=== PATIENT | female | born 1950 | race Caucasian/White ===

== ENCOUNTER → 2016-10-28 | Outpatient (CLI) | payer MEDICARE, BC ==
[2016-07-15 10:22] VITALS: BP 125/67
[~2016-10-28] MED LIST: ALBU18HF IH; ATOR20TA58 PO; CARV12.5 PO; CEFP200T PO; CITA10TA8 PO; CYCL5TAB PO; EMPA1TAB3 PO; ERGO500027 PO; FENO145T2 PO; GABA300T2 PO; GLIM4TAB2 PO; GUAI600T47 PO; IBUP800T19 PO; INSU100I17 SQ; INSU100I27 SQ; IPRA3AMP NEB; LISI-334 PO; LOSA1TAB17 PO; METF100P4 PO; METO50TA4 PO; MOME13HF IH; OXYC-328 PO; POTA10CA PO; POTA10TA10 PO; PRED-220 PO; PRED5TAB PO; SITA1TAB11 PO; VALA500T PO
--- NOTE | 2016-10-28 16:10 | RAD ---
Indication: Low back pain and recent falls. Time of exam 1605 hours. Comparison is made with prior radiograph from 07/10/2005. Curvature and alignment is normal. There are postop changes of posterior instrumented fusion with vertical stabilization rods and pedicle screws transfixing the L5-S1 level. The hardware appears intact. No fracture or loosening is identified. The vertebral body heights are well-maintained. No acute compression fracture is seen. Generalized degenerative disc disease with very mild disc space narrowing and marginal spurring is noted. There are atherosclerotic calcifications within the abdominal aorta. Impression: Postop changes of posterior instrumented fusion L4-5. There is lumbar spondylosis. No acute feature is detected.
== END | disposition home or self-care (01) ==
LOC: DXRADRC 15:58
PROVIDERS: ATTEND Physician Assistant
DX: M47.896 Other spondylosis, lumbar region (principal); M51.36 Other intervertebral disc degeneration, lumbar region; I70.0 Atherosclerosis of aorta
CPT/HCPCS: 72100

== ENCOUNTER 2017-02-09 15:05 | Observation (INO) | payer MEDICARE, BC ==
[~2017-02-09] VITALS: Ht 152.4 cm; Wt 64.4 kg
[2017-02-09] MEDS ORDERED: IV NORMAL SALINE 1,000ML 1,000 ML IV ONE (15:30)
--- NOTE | 2017-02-09 15:32 | RAD ---
Exam performed: One view chest. Indication: Chest pain today Date of Service: 02/09/2017 5:15 PM Comparison: 07/14/16. Single AP upright portable view chest findings: Cardiomediastinal silhouette is within limits of normal. No acute infiltrates, effusion or pneumothorax is detected. The bony structures are normal. Impression: No acute cardiopulmonary process is detected.
[2017-02-09 15:36] LABS: BASO % 0 % (0-3); EOS # 0.1 x10^3/uL (0.0-0.7); EOS % 2 % (0-3); HEMATOCRIT 33.4 % (36.0-47.0); HEMOGLOBIN 11.2 g/dL (12.0-15.5); LYMPH # 2.3 x10^3/uL (1.0-4.8); LYMPH % 35 % (24-48); MEAN CORPUSCULAR HEMOGLOBIN 31 pg (25-35); MEAN CORPUSCULAR HGB CONC 34 g/dL (31-37); MEAN CORPUSCULAR VOLUME 92 fL (79-100); MONO # 0.5 x10^3/uL (0.0-1.1); MONO % 8 % (0-9); NEUT # 3.6 x10^3uL (1.8-7.7); NEUT % 55 % (31-73); PLATELET COUNT 299 x10^3/uL (140-400); RED BLOOD COUNT 3.65 x10^6/uL (3.50-5.40); RED CELL DISTRIBUTION WIDTH 14.7 % (11.5-14.5); WHITE BLOOD COUNT 6.6 x10^3/uL (4.0-11.0)
[2017-02-09] MEDS ORDERED: fentaNYL PF 100 MCG/2 ML VIAL IV ONE ×2 (15:45→17:00)
[2017-02-09 15:58] LABS: ALBUMIN 3.4 g/dL (3.4-5.0); CALCIUM 9.4 mg/dL (8.5-10.1); CREATININE 1.2 mg/dL (0.6-1.0); GFR 45.1; MAGNESIUM 2.3 mg/dL (1.8-2.4); POTASSIUM 3.4 mmol/L (3.5-5.1); TOTAL BILIRUBIN 0.2 mg/dL (0.2-1.0); TOTAL PROTEIN 6.8 g/dL (6.4-8.2)
--- NOTE | 2017-02-09 16:03 | PHYS DOC ---
Past History Past Medical History: CAD, Cancer, Diabetes, Hypertension Past Surgical History: Cholecystectomy, , Hysterectomy Smoking: Non-smoker Alcohol Use: None Drug Use: None Adult General Chief Complaint Chief Complaint: CHEST PAIN HPI HPI Patient is a 66-year-old male presenting to the emergency department for evaluation of chest squeezing that started approximately 1.5 hours prior to arrival while at rest. She says it feels very similar to when she had her heart episodes in June and October. She says that she became short of breath and diaphoretic with the pain but no nausea and vomiting. Areas no radiation and she denied any recent exertional activity that set the pain off. Looking through the records it appears that she had a heart catheterization in June with 4 stents placed and then she had a stent thrombosis and had another heart catheter in October. Her counter hop is Dr. martin. She is in no obvious distress with normal vital signs. Review of Systems Review of Systems Constitutional: Denies fever or chills [] Eyes: Denies change in visual acuity, redness, or eye pain [] HENT: Denies nasal congestion or sore throat [] Respiratory: Denies cough or shortness of breath [] Cardiovascular: No additional information not addressed in HPI [] GI: Denies abdominal pain, nausea, vomiting, bloody stools or diarrhea [] : Denies dysuria or hematuria [] Musculoskeletal: Denies back pain or joint pain [] Integument: Denies rash or skin lesions [] Neurologic: Denies headache, focal weakness or sensory changes [] Endocrine: Denies polyuria or polydipsia [] Current Medications Current Medications Current Medications Medications (Trade) Dose Ordered Sig/Juan Start Time Stop Time Status Last Admin Dose Admin Fentanyl Citrate (Fentanyl 2ml Vial) 75 mcg 1X ONCE 02/09/17 15:45 02/09/17 15:46 DC 02/09/17 15:41 75 MCG Sodium Chloride 1,000 ml @ 1,000 mls/hr 1X ONCE 02/09/17 15:30 02/09/17 16:29 02/09/17 15:30 1,000 MLS/HR Allergies Allergies Allergies Coded Allergies Type Severity Reaction Last Updated Verified Penicillins Allergy Intermediate 06/01/16 Yes Soap Allergy Intermediate 06/01/16 Yes aspirin Allergy Intermediate 06/01/16 Yes hydrocodone bitartrate Allergy Intermediate Itching 10/25/15 Yes mushroom Allergy Intermediate 06/01/16 Yes povidone-iodine Allergy Intermediate 06/01/16 Yes Physical Exam Physical Exam Constitutional: Well developed, well nourished, no acute distress, non-toxic appearance. [] HENT: Normocephalic, atraumatic, bilateral external ears normal, oropharynx moist, no oral exudates, nose normal. [] Eyes: PERRLA, EOMI, conjunctiva normal, no discharge. [] Neck: Normal range of motion, no tenderness, supple, no stridor. [] Cardiovascular:Heart rate regular rhythm, no murmur [] Lungs & Thorax: Bilateral breath sounds clear to auscultation [] Abdomen: Bowel sounds normal, soft, no tenderness, no masses, no pulsatile masses. [] Skin: Warm, dry, no erythema, no rash. [] Back: No tenderness, no CVA tenderness. [] Extremities: No tenderness, no cyanosis, no clubbing, ROM intact, no edema. [] Neurologic: Alert and oriented X 3, normal motor function, normal sensory function, no focal deficits noted. [] Psychologic: Affect normal, judgement normal, mood normal. [] Current Patient Data Vital Signs Vital Signs Date Time Temp Pulse Resp B/P (MAP) Pulse Ox O2 Delivery O2 Flow Rate FiO2 02/09/17 15:41 20 97 Room Air 02/09/17 15:22 98.2 82 Lab Results Laboratory Tests Test 02/09/17 15:20 White Blood Count 6.6 x10^3/uL (4.0-11.0) Red Blood Count 3.65 x10^6/uL (3.50-5.40) Hemoglobin 11.2 g/dL (12.0-15.5) L Hematocrit 33.4 % (36.0-47.0) L Mean Corpuscular Volume 92 fL (79-100) Mean Corpuscular Hemoglobin 31 pg (25-35) Mean Corpuscular Hemoglobin Concent 34 g/dL (31-37) Red Cell Distribution Width 14.7 % (11.5-14.5) H Platelet Count 299 x10^3/uL (140-400) Neutrophils (%) (Auto) 55 % (31-73) Lymphocytes (%) (Auto) 35 % (24-48) Monocytes (%) (Auto) 8 % (0-9) Eosinophils (%) (Auto) 2 % (0-3) Basophils (%) (Auto) 0 % (0-3) Neutrophils # (Auto) 3.6 x10^3uL (1.8-7.7) Lymphocytes # (Auto) 2.3 x10^3/uL (1.0-4.8) Monocytes # (Auto) 0.5 x10^3/uL (0.0-1.1) Eosinophils # (Auto) 0.1 x10^3/uL (0.0-0.7) Basophils # (Auto) 0.0 x10^3/uL (0.0-0.2) Troponin I Quantitative < 0.017 ng/mL (0-0.055) EKG EKG Normal sinus rhythm with normal axis no obvious ST elevation or depression and normal T waves. Radiology/Procedures Radiology/Procedures [] Course & Med Decision Making Course & Med Decision Making Patient with concerning chest pain symptoms she will be admitted for further observation and treatment. Patient admitted in stable condition. Dragon Disclaimer Dragon Disclaimer This chart was dictated in whole or in part using Voice Recognition software in a busy, high-work load, and often noisy Emergency Department environment. It may contain unintended and wholly unrecognized errors or omissions. Departure Departure: Impression: Primary Impression: Chest pain Disposition: ADMITTED INPATIENT Admitting Physician: Alexandra Phan Condition: STABLE Referrals: PRESLEY PAVON (PCP) LOAN MAR DO Feb 09, 2017 16:03
[2017-02-09] MEDS ORDERED: ONDANSETRON PF 4 MG/2 ML VIAL. IV PRN (16:30)
--- NOTE | 2017-02-09 17:01 | EKG ---
[address] [address] Test Date: 2017-02-09 Test Time: 15:11:26 Pat Name: FAMILIA MAR Department: Room: Gender: F Track Rider: : [id number] Requested By: LOAN MAR Order Number: [id number] Reading MD: Chris Sears Measurements Intervals [place] Rate: 79 P: 36 MO: 116 QRS: 1 QRSD: 80 T: 30 QT: 390 QTc: 448 Interpretive Statements SINUS RHYTHM Electronically Signed On 02-15-2017 14:19:29 CDT by Chris Sears
[2017-02-09] MEDS ORDERED: ALBUTEROL SULFATE 8GM INHALER. IH PRN (17:30)
[2017-02-09] MEDS ORDERED: NON FORMULARY ITEM (Mometasone/Formoterol (Dulera 200 Mcg/5 Mcg Inhaler) 2 PUFF) IH PRN (17:30)
[2017-02-09] MEDS ORDERED: IPRATRPIUM/ALBUTEROL 0.5/2.5MG 3 ML NEBU. NEB PRN (17:30)
[2017-02-09] MEDS ORDERED: ALBUTEROL SULFATE 2.5 MG/3 ML NEBU. NEB PRN (17:45)
[2017-02-09 19:26] VITALS: BP 123/68
[2017-02-09] MEDS ORDERED: POTASSIUM CHLORIDE 20 MEQ TABLET.ER. PO ONE (19:30)
[2017-02-09] MEDS ORDERED: ASPI81TA50 PO (20:05)
[2017-02-09] MEDS ORDERED: CLOP75TA57 PO (20:05)
[2017-02-09] MEDS ORDERED: PIOG30TA41 PO (20:05)
[2017-02-09] MEDS ORDERED: SITA100T PO (20:05)
[2017-02-09] MEDS: fentaNYL PF 100 MCG/2 ML VIAL IV PRN (20:21)
[2017-02-09] MEDS ORDERED: ATORVASTATIN CALCIUM 20 MG TABLET PO SCH (21:00)
[2017-02-09] MEDS ORDERED: DOCUSATE SODIUM 100 MG CAPSULE PO PRN (21:15)
[2017-02-09] MEDS ORDERED: MAG HYDROX/AL HYDROX/SIMETH 30 ML ORAL.SUSP PO PRN (21:15)
[2017-02-09] MEDS ORDERED: ACETAMINOPHEN 325 MG TABLET PO PRN (21:15)
[2017-02-09] MEDS ORDERED: ESCITALOPRAM OX10 MG PO (21:15)
[2017-02-09] MEDS ORDERED: NITROGLYCERIN SUBLINGUAL 0.4 MG BOTTLE OF 25. SL PRN (21:15)
[2017-02-09] MEDS ORDERED: NITR0.4T22 SL (21:15)
[2017-02-09] MEDS: BUDESONIDE 0.5 MG/2 ML NEBU NEB SCH (21:28)
[2017-02-09] MEDS: ALBUTEROL SULFATE 2.5 MG/3 ML NEBU. NEB SCH (21:28)
[2017-02-09 21:57] VITALS: BP 111/74
[2017-02-09] MEDS ORDERED: CLOPIDOGREL BISULFATE 75 MG TABLET PO SCH (22:00)
[2017-02-09] MEDS ORDERED: POTASSIUM CHLORIDE 20 MEQ TABLET.ER. PO SCH (22:00)
[2017-02-09] MEDS ORDERED: LOSARTAN PO SCH (22:00)
[2017-02-09] MEDS ORDERED: HYDROCHLOROTHIAZIDE PO SCH (22:00)
[2017-02-09] MEDS ORDERED: ASPIRIN ENTERIC COATED 81 MG TABLET.DR. PO SCH (22:00)
[2017-02-09] MEDS ORDERED: CARVEDILOL 12.5 MG TABLET PO SCH (22:00)
[2017-02-09 23:17] VITALS: BP 113/75
[2017-02-10] MEDS: fentaNYL PF 100 MCG/2 ML VIAL IV PRN (00:15)
[2017-02-10 04:10] LABS: CALCIUM 8.8 mg/dL (8.5-10.1); GFR 55.6
[2017-02-10 05:00] VITALS: BP 112/72
--- NOTE | 2017-02-10 06:10 | ACF ---
Admission Criteria Forms CARDIOLOGY [facility] Clinical Indications for Admission to Inpatient Care ( Jamul/check or initial the applicable condition/criteria) Hospital admission is needed for appropriate care of the patient because of ANY ONE of the following: [ ] I. Hemodynamic instability as indicated by ALL of the following (1)(2)(3) (4)(5)(6)(7)(8)(9)(10) [ ]a) Vital sign abnormality not readily corrected by appropriate treatment with 12-24 hours for ANY ONE: [ ]i) Hypotension that persists despite appropriate treatment (eg, volume repletion) [ ]ii) Tachycardiathat persists despite appropriate tx ( e.g., analgesia, fluids, sedation as indicated [ ]iii) Orthostatic vital sign changes that persists despite appropriate treatment (eg, volume repletion) [ ]b) Vital sign abnormailty that is severe indicated by ANY ONE of the following: [ ]i) Inadequate perfusion indicated by ANY ONE of the following: [ ] 1) Lactic acidosis (> 2 mmol/L) [ ] 2) New abnormal capillary refill (> 3 seconds) [ ] 3) Reduced urine output [ ] 4) New altered mental status [ ] 5) Myocardial Ischemia [ ] 6) Other metabolic acidosis (arterial pH <7.35 ) not otherwise explained. [ ]ii) Mean arterial pressure[A] less than 60 mm Hg [ ]iii) Mean arterial pressure[A] less than 70 mm Hg after 30 minutes of appropriate treatment (eg, fluid resuscitation) [ ]iv) Sustained heart rate greater than 120 beats per minute in adult or child 6 years or older[B] [ ]v) IV inotropic or vasopressor medication required to maintain adequate blood pressure or perfusion [ ] II. Severe heart failure as indicated by ANY ONE of the following(17)(18) [ ]a) Respiratory distress [ ]b) Hypotension [ ]c) Debilitating anasarca refractory to therapy (eg, tissue breakdown with infection)[C](19) [ ]d) Cardiac arrhythmias of immediate concern [ ]e) Myocardial ischemia [ ] III. Cardiac arrhythmias or findings of immediate concern indicated by ANY ONE of the following (21)(22): [ ] a) Heart rhythms that are inherently dangerous or unstable indicated by ANY ONE of the following (23)(24)(25): [ ] i) Resuscitated ventricular fibrillation or cardiac arrest [ ] ii) Ventricular escape rhythm [ ] iii) Sustained ventricular tachycardia (30 seconds or more of ventricular rhythm at greater than 100 beats per minute) [ ] iv) Nonsustained ventricular tachycardia and ANY ONE of the following: [ ] 1) Suspected cardiac ischemia as cause or consequence of ventricular tachycardia [ ] 2) Acute myocarditis [ ] b) Unstable cardiac conduction defects indicated by ANY ONE of the following(25)(26)(27) [ ] i) Type II second-degree atrioventricular block [ ]ii) Third-degree atrioventricular block [ ]iii) New-onset left bundle branch block with suspected myocardial ischemia [ ]c) Any heart rhythm and ANY ONE of the following (23)(24)(28)(29) (30) [ ] i) Continuous long-term ECG monitoring needed (e.g., initiation of drug requiring monitoring for more than 24 hours) [ ] ii) Patient has automatic implanted cardioverter defibrillator that is repeatedly firing, malfunctioning, or in need of immediate adjustment of settings beyond the scope of ambulatory or observation care [ ]d) Heart rhythms of concern due to ANY ONE of the following: [ ] i) Hypotension [ ] ii) Respiratory distress [ ] iii) Association with other significant symptoms (e.g., bradycardia with syncope or ongoing dizziness, supraventricular tachycardia with chest pain (28)(29)(31) [ ] IV. Monitoring for cardiac contusion beyond the scope of observation care needed [A](32)(33)(34) [ ] V. Surgical or device complication (e.g., valve replacement complication , ICD disfunction or pacemaker dysfunction) (49)(50)(51)(52)(53)(54) [ ] . Inpatient palliative care needed. [F](51)(52) Also use Inpatient Palliative Care Criteria [ ] VII. Nonbacterial thrombotic (marantic) endocarditis(43)(44)(55)(56)(57) [X] VIII. Cardiology condition, symptom, or finding for which emergency and observation care has failed or are not considered appropriate. [ ] IX. Acute valvular disease requiring inpatient as indicated by ANY ONE of the following (40)(41) [ ]a) Acute valvular regurgitation (42) [ ]b) Noninfectious valvulitis (43)(44) [ ]c) Obstructive valve thrombosis (45)(46) [ ]d) Paravalvular leak(47)(48) [ ]e) Other significant valvular disorder remaining after emergency or observation level of care (as appropriate) [ ]X. Pericardial disease requiring inpatient treatment as indicated by ANY ONE of the following (35)(36)(37)(38) [ ]a) Suspected tamponade [ ]b) Hemopericardium [ ]c) Other significant pericardial disorder remaining after emergency or observation level of care (as appropriate)(39) [ ] XI. Cardiac ischemia beyond scope of emergency and observation care. [ ] XII. Cyanotic heart disease requiring inpatient care as indicated by 1 or more of the following(58)(59)(60): [ ]a) Acute onset of hypoxemia [ ]b) Exacerbation [ ] XIII. Hypertension requiring inpatient treatment as indicated by ANYONE of the following(11)(12)(13)(14): [ ]a) Severe hypertension (SBP greater than 180 mm Hg or DBP greater than 110 mm Hg, or greater than the 95th percentile for age, gender, and height in pediatric patients) that cannot be controlled (eg, to SBP less than 160 mm Hg and DBP less than 100 mm Hg) by emergency department or observation care treatment(15) [ ]b) Acute end organ damage secondary to hypertension (SBP greater than 140 mm Hg or DBP greater than 90 mm Hg) as indicated by ANYONE of the following: [ ] i) Hypertensive encephalopathy (eg, Altered mental status)(16) [ ] ii) Cerebral infarction [ ] iii) Intracranial hemorrhage [ ] iv) Myocardial ischemia or infarction [ ] v) Heart failure (eg, pulmonary edema) [ ] vi) Aortic dissection [ ] vii) Increased creatinine (new) with reduction of more than 50% in estimated glomerular filtration rate from baseline [ ] viii) Papilledema [ ] ix) Retinal hemorrhage [ ] x) Microangiopathic hemolytic anemia [ ] xi) Seizure [ ] xii) Other significant finding secondary to hypertension [ ] XIV. Complications of transplanted heart indicated by ANY ONE of the following(61): [ ]a) Acute graft rejection requiring inpatient management (eg, intravenous imunosuppression)(62)(63) [ ]b) Acute graft heart failure indicated by ANY ONE of the following(64): [ ] i) Hemodynamic instability [ ] ii) Cardiac arrhythmias of immediate concern [ ] iii) Pulmonary edema that is very severe (eg, mechanical ventilation needed, imminent or likely, need for 100% oxygen to keep oxygen saturation above 90%) [ ] iv) Pulmonary edema that is persistent as indicated by ALL of the following: [ ] 1) New need for oxygen therapy to keep oxygen saturation above 90 % (or increased FiO2 need from baseline) [ ] 2) Has not improved sufficiently with emergency department or observation care IV diuretics or other heart failure treatments[E]. [ ] iv) Altered mental status that is severe or persistent [ ] iv) Increased creatinine (new on laboratory test) with reduction of more than 50% in estimated glomerular filtration rate from baseline [ ] iv) Progressively (ongoing) rising creatinine (known from past laboratory test) with reduction of more than 25% in estimated glomerular filtration rate from baseline [ ] iv) Acute renal failure [ ] iv) Acute peripheral ischemia (eg, examination shows pulseless, cool, mottled, or cyanotic extremity) [ ] iv) Pulmonary artery catheter monitoring needed [ ] iv) Other sign or symptom of heart failure requiring inpatient treatment (ie, too severe or not responsive to outpatient and observation care treatment) [ ]c) Infection requiring inpatient management (eg, Hemodynamic instability, need for intravenous antimicrobial treatment)(66)(67)(68)(69)(70) [ ]d) Cardiac allograft vasculopathy requiring inpatient management (eg evidence of cardiacischemia)(71) [ ]e) Other complication of transplanted heart (eg, stroke, severe pulmonary hypertension, severe valvular dysfunction) requiring inpatient management(72) The original [facility] content created by [employer] has been revised. The portions of the content which have been revised are identified through the use of italic text, and [facility] has neither reviewed nor approved the modified material. All other unmodified content is copyright [facility]. Please see references footnoted in the original [facility] edition 2014 Admission Criteria Met?: Yes EDUARDO TELLES Feb 10, 2017 06:10
[2017-02-10 06:11] LABS: BASO % 0 % (0-3); EOS # 0.1 x10^3/uL (0.0-0.7); EOS % 2 % (0-3); HEMATOCRIT 29.6 % (36.0-47.0); HEMOGLOBIN 9.9 g/dL (12.0-15.5); LYMPH # 1.8 x10^3/uL (1.0-4.8); LYMPH % 30 % (24-48); MEAN CORPUSCULAR HEMOGLOBIN 31 pg (25-35); MEAN CORPUSCULAR HGB CONC 33 g/dL (31-37); MEAN CORPUSCULAR VOLUME 93 fL (79-100); MONO # 0.4 x10^3/uL (0.0-1.1); MONO % 8 % (0-9); NEUT # 3.5 x10^3uL (1.8-7.7); NEUT % 60 % (31-73); PLATELET COUNT 254 x10^3/uL (140-400); WHITE BLOOD COUNT 5.8 x10^3/uL (4.0-11.0)
[2017-02-10] MEDS: ALBUTEROL SULFATE 2.5 MG/3 ML NEBU. NEB SCH ×2 (08:00→09:43)
--- NOTE | 2017-02-10 09:02 | PDOC2 ---
CONSULT Date of Admission DATE: 02/10/17 TIME: 08:53 Reason for Consult: chest pain Problem List Problems Medical Problems: (1) Chest pain Status: Acute History of Present Illness History of Present Illness Ms Prakash is a 65 year old female with a history of hypertension, coronary artery disease with PCI and stents in June, diabetes mellitus and dyslipidemia. She presents with complaints of chest discomfort. Discomfort is described as pressure, mid sternal to epigastric area with radiation to her left throat and arm. She reports onset at rest, (just woke from nap) and got progressively worse so she presented to the ED. She reports that pain seemed to get worse with walking but no better with rest. She also reports lightheadedness and feeling she might pass out. She denies palpitations. She denies congestive symptoms. She does report some ankle/foot edema, worse in evenings and better in the am. Past Medical History Past Medical History Cardiac cath 07/31/16 FINDINGS 1. Hemodynamics: Left ventricular end-diastolic pressure 7 mm Hg. No pullback gradient across the aortic valve. 2. Left ventriculography: Normal left ventricular systolic function with ejection fraction estimated at 65%. No significant mitral regurgitation seen. 3. Coronary angiography: a. The left main coronary artery arose from the left sinus of Valsalva, gave rise to the left anterior descending and left circumflex arteries I do not show any significant stenosis. b. The left anterior descending artery showed 70% stenosis in the proximal segment and 90% stenosis in the midsegment. c. The left circumflex artery showed 40% stenosis in the proximal segment of large obtuse marginal branch. d. The right coronary artery was a large and dominant vessel arising from the right tonsil loss over that showed 80% stenosis in the proximal segment of the posterior descending branch. Conclusion 1. Severe two-vessel coronary artery disease 2. Successful PCI/drug eluting stents placement to the left anterior descending artery and the posterior descending branch of right coronary artery 3. Normal left ventricular systolic function with ejection fraction estimated at 65% Cardiac cath 11/06/16 Conclusion 1. Patent stents in the left anterior descending artery and the posterior descending branch of right coronary artery, 50% stenosis involving the obtuse marginal branch of left circumflex artery. 2. Normal left ventricle systolic function with ejection fraction estimated at 60-65%. Meniere disease, bronchial asthma, chronic bronchitis, diabetes mellitus, hypertension, coronary artery disease, hepatitis B, and fatty liver. Past Surgical History Past Surgical History tonsillectomy, five ear surgeries, cholecystectomy, two C-sections, hernia repair x 2, total abdominal hysterectomy, and bilateral salpingo-oophorectomy, left knee arthroscopic surgery, back surgeries, esophagogastroduodenoscopy and colonoscopy. Family History Family History She has one brother who is older and has CVA and myocardial infarction, 3 sisters, younger, but does not keep in touch with them. Her father at the age of 53 because of severe emphysema. Mother of meningitis. Her son at 39 of an NH with history of cardiomyopathy and heart failure. Social History Social History She is , had 3 sons. She never smoked, does not drink alcohol or use any recreational drugs. 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 Current Medications Current Medications Fentanyl Citrate (Fentanyl 2ml Vial) 75 mcg 1X ONCE IV Last administered on 15:41; Start 02/09/17 at 15:45; Stop 02/09/17 at 15:46; Status DC Sodium Chloride 1,000 ml @ 1,000 mls/hr 1X ONCE IV Last administered on 15:30; Start 02/09/17 at 15:30; Stop 02/09/17 at 16:29; Status DC Fentanyl Citrate (Fentanyl 2ml Vial) 75 mcg 1X ONCE IV Last administered on 16:37; Start 02/09/17 at 17:00; Stop 02/09/17 at 17:01; Status DC Ondansetron HCl (Zofran) 4 mg PRN Q4HRS PRN IV NAUSEA/VOMITING; Start 02/09/17 at 16:30; Stop 02/10/17 at 16:29 Fentanyl Citrate (Fentanyl 2ml Vial) 50 mcg PRN Q2HR PRN IV PAIN Last administered on 02/10/17 00:15; Start 02/09/17 at 16:30; Stop 02/10/17 at 16:29 Albuterol Sulfate (Ventolin Hfa) 1 puff PRN Q4HRS PRN IH SHORTNESS OF BREATH; Start 02/09/17 at 17:30; Status UNV Atorvastatin Calcium (Lipitor) 40 mg QHS PO Last administered on 02/09/17 21: 52; Start 02/09/17 at 21:00 Albuterol/ Ipratropium (Duoneb) 3 ml PRN QID PRN NEB SHORTNESS OF BREATH; Start 02/09/17 at 17:30 Non-Formulary Medication 2 puff QID PRN IH SHORTNESS OF BREATH; Start 02/09/17 at 17:30; Status UNV Albuterol Sulfate (Ventolin) 2.5 mg RTQID NEB Last administered on 02/09/17 21 :28; Start 02/09/17 at 20:00 Albuterol Sulfate (Ventolin) 2.5 mg PRN Q4HRS PRN NEB SHORTNESS OF BREATH; Start 02/09/17 at 17:45 Budesonide (Pulmicort) 0.5 mg RTBID NEB Last administered on 02/09/17 21:28; Start 02/09/17 at 20:00 Potassium Chloride (Klor-Con) 40 meq 1X ONCE PO Last administered on 20:11; Start 02/09/17 at 19:30; Stop 02/09/17 at 19:31; Status DC Aspirin (Aspirin Enteric Coated) 81 mg HS PO Last administered on 02/09/17 21: 52; Start 02/09/17 at 22:00 Carvedilol (Coreg) 12.5 mg HS PO Last administered on 02/09/17 21:52; Start at 22:00 Clopidogrel Bisulfate (Plavix) 75 mg HS PO Last administered on 02/09/17 21:52 ; Start 02/09/17 at 22:00 Non-Formulary Medication 1 tab HS PO Last administered on 02/09/17 21:53; Start 02/09/17 at 22:00 Potassium Chloride (Klor-Con) 20 meq HS PO ; Start 02/09/17 at 22:00 Non-Formulary Medication 100 mg HS PO Last administered on 02/09/17 21:52; Start 02/09/17 at 22:00 Nitroglycerin (Nitrostat) 0.4 mg PRN Q5MIN PRN SL CHEST PAIN; Start 02/09/17 at 21:15 Acetaminophen (Tylenol) 650 mg PRN Q6HRS PRN PO PAIN / TEMP; Start 02/09/17 at 21:15 Docusate Sodium (Colace) 100 mg PRN DAILY PRN PO CONSTIPATION; Start 02/09/17 at 21:15 Al Hydroxide/Mg Hydroxide (Mylanta Plus Xs) 30 ml PRN Q2HR PRN PO DYSPEPSIA; Start 02/09/17 at 21:15 Active Scripts Active Atorvastatin Calcium 20 Mg Tablet 40 Mg PO QHS Reported Escitalopram Oxalate 10 Mg Tablet 10 Mg PO DAILY NITROGLYCERIN SubLingual (Nitroglycerin) 0.4 Mg Tab.subl 0.4 Mg SL PRN Q5MIN PRN Actos (Pioglitazone Hcl) 30 Mg Tablet 30 Mg PO DAILY Plavix (Clopidogrel Bisulfate) 75 Mg Tablet 75 Mg PO DAILY Januvia (Sitagliptin Phosphate) 100 Mg Tablet 100 Mg PO DAILY Aspir-Low (Aspirin) 81 Mg Tablet.dr 81 Mg PO DAILY Ventolin Hfa Inhaler (Albuterol Sulfate) 18 Gm Hfa.aer.ad 1 Puff IH PRN Q4HRS PRN Coreg (Carvedilol) 12.5 Mg Tablet 12.5 Mg PO DAILY last dose this morning next dose tonight Duoneb 0.5-3(2.5) Mg/3 Ml (Albuterol/Ipratropium) 3 Ml Ampul.neb 3 Ml NEB QID PRN resume as needed Potassium Chloride 10 Meq Tablet.er 20 Meq PO DAILY last dose this morning next dose tomorrow Dulera 200 Mcg/5 Mcg Inhaler (Mometasone/Formoterol) 13 Gm Hfa.aer.ad 2 Puff IH QID PRN may resume Losartan-Hctz 100-25 Mg Tab (Losartan/Hydrochlorothiazide) 1 Each Tablet 1 Tab PO DAILY last dose this morning next dose tomorrow Ibuprofen 800 Mg Tablet 800 Mg PO BID PRN may resume Allergies: Coded Allergies: Penicillins (Verified Allergy, Intermediate, 06/01/16) Soap (Verified Allergy, Intermediate, 06/01/16) hydrocodone bitartrate (Verified Allergy, Intermediate, Itching, 10/25/15) mushroom (Verified Allergy, Intermediate, 06/01/16) povidone-iodine (Verified Allergy, Intermediate, 06/01/16) aspirin (Verified Allergy, Mild, 02/09/17) upset stomach when taken without food Review of System as per HPI or negative General: Alert, Oriented X3, Cooperative, No acute distress HEENT: Atraumatic, EOMI, Mucous membr. moist/pink Heart: Regular rate, Normal S1, Normal S2, Other (no gallops, clicks or rubs) Abdomen: Normal bowel sounds, Soft, No tenderness Extremities: No cyanosis, No edema, Normal pulses Neuro: Normal speech, Strength at 5/5 X4 ext Psych/Mental Status: Mental status NL, Mood NL VITALS Vital Signs Date Time Temp Pulse Resp B/P (MAP) Pulse Ox O2 Delivery O2 Flow Rate FiO2 02/10/17 08:23 Room Air 02/10/17 05:00 98.1 78 18 112/72 (85) 95 Labs Laboratory Tests Test 02/09/17 15:20 02/09/17 21:24 02/09/17 21:46 02/10/17 03:35 White Blood Count 6.6 x10^3/uL (4.0-11.0) 5.8 x10^3/uL (4.0-11.0) Red Blood Count 3.65 x10^6/uL (3.50-5.40) 3.20 x10^6/uL (3.50-5.40) Hemoglobin 11.2 g/dL (12.0-15.5) 9.9 g/dL (12.0-15.5) Hematocrit 33.4 % (36.0-47.0) 29.6 % (36.0-47.0) Mean Corpuscular Volume 92 fL (79-100) 93 fL (79-100) Mean Corpuscular Hemoglobin 31 pg (25-35) 31 pg (25-35) Mean Corpuscular Hemoglobin Concent 34 g/dL (31-37) 33 g/dL (31-37) Red Cell Distribution Width 14.7 % (11.5-14.5) 14.0 % (11.5-14.5) Platelet Count 299 x10^3/uL (140-400) 254 x10^3/uL (140-400) Neutrophils (%) (Auto) 55 % (31-73) 60 % (31-73) Lymphocytes (%) (Auto) 35 % (24-48) 30 % (24-48) Monocytes (%) (Auto) 8 % (0-9) 8 % (0-9) Eosinophils (%) (Auto) 2 % (0-3) 2 % (0-3) Basophils (%) (Auto) 0 % (0-3) 0 % (0-3) Neutrophils # (Auto) 3.6 x10^3uL (1.8-7.7) 3.5 x10^3uL (1.8-7.7) Lymphocytes # (Auto) 2.3 x10^3/uL (1.0-4.8) 1.8 x10^3/uL (1.0-4.8) Monocytes # (Auto) 0.5 x10^3/uL (0.0-1.1) 0.4 x10^3/uL (0.0-1.1) Eosinophils # (Auto) 0.1 x10^3/uL (0.0-0.7) 0.1 x10^3/uL (0.0-0.7) Basophils # (Auto) 0.0 x10^3/uL (0.0-0.2) 0.0 x10^3/uL (0.0-0.2) Prothrombin Time < 9.3 SEC (9.4-11.4) Prothromb Time International Ratio 0.9 (0.9-1.1) Activated Partial Thromboplast Time 22 SEC (23-33) Sodium Level 142 mmol/L (136-145) 142 mmol/L (136-145) Potassium Level 3.4 mmol/L (3.5-5.1) 4.0 mmol/L (3.5-5.1) Chloride Level 103 mmol/L (98-107) 107 mmol/L (98-107) Carbon Dioxide Level 31 mmol/L (21-32) 28 mmol/L (21-32) Anion Gap 8 (6-14) 7 (6-14) Blood Urea Nitrogen 36 mg/dL (7-20) 31 mg/dL (7-20) Creatinine 1.2 mg/dL (0.6-1.0) 1.0 mg/dL (0.6-1.0) Estimated GFR (Cockcroft-Gault) 45.1 55.6 BUN/Creatinine Ratio 30 (6-20) Glucose Level 120 mg/dL (70-99) 128 mg/dL (70-99) Calcium Level 9.4 mg/dL (8.5-10.1) 8.8 mg/dL (8.5-10.1) Magnesium Level 2.3 mg/dL (1.8-2.4) Total Bilirubin 0.2 mg/dL (0.2-1.0) Aspartate Amino Transf (AST/SGOT) 12 U/L (15-37) Alanine Aminotransferase (ALT/SGPT) 25 U/L (14-59) Alkaline Phosphatase 96 U/L (46-116) Troponin I Quantitative < 0.017 ng/mL (0-0.055) < 0.017 ng/mL (0-0.055) < 0.017 ng/mL (0-0.055) IT-Wrq-C-Type Natriuretic Peptide 69 pg/mL (0-124) Total Protein 6.8 g/dL (6.4-8.2) Albumin 3.4 g/dL (3.4-5.0) Albumin/Globulin Ratio 1.0 (1.0-1.7) Glucose (Fingerstick) 122 mg/dL (70-99) Test 02/10/17 07:21 Glucose (Fingerstick) 113 mg/dL (70-99) Images EKG - sinus rhythm, early transition, non specific abnormalities. CXR - no acute disease Assessment/Plan 1. Chest pain, NH ruled out. 2. CAD s/p PCI stenting as above. Repeat cath in October with patent stents and 50 % OM lesion. 3. hypertension - well controlled 4. hyperlipidemia - check lipids 5. anemia - per PCP 6. diabetes mellitus - per PCP Problems: CONSUELO DE OLIVEIRA APRN Feb 10, 2017 09:02
[2017-02-10] MEDS ORDERED: RANOLAZINE 500 MG TAB.ER.12H PO SCH (09:30)
[2017-02-10] MEDS: BUDESONIDE 0.5 MG/2 ML NEBU NEB SCH (09:43)
[2017-02-10 10:24] VITALS: BP 97/61
[2017-02-10] MEDS ORDERED: RANO500T2 PO (13:39)
--- NOTE | 2017-02-10 13:52 | PDOC3 ---
Discharge Summary Visit Information Date of Admission: Feb 09, 2017 Date of Discharge: Feb 10, 2017 Final Diagnosis Problems Medical Problems: (1) Chest pain Status: Acute 1. Chest pain, NE ruled out. 2. CAD s/p PCI stenting as above. Repeat cath in October with patent stents and 50 % OM lesion. 3. hypertension - well controlled 4. hyperlipidemia - check lipids 5. anemia - per PCP 6. diabetes mellitus - per PCP Problems: Brief Hospital Course Allergies Allergies Coded Allergies Type Severity Reaction Last Updated Verified Penicillins Allergy Intermediate 06/01/16 Yes Soap Allergy Intermediate 06/01/16 Yes hydrocodone bitartrate Allergy Intermediate Itching 10/25/15 Yes mushroom Allergy Intermediate 06/01/16 Yes povidone-iodine Allergy Intermediate 06/01/16 Yes aspirin Allergy Mild 02/09/17 Yes Vital Signs Vital Signs Date Time Temp Pulse Resp B/P (MAP) Pulse Ox O2 Delivery O2 Flow Rate FiO2 02/10/17 10:24 97.7 81 20 97/61 (73) 98 Room Air Lab Results Laboratory Tests Test 02/09/17 15:20 02/09/17 21:24 02/09/17 21:46 02/10/17 03:35 White Blood Count 6.6 x10^3/uL (4.0-11.0) 5.8 x10^3/uL (4.0-11.0) Red Blood Count 3.65 x10^6/uL (3.50-5.40) 3.20 x10^6/uL (3.50-5.40) Hemoglobin 11.2 g/dL (12.0-15.5) 9.9 g/dL (12.0-15.5) Hematocrit 33.4 % (36.0-47.0) 29.6 % (36.0-47.0) Mean Corpuscular Volume 92 fL (79-100) 93 fL (79-100) Mean Corpuscular Hemoglobin 31 pg (25-35) 31 pg (25-35) Mean Corpuscular Hemoglobin Concent 34 g/dL (31-37) 33 g/dL (31-37) Red Cell Distribution Width 14.7 % (11.5-14.5) 14.0 % (11.5-14.5) Platelet Count 299 x10^3/uL (140-400) 254 x10^3/uL (140-400) Neutrophils (%) (Auto) 55 % (31-73) 60 % (31-73) Lymphocytes (%) (Auto) 35 % (24-48) 30 % (24-48) Monocytes (%) (Auto) 8 % (0-9) 8 % (0-9) Eosinophils (%) (Auto) 2 % (0-3) 2 % (0-3) Basophils (%) (Auto) 0 % (0-3) 0 % (0-3) Neutrophils # (Auto) 3.6 x10^3uL (1.8-7.7) 3.5 x10^3uL (1.8-7.7) Lymphocytes # (Auto) 2.3 x10^3/uL (1.0-4.8) 1.8 x10^3/uL (1.0-4.8) Monocytes # (Auto) 0.5 x10^3/uL (0.0-1.1) 0.4 x10^3/uL (0.0-1.1) Eosinophils # (Auto) 0.1 x10^3/uL (0.0-0.7) 0.1 x10^3/uL (0.0-0.7) Basophils # (Auto) 0.0 x10^3/uL (0.0-0.2) 0.0 x10^3/uL (0.0-0.2) Prothrombin Time < 9.3 SEC (9.4-11.4) Prothromb Time International Ratio 0.9 (0.9-1.1) Activated Partial Thromboplast Time 22 SEC (23-33) Sodium Level 142 mmol/L (136-145) 142 mmol/L (136-145) Potassium Level 3.4 mmol/L (3.5-5.1) 4.0 mmol/L (3.5-5.1) Chloride Level 103 mmol/L (98-107) 107 mmol/L (98-107) Carbon Dioxide Level 31 mmol/L (21-32) 28 mmol/L (21-32) Anion Gap 8 (6-14) 7 (6-14) Blood Urea Nitrogen 36 mg/dL (7-20) 31 mg/dL (7-20) Creatinine 1.2 mg/dL (0.6-1.0) 1.0 mg/dL (0.6-1.0) Estimated GFR (Cockcroft-Gault) 45.1 55.6 BUN/Creatinine Ratio 30 (6-20) Glucose Level 120 mg/dL (70-99) 128 mg/dL (70-99) Calcium Level 9.4 mg/dL (8.5-10.1) 8.8 mg/dL (8.5-10.1) Magnesium Level 2.3 mg/dL (1.8-2.4) Total Bilirubin 0.2 mg/dL (0.2-1.0) Aspartate Amino Transf (AST/SGOT) 12 U/L (15-37) Alanine Aminotransferase (ALT/SGPT) 25 U/L (14-59) Alkaline Phosphatase 96 U/L (46-116) Troponin I Quantitative < 0.017 ng/mL (0-0.055) < 0.017 ng/mL (0-0.055) < 0.017 ng/mL (0-0.055) SG-Ssj-L-Type Natriuretic Peptide 69 pg/mL (0-124) Total Protein 6.8 g/dL (6.4-8.2) Albumin 3.4 g/dL (3.4-5.0) Albumin/Globulin Ratio 1.0 (1.0-1.7) Glucose (Fingerstick) 122 mg/dL (70-99) Test 02/10/17 07:21 02/10/17 11:16 Glucose (Fingerstick) 113 mg/dL (70-99) 171 mg/dL (70-99) Brief Hospital Course Ms. Prakash is a 66 old female who presented to the ER complaining of chest pain, mid sternal, severe at times. She has known cad with stents. She did not try a ntg. HER TROPONIS WERE NEGATIVE AND NE HAS BEEN RULED. SHE WAS SEEN BY CARDIOLOGY AND WAS REASSURED THAT SHE HAD A RECENT CATH IN OCTOBER AND STENTS WERE PATENT. HER BLOOD COUNT DROPPED WITH IV FLUIDS BUT IT DID THE SAME THING LAST JUNE AND SHE HAS KNOWN NORMOCROMIC, NORMOCYTIC ANEMIA. PE: ALERT AND ORIENTED, EYES CLEAR, TONGUE MOIST, NOSE PATENT. LUNGS CTA, CVRRR. ABDOMEN SOFT, NON TENDER, NO MASSES PA;PATED. EXTREMITIES WITHOUT EDEMA. Discharge Information Condition at Discharge: Improved Disposition/Orders: D/C to Home Dischare Medications Current Medications Fentanyl Citrate (Fentanyl 2ml Vial) 75 mcg 1X ONCE IV Last administered on 15:41; Start 02/09/17 at 15:45; Stop 02/09/17 at 15:46; Status DC Sodium Chloride 1,000 ml @ 1,000 mls/hr 1X ONCE IV Last administered on 15:30; Start 02/09/17 at 15:30; Stop 02/09/17 at 16:29; Status DC Fentanyl Citrate (Fentanyl 2ml Vial) 75 mcg 1X ONCE IV Last administered on 16:37; Start 02/09/17 at 17:00; Stop 02/09/17 at 17:01; Status DC Ondansetron HCl (Zofran) 4 mg PRN Q4HRS PRN IV NAUSEA/VOMITING; Start 02/09/17 at 16:30; Stop 02/10/17 at 16:29 Fentanyl Citrate (Fentanyl 2ml Vial) 50 mcg PRN Q2HR PRN IV PAIN Last administered on 02/10/17 00:15; Start 02/09/17 at 16:30; Stop 02/10/17 at 16:29 Albuterol Sulfate (Ventolin Hfa) 1 puff PRN Q4HRS PRN IH SHORTNESS OF BREATH; Start 02/09/17 at 17:30; Status UNV Atorvastatin Calcium (Lipitor) 40 mg QHS PO Last administered on 02/09/17 21: 52; Start 02/09/17 at 21:00 Albuterol/ Ipratropium (Duoneb) 3 ml PRN QID PRN NEB SHORTNESS OF BREATH; Start 02/09/17 at 17:30 Non-Formulary Medication 2 puff QID PRN IH SHORTNESS OF BREATH; Start 02/09/17 at 17:30; Status UNV Albuterol Sulfate (Ventolin) 2.5 mg RTQID NEB Last administered on 02/10/17 09 :43; Start 02/09/17 at 20:00 Albuterol Sulfate (Ventolin) 2.5 mg PRN Q4HRS PRN NEB SHORTNESS OF BREATH; Start 02/09/17 at 17:45 Budesonide (Pulmicort) 0.5 mg RTBID NEB Last administered on 02/10/17 09:43; Start 02/09/17 at 20:00 Potassium Chloride (Klor-Con) 40 meq 1X ONCE PO Last administered on 20:11; Start 02/09/17 at 19:30; Stop 02/09/17 at 19:31; Status DC Aspirin (Aspirin Enteric Coated) 81 mg HS PO Last administered on 02/09/17 21: 52; Start 02/09/17 at 22:00 Carvedilol (Coreg) 12.5 mg HS PO Last administered on 02/09/17 21:52; Start at 22:00 Clopidogrel Bisulfate (Plavix) 75 mg HS PO Last administered on 02/09/17 21:52 ; Start 02/09/17 at 22:00 Non-Formulary Medication 1 tab HS PO Last administered on 02/09/17 21:53; Start 02/09/17 at 22:00 Potassium Chloride (Klor-Con) 20 meq HS PO ; Start 02/09/17 at 22:00 Non-Formulary Medication 100 mg HS PO Last administered on 02/09/17 21:52; Start 02/09/17 at 22:00 Nitroglycerin (Nitrostat) 0.4 mg PRN Q5MIN PRN SL CHEST PAIN; Start 02/09/17 at 21:15 Acetaminophen (Tylenol) 650 mg PRN Q6HRS PRN PO PAIN / TEMP; Start 02/09/17 at 21:15 Docusate Sodium (Colace) 100 mg PRN DAILY PRN PO CONSTIPATION; Start 02/09/17 at 21:15 Al Hydroxide/Mg Hydroxide (Mylanta Plus Xs) 30 ml PRN Q2HR PRN PO DYSPEPSIA; Start 02/09/17 at 21:15 Ranolazine (Ranexa) 500 mg BID PO Last administered on 02/10/17 09:50; Start 02/10/17 at 09:30 Active Scripts Active Atorvastatin Calcium 20 Mg Tablet 40 Mg PO QHS Reported Escitalopram Oxalate 10 Mg Tablet 10 Mg PO DAILY NITROGLYCERIN SubLingual (Nitroglycerin) 0.4 Mg Tab.subl 0.4 Mg SL PRN Q5MIN PRN Actos (Pioglitazone Hcl) 30 Mg Tablet 30 Mg PO DAILY Plavix (Clopidogrel Bisulfate) 75 Mg Tablet 75 Mg PO DAILY Januvia (Sitagliptin Phosphate) 100 Mg Tablet 100 Mg PO DAILY Aspir-Low (Aspirin) 81 Mg Tablet.dr 81 Mg PO DAILY Ventolin Hfa Inhaler (Albuterol Sulfate) 18 Gm Hfa.aer.ad 1 Puff IH PRN Q4HRS PRN Coreg (Carvedilol) 12.5 Mg Tablet 12.5 Mg PO DAILY last dose this morning next dose tonight Duoneb 0.5-3(2.5) Mg/3 Ml (Albuterol/Ipratropium) 3 Ml Ampul.neb 3 Ml NEB QID PRN resume as needed Potassium Chloride 10 Meq Tablet.er 20 Meq PO DAILY last dose this morning next dose tomorrow Dulera 200 Mcg/5 Mcg Inhaler (Mometasone/Formoterol) 13 Gm Hfa.aer.ad 2 Puff IH QID PRN may resume Losartan-Hctz 100-25 Mg Tab (Losartan/Hydrochlorothiazide) 1 Each Tablet 1 Tab PO DAILY last dose this morning next dose tomorrow Ibuprofen 800 Mg Tablet 800 Mg PO BID PRN may resume Patient Instructions Patient Instuctions DC TO HOME. MEDICATIONS RECONCILED. SEE FOOD PRESERVATION SCIENTIST IF PAIN STARTS TO BECOME A RECURRING FACTOR. EJ AVELAR DO Feb 10, 2017 13:52
== END 2017-02-10 14:20 | disposition home or self-care (01) ==
LOC: ER 15:05 → 1 SOUTH 17:03
PROVIDERS: ADMIT Family Medicine; ATTEND Family Medicine
DX: R07.2 Precordial pain (principal); I25.10 Atherosclerotic heart disease of native coronary artery without angina pectoris; I10 Essential (primary) hypertension; E78.5 Hyperlipidemia, unspecified; D64.9 Anemia, unspecified; E11.9 Type 2 diabetes mellitus without complications; Z90.710 Acquired absence of both cervix and uterus; Z95.5 Presence of coronary angioplasty implant and graft; Z85.9 Personal history of malignant neoplasm, unspecified; Z79.899 Other long term (current) drug therapy; Z82.3 Family history of stroke; Z82.5 Family history of asthma and other chronic lower respiratory diseases; Z82.49 Family history of ischemic heart disease and other diseases of the circulatory system
CPT/HCPCS: 36415; 71010; 80048; 80053; 80061; 82947; 83735; 83880; 84484; 85025; 85610; 85730; 93005; 94640; 96361; 96374; 96376; 99285; G0378; J3010; J7613; J7626; G0379; J7030

== ENCOUNTER → 2017-05-05 | Outpatient (CLI) | payer MEDICARE, BC ==
[~2017-05-05] MED LIST changes: +ASPI81TA50 PO; +CLOP75TA57 PO; +ESCITALOPRAM OX10 MG PO; -LOSA1TAB17 PO; +LOSA1TAB22 PO; +NITR0.4T22 SL; +PIOG30TA41 PO; +RANO500T2 PO; +SITA100T PO
--- NOTE | 2017-05-05 17:10 | RAD ---
Lumbar spine 5 views 05/05/2017 Clinical indication: Back pain and radiculopathy. Comparison: Lumbar spine 10/28/2016 Fines: 5 lumbar type vertebral bodies. Postsurgical changes of L5-S1 posterior spinal fixation. No evidence of acute lumbar spine fracture or traumatic malalignment. There is multilevel lumbar disc degeneration with disc space narrowing, endplate sclerosis and anterior marginal osteophyte formation greatest in marked degree at L2-L3. There is calcified atheromatous disease of the abdominal aorta. There are multiple scattered pelvic surgical clips. Impression: 1. Prior L5-S1 posterior spinal fixation. 2. Lumbar spondylosis greatest to a moderate degree at L2-L3.
== END | disposition home or self-care (01) ==
LOC: DXRAD 15:19
PROVIDERS: ATTEND Physician Assistant
DX: M54.17 Radiculopathy, lumbosacral region (principal); M47.896 Other spondylosis, lumbar region; M25.78 Osteophyte, vertebrae; Z98.890 Other specified postprocedural states
CPT/HCPCS: 72110

== ENCOUNTER → 2017-06-09 | Outpatient (CLI) | payer MEDICARE, BC ==
--- NOTE | 2017-06-09 16:10 | RAD ---
2 views of the Chest 06/09/2017 2:00 AM Indication: COUGH, WRIST PAIN Comparison: None Findings: There is no focal consolidation or infiltrate identified. There is no effusion or pneumothorax. Size is within normal limits. Cardiac monitoring devices noted projecting over the anterior chest. Coronary stent noted. No osseous abnormality is identified. Impression: No evidence of acute cardiopulmonary process.
--- NOTE | 2017-06-09 17:02 | RAD ---
Three-view right wrist radiographs 06/09/2017 Clinical history: Fall with right wrist pain. PA and lateral digital radiographs of the right wrist were obtained. No fracture or dislocation right wrist is seen. Mild degenerative changes are seen involving the radiocarpal joint, the mid carpal joint and first carpal metacarpal joint. Slight widening of the space between the scaphoid and lunate is seen which could reflect a scapholunate ligament tear. Clinical correlation is recommended. Impression: No fracture or dislocation of the right wrist is seen.
== END | disposition home or self-care (01) ==
LOC: PMG 10:17
PROVIDERS: ATTEND Physician Assistant
DX: M19.031 Primary osteoarthritis, right wrist (principal); R05 Cough
CPT/HCPCS: 71020; 73100

== ENCOUNTER 2017-07-12 02:10 | Inpatient (IN) | payer MEDICARE, BC ==
[~2017-07-12] VITALS: Ht 152.4 cm; Wt 62.6 kg
[2017-07-12] MEDS ORDERED: ASPIRIN 81 MG TAB.CHEW ONE (02:20)
[2017-07-12] MEDS ORDERED: ASPIRIN 81 MG TAB.CHEW PO ONE ×2 (02:30)
[2017-07-12 02:37] LABS: BASO % 0 % (0-3); EOS # 0.1 x10^3/uL (0.0-0.7); EOS % 2 % (0-3); HEMATOCRIT 34.4 % (36.0-47.0); HEMOGLOBIN 12.6 g/dL (12.0-15.5); LYMPH # 2.9 x10^3/uL (1.0-4.8); LYMPH % 43 % (24-48); MEAN CORPUSCULAR HEMOGLOBIN 33 pg (25-35); MEAN CORPUSCULAR HGB CONC 37 g/dL (31-37); MEAN CORPUSCULAR VOLUME 89 fL (79-100); MONO # 0.6 x10^3/uL (0.0-1.1); MONO % 9 % (0-9); NEUT % 46 % (31-73); PLATELET COUNT 308 x10^3/uL (140-400); RED BLOOD COUNT 3.88 x10^6/uL (3.50-5.40); RED CELL DISTRIBUTION WIDTH 13.8 % (11.5-14.5); WHITE BLOOD COUNT 6.7 x10^3/uL (4.0-11.0)
[2017-07-12] MEDS: 0.9 % SODIUM CHLORIDE 10 ML DISP.SYRIN. IV PRN (02:39)
--- NOTE | 2017-07-12 02:40 | PHYS DOC ---
Past History Past Medical History: CAD, Cancer, Diabetes, Hypertension Past Surgical History: Angioplasty, Cholecystectomy, , Hysterectomy Smoking: Non-smoker Alcohol Use: None Drug Use: None Adult General Chief Complaint Chief Complaint: CHEST PAIN HPI HPI Patient is a pleasant 66-year-old female with a known history of heart disease, chronic back pain, prior history of uterine cervical cancer requiring surgery, hyperlipidemia, hypertension, prior history of diabetes who presents with chest pain that began intermittently on . Patient's chest pain is gotten more frequent and she comes in tonight because there is of chest pain that began about 10:30 tonight and is been unrelenting. The pain radiates from her left chest to left shoulder and left arm. She's been dizzy with it and she's been mildly nauseous. She said the chest pain is not worse with certain ranges of motion or chest wall movement it is better with rest. The pain is 10 of 10 at this time. She denies any cough, runny nose, congestion although she has had recent URI symptoms within the last 3 weeks. Patient had stenting done 4 back in July 2016 with restenosis of the vessel back in October 2016 is under the care of Dr. radha delgado interline clerk. Patient denies any chest wall trauma, denies any new symptoms like abdominal pain, diarrhea or vomiting. She has noted intermittent swelling of her lower legs. She denies any fevers, chills , headache or focal neurologic deficit. Differential diagnosis for chest pain: Pericarditis, myocarditis, endocarditis, pneumothorax, pneumonia, aortic dissection, esophageal spasm, esophagitis, peptic ulcer disease, acute coronary syndrome, mediastinitis, Boerhaave syndrome , musculoskeletal chest wall pain, costochondritis, intercostal strain, rib fracture, pulmonary contusion, pneumonitis, pleural effusion, pericardial effusion, pericardial tamponode, and pleurisy. Patient's EKG done at 2:24 AM 07/12/2017 demonstrates sinus rhythm with a heart rate of 78 there is a P wave there were QRS, ND interval is 132 which is normal , QRS width is 80 which is normal, QTC is 480 which is mildly prolonged. Patient has no ST segment T-wave changes consistent with acute cord ischemia or STEMI at this time Review of Systems Review of Systems Constitutional: Denies fever or chills [] Eyes: Denies change in visual acuity, redness, or eye pain [] HENT: Denies nasal congestion or sore throat [] Respiratory: Denies cough patient has had some shortness of breath with this chest pain Cardiovascular: No additional information not addressed in HPI [] GI: Denies abdominal pain, vomiting, bloody stools or diarrhea she has had some nausea with this chest pain [] : Denies dysuria or hematuria [] Musculoskeletal: Denies back pain or joint pain patient has noted some edema of her lower legs bilaterally that is episodic[] Integument: Denies rash or skin lesions [] Neurologic: Denies headache, focal weakness or sensory changes [] Endocrine: Denies polyuria or polydipsia [] All other systems were reviewed and found to be within normal limits, except as documented in this note. Current Medications Current Medications Current Medications Medications (Trade) Dose Ordered Sig/Juan Start Time Stop Time Status Last Admin Dose Admin Aspirin (Children'S Aspirin) 162 mg 1X ONCE 07/12/17 02:30 07/12/17 02:31 UNV Fentanyl Citrate (Fentanyl 2ml Vial) 50 mcg 1X ONCE 07/12/17 02:30 07/12/17 02:31 UNV Lorazepam (Ativan) 1 mg 1X ONCE 07/12/17 02:30 07/12/17 02:31 UNV Sodium Chloride (Normal Saline Flush) 10 ml QSHIFT PRN 07/12/17 02:30 UNV Allergies Allergies Allergies Coded Allergies Type Severity Reaction Last Updated Verified Penicillins Allergy Intermediate 06/01/16 Yes Soap Allergy Intermediate 06/01/16 Yes hydrocodone bitartrate Allergy Intermediate Itching 10/25/15 Yes mushroom Allergy Intermediate 06/01/16 Yes povidone-iodine Allergy Intermediate 06/01/16 Yes aspirin Allergy Mild 02/09/17 Yes Physical Exam Physical Exam Constitutional: Well developed, well nourished, patient is obese looks older than stated age. She is nondiaphoretic nontoxic in appearance but obviously uncomfortable. HENT: Normocephalic, atraumatic, bilateral external ears normal, oropharynx moist, no oral exudates, nose normal. [] Eyes: PERRLA, EOMI, conjunctiva normal, no discharge. [] Neck: Normal range of motion, no tenderness, supple, no stridor. [] Cardiovascular:Heart rate regular rhythm, no murmur recent does have chest wall tenderness to palpation is reproducible although not exactly the same. [] Lungs & Thorax: Bilateral breath sounds clear to auscultation [] Abdomen: Bowel sounds normal, soft, no tenderness, no masses, no pulsatile masses. [] Skin: Warm, dry, no erythema, no rash. [] Back: She with chronic lumbar spine pain reproducible on exam nothing midline Extremities: No tenderness, no cyanosis, no clubbing, ROM intact, no edema. Noted on her lower extremity's bilaterally [] Neurologic: Alert and oriented X 3, normal motor function, normal sensory function, no focal deficits noted. [] Psychologic: Affect normal, judgement normal, mood normal. [] EKG EKG [] Radiology/Procedures Radiology/Procedures []AP single chest x-ray read by me as a portal upright demonstrates a normal cardiac shadow with no specific pulmonary infiltrates, pleural effusion or signs of cardiomegaly. Patient has no pneumothorax or pneumomediastinum on my examination of the chest x-ray Course & Med Decision Making Course & Med Decision Making Pertinent Labs and Imaging studies reviewed. (See chart for details) []Patient presents with chest pain of unclear etiology because of her cardiac history is normal troponin, CMP, proBNP, chest x-ray EKG and appropriate supportive workup completed. EKG is not remarkable for signs of acute coronary event. Differential diagnosis for chest pain: Pericarditis, myocarditis, endocarditis, pneumothorax, pneumonia, aortic dissection, esophageal spasm, esophagitis, peptic ulcer disease, acute coronary syndrome, mediastinitis, Boerhaave syndrome , musculoskeletal chest wall pain, costochondritis, intercostal strain, rib fracture, pulmonary contusion, pneumonitis, pleural effusion, pericardial effusion, pericardial tamponode, and pleurisy. Was considered upon arrival Time is now 3:30 AM patient is pain-free she is comfortable her initial troponin is negative, her pro BNP is unremarkable she does have an elevation in her BUN/creatinine. She is new to renal insufficiency. Patient is also noted to be hyperglycemic Because of her heart disease and her history History: She has intermediate risk with a score 4 based on age her story EKG changes and troponin. I will admit her to the hospital for it. A period of Evaluation and intervention by her interline clerk. Highly suspicious 2 points moderately suspicious 1. slightly suspicious 0 point EKG: ST segment depression 2. nonspecific repolarization disturbance 1. normal 0 point Age: Greater than 65 2 points, 65-45 1., less than 45 years old 0 points Risk factors:> 3 risk factors 2 points, 1-2 risk factors one point, no risk factors 0 point Troponin: > 2 times normal 2 points, 1-2 times normal 1., normal limits 0 point Total score: Score % pts MACE/n MACE Policy 0-3 32% 1.9% 0.05% Discharge 4-6 51% [id number] 13% 1.3% Observation Risk management 7-10 17% [id number] 50% 2.8% Observation Treatment, [facility] [employer] note: Dr. Tiff G[employer] [employer] called at of the service service called at 3:30 am Consult called back at 3:30 AM Discussed the case I presented and they agreed with admission. Time of acceptance 3:30 a.m. "I have assessed this patient clinically and believe that their condition requires an admission to the hospital. After consulting the admitting physician about this case, they have asked that I admit this patient to their service as an inpatient based on the clinical presentation and my impression." Nursery Laboratory Tests 07/12/17 02:21: White Blood Count 6.7, Red Blood Count 3.88, Hemoglobin 12.6, Hematocrit 34.4, Mean Corpuscular Volume 89, Mean Corpuscular Hemoglobin 33, Mean Corpuscular Hemoglobin Concent 37, Red Cell Distribution Width 13.8, Platelet Count 308, Neutrophils (%) (Auto) 46, Lymphocytes (%) (Auto) 43, Monocytes (%) (Auto) 9, Eosinophils (%) (Auto) 2, Basophils (%) (Auto) 0, Neutrophils # (Auto) 3.0, Lymphocytes # (Auto) 2.9, Monocytes # (Auto) 0.6, Eosinophils # (Auto) 0.1, Basophils # (Auto) 0.0, Sodium Level 138, Potassium Level 3.5, Chloride Level 102, Carbon Dioxide Level 27, Anion Gap 9, Blood Urea Nitrogen 22, Creatinine 1.4, Estimated GFR (Cockcroft-Gault) 37.7, Glucose Level 324, Calcium Level 9.0 , Magnesium Level 2.0, Total Bilirubin 0.3, Direct Bilirubin 0.1, Aspartate Amino Transf (AST/SGOT) [Pending], Alanine Aminotransferase (ALT/SGPT) 27, Alkaline Phosphatase 137, Creatine Kinase 92, Creatine Kinase MB (Mass) 2.1, Creatine Kinase MB Relative Index 2.3, Troponin I Quantitative < 0.017, NT-Pro-B -Type Natriuretic Peptide 64, Total Protein 6.7, Albumin 3.3, Lipase 153 Dragon Disclaimer Dragon Disclaimer This electronic medical record was generated, in whole or in part, using a voice recognition dictation system. Departure Departure: Impression: Primary Impression: Chest pain Additional Impressions: Renal insufficiency Hyperglycemia Disposition: ADMITTED INPATIENT Admitting Physician: Sivakumar Dangelo Condition: GUARDED Referrals: PRESLEY PAVON (PCP) Problem Qualifiers DACIA VALDEZ MD Jul 12, 2017 02:39
[2017-07-12] MEDS ORDERED: IV NORMAL SALINE 1,000ML 1,000 ML IV SCH (03:00)
[2017-07-12] MEDS ORDERED: LORazepam 2 MG/ML VIAL IV ONE (03:00)
[2017-07-12 03:13] LABS: ALBUMIN 3.3 g/dL (3.4-5.0); CREATININE 1.4 mg/dL (0.6-1.0); DIRECT BILIRUBIN 0.1 mg/dL (0.0-0.2); GFR 37.7; POTASSIUM 3.5 mmol/L (3.5-5.1); TOTAL BILIRUBIN 0.3 mg/dL (0.2-1.0); TOTAL PROTEIN 6.7 g/dL (6.4-8.2)
[2017-07-12] MEDS ORDERED: ONDANSETRON PF 4 MG/2 ML VIAL. IV PRN (03:45)
[2017-07-12] MEDS ORDERED: NITROGLYCERIN SUBLINGUAL 0.4 MG BOTTLE OF 25. SL PRN ×2 (03:45→08:45)
--- NOTE | 2017-07-12 04:50 | NUR ---
The patient, FAMILIA MAR, 66 y/o, F admitted by JOSE ELIAS RUBIO MD, was given written information regarding hospital policies, unit procedures and contact persons. Valuables were checked and logged. Will continue to monitor.
[2017-07-12] MEDS ORDERED: TRAM50TA PO (06:14)
[2017-07-12] MEDS ORDERED: METH750T2 PO (06:14)
[2017-07-12] MEDS ORDERED: GABA300C8 PO (06:14)
[2017-07-12 07:00] VITALS: BP 105/66
--- NOTE | 2017-07-12 07:16 | RAD ---
Portable chest, 07/12/2017: History: Chest pain Comparison is made to a study from 06/09/2017. The heart size and pulmonary vascularity are normal. No pulmonary infiltrates are seen. There is no evidence of pleural fluid. An electronic device is again noted projected over the left lower chest. IMPRESSION: No acute cardiopulmonary abnormality is detected.
[2017-07-12] MEDS ORDERED: DEXTROSE 50% 25 GM / 50ML DISP.SYRIN. IV PRN (07:30)
[2017-07-12] MEDS: INSULIN ASPART 300 UNITS/3 ML INSULN.PEN SQ SCH ×4 (08:09→20:22)
[2017-07-12] MEDS ORDERED: traMADol 50 MG TABLET PO PRN (08:45)
[2017-07-12] MEDS ORDERED: ALBUTEROL SULFATE 8GM INHALER. IH PRN (08:45)
[2017-07-12] MEDS ORDERED: METHOCARBAMOL 750 MG TABLET PO PRN (08:45)
[2017-07-12] MEDS ORDERED: IPRATRPIUM/ALBUTEROL 0.5/2.5MG 3 ML NEBU. NEB PRN (08:45)
[2017-07-12] MEDS ORDERED: NON FORMULARY ITEM (Mometasone/Formoterol (Dulera 200 Mcg/5 Mcg Inhaler) 2 PUFF) IH PRN (08:45)
[2017-07-12] MEDS: ASPIRIN ENTERIC COATED 81 MG TABLET.DR. PO SCH (09:00)
[2017-07-12] MEDS ORDERED: ALBUTEROL SULFATE 2.5 MG/3 ML NEBU. NEB PRN (09:15)
--- NOTE | 2017-07-12 09:16 | PDOC2 ---
CONSULT Date of Admission DATE: 07/12/17 TIME: 09:07 Reason for Consult: chest pain Problem List Problems Medical Problems: (1) Chest pain Status: Acute (2) Hyperglycemia Status: Acute (3) Renal insufficiency Status: Acute History of Present Illness Ms Prakash is a 65 year old female with a history of hypertension, coronary artery disease with PCI and stents in Jul 2016, diabetes mellitus and dyslipidemia. She presents with complaints of chest discomfort. She reports several days of palpitations and feeling like her heart is pounding. She does have a biomonitor and has triggered it several times in the last 4 days with rhythm strips consistent with sinus rhythm. She reports chest pain in her left chest, left sternal border that is non radiating and a squeezing sensation. She denies any change with exertion, deep inspiration or position change. She does report having pneumonia or the flu at the beginning of the year and does continue to have a cough, productive with white sputum. She denies congestive symptoms, lightheadedness or syncope. She has had 3 mechanical falls recently. Past Medical History Cardiac cath 07/31/16 FINDINGS 1. Hemodynamics: Left ventricular end-diastolic pressure 7 mm Hg. No pullback gradient across the aortic valve. 2. Left ventriculography: Normal left ventricular systolic function with ejection fraction estimated at 65%. No significant mitral regurgitation seen. 3. Coronary angiography: a. The left main coronary artery arose from the left sinus of Valsalva, gave rise to the left anterior descending and left circumflex arteries I do not show any significant stenosis. b. The left anterior descending artery showed 70% stenosis in the proximal segment and 90% stenosis in the midsegment. c. The left circumflex artery showed 40% stenosis in the proximal segment of large obtuse marginal branch. d. The right coronary artery was a large and dominant vessel arising from the right tonsil loss over that showed 80% stenosis in the proximal segment of the posterior descending branch. Conclusion 1. Severe two-vessel coronary artery disease 2. Successful PCI/drug eluting stents placement to the left anterior descending artery and the posterior descending branch of right coronary artery 3. Normal left ventricular systolic function with ejection fraction estimated at 65% Recommendations 1. Aspirin 325 mg daily 2. Plavix 75 mg daily for preferably one year 3. Cardiovascular risk factor modification Cardiac cath 10/2016 FINDINGS 1. Hemodynamics: Left ventricular end-diastolic pressure of 8 mmHg. No pullback gradient across the aortic valve. 2. Left ventriculography: Normal left ventricle systolic function with ejection fraction estimated at 60-65%. No significant mitral regurgitation seen. 3. Coronary angiography: a. The left main coronary artery arose from the left sinus of Valsalva, gave rise to the left anterior descending and left circumflex arteries and did not show any significant stenosis. b. The left anterior descending artery showed widely patent stent in the proximal to midsegment. There is moderate diffuse disease in the distal segment. c. The left circumflex artery showed 50% stenosis involving the proximal segment of obtuse marginal branch. d. The right coronary artery was a large and dominant vessel arising from the right sinus of Valsalva that showed patent stent in the proximal segment of posterior descending branch. Conclusion 1. Patent stents in the left anterior descending artery and the posterior descending branch of right coronary artery, 50% stenosis involving the obtuse marginal branch of left circumflex artery. 2. Normal left ventricle systolic function with ejection fraction estimated at 60-65%. Meniere disease, bronchial asthma, chronic bronchitis, diabetes mellitus, hypertension, coronary artery disease, hepatitis B, and fatty liver. Past Surgical History tonsillectomy, five ear surgeries, cholecystectomy, two C-sections, hernia repair x 2, total abdominal hysterectomy, and bilateral salpingo-oophorectomy, left knee arthroscopic surgery, back surgeries, esophagogastroduodenoscopy and colonoscopy. Family History She has one brother who is older and has CVA and myocardial infarction, 3 sisters, younger, but does not keep in touch with them. Her father at the age of 53 because of severe emphysema. Mother of meningitis. Her son at 39 of an AK with history of cardiomyopathy and heart failure. Social History She is , had 3 sons. She never smoked, does not drink alcohol or use any recreational drugs. 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 Current Medications Current Medications Aspirin (Children'S Aspirin) 81 mg STK-MED ONCE .ROUTE ; Start 07/12/17 at 02:20 ; Stop 07/12/17 at 02:21; Status DC Aspirin (Children'S Aspirin) 162 mg 1X ONCE PO Last administered on 07/12/17at 02:21; Start 07/12/17 at 02:30; Stop 07/12/17 at 02:31; Status DC Aspirin (Children'S Aspirin) 162 mg 1X ONCE PO ; Start 07/12/17 at 02:30; Stop 07/12/17 at 02:39; Status DC Lorazepam (Ativan) 1 mg 1X ONCE IV Last administered on 07/12/17at 02:39; Start 07/12/17 at 03:00; Stop 07/12/17 at 03:01; Status DC Sodium Chloride 1,000 ml @ 1,000 mls/hr Q1H IV Last administered on 07/12/17at 03:52; Start 07/12/17 at 03:00; Stop 07/12/17 at 03:59; Status DC Sodium Chloride (Normal Saline Flush) 10 ml QSHIFT PRN IV AFTER MEDS AND BLOOD DRAWS Last administered on 07/12/17at 02:39; Start 07/12/17 at 02:30 Fentanyl Citrate (Fentanyl 2ml Vial) 50 mcg 1X ONCE IV Last administered on at 02:39; Start 07/12/17 at 03:00; Stop 07/12/17 at 03:01; Status DC Ondansetron HCl (Zofran) 4 mg PRN Q4HRS PRN IV NAUSEA/VOMITING; Start 07/12/17 at 03:45; Stop 07/13/17 at 03:44 Fentanyl Citrate (Fentanyl 2ml Vial) 50 mcg PRN Q1HR PRN IV SEVERE PAIN; Start 07/12/17 at 03:45; Stop 07/13/17 at 03:44 Nitroglycerin (Nitrostat) 0.4 mg PRN Q5MIN PRN SL CHEST PAIN; Start 07/12/17 at 03:45; Stop 07/13/17 at 03:44 Insulin Aspart (NovoLOG) 0-7 UNITS QIDACHS SQ Last administered on 07/12/17at 08 :09; Start 07/12/17 at 07:30 Dextrose 12.5 gm PRN Q15MIN PRN IV SEE COMMENTS; Start 07/12/17 at 07:30 Albuterol Sulfate (Ventolin Hfa) 1 puff PRN Q4HRS PRN IH SHORTNESS OF BREATH; Start 07/12/17 at 08:45; Stop 07/12/17 at 09:06; Status DC Aspirin (Aspirin Enteric Coated) 81 mg DAILY PO ; Start 07/12/17 at 09:00 Atorvastatin Calcium (Lipitor) 40 mg QHS PO ; Start 07/12/17 at 21:00 Carvedilol (Coreg) 12.5 mg DAILY PO ; Start 07/12/17 at 09:00 Clopidogrel Bisulfate (Plavix) 75 mg DAILY PO ; Start 07/12/17 at 09:00 Gabapentin (Neurontin) 300 mg HS PO ; Start 07/12/17 at 21:00 Albuterol/ Ipratropium (Duoneb) 3 ml QID PRN NEB SHORTNESS OF BREATH; Start at 08:45; Status UNV Methocarbamol (Robaxin) 750 mg PRN TID PRN PO MUSCLE PAIN; Start 07/12/17 at 08 :45 Nitroglycerin (Nitrostat) 0.4 mg PRN Q5MIN PRN SL CHEST PAIN; Start 07/12/17 at 08:45 Ranolazine (Ranexa) 500 mg BID PO ; Start 07/12/17 at 09:00 Tramadol HCl (Ultram) 50 mg PRN Q8HRS PRN PO PAIN; Start 07/12/17 at 08:45 Citalopram Hydrobromide (CeleXA) 20 mg DAILY PO ; Start 07/13/17 at 09:00 Losartan Potassium (Cozaar) 100 mg DAILY PO ; Start 07/13/17 at 09:00 Non-Formulary Medication 2 puff QID PRN IH SHORTNESS OF BREATH; Start 07/12/17 at 08:45; Status UNV Potassium Chloride (Klor-Con) 20 meq DAILYWBKFT PO ; Start 07/13/17 at 08:00 Linagliptin (Tradjenta) 5 mg DAILY PO ; Start 07/13/17 at 09:00 Hydrochlorothiazide (Hydrodiuril) 25 mg DAILY PO ; Start 07/13/17 at 09:00 Active Scripts Active Ranexa (Ranolazine) 500 Mg Tab.er.12h 500 Mg PO BID 60 Days Atorvastatin Calcium 20 Mg Tablet 40 Mg PO QHS Reported Methocarbamol 750 Mg Tablet 750 Mg PO TID PRN Gabapentin 300 Mg Capsule 300 Mg PO HS Tramadol Hcl (Tramadol HCl) 50 Mg Tablet 50 Mg PO Q8HRS PRN Escitalopram Oxalate 10 Mg Tablet 10 Mg PO DAILY LAST DOSE GIVEN: DATE: YESTERDAY TIME: PM NEXT DOSE DUE: DATE: TODAY TIME: PM NITROGLYCERIN SubLingual (Nitroglycerin) 0.4 Mg Tab.subl 0.4 Mg SL PRN Q5MIN PRN LAST DOSE GIVEN: NOT GIVEN THIS ADMISSION NEXT DOSE DUE: DATE: TODAY TIME: IF NEEDED Plavix (Clopidogrel Bisulfate) 75 Mg Tablet 75 Mg PO DAILY LAST DOSE GIVEN: DATE: YESTER TIME: PM NEXT DOSE DUE: DATE: TODAY TIME: PM Januvia (Sitagliptin Phosphate) 100 Mg Tablet 100 Mg PO DAILY LAST DOSE GIVEN: DATE: YESTER TIME: PM NEXT DOSE DUE: DATE: TODAY TIME: PM Aspir-Low (Aspirin) 81 Mg Tablet.dr 81 Mg PO DAILY LAST DOSE GIVEN: DATE: YESTER TIME: PM NEXT DOSE DUE: DATE: TODAY TIME: PM Ventolin Hfa Inhaler (Albuterol Sulfate) 18 Gm Hfa.aer.ad 1 Puff IH PRN Q4HRS PRN LAST DOSE GIVEN: DATE: TIME: AM NEXT DOSE DUE: DATE: TIME: IF NEEDED Coreg (Carvedilol) 12.5 Mg Tablet 12.5 Mg PO DAILY LAST DOSE GIVEN: DATE: YESTERDAY TIME: PM NEXT DOSE DUE: DATE: TODAY TIME: PM Duoneb 0.5-3(2.5) Mg/3 Ml (Albuterol/Ipratropium) 3 Ml Ampul.neb 3 Ml NEB QID PRN LAST DOSE GIVEN: NOT GIVEN THIS ADMISSION NEXT DOSE DUE: DATE: TODAY TIME: IF NEEDED Potassium Chloride 10 Meq Tablet.er 20 Meq PO DAILY LAST DOSE GIVEN: DATE: YESTER TIME: PM NEXT DOSE DUE: DATE: TODAY TIME: PM Dulera 200 Mcg/5 Mcg Inhaler (Mometasone/Formoterol) 13 Gm Hfa.aer.ad 2 Puff IH QID PRN LAST DOSE GIVEN: NOT GIVEN THIS ADMISSION NEXT DOSE DUE: DATE: TODAY TIME: IF NEEDED Losartan-Hctz 100-25 Mg Tab (Losartan/Hydrochlorothiazide) 1 Each Tablet 1 Tab PO DAILY LAST DOSE GIVEN: DATE: YESTER TIME: PM NEXT DOSE DUE: DATE: TODAY TIME: PM Allergies: Coded Allergies: Penicillins (Verified Allergy, Intermediate, 06/01/16) Soap (Verified Allergy, Intermediate, 06/01/16) hydrocodone bitartrate (Verified Allergy, Intermediate, Itching, 10/25/15) mushroom (Verified Allergy, Intermediate, 06/01/16) povidone-iodine (Verified Allergy, Intermediate, 06/01/16) aspirin (Verified Allergy, Mild, 02/09/17) upset stomach when taken without food Review of System as per HPI General: Alert, Oriented X3, Cooperative, No acute distress HEENT: Atraumatic, EOMI Lungs: Clear to auscultation, Normal air movement Heart: Regular rate, Normal S1, Normal S2, Other (no gallops, clicks or rubs) Abdomen: Normal bowel sounds, Soft, No tenderness Extremities: No cyanosis, No edema, Normal pulses Neuro: Normal speech, Strength at 5/5 X4 ext Psych/Mental Status: Mental status NL, Mood NL VITALS Vital Signs Date Time Temp Pulse Resp B/P (MAP) Pulse Ox O2 Delivery O2 Flow Rate FiO2 07/12/17 08:37 Nasal Cannula 2.0 07/12/17 07:00 97.8 84 20 105/66 (79) 94 Labs Laboratory Tests Test 07/12/17 02:21 07/12/17 07:25 White Blood Count 6.7 x10^3/uL (4.0-11.0) Red Blood Count 3.88 x10^6/uL (3.50-5.40) Hemoglobin 12.6 g/dL (12.0-15.5) Hematocrit 34.4 % (36.0-47.0) Mean Corpuscular Volume 89 fL (79-100) Mean Corpuscular Hemoglobin 33 pg (25-35) Mean Corpuscular Hemoglobin Concent 37 g/dL (31-37) Red Cell Distribution Width 13.8 % (11.5-14.5) Platelet Count 308 x10^3/uL (140-400) Neutrophils (%) (Auto) 46 % (31-73) Lymphocytes (%) (Auto) 43 % (24-48) Monocytes (%) (Auto) 9 % (0-9) Eosinophils (%) (Auto) 2 % (0-3) Basophils (%) (Auto) 0 % (0-3) Neutrophils # (Auto) 3.0 x10^3uL (1.8-7.7) Lymphocytes # (Auto) 2.9 x10^3/uL (1.0-4.8) Monocytes # (Auto) 0.6 x10^3/uL (0.0-1.1) Eosinophils # (Auto) 0.1 x10^3/uL (0.0-0.7) Basophils # (Auto) 0.0 x10^3/uL (0.0-0.2) Sodium Level 138 mmol/L (136-145) Potassium Level 3.5 mmol/L (3.5-5.1) Chloride Level 102 mmol/L (98-107) Carbon Dioxide Level 27 mmol/L (21-32) Anion Gap 9 (6-14) Blood Urea Nitrogen 22 mg/dL (7-20) Creatinine 1.4 mg/dL (0.6-1.0) Estimated GFR (Cockcroft-Gault) 37.7 Glucose Level 324 mg/dL (70-99) Calcium Level 9.0 mg/dL (8.5-10.1) Magnesium Level 2.0 mg/dL (1.8-2.4) Total Bilirubin 0.3 mg/dL (0.2-1.0) Direct Bilirubin 0.1 mg/dL (0.0-0.2) Aspartate Amino Transf (AST/SGOT) 22 U/L (15-37) Alanine Aminotransferase (ALT/SGPT) 27 U/L (14-59) Alkaline Phosphatase 137 U/L (46-116) Creatine Kinase 92 U/L (26-192) Creatine Kinase MB (Mass) 2.1 ng/mL (0.0-3.6) Creatine Kinase MB Relative Index 2.3 % (0-4) Troponin I Quantitative < 0.017 ng/mL (0-0.055) MV-Ezc-X-Type Natriuretic Peptide 64 pg/mL (0-124) Total Protein 6.7 g/dL (6.4-8.2) Albumin 3.3 g/dL (3.4-5.0) Lipase 153 U/L (73-393) Glucose (Fingerstick) 312 mg/dL (70-99) Images CXR - IMPRESSION: No acute cardiopulmonary abnormality is detected. EKG - sinus rhythm, early transition, IWMI age undetermined, no acute ischemic changes Assessment/Plan 1. chest pain - initial CE negative 2. CAD s/p PCI stenting with moderate residual disease 3. hypertension - mild hypotension now. Hold antihypertensives for now. 4. hyperlipidemia - continue statin 5. diabetes mellitus - per PCP 6. mild renal insufficiency - IVF per PCP Monitor serial enzymes, if remain negative, plan for MPI in am. Problems: CONSUELO DE OL[facility]IR[facility] Jul 12, 2017 09:16
[2017-07-12 09:50] VITALS: BP 108/70
[2017-07-12] MEDS: CARVEDILOL 12.5 MG TABLET PO SCH (09:51)
[2017-07-12 10:11] LABS: BILIRUBIN,URINE NEG (NEG); CLARITY,URINE CLEAR; COLOR,URINE STRAW; GLUCOSE,URINE 250 mg/dL (NEG); NITRITE,URINE NEG (NEG); RBC,URINE 0 /HPF (0-2); UROBILINOGEN,URINE 0.2 mg/dL (0.2 mg/dL)
[2017-07-12 10:12] LABS: BACTERIA,URINE 0 /HPF (0-FEW); SQUAMOUS EPITHELIAL CELL,UR OCC /LPF
[2017-07-12] MEDS: RANOLAZINE 500 MG TAB.ER.12H PO SCH ×2 (10:12→20:15)
[2017-07-12] MEDS: CLOPIDOGREL BISULFATE 75 MG TABLET PO SCH (10:13)
[2017-07-12] MEDS ORDERED: ALBUTEROL SULFATE 2.5 MG/3 ML NEBU. NEB SCH (12:00)
[2017-07-12] MEDS: ALBUTEROL SULFATE 2.5 MG/3 ML NEBU. NEB SCH ×3 (12:12→22:18)
[2017-07-12] MEDS: BUDESONIDE 0.5 MG/2 ML NEBU NEB SCH ×2 (12:12→22:18)
[2017-07-12 14:51] VITALS: BP 145/83
--- NOTE | 2017-07-12 16:22 | CARD ---
MR#: [id number] Date of Study: 07/12/2017 Ordering Physician: CONSUELO DE OLIVEIRA, Referring Physician: JOSE ELIAS RUBIO Tech: Caitlin Retana RDCS APPROVED REPORT EXAM: Two-dimensional and M-mode echocardiogram with Doppler and color Doppler. Other Information Quality : Good INDICATION Cardiac Disease: CAD Chest Pain 2D DIMENSIONS RVDd1.8 (2.9-3.5cm)Left Atrium(2D)3.6 (1.6-4.0cm) IVSd1.1 (0.7-1.1cm)Aortic Root(2D)2.8 (2.0-3.7cm) LVDd4.2 (3.9-5.9cm)LVOT Diameter1.9 (1.8-2.4cm) PWd1.0 (0.7-1.1cm)LVDs2.4 (2.5-4.0cm) FS (%) 30.0 %SV56.2 ml LVEF(%)60.0 (>50%) Aortic Valve AoV Peak Benjamin.129.4cm/sAoV VTI25.7cm AO Peak GR.6.7mmHgLVOT Peak Benjamin.126.8cm/s LVOT VTI 24.75cmAO Mean GR.4mmHg UZIEL (VMAX)2.89qu2DUC (VTI)2.66cm2 Mitral Valve MV E Oejiqvul55.5cm/sMV DECEL ZIXD860bw MV A Uwfafbao425.2cm/sE/A Ratio0.8 Tricuspid Valve TR P. Xyxivgsh500hs/sRAP SPMCRKLB3cdZc TR Peak Gr.46tjSrZCPK94brFy Pulmonary Vein S1 Rfjlpoyt13.9cm/sD2 Wydyxnxq81.1cm/s LEFT VENTRICLE The left ventricle is normal size. There is normal left ventricular wall thickness. The left ventricu lar systolic function is normal and the ejection fraction is within normal range. The Ejection Fracti on is 55-60%. There is normal LV segmental wall motion. Transmitral Doppler flow pattern is Grade I-a bnormal relaxation pattern. RIGHT VENTRICLE The right ventricle is normal size. The right ventricular systolic function is normal. ATRIA The left atrium size is normal. The right atrium size is normal. The interatrial septum is intact wit h no evidence for an atrial septal defect or patent foramen ovale as noted on 2-D or Doppler imaging. AORTIC VALVE The aortic valve is sclerotic but opens well. Doppler and Color Flow revealed no significant aortic r egurgitation. There is no significant aortic valvular stenosis. MITRAL VALVE Mild mitral valve sclerosis. There is no evidence of mitral valve prolapse. There is no mitral valve stenosis. Doppler and Color-flow revealed trace mitral regurgitation. TRICUSPID VALVE The tricuspid valve is normal in structure and function. Doppler and Color Flow revealed trace tricus pid regurgitation. The PA pressure was estimated at 23 mmHg. There is no tricuspid valve stenosis. PULMONIC VALVE Doppler and Color Flow revealed mild pulmonic valvular regurgitation. There is no pulmonic valvular s tenosis. GREAT VESSELS The aortic root is normal in size. The ascending aorta is normal in size. The IVC is normal in size a nd collapses >50% with inspiration. PERICARDIAL EFFUSION There is no evidence of significant pericardial effusion. Critical Notification Critical Value: No <Conclusion> The left ventricular systolic function is normal and the ejection fraction is within normal range. Th e Ejection Fraction is 55-60%. There is normal LV segmental wall motion. Doppler and Color Flow revealed trace tricuspid regurgitation. The PA pressure was estimated at 23 mm Hg. Signed by : Chris Sears, Electronically Approved : 07/12/2017 16:21:18
--- NOTE | 2017-07-12 18:08 | HP ---
ADMIT DATE: 07/12/2017 REASON FOR ADMISSION: Chest pain. HISTORY OF PRESENT ILLNESS: This is a 66-year-old female with known coronary artery disease having had stents placed in July 2016 with also diabetes, dyslipidemia and hypertension. The patient complaining of a several day history of chest pain. She states her BioMonitor has been triggered several times, but the rhythms are sinus rhythm according to Cardiology. Reports left-sided chest pain and just generally not feeling well. PAST MEDICAL HISTORY: Type 2 diabetes, hyperlipidemia, hypertension, coronary artery disease. She states she has had a history of influenza this year. PAST SURGICAL HISTORY: Angioplasty, cholecystectomy, , hysterectomy, 5 ear surgeries, left knee arthroscopic surgery, back surgeries. MEDICATIONS: Reviewed and are available on the MAR. ALLERGIES: PENICILLIN, SOAP, ASPIRIN, HYDROCODONE, MUSHROOM AND POVIDONE-IODINE. HABITS: Does not smoke, does not drink. I do not believe she works any longer. REVIEW OF SYSTEMS: As per HPI, has just lost a little weight, has not had much of an appetite noted with the chest pain, otherwise everything else is negative. No chills. No fever, no sore throat. OBJECTIVE: VITAL SIGNS: Blood pressure is 108/70, temperature 97.6, pulse 75, respirations 20, pulse ox 97% on room air. Height 60 inches, weight 138 pounds. GENERAL: A 66-year-old in no acute distress. HEENT: Hearing is normal. Eyes were clear. Nose patent. Throat clear. NECK: Supple, without adenopathy. LUNGS: Clear to auscultation. CARDIOVASCULAR: Regular rhythm and rate without murmur. ABDOMEN: Soft, nontender. EXTREMITIES: Without edema. LABORATORY DATA: Troponins x 3 is negative. Initial glucose was 312. Urine is negative. ASSESSMENT: 1. Chest pain with history of coronary artery disease. 2. History of coronary artery disease with stent placement. 3. Type 2 diabetes with hyperglycemia. 4. Hyperlipidemia. 5. History of weight loss, reviewed weight , the patient's weight 01/19/2017 was 142, so she has lost 4 pounds since then. PLAN: Lexiscan test tomorrow and treat her glucoses. EJ AVELAR DO DR: SHANTEL/nitesh JOB#: [id number] / [id number]
[2017-07-12 20:16] VITALS: BP 136/80
[2017-07-12] MEDS ORDERED: ATORVASTATIN CALCIUM 20 MG TABLET PO SCH (21:00)
[2017-07-12] MEDS ORDERED: GABAPENTIN 300 MG CAPSULE. PO SCH (21:00)
[2017-07-12 22:32] VITALS: BP 132/79
[2017-07-13] MEDS: ALBUTEROL SULFATE 2.5 MG/3 ML NEBU. NEB SCH ×2 (05:32→09:36)
[2017-07-13 05:34] VITALS: BP 138/90
[2017-07-13 06:18] LABS: BASO % 0 % (0-3); EOS # 0.1 x10^3/uL (0.0-0.7); EOS % 2 % (0-3); HEMATOCRIT 31.4 % (36.0-47.0); HEMOGLOBIN 10.9 g/dL (12.0-15.5); LYMPH # 2.1 x10^3/uL (1.0-4.8); LYMPH % 36 % (24-48); MEAN CORPUSCULAR HEMOGLOBIN 31 pg (25-35); MEAN CORPUSCULAR HGB CONC 35 g/dL (31-37); MEAN CORPUSCULAR VOLUME 89 fL (79-100); MONO # 0.6 x10^3/uL (0.0-1.1); MONO % 9 % (0-9); NEUT # 3.2 x10^3uL (1.8-7.7); NEUT % 53 % (31-73); PLATELET COUNT 214 x10^3/uL (140-400); RED BLOOD COUNT 3.54 x10^6/uL (3.50-5.40); RED CELL DISTRIBUTION WIDTH 13.6 % (11.5-14.5)
[2017-07-13 06:29] LABS: CALCIUM 8.7 mg/dL (8.5-10.1); GFR 55.6; MAGNESIUM 1.8 mg/dL (1.8-2.4); POTASSIUM 3.4 mmol/L (3.5-5.1); TOTAL BILIRUBIN 0.3 mg/dL (0.2-1.0); TOTAL PROTEIN 6.1 g/dL (6.4-8.2)
[2017-07-13] MEDS ORDERED: POTASSIUM CHLORIDE 20 MEQ TABLET.ER. PO ONE (07:15)
[2017-07-13] MEDS: INSULIN ASPART 300 UNITS/3 ML INSULN.PEN SQ SCH ×3 (07:30→16:30)
[2017-07-13] MEDS ORDERED: POTASSIUM CHLORIDE 20 MEQ TABLET.ER. PO SCH (08:00)
[2017-07-13] MEDS: CLOPIDOGREL BISULFATE 75 MG TABLET PO SCH (08:20)
[2017-07-13] MEDS: CARVEDILOL 12.5 MG TABLET PO SCH (08:21)
[2017-07-13] MEDS: ASPIRIN ENTERIC COATED 81 MG TABLET.DR. PO SCH (08:21)
[2017-07-13] MEDS: RANOLAZINE 500 MG TAB.ER.12H PO SCH (08:22)
[2017-07-13] MEDS ORDERED: CITALOPRAM 20 MG TABLET. PO SCH (09:00)
[2017-07-13] MEDS ORDERED: LOSARTAN 50 MG TABLET. PO SCH (09:00)
[2017-07-13] MEDS ORDERED: hydroCHLOROthiazide 25 MG TABLET PO SCH (09:00)
[2017-07-13] MEDS ORDERED: LINAGLIPTIN 5 MG TABLET PO SCH (09:00)
[2017-07-13] MEDS ORDERED: REGADENOSON 0.4 MG/5 ML DISP.SYRIN. IV ONE (09:00)
--- NOTE | 2017-07-13 09:01 | PDOC ---
PROGRESS NOTES Diagnosis Problem Problems Medical Problems: (1) Chest pain Status: Acute (2) Hyperglycemia Status: Acute (3) Renal insufficiency Status: Acute Assessment Problems Medical Problems: (1) Chest pain Status: Acute (2) Hyperglycemia Status: Acute (3) Renal insufficiency Status: Acute 1. chest pain - ID ruled out. MPI this am. 2. CAD s/p PCI stenting with moderate residual disease. Continue medical therapy. 3. Hypotension resolved - resume home meds. 4. hyperlipidemia - continue statin 5. diabetes mellitus - per PCP 6. mild renal insufficiency - resolved with IVF. Problems: Subjective chest pain off and on. none this am. breathing easy, no palpitations, lightheadedness or syncope. Objective Vital Signs Date Time Temp Pulse Resp B/P (MAP) Pulse Ox O2 Delivery O2 Flow Rate FiO2 07/13/17 08:22 76 138/90 07/13/17 05:34 98.6 18 96 Room Air 07/12/17 22:11 2.0 Intake and Output 07/13/17 07:00 Intake Total 2457 ml Output Total 920 ml Balance 1537 ml Intake Oral 920 ml IV Total 1537 ml Output Urine Total 860 ml Oral Regurgitation 60 ml # Voids 3 # Bowel Movements 3 Abdomen: Normal bowel sounds, Soft, No tenderness Heart: Regular rate, Normal S1, Normal S2 Extremities: No cyanosis, Normal pulses General: Alert, Oriented X3, Cooperative, No acute distress Lungs: Clear to auscultation, Normal air movement Neuro: Normal speech Psych/Mental Status: Mental status NL, Mood NL Review of Relevant I have reviewed the following items yoly (where applicable) has been applied. Labs Laboratory Tests Test 07/12/17 02:21 07/12/17 07:25 07/12/17 08:37 07/12/17 09:45 White Blood Count 6.7 x10^3/uL (4.0-11.0) Red Blood Count 3.88 x10^6/uL (3.50-5.40) Hemoglobin 12.6 g/dL (12.0-15.5) Hematocrit 34.4 % (36.0-47.0) Mean Corpuscular Volume 89 fL (79-100) Mean Corpuscular Hemoglobin 33 pg (25-35) Mean Corpuscular Hemoglobin Concent 37 g/dL (31-37) Red Cell Distribution Width 13.8 % (11.5-14.5) Platelet Count 308 x10^3/uL (140-400) Neutrophils (%) (Auto) 46 % (31-73) Lymphocytes (%) (Auto) 43 % (24-48) Monocytes (%) (Auto) 9 % (0-9) Eosinophils (%) (Auto) 2 % (0-3) Basophils (%) (Auto) 0 % (0-3) Neutrophils # (Auto) 3.0 x10^3uL (1.8-7.7) Lymphocytes # (Auto) 2.9 x10^3/uL (1.0-4.8) Monocytes # (Auto) 0.6 x10^3/uL (0.0-1.1) Eosinophils # (Auto) 0.1 x10^3/uL (0.0-0.7) Basophils # (Auto) 0.0 x10^3/uL (0.0-0.2) Sodium Level 138 mmol/L (136-145) Potassium Level 3.5 mmol/L (3.5-5.1) Chloride Level 102 mmol/L (98-107) Carbon Dioxide Level 27 mmol/L (21-32) Anion Gap 9 (6-14) Blood Urea Nitrogen 22 mg/dL (7-20) Creatinine 1.4 mg/dL (0.6-1.0) Estimated GFR (Cockcroft-Gault) 37.7 Glucose Level 324 mg/dL (70-99) Calcium Level 9.0 mg/dL (8.5-10.1) Magnesium Level 2.0 mg/dL (1.8-2.4) Total Bilirubin 0.3 mg/dL (0.2-1.0) Direct Bilirubin 0.1 mg/dL (0.0-0.2) Aspartate Amino Transf (AST/SGOT) 22 U/L (15-37) Alanine Aminotransferase (ALT/SGPT) 27 U/L (14-59) Alkaline Phosphatase 137 U/L (46-116) Creatine Kinase 92 U/L (26-192) Creatine Kinase MB (Mass) 2.1 ng/mL (0.0-3.6) Creatine Kinase MB Relative Index 2.3 % (0-4) Troponin I Quantitative < 0.017 ng/mL (0-0.055) < 0.017 ng/mL (0-0.055) NX-Gft-K-Type Natriuretic Peptide 64 pg/mL (0-124) Total Protein 6.7 g/dL (6.4-8.2) Albumin 3.3 g/dL (3.4-5.0) Lipase 153 U/L (73-393) Thyroid Stimulating Hormone (TSH) 2.652 uIU/mL (0.358-3.740) Glucose (Fingerstick) 312 mg/dL (70-99) Urine Collection Type Unknown Urine Color Straw Urine Clarity Clear Urine pH 6.0 Urine Specific [place] 1.010 Urine Protein Neg (NEG-TRACE) Urine Glucose (UA) 250 mg/dL (NEG) Urine Ketones (Stick) Neg mg/dL (NEG) Urine Blood Neg (NEG) Urine Nitrite Neg (NEG) Urine Bilirubin Neg (NEG) Urine Urobilinogen Dipstick 0.2 mg/dL (0.2 mg/dL) Urine Leukocyte Esterase Small (NEG) Urine RBC 0 /HPF (0-2) Urine WBC 1-4 /HPF (0-4) Urine Squamous Epithelial Cells Occ /LPF Urine Bacteria 0 /HPF (0-FEW) Test 07/12/17 11:16 07/12/17 14:15 07/12/17 17:17 07/12/17 19:50 Glucose (Fingerstick) 241 mg/dL (70-99) 176 mg/dL (70-99) 200 mg/dL (70-99) Troponin I Quantitative < 0.017 ng/mL (0-0.055) Test 07/13/17 05:54 07/13/17 07:28 White Blood Count 6.0 x10^3/uL (4.0-11.0) Red Blood Count 3.54 x10^6/uL (3.50-5.40) Hemoglobin 10.9 g/dL (12.0-15.5) Hematocrit 31.4 % (36.0-47.0) Mean Corpuscular Volume 89 fL (79-100) Mean Corpuscular Hemoglobin 31 pg (25-35) Mean Corpuscular Hemoglobin Concent 35 g/dL (31-37) Red Cell Distribution Width 13.6 % (11.5-14.5) Platelet Count 214 x10^3/uL (140-400) Neutrophils (%) (Auto) 53 % (31-73) Lymphocytes (%) (Auto) 36 % (24-48) Monocytes (%) (Auto) 9 % (0-9) Eosinophils (%) (Auto) 2 % (0-3) Basophils (%) (Auto) 0 % (0-3) Neutrophils # (Auto) 3.2 x10^3uL (1.8-7.7) Lymphocytes # (Auto) 2.1 x10^3/uL (1.0-4.8) Monocytes # (Auto) 0.6 x10^3/uL (0.0-1.1) Eosinophils # (Auto) 0.1 x10^3/uL (0.0-0.7) Basophils # (Auto) 0.0 x10^3/uL (0.0-0.2) Sodium Level 143 mmol/L (136-145) Potassium Level 3.4 mmol/L (3.5-5.1) Chloride Level 107 mmol/L (98-107) Carbon Dioxide Level 27 mmol/L (21-32) Anion Gap 9 (6-14) Blood Urea Nitrogen 14 mg/dL (7-20) Creatinine 1.0 mg/dL (0.6-1.0) Estimated GFR (Cockcroft-Gault) 55.6 BUN/Creatinine Ratio 14 (6-20) Glucose Level 163 mg/dL (70-99) Calcium Level 8.7 mg/dL (8.5-10.1) Magnesium Level 1.8 mg/dL (1.8-2.4) Total Bilirubin 0.3 mg/dL (0.2-1.0) Aspartate Amino Transf (AST/SGOT) 12 U/L (15-37) Alanine Aminotransferase (ALT/SGPT) 23 U/L (14-59) Alkaline Phosphatase 95 U/L (46-116) Total Protein 6.1 g/dL (6.4-8.2) Albumin 3.0 g/dL (3.4-5.0) Albumin/Globulin Ratio 1.0 (1.0-1.7) Glucose (Fingerstick) 178 mg/dL (70-99) Medications Current Medications Aspirin (Children'S Aspirin) 81 mg STK-MED ONCE .ROUTE ; Start 07/12/17 at 02:20 ; Stop 07/12/17 at 02:21; Status DC Aspirin (Children'S Aspirin) 162 mg 1X ONCE PO Last administered on 07/12/17at 02:21; Start 07/12/17 at 02:30; Stop 07/12/17 at 02:31; Status DC Aspirin (Children'S Aspirin) 162 mg 1X ONCE PO ; Start 07/12/17 at 02:30; Stop 07/12/17 at 02:39; Status DC Lorazepam (Ativan) 1 mg 1X ONCE IV Last administered on 07/12/17at 02:39; Start 07/12/17 at 03:00; Stop 07/12/17 at 03:01; Status DC Sodium Chloride 1,000 ml @ 1,000 mls/hr Q1H IV Last administered on 07/12/17at 03:52; Start 07/12/17 at 03:00; Stop 07/12/17 at 03:59; Status DC Sodium Chloride (Normal Saline Flush) 10 ml QSHIFT PRN IV AFTER MEDS AND BLOOD DRAWS Last administered on 07/12/17at 02:39; Start 07/12/17 at 02:30 Fentanyl Citrate (Fentanyl 2ml Vial) 50 mcg 1X ONCE IV Last administered on at 02:39; Start 07/12/17 at 03:00; Stop 07/12/17 at 03:01; Status DC Ondansetron HCl (Zofran) 4 mg PRN Q4HRS PRN IV NAUSEA/VOMITING Last administered on 07/12/17at 17:23; Start 07/12/17 at 03:45; Stop 07/13/17 at 03:44 ; Status DC Fentanyl Citrate (Fentanyl 2ml Vial) 50 mcg PRN Q1HR PRN IV SEVERE PAIN Last administered on 07/12/17at 17:09; Start 07/12/17 at 03:45; Stop 07/13/17 at 03:44 ; Status DC Nitroglycerin (Nitrostat) 0.4 mg PRN Q5MIN PRN SL CHEST PAIN; Start 07/12/17 at 03:45; Stop 07/12/17 at 10:32; Status DC Insulin Aspart (NovoLOG) 0-7 UNITS QIDACHS SQ Last administered on 07/12/17at 20 :22; Start 07/12/17 at 07:30 Dextrose 12.5 gm PRN Q15MIN PRN IV SEE COMMENTS; Start 07/12/17 at 07:30 Albuterol Sulfate (Ventolin Hfa) 1 puff PRN Q4HRS PRN IH SHORTNESS OF BREATH; Start 07/12/17 at 08:45; Stop 07/12/17 at 09:06; Status DC Aspirin (Aspirin Enteric Coated) 81 mg DAILY PO Last administered on 07/13/17 08:21; Start 07/12/17 at 09:00 Atorvastatin Calcium (Lipitor) 40 mg QHS PO Last administered on 07/12/17at 20: 15; Start 07/12/17 at 21:00 Carvedilol (Coreg) 12.5 mg DAILY PO Last administered on 07/13/17at 08:21; Start 07/12/17 at 09:00 Clopidogrel Bisulfate (Plavix) 75 mg DAILY PO Last administered on 07/13/17at 08 :20; Start 07/12/17 at 09:00 Gabapentin (Neurontin) 300 mg HS PO Last administered on 07/12/17at 20:15; Start 07/12/17 at 21:00 Albuterol/ Ipratropium (Duoneb) 3 ml PRN QID PRN NEB SHORTNESS OF BREATH; Start 07/12/17 at 08:45 Methocarbamol (Robaxin) 750 mg PRN TID PRN PO MUSCLE PAIN; Start 07/12/17 at 08 :45 Nitroglycerin (Nitrostat) 0.4 mg PRN Q5MIN PRN SL CHEST PAIN; Start 07/12/17 at 08:45 Ranolazine (Ranexa) 500 mg BID PO Last administered on 07/13/17at 08:22; Start 07/12/17 at 09:00 Tramadol HCl (Ultram) 50 mg PRN Q8HRS PRN PO PAIN; Start 07/12/17 at 08:45 Citalopram Hydrobromide (CeleXA) 20 mg DAILY PO Last administered on 07/13/17at 08:22; Start 07/13/17 at 09:00 Losartan Potassium (Cozaar) 100 mg DAILY PO Last administered on 07/13/17at 08: 22; Start 07/13/17 at 09:00 Non-Formulary Medication 2 puff QID PRN IH SHORTNESS OF BREATH; Start 07/12/17 at 08:45; Stop 07/12/17 at 09:24; Status DC Potassium Chloride (Klor-Con) 20 meq DAILYWBKFT PO Last administered on at 08:20; Start 07/13/17 at 08:00 Linagliptin (Tradjenta) 5 mg DAILY PO Last administered on 07/13/17at 08:21; Start 07/13/17 at 09:00 Hydrochlorothiazide (Hydrodiuril) 25 mg DAILY PO Last administered on at 08:21; Start 07/13/17 at 09:00 Budesonide (Pulmicort) 0.5 mg RTBID NEB Last administered on 07/12/17at 22:18; Start 07/12/17 at 09:15 Albuterol Sulfate (Ventolin) 2.5 mg PRN Q4HRS PRN NEB SHORTNESS OF BREATH; Start 07/12/17 at 09:15; Stop 07/12/17 at 09:15; Status DC Albuterol Sulfate (Ventolin) 2.5 mg RTQID NEB ; Start 07/12/17 at 12:00; Stop at 12:00; Status DC Albuterol Sulfate (Ventolin) 2.5 mg Q6HRS NEB Last administered on 07/13/17at 05 :32; Start 07/12/17 at 12:00 Potassium Chloride (Klor-Con) 20 meq 1X ONCE PO Last administered on at 08:20; Start 07/13/17 at 07:15; Stop 07/13/17 at 07:16; Status DC Regadenoson (Lexiscan) 0.4 mg 1X ONCE IV ; Start 07/13/17 at 09:00; Stop at 09:01 Active Scripts Active Ranexa (Ranolazine) 500 Mg Tab.er.12h 500 Mg PO BID 60 Days Atorvastatin Calcium 20 Mg Tablet 40 Mg PO QHS Reported Methocarbamol 750 Mg Tablet 750 Mg PO TID PRN Gabapentin 300 Mg Capsule 300 Mg PO HS Tramadol Hcl (Tramadol HCl) 50 Mg Tablet 50 Mg PO Q8HRS PRN Escitalopram Oxalate 10 Mg Tablet 10 Mg PO DAILY LAST DOSE GIVEN: DATE: YESTERDAY TIME: PM NEXT DOSE DUE: DATE: TODAY TIME: PM NITROGLYCERIN SubLingual (Nitroglycerin) 0.4 Mg Tab.subl 0.4 Mg SL PRN Q5MIN PRN LAST DOSE GIVEN: NOT GIVEN THIS ADMISSION NEXT DOSE DUE: DATE: TODAY TIME: IF NEEDED Plavix (Clopidogrel Bisulfate) 75 Mg Tablet 75 Mg PO DAILY LAST DOSE GIVEN: DATE: YESTER TIME: PM NEXT DOSE DUE: DATE: TODAY TIME: PM Januvia (Sitagliptin Phosphate) 100 Mg Tablet 100 Mg PO DAILY LAST DOSE GIVEN: DATE: YESTER TIME: PM NEXT DOSE DUE: DATE: TODAY TIME: PM Aspir-Low (Aspirin) 81 Mg Tablet.dr 81 Mg PO DAILY LAST DOSE GIVEN: DATE: YESTER TIME: PM NEXT DOSE DUE: DATE: TODAY TIME: PM Ventolin Hfa Inhaler (Albuterol Sulfate) 18 Gm Hfa.aer.ad 1 Puff IH PRN Q4HRS PRN LAST DOSE GIVEN: DATE: TIME: AM NEXT DOSE DUE: DATE: TODAY TIME: IF NEEDED Coreg (Carvedilol) 12.5 Mg Tablet 12.5 Mg PO DAILY LAST DOSE GIVEN: DATE: YESTERDAY TIME: PM NEXT DOSE DUE: DATE: TODAY TIME: PM Duoneb 0.5-3(2.5) Mg/3 Ml (Albuterol/Ipratropium) 3 Ml Ampul.neb 3 Ml NEB QID PRN LAST DOSE GIVEN: NOT GIVEN THIS ADMISSION NEXT DOSE DUE: DATE: TODAY TIME: IF NEEDED Potassium Chloride 10 Meq Tablet.er 20 Meq PO DAILY LAST DOSE GIVEN: DATE: YESTER TIME: PM NEXT DOSE DUE: DATE: TODAY TIME: PM Dulera 200 Mcg/5 Mcg Inhaler (Mometasone/Formoterol) 13 Gm Hfa.aer.ad 2 Puff IH QID PRN LAST DOSE GIVEN: NOT GIVEN THIS ADMISSION NEXT DOSE DUE: DATE: TODAY TIME: IF NEEDED Losartan-Hctz 100-25 Mg Tab (Losartan/Hydrochlorothiazide) 1 Each Tablet 1 Tab PO DAILY LAST DOSE GIVEN: DATE: YESTERDAY TIME: PM NEXT DOSE DUE: DATE: TODAY TIME: PM Vitals/I & O Vital Sign - Last 24 Hours 07/12/17 07/12/17 07/12/17 07/12/17 09:50 10:12 10:14 12:12 Temp 97.6 Pulse 75 75 Resp 20 18 B/P (MAP) 108/70 (83) 108/70 Pulse Ox 97 97 O2 Delivery Room Air Room Air Room Air 07/12/17 07/12/17 07/12/17 07/12/17 14:51 17:09 18:05 19:30 Temp 97.5 Pulse 80 Resp 20 20 B/P (MAP) 145/83 (103) Pulse Ox 98 O2 Delivery Room Air Room Air Room Air Room Air 07/12/17 07/12/17 07/12/17 07/12/17 20:15 20:16 22:06 22:11 Temp 98.1 Pulse 80 81 Resp 22 B/P (MAP) 145/83 136/80 (98) Pulse Ox 96 99 99 O2 Delivery Nasal Cannula Nasal Cannula Nasal Cannula O2 Flow Rate 2.0 2.0 2.0 07/12/17 07/13/17 07/13/17 07/13/17 22:32 05:23 05:34 08:21 Temp 97.7 98.6 Pulse 78 76 76 Resp 20 18 B/P (MAP) 132/79 (96) 138/90 (106) 138/90 Pulse Ox 100 97 96 O2 Delivery Room Air Room Air Room Air 07/13/17 07/13/17 08:22 08:22 Pulse 76 76 B/P (MAP) 138/90 138/90 Intake and Output 07/12/17 07/12/17 07/13/17 15:00 23:00 07:00 Intake Total 240 ml 1537 ml 680 ml Output Total 200 ml 720 ml Balance 40 ml 817 ml 680 ml CONSUELO DE OLIVEIRA APRN Jul 13, 2017 09:01
[2017-07-13] MEDS: BUDESONIDE 0.5 MG/2 ML NEBU NEB SCH (09:36)
[2017-07-13 11:21] VITALS: BP 118/78
--- NOTE | 2017-07-13 14:36 | RAD ---
MR#: [id number] Date of Study: 07/13/2017 Ordering Physician: CONSUELO XIAO, Referring Physician: FLOYD ANSARI Tech: RT Eduardo (R) (N) APPROVED REPORT Test Type: Pharmacological Stress Nurse/Tech: Regan Xiao Test Indications: CP Cardiac History: See Electronic Medical Record Medications: See EHR Medical History: See EHR Resting Heart Rate: 74 bpm Resting Blood Pressure: 134/77mmHg Pretest Chest Pain: None Pharm. Details Pharmacologic stress testing was performed using 0.4mg per 5ml of regadenoson given intravenously ove r 7-10 seconds. Stress Symptoms Mild CP POST EXERCISE Reason for Termination: Infusion complete Max HR: 196 bpm Blood Pressure response to exercise: Normal blood pressure response during stress. Heart Rate response to exercise: Normal Chest Pain: Yes. Mild Arrhythmia: No. ST Change: No. INTERPRETATION Stress EKG Conclusion: No evidence of stress induced EKG changes. Imaging Protocol IMAGE PROTOCOL: Rest Tc-99m/stress Tc-99m 1 day Rest: Stress: Viability: Radiopharm.Tc99m OodyjsteuIb68v Sestamibi Dyaq68zMz 33mCi Duration 20min. 15min. Img Date 07/13/2017 07/13/2017 Inj-Img Bubj02hgj. 45min. Rest Admin Site:IV - Right ForearmAdministrator: RT Eduardo (R)(N) Stress Admin Site: IV - Right ForearmAdministrator: RT Eduardo (R)(N) STRESS DATA End Diast. Vol.56.0mlAv. Heart Rate84.0bpm LVEDV index BSA1.0mlCardiac Output0.1L/min End Syst. Vol.7.0mlCO Index BSA4.1L/min LVESV index BSA0.0mlMyocardial Mass97.0g Eject. Rwcifhmj34.0% Stress Rates Pk. Fill Rate5.66EDV/secLVtime Pk. Fill 183.15msec Pk. Empty Rate5.61ESV/secLVtime Pk. Cpyli198.58msec 1/3 Pk. Fill1.64EDV/sec Stress Scores Regional WT1.00Summed WT1.00 Regional WM0.00Summed WM0.00 The rest and stress images show normal perfusion, normal contraction and thickening. LV Perf. Quant 17 Seg. SSS0.00 17 Seg. SRS0.00 17 Seg. SDS0.00 Stress Defect Extent (% LAD)0.00Rest Defect Extent (% LAD)0.00Rev. Defect Extent (% LAD)0.00 Stress Defect Extent (% LCX) 0.00Rest Defect Extent (% LCX)0.00Rev. Defect Extent (% LCX)0.00 Stress Defect Extent (% RCA)0.00Rest Defect Extent (% RCA)0.00Rev. Defect Extent (% RCA)0.00 Stress Defect Extent (% STEVEN)0.00Rest Defect Extent (% STEVEN)0.00Rev. Defect Extent (% STEVEN)0.00 Other Information Quality:Good Risk Assessment: Low Risk Conclusion 1. No evidence of EKG changes with stress testing. 2. Normal perfusion at stress/rest. 3. Low risk study. 4. EF > 60%. Signed by : Chris Sears, Electronically Approved : 07/13/2017 14:36:27
[2017-07-13 15:14] VITALS: BP 110/54
--- NOTE | 2017-07-13 16:26 | EKG ---
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
--- NOTE | 2017-07-14 00:48 | PN ---
DATE: 07/13/2017 CURRENT PROBLEMS: 1. Chest pain, myocardial infarction ruled out, having a Lexiscan today 2. History of coronary artery disease with stent placement. 3. Type 2 diabetes. 4. Hyperglycemia, improving. 5. Hyperlipidemia. 6. Mild diarrhea today with no history of antibiotic. 7. Awaiting Lexiscan. No further Lexiscan pending. 8. Hypokalemia. OBJECTIVE: VITAL SIGNS: Blood pressure 118/78, pulse 69, respirations 20, temperature 97.7, pulse ox 97% on room air. GENERAL: Her color is pale. She is resting comfortably. HEENT: Throat is clear. LUNGS: Clear. CARDIOVASCULAR: Regular rhythm and rate. ABDOMEN: Soft. Bowel sounds are positive. Mild diffuse tenderness, nothing major. EXTREMITIES: Without edema. LABORATORY DATA: Potassium is 3.4, glucose is now below 200. So another problem. PLAN: Lexiscan scan today. Replace potassium. Monitor diarrhea. We will check a C. diff. EJ AVELAR DO DR: SHANTEL/nitesh JOB#: [id number] / [id number]
== END 2017-07-13 18:25 | disposition home or self-care (01) | DRG 303 ==
LOC: ER 02:10 → 1 SOUTH 03:25 → ER 03:47
PROVIDERS: ADMIT Internal Medicine; ATTEND Internal Medicine
DX: I25.10 Atherosclerotic heart disease of native coronary artery without angina pectoris (principal); I95.9 Hypotension, unspecified; E11.65 Type 2 diabetes mellitus with hyperglycemia; E78.5 Hyperlipidemia, unspecified; R19.7 Diarrhea, unspecified; E87.6 Hypokalemia; N28.9 Disorder of kidney and ureter, unspecified; I10 Essential (primary) hypertension; G89.29 Other chronic pain; Z91.018 Allergy to other foods; Z95.5 Presence of coronary angioplasty implant and graft; Z90.710 Acquired absence of both cervix and uterus; Z85.41 Personal history of malignant neoplasm of cervix uteri; Z88.0 Allergy status to penicillin; Z88.6 Allergy status to analgesic agent; Z91.041 Radiographic dye allergy status; Z88.5 Allergy status to narcotic agent; Z87.01 Personal history of pneumonia (recurrent); Z82.49 Family history of ischemic heart disease and other diseases of the circulatory system; Z82.5 Family history of asthma and other chronic lower respiratory diseases; Z82.3 Family history of stroke; N18.3 Chronic kidney disease, stage 3 (moderate)
CPT/HCPCS: 36415; 71045; 78452; 80048; 80053; 80076; 81001; 82553; 82947; 83690; 83735; 83880; 84443; 84484; 85025; 87086; 87324; 93005; 93017; 93306; 94640; 94760; 96374; 96375; 96376; A9500; J1815; J2060; J2405; J2785; J3010; J7613; J7626; J7030

== ENCOUNTER → 2017-07-22 | Outpatient (CLI) | payer MEDICARE, BC ==
[2017-07-13 15:14] VITALS: BP 110/54
[~2017-07-22] MED LIST changes: +GABA300C8 PO; +IOHEXOL 300 MG/ML 75 ML VIAL. IV ONE; +METH750T2 PO; +TRAM50TA PO
--- NOTE | 2017-07-22 12:45 | RAD ---
CTA of the chest with contrast, 07/22/2017: History: Shortness of breath, cough, elevated d-dimer Multidetector CT imaging was performed following an IV bolus injection of iodinated contrast material. Multiplanar reconstructions were produced including coronal and sagittal MIP images. The central pulmonary arteries are well opacified and no filling defects are seen to suggest pulmonary emboli. There is calcific plaquing of the thoracic aorta without evidence of aneurysm. There are extensive radiopacities involving the left anterior descending coronary artery compatible with calcifications and/or stents. Multiple small mediastinal lymph nodes are seen without evidence of pathologic enlargement. There is minimal dependent atelectasis or scarring posteriorly in both lungs. A small subpleural bleb is seen medially in the left upper lobe. No pulmonary mass or consolidation is seen. There is no evidence of pleural fluid. An electronic device implant is noted in the anterior chest wall on the left. IMPRESSION: 1. No CT evidence of central pulmonary emboli. 2. Moderate coronary artery disease PQRS Compliance Statement: One or more of the following individualized dose reduction techniques were utilized for this examination: 1. Automated exposure control 2. Adjustment of the mA and/or kV according to patient size 3. Use of iterative reconstruction technique
== END | disposition home or self-care (01) ==
LOC: CT 10:14
PROVIDERS: ATTEND Physician Assistant
DX: R79.89 Other specified abnormal findings of blood chemistry (principal); I25.10 Atherosclerotic heart disease of native coronary artery without angina pectoris; J45.909 Unspecified asthma, uncomplicated
CPT/HCPCS: 71275; Q9967

== ENCOUNTER 2018-03-22 21:02 | Inpatient (IN) | payer MEDICARE, BC ==
[~2018-03-22] VITALS: Ht 152.4 cm; Wt 66.8 kg
[~2018-03-22 21:02] MED LIST changes: +ALPR0.25 PO; +BUDE10.2 IH; +CYCL-331 PO; -FENO145T2 PO; +FENO145T30 PO; -IOHEXOL 300 MG/ML 75 ML VIAL. IV ONE; -IPRA3AMP NEB; +IPRA3AMP29 NEB; +LEVE500T56 PO; +OLME1TAB25 PO; +PRIM50TA PO; +TIOT18CA IH; +VALA10005 PO
--- NOTE | 2018-03-22 21:10 | ED.ADGEN ---
Past History Past Medical History: Anxiety, Arthritis, CAD, Cancer, Diabetes, Hypertension Additional Past Medical Histor: Parkinson dz Past Surgical History: Angioplasty, Cholecystectomy, , Hysterectomy Smoking: Non-smoker Alcohol Use: None Drug Use: None Adult General Chief Complaint Chief Complaint ".. I ve been coughing so much... some little chunks of hsu......".."Chills.. fever.. more short of breath..." HPI HPI Patient is a 67 year old female who presents with above hx and complaints increased coughing,fever, chills. dyspnea and cyanosis hands and feet. Pt. cough has been productive. Complaints of generalized weakness. Pt. denies any travel or specific ill contacts. Has been compliant with meds.. Patient has past medical history of coronary artery disease, diabetes, hypertension, bronchiectasis, Parkinson's disease,. Patient normally follows with Dr. Fregoso Review of Systems Review of Systems Constitutional: History of fever or chills [] Eyes: Denies change in visual acuity, redness, or eye pain [] HENT: Denies nasal congestion or sore throat [] Respiratory: History of cough and shortness of breath [] Cardiovascular: No additional information not addressed in HPI [] GI: Denies abdominal pain, nausea, vomiting, bloody stools or diarrhea [] : Denies dysuria or hematuria [] Musculoskeletal: Denies back pain or joint pain []Complaints of generalized weakness Integument: Denies rash or skin lesions [] Neurologic: Denies headache, focal weakness or sensory changes. Complaints of [] increasing tremor Endocrine: Denies polyuria or polydipsia [] All other systems were reviewed and found to be within normal limits, except as documented in this note. Family History Family History Son of a massive CA Current Medications Current Medications Current Medications Medications (Trade) Dose Ordered Sig/Juan Start Time Stop Time Status Last Admin Dose Admin Albuterol/ Ipratropium (Duoneb) 3 ml 1X ONCE 03/22/18 21:30 03/22/18 21:31 DC 03/22/18 22:33 3 ML Azithromycin (Zithromax) 500 mg 1X ONCE 03/22/18 21:30 03/22/18 21:31 DC 03/22/18 21:53 500 MG Lactated Ringer's 1,000 ml @ 100 mls/hr Q10H 03/22/18 21:13 03/23/18 07:12 03/22/18 21:52 100 MLS/HR Methylprednisolone Sodium Succinate (SOLU-Medrol 125MG VIAL) 125 mg 1X ONCE 03/22/18 21:30 03/22/18 21:31 DC 03/22/18 21:53 125 MG See nursing for home meds Allergies Allergies Allergies Coded Allergies Type Severity Reaction Last Updated Verified Penicillins Allergy Intermediate 06/01/16 Yes Soap Allergy Intermediate 06/01/16 Yes hydrocodone bitartrate Allergy Intermediate Itching 10/25/15 Yes mushroom Allergy Intermediate 06/01/16 Yes povidone-iodine Allergy Intermediate 06/01/16 Yes aspirin Allergy Mild 02/09/17 Yes metformin Allergy Unknown 03/18/18 Yes Physical Exam Physical Exam Constitutional: Moderately acute distress, non-toxic appearance. [] HENT: Normocephalic, atraumatic, bilateral external ears normal, oropharynx moist, no oral exudates, nose swollen turbinates and rhinorrhea Eyes: PERRLA, EOMI, conjunctiva normal, no discharge. [] Glasses Neck: Normal range of motion, no tenderness, supple, no stridor. [] Cardiovascular: Tachycardia Heart rate regular rhythm, no murmur [PMI to the left] Lungs & Thorax: Bilateral breath sounds equal at apex with scattered wheezes some basilar rhonchi on auscultation [] Abdomen: Bowel sounds normal, soft, no tenderness, no masses, no pulsatile masses. [Old surgical scars. Obese Skin: Warm, dry, no erythema, no rash. Poor turgor Back: No tenderness, no CVA tenderness. [] Extremities: No tenderness, no cyanosis, no clubbing, ROM intact, ankle edema. [ ] Arthritic changes Neurologic: Alert and oriented X 3, normal motor function, normal sensory function, no focal deficits noted. []Prominent fine right hand intentional tremor. Shuffling gait. Psychologic: Affect anxious, judgement normal, mood normal. [] Current Patient Data Vital Signs Vital Signs Date Time Temp Pulse Resp B/P (MAP) Pulse Ox O2 Delivery O2 Flow Rate FiO2 03/22/18 21:48 86 18 135/87 (103) 94 Room Air 03/22/18 21:10 98.6 Lab Results Laboratory Tests Test 03/22/18 21:40 White Blood Count 5.1 x10^3/uL (4.0-11.0) Red Blood Count 3.88 x10^6/uL (3.50-5.40) Hemoglobin 12.1 g/dL (12.0-15.5) Hematocrit 34.5 % (36.0-47.0) L Mean Corpuscular Volume 89 fL (79-100) Mean Corpuscular Hemoglobin 31 pg (25-35) Mean Corpuscular Hemoglobin Concent 35 g/dL (31-37) Red Cell Distribution Width 13.8 % (11.5-14.5) Platelet Count 254 x10^3/uL (140-400) Neutrophils (%) (Auto) 57 % (31-73) Lymphocytes (%) (Auto) 31 % (24-48) Monocytes (%) (Auto) 7 % (0-9) Eosinophils (%) (Auto) 4 % (0-3) H Basophils (%) (Auto) 0 % (0-3) Neutrophils # (Auto) 2.9 x10^3uL (1.8-7.7) Lymphocytes # (Auto) 1.6 x10^3/uL (1.0-4.8) Monocytes # (Auto) 0.4 x10^3/uL (0.0-1.1) Eosinophils # (Auto) 0.2 x10^3/uL (0.0-0.7) Basophils # (Auto) 0.0 x10^3/uL (0.0-0.2) Prothrombin Time < 9.3 SEC (9.4-11.4) L Prothrombin Time INR 0.9 (0.9-1.1) PTT 22 SEC (23-33) L D-Dimer (Louann) 0.45 mg/L (0.00-0.50) Sodium Level 135 mmol/L (136-145) L Potassium Level 3.3 mmol/L (3.5-5.1) L Chloride Level 98 mmol/L (98-107) Carbon Dioxide Level 30 mmol/L (21-32) Anion Gap 7 (6-14) Blood Urea Nitrogen 14 mg/dL (7-20) Creatinine 1.0 mg/dL (0.6-1.0) Estimated GFR (Cockcroft-Gault) 55.5 Glucose Level 236 mg/dL (70-99) H Lactic Acid Level < 0.3 mmol/L (0.4-2.0) L Calcium Level 9.0 mg/dL (8.5-10.1) Magnesium Level 1.9 mg/dL (1.8-2.4) Total Bilirubin 0.3 mg/dL (0.2-1.0) Direct Bilirubin 0.1 mg/dL (0.0-0.2) Aspartate Amino Transferase (AST) 51 U/L (15-37) H Alanine Aminotransferase (ALT) 69 U/L (14-59) H Alkaline Phosphatase 129 U/L (46-116) H Creatine Kinase 242 U/L (26-192) H Troponin I Quantitative < 0.017 ng/mL (0-0.055) ZM-Wwu-V-Type Natriuretic Peptide 91 pg/mL (0-124) Total Protein 6.7 g/dL (6.4-8.2) Albumin 3.3 g/dL (3.4-5.0) L Lipase 165 U/L (73-393) EKG EKG I interpretation of EKG shows a sinus rate at 76 bpm. There is some nonspecific contour abnormalities anterior septal region. But no findings acute STEMI of contralateral changes. There is some baseline artifact felt to be secondary to her Parkinson's tremor[] Radiology/Procedures Radiology/Procedures I interpretation of chest x-ray shows borderline cardiomegaly. Some cephalization. Has a loop monitor. No free air diaphragm. Tinea joint changes. Some clips in the right upper abdomen Course & Med Decision Making Course & Med Decision Making Pertinent Labs and Imaging studies reviewed. (See chart for details) Patient admitted to Dr. Cooley. [] Final Impression Final Impression 1. Dyspnea[] 2. Bronchiectasis 3. History coronary artery disease 4. Diabetes 5. Hypertension 6. Parkinson disease 7. Hx. CADz 8. Elevated CK 242 9. Hypokalemia 3.3 10. Hyponatremia 135 11. UTI Dragon Disclaimer Dragon Disclaimer This electronic medical record was generated, in whole or in part, using a voice recognition dictation system. DANNY DANIELLE MD Mar 22, 2018 21:10
[2018-03-22] MEDS ORDERED: IV RINGERS SOLUTION,LACTATED 1,000 ML IV SCH (21:13)
[2018-03-22] MEDS ORDERED: methylPREDNISolone SOD SUCC PF 125 MG/2 ML VIAL. IV ONE (21:30)
[2018-03-22] MEDS ORDERED: AZITHROMYCIN 250 MG TABLET. PO ONE (21:30)
[2018-03-22] MEDS ORDERED: IPRATRPIUM/ALBUTEROL 0.5/2.5MG 3 ML NEBU. NEB ONE (21:30)
[2018-03-22 22:00] LABS: BASO % 0 % (0-3); EOS # 0.2 x10^3/uL (0.0-0.7); EOS % 4 % (0-3); HEMATOCRIT 34.5 % (36.0-47.0); HEMOGLOBIN 12.1 g/dL (12.0-15.5); LYMPH # 1.6 x10^3/uL (1.0-4.8); LYMPH % 31 % (24-48); MEAN CORPUSCULAR HEMOGLOBIN 31 pg (25-35); MEAN CORPUSCULAR HGB CONC 35 g/dL (31-37); MEAN CORPUSCULAR VOLUME 89 fL (79-100); MONO # 0.4 x10^3/uL (0.0-1.1); MONO % 7 % (0-9); NEUT # 2.9 x10^3uL (1.8-7.7); NEUT % 57 % (31-73); PLATELET COUNT 254 x10^3/uL (140-400); RED BLOOD COUNT 3.88 x10^6/uL (3.50-5.40); RED CELL DISTRIBUTION WIDTH 13.8 % (11.5-14.5); WHITE BLOOD COUNT 5.1 x10^3/uL (4.0-11.0)
[2018-03-22 22:17] LABS: BGAS PH 7.44 (7.35-7.45)
[2018-03-22 22:19] LABS: ALBUMIN 3.3 g/dL (3.4-5.0); DIRECT BILIRUBIN 0.1 mg/dL (0.0-0.2); GFR 55.5; MAGNESIUM 1.9 mg/dL (1.8-2.4); POTASSIUM 3.3 mmol/L (3.5-5.1); TOTAL BILIRUBIN 0.3 mg/dL (0.2-1.0); TOTAL PROTEIN 6.7 g/dL (6.4-8.2)
[2018-03-22] MEDS ORDERED: ONDANSETRON PF 4 MG/2 ML VIAL. IV PRN (22:30)
--- NOTE | 2018-03-22 22:31 | EKG ---
[address] [address] Test Date: 2018-03-22 Test Time: 22:26:53 Pat Name: FAMILIA MAR Department: Room: Gender: F Manager Inside: : 1950 Requested By: DANNY DANIELLE Order Number: [id number] Reading MD: Chris Sears MD Measurements Intervals [place] Rate: 76 P: 38 LA: 130 QRS: 10 QRSD: 84 T: 26 QT: 412 QTc: 463 Interpretive Statements SINUS RHYTHM PROBABLE PRIOR INFERIOR INFARCT CANNOT BE RULED OUT Electronically Signed On 03-28-2018 10:37:06 CDT by Chris Sears MD
[2018-03-22 22:45] LABS: BARBITURATES POS (NEG); BENZODIAZEPINES POS (NEG); BILIRUBIN,URINE NEG (NEG); CANNABINOIDS NEG (NEG); CLARITY,URINE CLEAR; COCAINE NEG (NEG); COLOR,URINE YELLOW; GLUCOSE,URINE 250 mg/dL (NEG); METHADONE NEG (NEG); NITRITE,URINE NEG (NEG); OPIATES NEG (NEG); PHENCYCLIDINE NEG (NEG); UROBILINOGEN,URINE 0.2 mg/dL (0.2 mg/dL)
[2018-03-22 22:46] LABS: AMPHETAMINE/METHAMPHETAMINE NEG (NEG); BACTERIA,URINE 0 /HPF (0-FEW); RBC,URINE 0 /HPF (0-2); SQUAMOUS EPITHELIAL CELL,UR FEW /LPF
[2018-03-22] MEDS ORDERED: POTASSIUM CHLORIDE 20 MEQ/15 ML ORAL LIQUID. PO ONE (23:00)
[2018-03-22] MEDS ORDERED: IV NORMAL SALINE 50ML 50 ML ONE (23:01)
[2018-03-22] MEDS ORDERED: cefTRIAXone SODIUM 1 GM VIAL IV ONE (23:02)
[2018-03-23] VITALS (7 sets, daily range): BP systolic 106–153; BP diastolic 64–91
--- NOTE | 2018-03-23 00:19 | RAD ---
PA and lateral chest radiographs 03/22/2018 CLINICAL HISTORY: Cough, congestion and shakiness. PA and lateral digital radiographs of the chest were obtained. Comparison study is dated 07/12/2017. The cardiac silhouette is mildly enlarged. The thoracic aorta is mildly tortuous. No acute pulmonary infiltrate is seen. A monitoring device is seen within the left anterior chest, unchanged. No acute pulmonary infiltrate is seen. No pleural effusion or pneumothorax is noted. The osseous structures are unchanged. IMPRESSION: No acute abnormality is seen. Electronically signed by: Ryne Mackenzie MD (03/23/2018 12:16 AM) [facility]
[2018-03-23] MEDS ORDERED: IPRATRPIUM/ALBUTEROL 0.5/2.5MG 3 ML NEBU. ONE (04:55)
[2018-03-23] MEDS: IPRATRPIUM/ALBUTEROL 0.5/2.5MG 3 ML NEBU. NEB SCH ×4 (05:12→20:31)
[2018-03-23 06:19] LABS: BASO % 0 % (0-3); EOS % 0 % (0-3); HEMOGLOBIN 11.7 g/dL (12.0-15.5); LYMPH # 0.7 x10^3/uL (1.0-4.8); LYMPH % 15 % (24-48); MEAN CORPUSCULAR HEMOGLOBIN 31 pg (25-35); MEAN CORPUSCULAR HGB CONC 34 g/dL (31-37); MEAN CORPUSCULAR VOLUME 90 fL (79-100); MONO # 0.1 x10^3/uL (0.0-1.1); MONO % 1 % (0-9); NEUT % 84 % (31-73); PLATELET COUNT 224 x10^3/uL (140-400); RED BLOOD COUNT 3.78 x10^6/uL (3.50-5.40); RED CELL DISTRIBUTION WIDTH 13.1 % (11.5-14.5); WHITE BLOOD COUNT 4.8 x10^3/uL (4.0-11.0)
[2018-03-23 06:27] LABS: CALCIUM 9.1 mg/dL (8.5-10.1); CREATININE 1.2 mg/dL (0.6-1.0); GFR 44.9; POTASSIUM 3.7 mmol/L (3.5-5.1)
[2018-03-23] MEDS ORDERED: INSULIN LISPRO 300 UNITS/3 ML INSULN.PEN. SQ ONE ×2 (07:00→11:45)
[2018-03-23] MEDS ORDERED: methylPREDNISolone SOD SUCC PF 125 MG/2 ML VIAL. IV SCH (09:00)
[2018-03-23] MEDS: IV RINGERS SOLUTION,LACTATED 1,000 ML IV SCH (09:02)
[2018-03-23] MEDS: AZITHROMYCIN 250 MG TABLET. PO SCH (09:04)
[2018-03-23] MEDS ORDERED: traMADol 50 MG TABLET PO PRN (10:00)
[2018-03-23] MEDS ORDERED: NITROGLYCERIN SUBLINGUAL 0.4 MG BOTTLE OF 25. SL PRN (10:00)
[2018-03-23] MEDS ORDERED: DEXTROSE 50% 25 GM / 50ML DISP.SYRIN. IV PRN (10:15)
[2018-03-23] MEDS: CLOPIDOGREL BISULFATE 75 MG TABLET PO SCH (11:04)
[2018-03-23] MEDS: ALPRAZolam 0.25 MG TABLET PO SCH (11:04)
[2018-03-23] MEDS: CITALOPRAM 20 MG TABLET. PO SCH (11:05)
[2018-03-23] MEDS: CARVEDILOL 12.5 MG TABLET PO SCH ×2 (11:05→17:12)
[2018-03-23] MEDS: levETIRAcetam 500 MG TABLET PO SCH ×2 (11:06→20:54)
[2018-03-23] MEDS: LOSARTAN 50 MG TABLET. PO SCH (11:07)
[2018-03-23] MEDS: PRIMIDONE 50 MG TABLET PO SCH (11:08)
[2018-03-23] MEDS: hydroCHLOROthiazide 25 MG TABLET PO SCH (11:08)
[2018-03-23] MEDS: valACYclovir 500 MG TABLET. PO SCH (11:09)
[2018-03-23] MEDS: INSULIN LISPRO 300 UNITS/3 ML INSULN.PEN. SQ SCH ×4 (11:44→20:30)
--- NOTE | 2018-03-23 12:39 | HP ---
ADMIT DATE: 03/23/2018 HISTORY OF PRESENT ILLNESS: A 67-year-old female for the past month been having coughing and congestion, try to treat as an outpatient, got progressively worse, developed acute fever and chills and became somewhat cyanotic in her extremities. She did have marked dyspnea. She came in through the Emergency Room, noted aggressive pulmonary coughing with green yellow phlegm coming profusely from her mouth. As a result of this, the patient was admitted to the hospital for bronchiectasis, acute respiratory failure and failure of outpatient therapy. PAST MEDICAL HISTORY: Extensive in that she has had problems with 5-year surgeries, 80% hearing loss, tonsillectomy, adenoidectomy, cardiac symptoms, angina. She has had cardiac catheterization, hypercholesterolemia, pneumonia, sleep apnea, hiatal hernia, cervical and uterine cancer, hysterectomy, arthritis, rheumatoid arthritis, osteoarthritis, orthopedic back surgeries, left knee surgery, herniated disk surgery. She has rods in her back. The patient apparently has endocrine disorders, psychiatric problems with depression, history of cancer, influenza. Pneumococcal vaccinations are up-to-date. PAST SURGICAL HISTORY: Two tonsillectomy surgeries, gallbladder surgery, three left knee surgeries. FAMILY HISTORY: Mother with history of sepsis. One brother with stroke, myocardial infarction. Emphysema in the father. Sister with family drug history of drug dependence. ALLERGIES: PENICILLIN, SOAP, ASPIRIN, HYDROCODONE, BITARTRATE, METFORMIN, MUSHROOMS, POVIDINE, IODINE. HOME MEDICATIONS: Valtrex 1000 mg daily, Spiriva 1 puff daily, cyclobenzaprine, Plavix 75 daily, nitroglycerin, carvedilol, Benicar HCTZ, tramadol, primidone, gabapentin 300 t.i.d., Keppra 1 b.i.d., Lexapro 10 mg a day, Xanax 0.25 daily, budesonide fumarate, Symbicort daily, and Januvia 100 mg at bedtime. SOCIAL HISTORY: No smoking, alcohol or drug use. Lives at home. The patient apparently is a full code. REVIEW OF SYSTEMS: As stated in the HPI. Denies chest pain, but does have severe coughing, shortness of breath, diaphoresis, dyspnea, cyanosis. Denies abdominal pain, mild nausea, but no rebounding, no problem with her bowels or bladder. Neurologically baseline for her. PHYSICAL EXAMINATION: GENERAL: This is a pleasant white female looking somewhat pale. VITAL SIGNS: Blood pressure 135/80, respiratory rate 18, pulse 86, temperature 98.6, pulse has gone as high as 109. The patient's oxygen saturation has gone down as low as 90% vacillating. HEENT: The patient's head was atraumatic, normocephalic. Eyes: PERRLA without jaundice. The mouth and throat were normal. NECK: Supple, without JVD or thyromegaly. LUNGS: Show expiratory wheezes. CARDIOVASCULAR: Regular sinus rhythm, S1, S2, without murmur, rub, thrill, or extra heart sounds. ABDOMEN: The patient's abdomen is soft, nontender, no rebound or guarding. Positive bowel sounds, no hepatosplenomegaly was noted. EXTREMITIES: No clubbing, cyanosis or edema. NEUROLOGIC: The patient was alert and oriented. Speech fluent and spontaneous, appropriate. Cranial nerves 2-12 are grossly intact. LABORATORY DATA: Show decrease in her hemoglobin 11.7 and 34, white count 5. Chemistry: Blood sugar up to 572. Lactic negative, but she does have elevated liver enzymes of AST, ALT 51, 69 respectively, alkaline phosphatase 130. Creatinine kinase 242. Troponin negative. Albumin low at 3.3. Coagulation 0.61 on the D-dimer. UA was basically unremarkable. Tox screen shows positive for barbiturates and benzos. The patient otherwise will be admitted for further evaluation and possible sepsis, bronchiectasis, acute respiratory failure, anemia of chronic disease, history of rheumatoid arthritis, hearing loss, coronary artery disease, history of uterine cancer. The patient will be monitored carefully, continue on IV antibiotic therapy of breathing treatments. CT of the chest, VQ of the chest, chronic renal failure, GFR only approximately 20. The patient continued to be monitored carefully, make further evaluation on her as indicated. She has chronic renal failure stage 3 with GFR of 44, also get an abdominal ultrasound for elevated liver enzymes and make further evaluation on her as indicated. PUJA WOLFF MD DR: DAISY/nitesh JOB#: [id number] / [id number]
--- NOTE | 2018-03-23 14:32 | RAD ---
Ventilation perfusion exam History: Cyanosis, cough for a month Comparison: Chest radiograph March 22, 2018, no previous similar exam Findings: Ventilation perfusion examination was performed. Ventilation images were acquired after the patient inhaled 20 mCi of xenon-133 gas. Perfusion images were acquired after the patient was injected with 5.5 mCi of technetium 99m MAA. No mismatched perfusion defect is identified. Impression: 1. There is low probability for pulmonary embolic disease. Electronically signed by: Tyler Chilel MD (03/23/2018 2:29 PM) [id number]
--- NOTE | 2018-03-23 14:40 | RAD ---
CT CHEST WO CONTRAST Indication: BRONCHITIS Exposure: One or more of the following individualized dose reduction techniques were utilized for this examination: 1. Automated exposure control 2. Adjustment of the mA and/or kV according to patient size 3. Use of iterative reconstruction technique. Comparison: July 22, 2017 Contrast: None FINDINGS: Vascular structures: Limited exam without contrast. Mild calcified but no evidence of aneurysm. Lymph nodes:No significant enlargement Thyroid gland:Visualized aspect is unremarkable. Heart: Coronary artery calcification. Esophagus: Unremarkable Pleural spaces: No significant effusion Lungs: Very mild linear markings in the posterior lungs. No dense consolidation. Small bullae in the left upper lobe. Trachea and central airways: Patent. Spine: Mild degenerative spurring. Bones: No destructive process Upper abdomen: Slices obtained through the upper most abdomen are limited by the noncontrast technique. Mild pneumobilia. This could be related to prior sphincterotomy. Impression: 1. No acute findings in the chest. 2. Incidentally noted mild pneumobilia, could be due to prior sphincterotomy. Electronically signed by: Demario Ortega MD (03/23/2018 2:36 PM) [facility]
[2018-03-23] MEDS: BUDESONIDE 0.5 MG/2 ML NEBU NEB SCH ×2 (15:34→20:31)
[2018-03-23 17:21] LABS: THYROID STIM HORMONE (TSH) 1.304 uIU/mL (0.358-3.740); TRIGLYCERIDES 1735 mg/dL (0-150); VLDLC 347 mg/dL (0-40)
[2018-03-23] MEDS: INSULIN GLARGINE 300 UNITS/3 ML INSULN.PEN. SQ SCH (20:30)
[2018-03-23] MEDS: methylPREDNISolone SOD SUCC PF 40 MG/ML VIAL. IV SCH (20:52)
[2018-03-23] MEDS: CYCLOBENZAPRINE 10 MG TABLET. PO SCH (20:54)
[2018-03-23] MEDS: GABAPENTIN 300 MG CAPSULE. PO SCH (20:54)
[2018-03-23] MEDS: LACTOBACILLUS RHAMNOSUS GG 1 CAPSULE. PO SCH (20:54)
[2018-03-23] MEDS: LINAGLIPTIN 5 MG TABLET PO SCH (20:55)
[2018-03-24 05:02] VITALS: BP 154/79
[2018-03-24] MEDS: IPRATRPIUM/ALBUTEROL 0.5/2.5MG 3 ML NEBU. NEB SCH ×3 (05:19→21:37)
[2018-03-24 05:57] LABS: BASO % 0 % (0-3); EOS % 0 % (0-3); HEMOGLOBIN 10.6 g/dL (12.0-15.5); LYMPH % 8 % (24-48); MEAN CORPUSCULAR HEMOGLOBIN 31 pg (25-35); MEAN CORPUSCULAR HGB CONC 34 g/dL (31-37); MEAN CORPUSCULAR VOLUME 89 fL (79-100); MONO # 0.4 x10^3/uL (0.0-1.1); MONO % 3 % (0-9); NEUT # 11.8 x10^3uL (1.8-7.7); NEUT % 89 % (31-73); PLATELET COUNT 234 x10^3/uL (140-400); RED BLOOD COUNT 3.48 x10^6/uL (3.50-5.40); RED CELL DISTRIBUTION WIDTH 13.9 % (11.5-14.5); WHITE BLOOD COUNT 13.3 x10^3/uL (4.0-11.0)
[2018-03-24 06:03] LABS: CALCIUM 9.2 mg/dL (8.5-10.1); CREATININE 1.1 mg/dL (0.6-1.0); GFR 49.7; POTASSIUM 3.4 mmol/L (3.5-5.1)
[2018-03-24 06:10] LABS: ALK PHOS 127 U/L (46-116); ALT (SGPT) 49 U/L (14-59); AST (SGOT) 8 U/L (15-37); DIRECT BILIRUBIN < 0.1 mg/dL (0.0-0.2); TOTAL BILIRUBIN 0.2 mg/dL (0.2-1.0); TOTAL PROTEIN 6.1 g/dL (6.4-8.2)
[2018-03-24] MEDS: CARVEDILOL 12.5 MG TABLET PO SCH ×2 (08:10→17:13)
[2018-03-24] MEDS: CITALOPRAM 20 MG TABLET. PO SCH (08:11)
[2018-03-24] MEDS: hydroCHLOROthiazide 25 MG TABLET PO SCH (08:11)
[2018-03-24] MEDS: CLOPIDOGREL BISULFATE 75 MG TABLET PO SCH (08:11)
[2018-03-24] MEDS: levETIRAcetam 500 MG TABLET PO SCH ×2 (08:11→21:06)
[2018-03-24] MEDS: ALPRAZolam 0.25 MG TABLET PO SCH (08:11)
[2018-03-24] MEDS: LACTOBACILLUS RHAMNOSUS GG 1 CAPSULE. PO SCH ×2 (08:11→21:05)
[2018-03-24] MEDS: AZITHROMYCIN 250 MG TABLET. PO SCH (08:12)
[2018-03-24] MEDS: valACYclovir 500 MG TABLET. PO SCH (08:12)
[2018-03-24] MEDS: LOSARTAN 50 MG TABLET. PO SCH (08:12)
[2018-03-24] MEDS: PRIMIDONE 50 MG TABLET PO SCH (08:12)
[2018-03-24] MEDS: methylPREDNISolone SOD SUCC PF 40 MG/ML VIAL. IV SCH (08:13)
[2018-03-24] MEDS: IV RINGERS SOLUTION,LACTATED 1,000 ML IV SCH (08:17)
[2018-03-24] MEDS: INSULIN LISPRO 300 UNITS/3 ML INSULN.PEN. SQ SCH ×7 (08:42→21:21)
[2018-03-24] MEDS: INSULIN GLARGINE 300 UNITS/3 ML INSULN.PEN. SQ SCH ×2 (08:43→21:23)
[2018-03-24] MEDS ORDERED: TIOTROPIUM BROMIDE 1.25 MCG IH SCH (09:00)
--- NOTE | 2018-03-24 09:54 | RAD ---
Examination: ABDOMEN COMPLETE History: Elevated liver function enzymes. Comparison/Correlation: 10/25/2015 CT abdomen with contrast Findings: Abdominal ultrasound exam was performed. Exam is technically limited according to the technologist in the common bile duct could not be imaged. Fatty infiltration of the liver is present. Liver length is 17.6 cm. Cholecystectomy noted. Common bile duct is not delineated . No biliary dilatation. Portal venous spectral waveform and color Doppler flow are normal. Abdominal aorta and inferior vena cava are not well visualized. Proximal pancreas is diffusely echogenic presumably representing fatty infiltration. Distal pancreas is obscured by bowel gas. Right kidney measures 10.1 cm x 5.6 cm x 4.9 cm. Left kidney measures 9.8 cm x 5.1 cm x 5 cm. No hydronephrosis. Impression: Fatty infiltration of the liver. No biliary dilatation. Electronically signed by: Seymour Eagle MD (03/24/2018 9:50 AM) [id number]
[2018-03-24 10:45] VITALS: BP 131/82
[2018-03-24] MEDS: BUDESONIDE 0.5 MG/2 ML NEBU NEB SCH ×2 (11:58→21:37)
[2018-03-24 14:22] VITALS: BP 126/72
[2018-03-24 18:32] VITALS: BP 161/91
[2018-03-24] MEDS: GABAPENTIN 300 MG CAPSULE. PO SCH (21:05)
[2018-03-24] MEDS: LINAGLIPTIN 5 MG TABLET PO SCH (21:05)
[2018-03-24] MEDS: CYCLOBENZAPRINE 10 MG TABLET. PO SCH (21:05)
[2018-03-24] MEDS ORDERED: ZOLPIDEM 5 MG TABLET. PO PRN (21:30)
[2018-03-24 23:02] VITALS: BP 144/95
[2018-03-25] MEDS: IPRATRPIUM/ALBUTEROL 0.5/2.5MG 3 ML NEBU. NEB SCH (05:22)
[2018-03-25 05:51] VITALS: BP 128/75
[2018-03-25 06:09] LABS: BASO % 0 % (0-3); EOS % 0 % (0-3); HEMATOCRIT 31.3 % (36.0-47.0); HEMOGLOBIN 10.7 g/dL (12.0-15.5); LYMPH # 2.4 x10^3/uL (1.0-4.8); LYMPH % 19 % (24-48); MEAN CORPUSCULAR HEMOGLOBIN 31 pg (25-35); MEAN CORPUSCULAR HGB CONC 34 g/dL (31-37); MEAN CORPUSCULAR VOLUME 89 fL (79-100); MONO # 0.7 x10^3/uL (0.0-1.1); MONO % 6 % (0-9); NEUT # 9.1 x10^3uL (1.8-7.7); NEUT % 75 % (31-73); PLATELET COUNT 243 x10^3/uL (140-400); RED BLOOD COUNT 3.51 x10^6/uL (3.50-5.40); RED CELL DISTRIBUTION WIDTH 13.9 % (11.5-14.5); WHITE BLOOD COUNT 12.2 x10^3/uL (4.0-11.0)
[2018-03-25 06:19] LABS: CALCIUM 9.1 mg/dL (8.5-10.1); GFR 55.5
[2018-03-25] MEDS: CITALOPRAM 20 MG TABLET. PO SCH (08:34)
[2018-03-25] MEDS: AZITHROMYCIN 250 MG TABLET. PO SCH (08:34)
[2018-03-25] MEDS: LACTOBACILLUS RHAMNOSUS GG 1 CAPSULE. PO SCH (08:34)
[2018-03-25 08:35] VITALS: BP 128/75
[2018-03-25] MEDS: levETIRAcetam 500 MG TABLET PO SCH (08:35)
[2018-03-25] MEDS: CARVEDILOL 12.5 MG TABLET PO SCH (08:35)
[2018-03-25] MEDS: CLOPIDOGREL BISULFATE 75 MG TABLET PO SCH (08:35)
[2018-03-25] MEDS: INSULIN LISPRO 300 UNITS/3 ML INSULN.PEN. SQ SCH ×2 (08:35→08:43)
[2018-03-25] MEDS: hydroCHLOROthiazide 25 MG TABLET PO SCH (08:35)
[2018-03-25] MEDS: LOSARTAN 50 MG TABLET. PO SCH (08:35)
[2018-03-25] MEDS: PRIMIDONE 50 MG TABLET PO SCH (08:36)
[2018-03-25] MEDS: valACYclovir 500 MG TABLET. PO SCH (08:36)
[2018-03-25] MEDS: ALPRAZolam 0.25 MG TABLET PO SCH (08:36)
[2018-03-25] MEDS: INSULIN GLARGINE 300 UNITS/3 ML INSULN.PEN. SQ SCH (08:44)
[2018-03-25] MEDS ORDERED: methylPREDNISolone SOD SUCC PF 40 MG/ML VIAL. IV SCH (09:00)
[2018-03-25] MEDS ORDERED: PRED2.5T PO (10:02)
[2018-03-25] MEDS ORDERED: LEVO500T59 PO (10:06)
--- NOTE | 2018-03-25 15:08 | PN ---
DATE: SUBJECTIVE: The patient is resting fairly comfortably, making fairly good progress overall. The patient was found to have some bronchiectasis, did have difficulty breathing with an elevated white count. White counts are elevated at 13,000. Sed rate of 48. Albumin low. Still trying to get her blood sugars under better control and tapering down on her Solu-Medrol. She is breathing much better overall. OBJECTIVE: GENERAL: The patient is alert and oriented. LUNGS: Diminished, but clear. CARDIOVASCULAR: Regular sinus rhythm, S1, S2. ABDOMEN: Soft, nontender. PLAN: We will go ahead and continue to monitor the patient. IMPRESSION: Acute respiratory failure, anemia of chronic disease, sepsis, bronchiectasis, history of rheumatoid arthritis, hearing loss, coronary artery disease, history of uterine cancer, and chronic kidney disease stage 4. Continue with IV antibiotic therapy and make further evaluation as indicated. PUJA WOLFF MD DR: DAISY/nitesh JOB#: [id number] / [id number]
== END 2018-03-25 11:20 | disposition home or self-care (01) | DRG 871 ==
LOC: ER 21:02 → 1 SOUTH 22:00
PROVIDERS: ADMIT Family Medicine; ATTEND Family Medicine
DX: A41.9 Sepsis, unspecified organism (principal); J96.00 Acute respiratory failure, unspecified whether with hypoxia or hypercapnia; N18.4 Chronic kidney disease, stage 4 (severe); N39.0 Urinary tract infection, site not specified; E87.1 Hypo-osmolality and hyponatremia; J47.9 Bronchiectasis, uncomplicated; F32.9 Major depressive disorder, single episode, unspecified; F41.9 Anxiety disorder, unspecified; D63.8 Anemia in other chronic diseases classified elsewhere; E11.22 Type 2 diabetes mellitus with diabetic chronic kidney disease; E87.6 Hypokalemia; E78.00 Pure hypercholesterolemia, unspecified; G20 Parkinson's disease; G47.30 Sleep apnea, unspecified; H91.90 Unspecified hearing loss, unspecified ear; I12.9 Hypertensive chronic kidney disease with stage 1 through stage 4 chronic kidney disease, or unspecified chronic kidney disease; M06.9 Rheumatoid arthritis, unspecified; I25.10 Atherosclerotic heart disease of native coronary artery without angina pectoris; Z82.3 Family history of stroke; Z81.3 Family history of other psychoactive substance abuse and dependence; Z82.5 Family history of asthma and other chronic lower respiratory diseases; Z87.01 Personal history of pneumonia (recurrent); Z85.42 Personal history of malignant neoplasm of other parts of uterus; Z90.710 Acquired absence of both cervix and uterus; Z79.899 Other long term (current) drug therapy; Z88.6 Allergy status to analgesic agent; Z91.041 Radiographic dye allergy status; Z88.0 Allergy status to penicillin; Z88.8 Allergy status to other drugs, medicaments and biological substances; Z91.018 Allergy to other foods
CPT/HCPCS: 36415; 36600; 71046; 71250; 76700; 78582; 80048; 80061; 80076; 80307; 81001; 82550; 82803; 82947; 83605; 83690; 83735; 83880; 84443; 84484; 85025; 85379; 85610; 85651; 85730; 86705; 86709; 86803; 87040; 87086; 87340; 87449; 93005; 94640; 96361; 96365; 96374; 96375; A9540; A9558; G0238; J0456; J0696; J1815; J2920; J2930; J7120; J7620; J7626; 97110; 97530; 97535; 99285-25; G0479

== ENCOUNTER 2018-03-30 15:10 | Emergency (ER) | payer MEDICARE, BC ==
[~2018-03-30] VITALS: Ht 149.9 cm; Wt 68.0 kg
[~2018-03-30 15:10] MED LIST changes: +LEVO500T59 PO; +PRED2.5T PO
--- NOTE | 2018-03-30 15:23 | PHYS DOC ---
Past History Past Medical History: Anxiety, Arthritis, CAD, Cancer, Diabetes, Hypertension Additional Past Medical Histor: Parkinson dz Past Surgical History: Angioplasty, Cholecystectomy, , Hysterectomy Smoking: Non-smoker Alcohol Use: None Drug Use: None Adult General Chief Complaint Chief Complaint: KNEE INJURY [facility] HPI Patient is a 67 year old female who brought in by EMS because of bilateral knee injury. Patient states she was tripped on her dog leash and fell forward and injured both of her knee and her face. Patient denies loss of consciousness and rated her pain 10 out of 10. Patient had 100 g of fentanyl given by EMS and states the pain improved to 4 out of 10. Patient is up-to-date with tetanus immunization. Review of Systems Review of Systems Constitutional: Denies fever or chills [] Eyes: Denies change in visual acuity, redness, or eye pain [] HENT: Denies nasal congestion or sore throat [] Respiratory: Denies cough or shortness of breath [] Cardiovascular: No additional information not addressed in HPI [] GI: Denies abdominal pain, nausea, vomiting, bloody stools or diarrhea [] : Denies dysuria or hematuria [] Musculoskeletal: Denies back pain, reports joint pain [] Integument: Denies rash or skin lesions [] Neurologic: Denies headache, focal weakness or sensory changes [] Endocrine: Denies polyuria or polydipsia [] All other systems were reviewed and found to be within normal limits, except as documented in this note. Allergies Allergies Allergies Coded Allergies Type Severity Reaction Last Updated Verified Penicillins Allergy Intermediate 06/01/16 Yes Soap Allergy Intermediate 06/01/16 Yes hydrocodone bitartrate Allergy Intermediate Itching 10/25/15 Yes metformin Allergy Intermediate 03/23/18 Yes mushroom Allergy Intermediate 06/01/16 Yes povidone-iodine Allergy Intermediate 06/01/16 Yes aspirin Allergy Mild 02/09/17 Yes Physical Exam Physical Exam Constitutional: Well developed, well nourished, mild distress, non-toxic appearance. [] HENT: Normocephalic, atraumatic, oropharynx moist, no oral exudates, nose normal. [] Eyes: PERRLA, EOMI, conjunctiva normal, no discharge. [] Neck: Immobilized with color immobilization prior to arrival to ER Cardiovascular:Heart rate regular rhythm, no murmur [] Lungs & Thorax: Bilateral breath sounds clear to auscultation [] Abdomen: Bowel sounds normal, soft, no tenderness, no masses, no pulsatile masses. [] Skin: Warm, dry, no erythema, no rash. [] Back: No tenderness, no CVA tenderness. [] Extremities: Bilateral knee abrasion without edema or deformity, painful range of motion, no edema. [] Neurologic: Alert and oriented X 3, normal motor function, normal sensory function, no focal deficits noted. [] Psychologic: Affect normal, judgement normal, mood normal. [] Radiology/Procedures Radiology/Procedures [address] [address] IMAGING REPORT Signed PATIENT: FAMILIA MAR ACCOUNT: [id number] : 1950 LOCATION: ER AGE: 67 SEX: F EXAM STATUS: REG ER ORD. PHYSICIAN: ALISIA STEVENS MD REASON: fall PROCEDURE: KNEE BILAT 4V Bilateral knees, 6 views, 03/30/2018: HISTORY: Fall, pain No fracture or dislocation is identified. There is mild marginal spurring at both knee joints and at the patellofemoral articulations. No large joint effusion is seen. IMPRESSION: 1. Mild bilateral degenerative changes. 2. No acute bony abnormality is detected. Electronically signed by: Nikita Carlson MD (03/30/2018 3:54 PM) [facility] DICTATED AND SIGNED BY: NIKITA CARLSON MD DATE: 03/30/18 2781 CC: PUJA WOLFF MD; ALISIA STEVENS MD ~ [address] [address] IMAGING REPORT Signed PATIENT: FAMILIA MAR ACCOUNT: [id number] : 1950 LOCATION: ER AGE: 67 SEX: F EXAM STATUS: REG ER ORD. PHYSICIAN: ALISIA STEVENS MD REASON: fall PROCEDURE: CT HEAD AND CERVICAL SPINE WO Examination: CT head and cervical spine without contrast Exposure: One or more of the following individualized dose reduction techniques were utilized for this examination: 1. Automated exposure control 2. Adjustment of the mA and/or kV according to patient size 3. Use of iterative reconstruction technique CT HEAD INDICATION: History of fall COMPARISON: None Available. Exposure: One or more of the following individualized dose reduction techniques were utilized for this examination: 1. Automated exposure control 2. Adjustment of the mA and/or kV according to patient size 3. Use of iterative reconstruction technique TECHNIQUE: 5 mm contiguous axial images were obtained from the skull base to the vertex in both bone and soft tissue algorithm. FINDINGS: No abnormal attenuation within the brain parenchyma. No evidence of acute intracranial hemorrhage. No extra-axial fluid collections. No mass effect or midline shift. Ventricular size is appropriate. Basal cisterns are patent. No fractures identified.Tran-white differentiation is preserved.Globes and orbits are within normal limits. Paranasal sinuses and mastoid air cells are clear. IMPRESSION: No acute intracranial findings. CT CERVICAL SPINE INDICATION: History of fall COMPARISON: None Available. Technique: 2.5 mm contiguous axial images were obtained from the skull base through the cervicothoracic junction in both bone and soft tissue algorithm. Additional sagittal and coronal reconstructions were also performed. FINDINGS: Vertebral body height and alignment are maintained. Cervical lordosis is preserved. The lateral masses of C1 are aligned upon C2. No fractures identified. The bony canal is patent throughout. Mild intervertebral disc height loss identified in the cervical spine throughout. The paraspinous soft tissues are unremarkable. Visualized intracranial contents are unremarkable. Lung apices are clear. IMPRESSION: 1. No acute fracture the cervical spine. Correlate clinically. 2. Mild degenerative changes cervical spine. Electronically signed by: Earle Lockhart MD (03/30/2018 4:06 PM) [place] [id number] DICTATED AND SIGNED BY: EARLE LOCKHART MD DATE: 03/30/18 1538 CC: PUJA WOLFF MD; ALISIA STEVENS MD ~ [address] [address] IMAGING REPORT Signed PATIENT: FAMILIA MAR ACCOUNT: [id number] : 1950 LOCATION: ER AGE: 67 SEX: F EXAM STATUS: REG ER ORD. PHYSICIAN: ALISIA STEVENS MD REASON: fall PROCEDURE: PELVIS AP view of the pelvis 03/30/2018 INDICATION: Fall. COMPARISON STUDY: None FINDINGS: No evidence of acute fracture or dislocation is seen. Postoperative change following fusion at the lumbosacral junction is seen. Bone graft material appears to be present. No acute soft tissue changes are identified. IMPRESSION: No radiographic evidence of acute osseous abnormality Electronically signed by: Chavo Burns MD (03/30/2018 3:38 PM) [facility] DICTATED AND SIGNED BY: CHAVO BURNS MD DATE: 03/30/18 1537 CC: PUJA WOLFF MD; ALISIA STEVENS MD ~ Course & Med Decision Making Course & Med Decision Making Pertinent Imaging studies reviewed. (See chart for details) Evaluation of patient in ER showed 67-year-old female patient with injury to bilateral knee after fall at home. Patient had c-collar placement by EMS that removed after negative CT of head and neck. X-ray did not show fracture in knees or pelvis and patient unrelated without problem. Patient already had trouble at home and instructed to continue home pain medication and follow up with her primary care physician. Dragon Disclaimer Dragon Disclaimer This electronic medical record was generated, in whole or in part, using a voice recognition dictation system. Departure Departure: Impression: Primary Impression: Knee injury Additional Impressions: Fall at home Parkinson disease Abrasion Disposition: HOME, SELF-CARE (at 1645) Condition: IMPROVED Referrals: PUJA WOLFF MD (PCP) Patient Instructions: Abrasions, Fall Prevention and Home Safety, Knee Sprain Additional Instructions: Continue home pain medication Follow-up with your primary care physician in 3-5 days Return to ER if not getting better Problem Qualifiers ALISIA STEVENS MD Mar 30, 2018 15:23
--- NOTE | 2018-03-30 15:41 | RAD ---
AP view of the pelvis 03/30/2018 INDICATION: Fall. COMPARISON STUDY: None FINDINGS: No evidence of acute fracture or dislocation is seen. Postoperative change following fusion at the lumbosacral junction is seen. Bone graft material appears to be present. No acute soft tissue changes are identified. IMPRESSION: No radiographic evidence of acute osseous abnormality Electronically signed by: Chavo Pierce MD (03/30/2018 3:38 PM) [id number]
--- NOTE | 2018-03-30 15:57 | RAD ---
Bilateral knees, 6 views, 03/30/2018: HISTORY: Fall, pain No fracture or dislocation is identified. There is mild marginal spurring at both knee joints and at the patellofemoral articulations. No large joint effusion is seen. IMPRESSION: 1. Mild bilateral degenerative changes. 2. No acute bony abnormality is detected. Electronically signed by: Nikita Vital MD (03/30/2018 3:54 PM) [facility]
--- NOTE | 2018-03-30 16:09 | RAD ---
Examination: CT head and cervical spine without contrast Exposure: One or more of the following individualized dose reduction techniques were utilized for this examination: 1. Automated exposure control 2. Adjustment of the mA and/or kV according to patient size 3. Use of iterative reconstruction technique CT HEAD INDICATION: History of fall COMPARISON: None Available. Exposure: One or more of the following individualized dose reduction techniques were utilized for this examination: 1. Automated exposure control 2. Adjustment of the mA and/or kV according to patient size 3. Use of iterative reconstruction technique TECHNIQUE: 5 mm contiguous axial images were obtained from the skull base to the vertex in both bone and soft tissue algorithm. FINDINGS: No abnormal attenuation within the brain parenchyma. No evidence of acute intracranial hemorrhage. No extra-axial fluid collections. No mass effect or midline shift. Ventricular size is appropriate. Basal cisterns are patent. No fractures identified.Tran-white differentiation is preserved.Globes and orbits are within normal limits. Paranasal sinuses and mastoid air cells are clear. IMPRESSION: No acute intracranial findings. CT CERVICAL SPINE INDICATION: History of fall COMPARISON: None Available. Technique: 2.5 mm contiguous axial images were obtained from the skull base through the cervicothoracic junction in both bone and soft tissue algorithm. Additional sagittal and coronal reconstructions were also performed. FINDINGS: Vertebral body height and alignment are maintained. Cervical lordosis is preserved. The lateral masses of C1 are aligned upon C2. No fractures identified. The bony canal is patent throughout. Mild intervertebral disc height loss identified in the cervical spine throughout. The paraspinous soft tissues are unremarkable. Visualized intracranial contents are unremarkable. Lung apices are clear. IMPRESSION: 1. No acute fracture the cervical spine. Correlate clinically. 2. Mild degenerative changes cervical spine. Electronically signed by: Earle Watson MD (03/30/2018 4:06 PM) [place] [id number]
[2018-03-30 16:31] VITALS: BP 121/67
== END 2018-03-30 17:00 | disposition home or self-care (01) ==
LOC: ER 15:10
DX: S80.212A Abrasion, left knee, initial encounter (principal); S80.211A Abrasion, right knee, initial encounter; S09.93XA Unspecified injury of face, initial encounter; M19.90 Unspecified osteoarthritis, unspecified site; E11.9 Type 2 diabetes mellitus without complications; I10 Essential (primary) hypertension; G20 Parkinson's disease; W01.0XXA Fall on same level from slipping, tripping and stumbling without subsequent striking against object, initial encounter; Y93.89 Activity, other specified; Y92.098 Other place in other non-institutional residence as the place of occurrence of the external cause; Y99.8 Other external cause status
CPT/HCPCS: 70450; 72125; 72170; 73564; 99284

== ENCOUNTER 2018-04-22 09:40 | Inpatient (IN) | payer MEDICARE, BC ==
[~2018-04-22] VITALS: Ht 152.4 cm; Wt 66.7 kg
[2018-04-22] MEDS ORDERED: IV NORMAL SALINE 1,000ML 1,000 ML IV ONE (10:15)
[2018-04-22] MEDS ORDERED: INSULIN REGULAR 100 UNIT/ML 3ML VIAL. IV ONE (10:15)
[2018-04-22 10:32] LABS: BASO % 0 % (0-3); EOS % 0 % (0-3); HEMATOCRIT 34.4 % (36.0-47.0); HEMOGLOBIN 11.6 g/dL (12.0-15.5); LYMPH # 0.8 x10^3/uL (1.0-4.8); LYMPH % 16 % (24-48); MEAN CORPUSCULAR HEMOGLOBIN 31 pg (25-35); MEAN CORPUSCULAR HGB CONC 34 g/dL (31-37); MEAN CORPUSCULAR VOLUME 91 fL (79-100); MONO # 0.2 x10^3/uL (0.0-1.1); MONO % 3 % (0-9); NEUT # 4.3 x10^3uL (1.8-7.7); NEUT % 81 % (31-73); PLATELET COUNT 331 x10^3/uL (140-400); RED BLOOD COUNT 3.78 x10^6/uL (3.50-5.40); RED CELL DISTRIBUTION WIDTH 14.1 % (11.5-14.5); WHITE BLOOD COUNT 5.3 x10^3/uL (4.0-11.0)
--- NOTE | 2018-04-22 10:35 | RAD ---
CHEST PA LATERAL History: COUGH, HISTORY OF PNEUMONIA Comparison: March 22, 2018 Findings: 2 views of the chest are submitted. There is no infiltrate, pneumothorax, or effusion. The cardiac silhouette is within normal limits in size. The trachea is in the midline. There is again electronic monitoring device anteriorly on the left. Impression: 1. There is no evidence of acute cardiopulmonary disease. Electronically signed by: Tyler Chilel MD (04/22/2018 10:31 AM) [facility]
[2018-04-22 10:51] LABS: ALBUMIN 3.6 g/dL (3.4-5.0); ALBUMIN/GLOBULIN RATIO 1.1 (1.0-1.7); CALCIUM 8.9 mg/dL (8.5-10.1); CREATININE 1.5 mg/dL (0.6-1.0); GFR 34.7; MAGNESIUM 2.1 mg/dL (1.8-2.4); PHOSPHORUS 4.9 mg/dL (2.6-4.7); POTASSIUM 4.3 mmol/L (3.5-5.1); TOTAL BILIRUBIN 0.2 mg/dL (0.2-1.0); TOTAL PROTEIN 6.9 g/dL (6.4-8.2)
[2018-04-22 11:08] LABS: BACTERIA,URINE FEW /HPF (0-FEW); BILIRUBIN,URINE NEG (NEG); CLARITY,URINE HAZY; COLOR,URINE STRAW; GLUCOSE,URINE 500 mg/dL (NEG); NITRITE,URINE NEG (NEG); RBC,URINE 0 /HPF (0-2); SQUAMOUS EPITHELIAL CELL,UR FEW /LPF; UROBILINOGEN,URINE 0.2 mg/dL (0.2 mg/dL)
--- NOTE | 2018-04-22 11:55 | PHYS DOC ---
Past History Past Medical History: CAD, Cancer, Diabetes, High Cholesterol, Hypertension, ID , Pneumonia, Other Additional Past Medical Histor: Parkinson dz Past Surgical History: Cancer Surgery, Cholecystectomy, , Other Smoking: Non-smoker Alcohol Use: None Drug Use: None Adult General Chief Complaint Chief Complaint: BLOOD SUGAR PROBLEM HPI HPI Patient is a 67 year old female who presents with complaining of high blood sugar. Patient states she was hospitalized recently because of pneumonia with changing her blood sugar medication from Januvia to Nesina because of financial issues patient states since this change her blood sugars running between 400 and 600 and this morning home health nurse checked her blood sugar that was read as high. Patient complaining of generalized weakness without cough and congestion, shortness of breath, chest pain, nausea and vomiting, urinary symptom, focal neuro deficit. Review of Systems Review of Systems Constitutional: Denies fever or chills, reports generalized weakness [] Eyes: Denies change in visual acuity, redness, or eye pain [] HENT: Denies nasal congestion or sore throat [] Respiratory: Denies cough or shortness of breath [] Cardiovascular: No additional information not addressed in HPI [] GI: Denies abdominal pain, nausea, vomiting, bloody stools or diarrhea [] : Denies dysuria or hematuria [] Musculoskeletal: Denies back pain or joint pain [] Integument: Denies rash or skin lesions [] Neurologic: Denies headache, focal weakness or sensory changes [] Endocrine: Denies polyuria or polydipsia [] All other systems were reviewed and found to be within normal limits, except as documented in this note. Current Medications Current Medications Current Medications Medications (Trade) Dose Ordered Sig/Juan Start Time Stop Time Status Last Admin Dose Admin Ciprofloxacin (Cipro) 500 mg 1X ONCE 04/22/18 11:45 04/22/18 11:46 UNV Insulin Human Regular (HumuLIN R VIAL) 10 unit 1X ONCE 04/22/18 10:15 04/22/18 10:16 DC 04/22/18 10:44 10 UNIT Sodium Chloride 1,000 ml @ 1,000 mls/hr 1X ONCE 04/22/18 10:15 04/22/18 11:14 DC 04/22/18 10:40 1,000 MLS/HR Allergies Allergies Allergies Coded Allergies Type Severity Reaction Last Updated Verified Penicillins Allergy Intermediate 12/12/16 Yes Soap Allergy Intermediate 06/01/16 Yes hydrocodone bitartrate Allergy Intermediate Itching 10/25/15 Yes metformin Allergy Intermediate 03/23/18 Yes mushroom Allergy Intermediate 06/01/16 Yes povidone-iodine Allergy Intermediate 06/01/16 Yes aspirin Allergy Mild 02/09/17 Yes Physical Exam Physical Exam Constitutional: Well developed, well nourished, mild distress, non-toxic appearance. [] HENT: Normocephalic, atraumatic, oropharynx moist, no oral exudates, nose normal. [] Eyes: PERRLA, EOMI, conjunctiva normal, no discharge. [] Neck: Normal range of motion, no tenderness, supple, no stridor. [] Cardiovascular:Heart rate regular rhythm, no murmur [] Lungs & Thorax: Bilateral breath sounds clear to auscultation [] Abdomen: Bowel sounds normal, soft, no tenderness, no masses, no pulsatile masses. [] Skin: Warm, dry, no erythema, no rash. [] Back: No tenderness, no CVA tenderness. [] Extremities: No tenderness, no cyanosis, no clubbing, ROM intact, bilateral lower extremity 1+ edema. Neurologic: Alert and oriented X 3, normal motor function, normal sensory function, no focal deficits noted. [] Psychologic: Affect normal, judgement normal, mood normal. [] Current Patient Data Vital Signs Vital Signs Date Time Temp Pulse Resp B/P (MAP) Pulse Ox O2 Delivery O2 Flow Rate FiO2 04/22/18 09:55 98.3 75 20 97 Room Air Lab Results Laboratory Tests Test 04/22/18 10:06 04/22/18 10:15 04/22/18 10:35 04/22/18 11:13 Glucose (Fingerstick) 414 mg/dL (70-99) H 367 mg/dL (70-99) H White Blood Count 5.3 x10^3/uL (4.0-11.0) Red Blood Count 3.78 x10^6/uL (3.50-5.40) Hemoglobin 11.6 g/dL (12.0-15.5) L Hematocrit 34.4 % (36.0-47.0) L Mean Corpuscular Volume 91 fL (79-100) Mean Corpuscular Hemoglobin 31 pg (25-35) Mean Corpuscular Hemoglobin Concent 34 g/dL (31-37) Red Cell Distribution Width 14.1 % (11.5-14.5) Platelet Count 331 x10^3/uL (140-400) Neutrophils (%) (Auto) 81 % (31-73) H Lymphocytes (%) (Auto) 16 % (24-48) L Monocytes (%) (Auto) 3 % (0-9) Eosinophils (%) (Auto) 0 % (0-3) Basophils (%) (Auto) 0 % (0-3) Neutrophils # (Auto) 4.3 x10^3uL (1.8-7.7) Lymphocytes # (Auto) 0.8 x10^3/uL (1.0-4.8) L Monocytes # (Auto) 0.2 x10^3/uL (0.0-1.1) Eosinophils # (Auto) 0.0 x10^3/uL (0.0-0.7) Basophils # (Auto) 0.0 x10^3/uL (0.0-0.2) Sodium Level 134 mmol/L (136-145) L Potassium Level 4.3 mmol/L (3.5-5.1) Chloride Level 98 mmol/L (98-107) Carbon Dioxide Level 26 mmol/L (21-32) Anion Gap 10 (6-14) Blood Urea Nitrogen 25 mg/dL (7-20) H Creatinine 1.5 mg/dL (0.6-1.0) H Estimated GFR (Cockcroft-Gault) 34.7 BUN/Creatinine Ratio 17 (6-20) Glucose Level 447 mg/dL (70-99) H Lactic Acid Level 1.2 mmol/L (0.4-2.0) Calcium Level 8.9 mg/dL (8.5-10.1) Phosphorus Level 4.9 mg/dL (2.6-4.7) H Magnesium Level 2.1 mg/dL (1.8-2.4) Total Bilirubin 0.2 mg/dL (0.2-1.0) Aspartate Amino Transferase (AST) 11 U/L (15-37) L Alanine Aminotransferase (ALT) 32 U/L (14-59) Alkaline Phosphatase 126 U/L (46-116) H Troponin I Quantitative < 0.017 ng/mL (0-0.055) XD-Ydy-L-Type Natriuretic Peptide 227 pg/mL (0-124) H Total Protein 6.9 g/dL (6.4-8.2) Albumin 3.6 g/dL (3.4-5.0) Albumin/Globulin Ratio 1.1 (1.0-1.7) Urine Collection Type Unknown Urine Color Straw Urine Clarity Hazy Urine pH 7.0 Urine Specific [place] 1.015 Urine Protein Neg (NEG-TRACE) Urine Glucose (UA) 500 mg/dL (NEG) Urine Ketones (Stick) Neg mg/dL (NEG) Urine Blood Neg (NEG) Urine Nitrite Neg (NEG) Urine Bilirubin Neg (NEG) Urine Urobilinogen Dipstick 0.2 mg/dL (0.2 mg/dL) Urine Leukocyte Esterase Small (NEG) Urine RBC 0 /HPF (0-2) Urine WBC 5-10 /HPF (0-4) Urine Squamous Epithelial Cells Few /LPF Urine Bacteria Few /HPF (0-FEW) EKG EKG [] Radiology/Procedures Radiology/Procedures [address] [address] IMAGING REPORT Signed PATIENT: FAMILIA MAR ACCOUNT: [id number] : 1950 LOCATION: ER AGE: 67 SEX: F EXAM STATUS: REG ER ORD. PHYSICIAN: ALISIA STEVENS MD REASON: cough and history of pneumonia PROCEDURE: CHEST PA & LATERAL CHEST PA LATERAL History: COUGH, HISTORY OF PNEUMONIA Comparison: March 22, 2018 Findings: 2 views of the chest are submitted. There is no infiltrate, pneumothorax, or effusion. The cardiac silhouette is within normal limits in size. The trachea is in the midline. There is again electronic monitoring device anteriorly on the left. Impression: 1. There is no evidence of acute cardiopulmonary disease. Electronically signed by: Clyde Chilel MD (04/22/2018 10:31 AM) [facility] DICTATED AND SIGNED BY: CLYDE CHILEL MD DATE: 04/22/18 1030 CC: HUBERT WOLFF MD; ALISIA STEVENS MD ~ Course & Med Decision Making Course & Med Decision Making Pertinent Labs and Imaging studies reviewed. (See chart for details) Evaluation of patient in ER showed 67-year-old female patient with complaining of high blood sugar after changing her medication during her recent hospitalization. Patient had blood sugar of more than 400 and treated with IV fluids and insulin with decrease of blood sugar to more than 300. Patient also complaining of generalized weakness without sign of remaining pneumonia and chest x-ray. Plan to admit patient for management of hyperglycemia and finding right medication for diabetes mellitus. Dr. Wolff accepted admission at 1151. Dragon Disclaimer Dragon Disclaimer This electronic medical record was generated, in whole or in part, using a voice recognition dictation system. Departure Departure: Impression: Primary Impression: Hyperglycemia Additional Impressions: Urinary tract infection Generalized weakness Renal insufficiency Uncontrolled diabetes mellitus Anemia Disposition: 09 ADMITTED INPATIENT (at 1152) Admitting Physician: Hubert Wolff (accepted admission at 1151) Condition: IMPROVED Referrals: HUBERT WOLFF MD (PCP) Problem Qualifiers ALISIA STEVENS MD Apr 22, 2018 11:55
[2018-04-22] MEDS ORDERED: CIPROFLOXACIN HCL 500 MG TABLET PO ONE (12:00)
[2018-04-22] MEDS ORDERED: traMADol 50 MG TABLET PO PRN (13:30)
[2018-04-22] MEDS ORDERED: NITROGLYCERIN SUBLINGUAL 0.4 MG BOTTLE OF 25. SL PRN (13:30)
[2018-04-22] MEDS ORDERED: IV 1/2 NORMAL SALINE 1,000 ML IV PRN (13:30)
[2018-04-22 13:53] VITALS: BP 138/84
[2018-04-22] MEDS ORDERED: ALOG25TA PO (15:34)
[2018-04-22] MEDS ORDERED: AZIT250T6 PO (15:37)
[2018-04-22] MEDS ORDERED: PROP20TA PO (15:37)
[2018-04-22 15:42] VITALS: BP 149/81
[2018-04-22] MEDS: HEPARIN PF for SUB-Q USE 5,000 UNIT/0.5 ML VIAL. SQ SCH ×2 (17:29→22:30)
[2018-04-22] MEDS ORDERED: PRIMIDONE 50 MG TABLET PO SCH (18:30)
[2018-04-22] MEDS ORDERED: ALBUTEROL SULFATE 2.5 MG/3 ML NEBU. NEB PRN (18:30)
[2018-04-22 18:53] VITALS: BP 160/82
[2018-04-22 19:00] VITALS: BP 160/80
[2018-04-22] MEDS: BUDESONIDE 0.5 MG/2 ML NEBU NEB SCH (19:36)
[2018-04-22] MEDS: IPRATRPIUM/ALBUTEROL 0.5/2.5MG 3 ML NEBU. NEB SCH (19:36)
[2018-04-22] MEDS ORDERED: NON FORMULARY ITEM (Budesonide/Formoterol Fumarate (Symbicort 160-4.5 Mcg Inhaler) 2 PUFF) IH SCH (21:00)
[2018-04-22] MEDS: LINAGLIPTIN 5 MG TABLET PO SCH (22:01)
[2018-04-22] MEDS: levETIRAcetam 500 MG TABLET PO SCH (22:01)
[2018-04-22] MEDS: LACTOBACILLUS RHAMNOSUS GG 1 CAPSULE. PO SCH (22:01)
[2018-04-22] MEDS: GABAPENTIN 300 MG CAPSULE. PO SCH (22:01)
[2018-04-22] MEDS: CYCLOBENZAPRINE 10 MG TABLET. PO SCH (22:01)
[2018-04-22] MEDS: PROPRANOLOL 20 MG TABLET. PO SCH (22:01)
[2018-04-22] MEDS: INSULIN GLARGINE 300 UNITS/3 ML INSULN.PEN. SQ SCH (22:26)
[2018-04-22 22:57] VITALS: BP 147/81
[2018-04-23 02:11] LABS: HEMOGLOBIN A1C 8.2 % (4.8-5.6)
[2018-04-23] MEDS: IPRATRPIUM/ALBUTEROL 0.5/2.5MG 3 ML NEBU. NEB SCH ×4 (05:21→20:00)
[2018-04-23] MEDS: BUDESONIDE 0.5 MG/2 ML NEBU NEB SCH ×2 (05:21→20:00)
[2018-04-23] MEDS ORDERED: levoFLOXacin 500 MG TABLET PO SCH (06:00)
[2018-04-23 06:03] VITALS: BP 101/64
[2018-04-23] MEDS: HEPARIN PF for SUB-Q USE 5,000 UNIT/0.5 ML VIAL. SQ SCH (06:14)
[2018-04-23] MEDS ORDERED: ALOGLIPTIN BENZOATE 25 MG PO SCH (09:00)
[2018-04-23] MEDS ORDERED: AZITHROMYCIN 250 MG TABLET. PO SCH (09:00)
[2018-04-23] MEDS ORDERED: TIOTROPIUM BROMIDE 1.25 MCG IH SCH (09:00)
[2018-04-23] MEDS: LACTOBACILLUS RHAMNOSUS GG 1 CAPSULE. PO SCH ×2 (09:19→21:47)
[2018-04-23] MEDS: levETIRAcetam 500 MG TABLET PO SCH ×2 (09:19→21:47)
[2018-04-23] MEDS: hydroCHLOROthiazide 25 MG TABLET PO SCH (09:19)
[2018-04-23] MEDS: CITALOPRAM 20 MG TABLET. PO SCH (09:19)
[2018-04-23] MEDS: ALPRAZolam 0.25 MG TABLET PO SCH (09:19)
[2018-04-23] MEDS: CARVEDILOL 12.5 MG TABLET PO SCH ×2 (09:19→17:00)
[2018-04-23] MEDS: predniSONE 5 MG TABLET PO SCH (09:19)
[2018-04-23] MEDS: CLOPIDOGREL BISULFATE 75 MG TABLET PO SCH (09:20)
[2018-04-23] MEDS: valACYclovir 500 MG TABLET. PO SCH (09:20)
[2018-04-23] MEDS: PROPRANOLOL 20 MG TABLET. PO SCH ×2 (09:20→21:48)
[2018-04-23] MEDS: PRIMIDONE 50 MG TABLET PO SCH (09:20)
[2018-04-23] MEDS: LOSARTAN 50 MG TABLET. PO SCH (09:21)
[2018-04-23 10:47] VITALS: BP 119/77
--- NOTE | 2018-04-23 11:12 | HP ---
ADMIT DATE: 04/23/2018 HISTORY OF PRESENT ILLNESS: A 67-year-old female came in through the Emergency Room and not been feeling well for the past week prior to admission noted that her sugars were over 600. The patient had a change in medications because of insurance and cost. In any case, her sugars have been remaining at 600 with generalized weakness, mental confusion and the like. The patient was admitted with a sugar of over 600 for further evaluation and treatment thereof. The patient did have negative ketones. In any case, the patient is resting fairly comfortably, but she will be admitted for IV fluids and bringing her sugar down into a reasonable rate. The patient apparently had a positive blood culture and that is being evaluated as we speak. 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 PAST SURGICAL HISTORY: Tonsillectomy, gallbladder and three leg surgeries. FAMILY HISTORY: Father with emphysema, history of sepsis, stroke, myocardial infarction. FAMILY HISTORY: Drug dependence by the sister. ALLERGIES: PENICILLIN, SOAP, ASPIRIN, HYDROCODONE, METFORMIN, MUSHROOMS, POVIDINE, IODINE. HOME MEDICATIONS: Include Zithromax, levothyroxine, Valtrex 1 tablet daily, Spiriva, cyclobenzaprine, Plavix 75, nitroglycerin, carvedilol, propranolol 20 mg b.i.d., Benicar HCT 40/25, tramadol, primidone 50 mg a day, gabapentin 300, Keppra 500 b.i.d., and Lexapro 1 tablet daily. SOCIAL HISTORY: No smoking, alcohol, or drug use. REVIEW OF SYSTEMS: Denies any recent weight loss, weight gain, change in bowel habits except for mental confusion and disorientation as noted above. She denies any bowel problems, nausea, vomiting, hematochezia, hematemesis and neurologically presently baseline. PHYSICAL EXAMINATION: GENERAL: Pleasant white female. VITAL SIGNS: Blood pressure 147/81, respiratory rate 20, pulse 80, afebrile. HEENT: Head atraumatic, normocephalic. Eyes: PERRLA without jaundice. Mouth and throat were normal. NECK: Supple, thyromegaly. LUNGS: Diminished, but clear. CARDIOVASCULAR: Regular sinus rhythm. ABDOMEN: Soft, nontender, no rebound or guarding. Positive bowel sounds, no hepatosplenomegaly. EXTREMITIES: No clubbing, cyanosis or edema. NEUROLOGIC: The patient was alert and oriented x 3. LABORATORY DATA: The patient's blood sugar as noted in the Emergency Room and in EMS was over 600, in the ER came at about 450. Phosphorus elevated at 4.9. Sodium, potassium, BUN, and creatinine. Creatinine was elevated. We will continue to monitor sugars and make further evaluation on her. PUJA WOLFF MD DR: DAISY/nitesh JOB#: [id number] / [id number]
[2018-04-23] MEDS ORDERED: VANCOMYCIN PER PHARMACY MC PRN (14:15)
[2018-04-23] MEDS ORDERED: VANCOMYCIN 1.75 GM in IV NORMAL SALINE 500ML 500 ML IV ONE (14:30)
[2018-04-23 14:35] VITALS: BP 95/58
[2018-04-23] MEDS ORDERED: DEXTROSE 50% 25 GM / 50ML DISP.SYRIN. IV PRN (17:15)
[2018-04-23] MEDS: INSULIN LISPRO 300 UNITS/3 ML INSULN.PEN. SQ SCH (17:29)
[2018-04-23 19:40] VITALS: BP 158/85
[2018-04-23] MEDS: APIXABAN 2.5 MG TABLET PO SCH (21:47)
[2018-04-23] MEDS: GABAPENTIN 300 MG CAPSULE. PO SCH (21:47)
[2018-04-23] MEDS: LINAGLIPTIN 5 MG TABLET PO SCH (21:48)
[2018-04-23] MEDS: CYCLOBENZAPRINE 10 MG TABLET. PO SCH (21:48)
[2018-04-23] MEDS: INSULIN GLARGINE 300 UNITS/3 ML INSULN.PEN. SQ SCH (21:53)
[2018-04-23 23:00] VITALS: BP 122/68
[2018-04-24] MEDS: BUDESONIDE 0.5 MG/2 ML NEBU NEB SCH ×2 (04:51→20:57)
[2018-04-24] MEDS: IPRATRPIUM/ALBUTEROL 0.5/2.5MG 3 ML NEBU. NEB SCH ×4 (04:51→20:57)
[2018-04-24 06:23] VITALS: BP 135/80
[2018-04-24] MEDS: INSULIN LISPRO 300 UNITS/3 ML INSULN.PEN. SQ SCH ×3 (08:00→17:10)
[2018-04-24] MEDS: hydroCHLOROthiazide 25 MG TABLET PO SCH (08:47)
[2018-04-24] MEDS: predniSONE 5 MG TABLET PO SCH (08:47)
[2018-04-24] MEDS: LACTOBACILLUS RHAMNOSUS GG 1 CAPSULE. PO SCH ×2 (08:47→21:12)
[2018-04-24] MEDS: levETIRAcetam 500 MG TABLET PO SCH ×2 (08:47→21:13)
[2018-04-24] MEDS: APIXABAN 2.5 MG TABLET PO SCH ×2 (08:47→21:12)
[2018-04-24] MEDS: CARVEDILOL 12.5 MG TABLET PO SCH ×2 (08:47→17:00)
[2018-04-24] MEDS: CLOPIDOGREL BISULFATE 75 MG TABLET PO SCH (08:47)
[2018-04-24] MEDS: ALPRAZolam 0.25 MG TABLET PO SCH (08:47)
[2018-04-24] MEDS: CITALOPRAM 20 MG TABLET. PO SCH (08:48)
[2018-04-24] MEDS: LOSARTAN 50 MG TABLET. PO SCH (08:48)
[2018-04-24] MEDS: PROPRANOLOL 20 MG TABLET. PO SCH (08:48)
[2018-04-24] MEDS: PRIMIDONE 50 MG TABLET PO SCH (08:49)
[2018-04-24] MEDS: valACYclovir 500 MG TABLET. PO SCH (08:49)
[2018-04-24 09:30] LABS: BASO % 1 % (0-3); EOS # 0.2 x10^3/uL (0.0-0.7); EOS % 3 % (0-3); HEMATOCRIT 31.6 % (36.0-47.0); HEMOGLOBIN 10.8 g/dL (12.0-15.5); LYMPH # 2.8 x10^3/uL (1.0-4.8); LYMPH % 42 % (24-48); MEAN CORPUSCULAR HEMOGLOBIN 31 pg (25-35); MEAN CORPUSCULAR HGB CONC 34 g/dL (31-37); MEAN CORPUSCULAR VOLUME 90 fL (79-100); MONO # 0.4 x10^3/uL (0.0-1.1); MONO % 6 % (0-9); NEUT # 3.2 x10^3uL (1.8-7.7); NEUT % 49 % (31-73); PLATELET COUNT 262 x10^3/uL (140-400); RED BLOOD COUNT 3.49 x10^6/uL (3.50-5.40); RED CELL DISTRIBUTION WIDTH 14.2 % (11.5-14.5); WHITE BLOOD COUNT 6.6 x10^3/uL (4.0-11.0)
[2018-04-24 09:34] LABS: CALCIUM 8.1 mg/dL (8.5-10.1); CREATININE 1.1 mg/dL (0.6-1.0); POTASSIUM 3.2 mmol/L (3.5-5.1)
[2018-04-24 09:35] LABS: GFR 49.7
[2018-04-24 11:21] VITALS: BP 87/49
[2018-04-24 11:25] VITALS: BP 99/60
[2018-04-24 14:24] VITALS: BP 108/68
[2018-04-24] MEDS ORDERED: VANCOMYCIN 1 GM in IV NORMAL SALINE 250ML 250 ML IV SCH (15:00)
--- NOTE | 2018-04-24 17:53 | PN ---
DATE: SUBJECTIVE: A 67-year-old female in with multiple medical problems, apparently her blood sugars were over 600. She also had some other problems with elevated phosphorus and urinary tract infection. The patient is making good progress overall. Today, the blood sugars are staying down in the 180s to 90s and making good progress overall. The patient's urine did grow out beta hemolytic streptococcus. She is allergic to PENICILLINS. See if she can take some Rocephin and make further advancement on that. The patient apparently did also have some gram-positive organisms in her bloodstream. She had positive blood cultures x 2, so she was placed on vancomycin as well. The patient is doing much better. OBJECTIVE: VITAL SIGNS: Blood pressure approximately 99/60 (NC), respiratory rate 20, pulse 70, afebrile. GENERAL: The patient is alert and oriented. LUNGS: Clear. CARDIOVASCULAR: Regular sinus rhythm. ABDOMEN: Soft, nontender. May have to decrease her propranolol down. IMPRESSION: Bacteremia, sepsis, urinary tract infection. Continue to monitor the patient accordingly. Make further evaluation. See if the vancomycin covers this beta hemolytic strep. Hypertension, type 2 diabetes, and obesity. PLAN: As above. PUJA WOLFF MD DR: DAISY/nitesh JOB#: [id number] / [id number]
[2018-04-24 19:26] VITALS: BP 128/74
[2018-04-24] MEDS ORDERED: POTASSIUM CHLORIDE 20 MEQ TABLET.ER. PO ONE (19:30)
[2018-04-24] MEDS: CYCLOBENZAPRINE 10 MG TABLET. PO SCH (21:12)
[2018-04-24] MEDS: PROPRANOLOL 10 MG TABLET. PO SCH (21:13)
[2018-04-24] MEDS: GABAPENTIN 300 MG CAPSULE. PO SCH (21:13)
[2018-04-24] MEDS: LINAGLIPTIN 5 MG TABLET PO SCH (21:13)
[2018-04-24] MEDS: INSULIN GLARGINE 300 UNITS/3 ML INSULN.PEN. SQ SCH (21:16)
[2018-04-24 22:15] VITALS: BP 147/82
[2018-04-25 05:04] VITALS: BP 105/66
[2018-04-25] MEDS: IPRATRPIUM/ALBUTEROL 0.5/2.5MG 3 ML NEBU. NEB SCH (05:51)
[2018-04-25 06:17] LABS: CALCIUM 8.5 mg/dL (8.5-10.1); GFR 55.5; POTASSIUM 3.9 mmol/L (3.5-5.1)
[2018-04-25] MEDS: BUDESONIDE 0.5 MG/2 ML NEBU NEB SCH (08:00)
[2018-04-25] MEDS: INSULIN LISPRO 300 UNITS/3 ML INSULN.PEN. SQ SCH (08:00)
[2018-04-25] MEDS: CARVEDILOL 12.5 MG TABLET PO SCH (08:25)
[2018-04-25] MEDS: LOSARTAN 50 MG TABLET. PO SCH (08:25)
[2018-04-25] MEDS: CITALOPRAM 20 MG TABLET. PO SCH (08:27)
[2018-04-25] MEDS: LACTOBACILLUS RHAMNOSUS GG 1 CAPSULE. PO SCH (08:27)
[2018-04-25] MEDS: hydroCHLOROthiazide 25 MG TABLET PO SCH (08:28)
[2018-04-25] MEDS: APIXABAN 2.5 MG TABLET PO SCH (08:28)
[2018-04-25] MEDS: PROPRANOLOL 10 MG TABLET. PO SCH (08:29)
[2018-04-25] MEDS: levETIRAcetam 500 MG TABLET PO SCH (08:29)
[2018-04-25] MEDS: PRIMIDONE 50 MG TABLET PO SCH (08:29)
[2018-04-25] MEDS: CLOPIDOGREL BISULFATE 75 MG TABLET PO SCH (08:30)
[2018-04-25] MEDS: predniSONE 5 MG TABLET PO SCH (08:30)
[2018-04-25] MEDS: valACYclovir 500 MG TABLET. PO SCH (08:30)
[2018-04-25] MEDS: ALPRAZolam 0.25 MG TABLET PO SCH (08:31)
[2018-04-25] MEDS ORDERED: PROP10TA PO (09:45)
[2018-04-25] MEDS ORDERED: INSU100I13 SQ (09:45)
[2018-04-25] MEDS ORDERED: HYDR25TA9 PO (09:45)
[2018-04-25] MEDS ORDERED: APIX2.5T PO (09:45)
[2018-04-25 11:00] VITALS: BP 103/54
== END 2018-04-25 11:30 | disposition home or self-care (01) | DRG 871 ==
LOC: ER 09:40 → UNDOADMIN 11:58 → 1 SOUTH 11:58
PROVIDERS: ADMIT Family Medicine; ATTEND Family Medicine
DX: A41.9 Sepsis, unspecified organism (principal); N17.0 Acute kidney failure with tubular necrosis; N39.0 Urinary tract infection, site not specified; D64.9 Anemia, unspecified; E11.65 Type 2 diabetes mellitus with hyperglycemia; E66.9 Obesity, unspecified; E78.00 Pure hypercholesterolemia, unspecified; G20 Parkinson's disease; I25.10 Atherosclerotic heart disease of native coronary artery without angina pectoris; J44.9 Chronic obstructive pulmonary disease, unspecified; K21.9 Gastro-esophageal reflux disease without esophagitis; E11.22 Type 2 diabetes mellitus with diabetic chronic kidney disease; I12.9 Hypertensive chronic kidney disease with stage 1 through stage 4 chronic kidney disease, or unspecified chronic kidney disease; N18.3 Chronic kidney disease, stage 3 (moderate); M06.9 Rheumatoid arthritis, unspecified; N28.9 Disorder of kidney and ureter, unspecified; Z81.3 Family history of other psychoactive substance abuse and dependence; Z82.3 Family history of stroke; Z82.5 Family history of asthma and other chronic lower respiratory diseases; Z87.01 Personal history of pneumonia (recurrent); Z88.0 Allergy status to penicillin; I25.2 Old myocardial infarction; Z90.49 Acquired absence of other specified parts of digestive tract; Z85.9 Personal history of malignant neoplasm, unspecified; Z88.6 Allergy status to analgesic agent; Z88.8 Allergy status to other drugs, medicaments and biological substances; Z91.018 Allergy to other foods; Z91.041 Radiographic dye allergy status; Z86.718 Personal history of other venous thrombosis and embolism; Z85.41 Personal history of malignant neoplasm of cervix uteri; Z85.42 Personal history of malignant neoplasm of other parts of uterus; Z68.28 Body mass index [BMI] 28.0-28.9, adult; Z79.84 Long term (current) use of oral hypoglycemic drugs
CPT/HCPCS: 36415; 71046; 80048; 80053; 81001; 82947; 83036; 83605; 83735; 83880; 83930; 84100; 84484; 85025; 87040; 87086; 87186; 87205; 96361; 96374; J0456; J1815; J3370; J7040; J7050; J7512; J7626; 99285-25; J7030

== ENCOUNTER → 2018-05-17 | Day surgery (SDC) | payer MEDICARE, BC ==
[~2018-05-17] MED LIST changes: +ALBUTEROL SULFATE 2.5 MG/3 ML NEBU. NEB PRN; +ALOG12.52 PO; +ALOG25TA PO; +APIX2.5T PO; +ATROPINE 0.5 MG/5 ML DISP.SYRIN. IV PRN; +AZIT250T6 PO; +HYDR-2145 PO; +INSU100I13 SQ; +IV RINGERS SOLUTION,LACTATED 1,000 ML IV SCH; +LIDOCAINE 2% PF Vial for OR 5 ML VIAL. ONE; +NALOXONE 0.4 MG/ML VIAL. IV PRN; +ONDANSETRON PF 4 MG/2 ML VIAL. IV PRN; -OXYC-328 PO; +OXYC1TAB22 PO; +PROP10TA PO; +PROP20TA PO; +PROPOFOL 20 ML IV ONE; +ROPI0.5T PO
[2018-05-17 09:53] VITALS: BP 123/75
== END | disposition home or self-care (01) ==
LOC: SURG 08:28
PROVIDERS: ATTEND Internal Medicine Gastroenterology
DX: K22.2 Esophageal obstruction (principal); I10 Essential (primary) hypertension; E11.9 Type 2 diabetes mellitus without complications; I25.10 Atherosclerotic heart disease of native coronary artery without angina pectoris; E03.9 Hypothyroidism, unspecified; F41.9 Anxiety disorder, unspecified; E78.5 Hyperlipidemia, unspecified; J44.9 Chronic obstructive pulmonary disease, unspecified; Z86.19 Personal history of other infectious and parasitic diseases; Z88.0 Allergy status to penicillin; Z88.5 Allergy status to narcotic agent; Z88.6 Allergy status to analgesic agent; Z88.1 Allergy status to other antibiotic agents; Z88.8 Allergy status to other drugs, medicaments and biological substances; Z91.018 Allergy to other foods; Z90.710 Acquired absence of both cervix and uterus; Z90.49 Acquired absence of other specified parts of digestive tract; Z98.890 Other specified postprocedural states; Z79.84 Long term (current) use of oral hypoglycemic drugs; Z79.899 Other long term (current) drug therapy
CPT/HCPCS: 43239; 82947; J2704; J7120; J2001

== ENCOUNTER → 2018-07-29 | Outpatient (CLI) | payer MEDICARE, BC ==
[2018-05-17 09:53] VITALS: BP 123/75
[~2018-07-29] MED LIST changes: -ALBU18HF IH; +ALBU2.5V8 IH; -ALBUTEROL SULFATE 2.5 MG/3 ML NEBU. NEB PRN; -ATROPINE 0.5 MG/5 ML DISP.SYRIN. IV PRN; +CIPR250T30 PO; +DIPH25CA58 PO; +GUAI118L20 PO; -IV RINGERS SOLUTION,LACTATED 1,000 ML IV SCH; -LIDOCAINE 2% PF Vial for OR 5 ML VIAL. ONE; +LINA5TAB4 PO; +METO10TA81 PO; -NALOXONE 0.4 MG/ML VIAL. IV PRN; +ONDA4TAB7 PO; -ONDANSETRON PF 4 MG/2 ML VIAL. IV PRN; -PROPOFOL 20 ML IV ONE
--- NOTE | 2018-07-29 09:23 | RAD ---
Examination: CT chest without contrast HISTORY: History of cough, pneumonia COMPARISON: 03/23/2016 TECHNIQUE: Axial CT images of chest were performed without contrast. Coronal and sagittal reformats are performed Exposure: One or more of the following individualized dose reduction techniques were utilized for this examination: 1. Automated exposure control 2. Adjustment of the mA and/or kV according to patient size 3. Use of iterative reconstruction technique FINDINGS: The visualized thyroid gland grossly appears unremarkable. Central airways are patent. The ascending aorta measures 3.5 cm in transverse dimension. Coronary artery calcifications identified. No radiologically significant mediastinal lymphadenopathy is identified. Minimal atelectasis bibasilar lungs. There is a faint groundglass 4 mm nodule identified in the right lower lobe of the lung. Mild decreased attenuation noted in the liver likely hepatic steatosis. Cholecystectomy clips identified. The stomach is mildly distended. The visualized spleen grossly appears unremarkable. Heart monitor projects in the left chest wall. Mild degenerative changes thoracic spine. IMPRESSION: 1. 4 mm groundglass nodule identified in the right lower lobe of the lung. Follow-up per Fleischner Society guidelines with a follow-up CT in 6-12 months. 2. Minimal bibasilar lung atelectasis. 2. Coronary artery calcifications. 4. Mild hepatic steatosis. Electronically signed by: Earle Watson MD (07/29/2018 9:18 AM) [id number]
== END | disposition home or self-care (01) ==
LOC: CT 08:43
PROVIDERS: ATTEND Internal Medicine Critical Care Medicine
DX: J98.11 Atelectasis (principal); I25.10 Atherosclerotic heart disease of native coronary artery without angina pectoris; K76.0 Fatty (change of) liver, not elsewhere classified; K31.89 Other diseases of stomach and duodenum; R91.1 Solitary pulmonary nodule; Z90.49 Acquired absence of other specified parts of digestive tract
CPT/HCPCS: 71250

== ENCOUNTER 2018-08-15 12:47 | Inpatient (IN) | payer MEDICARE, BC ==
[~2018-08-15] VITALS: Ht 152.4 cm; Wt 65.3 kg
[2018-08-15] VITALS (10 sets, daily range): BP systolic 106–172; BP diastolic 50–90
[~2018-08-15 12:47] MED LIST changes: -CIPR250T30 PO; -DIPH25CA58 PO; -GUAI118L20 PO; -LINA5TAB4 PO; -METO10TA81 PO; -ONDA4TAB7 PO
[2018-08-15] MEDS ORDERED: ACETAMINOPHEN 325 MG TABLET PO PRN (13:30)
[2018-08-15 13:37] LABS: BASO % 0 % (0-3); EOS # 0.2 x10^3/uL (0.0-0.7); EOS % 4 % (0-3); HEMATOCRIT 32.4 % (36.0-47.0); HEMOGLOBIN 11.1 g/dL (12.0-15.5); LYMPH # 1.3 x10^3/uL (1.0-4.8); LYMPH % 27 % (24-48); MEAN CORPUSCULAR HEMOGLOBIN 31 pg (25-35); MEAN CORPUSCULAR HGB CONC 34 g/dL (31-37); MEAN CORPUSCULAR VOLUME 90 fL (79-100); MONO # 0.4 x10^3/uL (0.0-1.1); MONO % 8 % (0-9); NEUT # 2.9 x10^3uL (1.8-7.7); NEUT % 61 % (31-73); PLATELET COUNT 235 x10^3/uL (140-400); RED CELL DISTRIBUTION WIDTH 13.2 % (11.5-14.5); WHITE BLOOD COUNT 4.8 x10^3/uL (4.0-11.0)
[2018-08-15] MEDS ORDERED: LEVE500T56 PO (13:45)
[2018-08-15] MEDS ORDERED: IBUP800T19 PO (13:45)
[2018-08-15] MEDS ORDERED: DIPH25CA58 PO (13:45)
[2018-08-15] MEDS ORDERED: PROP20TA PO (13:45)
[2018-08-15] MEDS ORDERED: LINA5TAB4 PO (13:45)
[2018-08-15 14:03] LABS: ALBUMIN 3.2 g/dL (3.4-5.0); ALBUMIN/GLOBULIN RATIO 0.9 (1.0-1.7); CALCIUM 9.1 mg/dL (8.5-10.1); GFR 55.5; MAGNESIUM 1.8 mg/dL (1.8-2.4); POTASSIUM 3.8 mmol/L (3.5-5.1); TOTAL BILIRUBIN 0.3 mg/dL (0.2-1.0); TOTAL PROTEIN 6.6 g/dL (6.4-8.2)
--- NOTE | 2018-08-15 14:29 | RAD ---
EXAM: Chest, single view. HISTORY: Shortness of breath. COMPARISON: 07/29/2018 FINDINGS: A frontal view of the chest is obtained. There is no infiltrate, pleural effusion or pneumothorax. There is a cardiac event monitor overlying the left thorax. The heart is normal in size. IMPRESSION: 1. No acute pulmonary finding. 2. Please refer to the separate report for the recent chest CT dated 07/29/2018 for follow-up recommendations regarding a 4 mm groundglass nodule within the right lower lobe. Electronically signed by: Mayra Dumont MD (08/15/2018 2:26 PM) [place] [id number]
[2018-08-15] MEDS: IV NORMAL SALINE 1,000ML 1,000 ML IV SCH (15:04)
[2018-08-15] MEDS ORDERED: traMADol 50 MG TABLET PO PRN (15:30)
[2018-08-15] MEDS ORDERED: diphenhydrAMINE HCL 25 MG CAPSULE PO PRN (15:30)
[2018-08-15] MEDS ORDERED: NITROGLYCERIN SUBLINGUAL 0.4 MG BOTTLE OF 25. SL PRN (15:30)
[2018-08-15] MEDS ORDERED: ALPRAZolam 0.25 MG TABLET PO PRN (15:45)
[2018-08-15] MEDS ORDERED: ALBUTEROL SULFATE 2.5 MG/3 ML NEBU. NEB PRN (16:15)
[2018-08-15] MEDS: CARVEDILOL 12.5 MG TABLET PO SCH (16:48)
[2018-08-15] MEDS: GABAPENTIN 300 MG CAPSULE. PO SCH ×2 (16:48→21:49)
[2018-08-15] MEDS ORDERED: IBUPROFEN 800 MG TABLET. PO PRN ×2 (18:00)
[2018-08-15 20:05] LABS: BILIRUBIN,URINE NEG (NEG); CLARITY,URINE CLEAR; COLOR,URINE YELLOW; GLUCOSE,URINE NEG (NEG)
[2018-08-15 20:06] LABS: BACTERIA,URINE 0 /HPF (0-FEW); NITRITE,URINE NEG (NEG); RBC,URINE 0 /HPF (0-2); SQUAMOUS EPITHELIAL CELL,UR OCC /LPF; UROBILINOGEN,URINE 0.2 mg/dL (0.2 mg/dL)
[2018-08-15] MEDS: BUDESONIDE 0.5 MG/2 ML NEBU NEB SCH (20:25)
[2018-08-15] MEDS: IPRATRPIUM/ALBUTEROL 0.5/2.5MG 3 ML NEBU. NEB SCH (20:25)
[2018-08-15] MEDS ORDERED: GABAPENTIN 300 MG CAPSULE. PO SCH (21:00)
[2018-08-15] MEDS ORDERED: IBUPROFEN 800 MG TABLET. PO SCH (21:00)
[2018-08-15] MEDS ORDERED: PRIMIDONE 50 MG TABLET PO SCH (21:00)
[2018-08-15] MEDS ORDERED: CYCLOBENZAPRINE 10 MG TABLET. PO SCH (21:00)
[2018-08-15] MEDS ORDERED: INSULIN GLARGINE 300 UNITS/3 ML INSULN.PEN. SQ SCH (21:00)
[2018-08-15] MEDS ORDERED: NON FORMULARY ITEM (Budesonide/Formoterol Fumarate (Symbicort 160-4.5 Mcg Inhaler) 2 PUFF) IH SCH (21:00)
[2018-08-15] MEDS: PROPRANOLOL 20 MG TABLET. PO SCH (21:48)
[2018-08-15] MEDS: levETIRAcetam 500 MG TABLET PO SCH (21:49)
[2018-08-15] MEDS: APIXABAN 2.5 MG TABLET PO SCH (21:49)
[2018-08-16] VITALS (11 sets, daily range): BP systolic 104–156; BP diastolic 60–87
[2018-08-16] MEDS: IV NORMAL SALINE 1,000ML 1,000 ML IV SCH (00:39)
[2018-08-16] MEDS: IPRATRPIUM/ALBUTEROL 0.5/2.5MG 3 ML NEBU. NEB SCH ×2 (05:03→09:12)
[2018-08-16 06:14] LABS: BASO % 0 % (0-3); EOS # 0.2 x10^3/uL (0.0-0.7); EOS % 5 % (0-3); LYMPH # 1.7 x10^3/uL (1.0-4.8); LYMPH % 36 % (24-48); MEAN CORPUSCULAR HEMOGLOBIN 31 pg (25-35); MEAN CORPUSCULAR HGB CONC 34 g/dL (31-37); MEAN CORPUSCULAR VOLUME 91 fL (79-100); MONO # 0.4 x10^3/uL (0.0-1.1); MONO % 9 % (0-9); NEUT # 2.4 x10^3uL (1.8-7.7); NEUT % 51 % (31-73); PLATELET COUNT 205 x10^3/uL (140-400); RED CELL DISTRIBUTION WIDTH 13.3 % (11.5-14.5); WHITE BLOOD COUNT 4.7 x10^3/uL (4.0-11.0)
[2018-08-16 06:27] LABS: ALBUMIN 2.8 g/dL (3.4-5.0); CALCIUM 8.2 mg/dL (8.5-10.1); CREATININE 0.9 mg/dL (0.6-1.0); GFR 62.6; POTASSIUM 3.4 mmol/L (3.5-5.1); TOTAL BILIRUBIN 0.2 mg/dL (0.2-1.0); TOTAL PROTEIN 5.7 g/dL (6.4-8.2)
--- NOTE | 2018-08-16 08:20 | CONS ---
DATE OF CONSULTATION: 08/15/2018 NEUROLOGICAL CONSULTATION' REFERRING PHYSICIAN: Hubert Fregoso MD REASON FOR CONSULTATION: Seizure-like activities. HISTORY OF PRESENT ILLNESS: This is a 67-year-old right-handed female who was admitted to ICU today after she was found to have a one spell described as a sudden onset of stiffness and then jerking movement of the right upper extremity. The patient was seen in her primary care physician's office today when she had the spell. During the spell, which lasted a few minutes, the patient was responding to verbal commands and she had no loss of consciousness or alteration of consciousness as well; however, the patient stated she did not recall being in the ambulance and transferred to [facility] for further evaluation. She denies any history of injuries, bowel or bladder incontinence or tongue biting. The patient is known to me from office visits complaining of excessive tremor of the upper extremities, anxiety and depressions. She has had history of seizure and she was placed on Keppra. The patient stated her tremor has been worsening in the last few weeks; however, she had not been taking her medications-- primidone at least for tremor since that time. Currently, she denies headaches, visual disturbances, nausea, vomiting, chest pain, shortness of breath or palpitation, dysarthria, dysphagia or vertigo. The patient has not witnessed having any seizure since admission to ICU today. PAST MEDICAL HISTORY: Past medical history is significant for hypertension, tremor, seizure, headaches, coronary artery disease, required stenting, myocardial infarction, angina, hyperlipidemia, deep venous thrombosis, chronic obstructive pulmonary disease, asthma, bronchitis and pneumonia, sleep apnea required CPAP, rheumatoid arthritis and osteoarthritis, diabetes mellitus, depressions and anxiety. PAST SURGICAL HISTORY: Past surgical history is significant for hysterectomy for uterine cervix cancer, hernia repair, abdominal surgery, cardiac catheterization, low back spine surgery, cholecystectomy, tonsillectomy and left knee surgery. SOCIAL HISTORY: The patient is . She has 3 sons. She denies smoking, alcohol drinking or illicit drug use. FAMILY HISTORY: Family history is positive for sepsis, history of myocardial infarction and emphysema in father's side. CURRENT HOME MEDICATIONS: Are hydrochlorothiazide 25 mg daily, Valtrex 1000 mg daily, losartan 100 mg p.o. daily, Tradjenta 5 mg daily, Celexa 20 mg daily, propranolol 20 mg b.i.d., primidone 50 mg at bedtime, Keppra 500 mg twice daily, Flexeril 10 mg at bedtime, insulin Lantus 30 units at bedtime, Eliquis 2.5 mg b.i.d., Pulmicort respiratory treatment twice daily, albuterol inhaler p.r.n., ibuprofen 100 mg q. 6 hours p.r.n., gabapentin 300 mg t.i.d., carvedilol 12.5 mg b.i.d., alprazolam 0.5 mg t.i.d. for anxiety, nitroglycerin 0.4 mg p.r.n., Benadryl 25 mg at bedtime, lorazepam 2 mg p.r.n. for anxiety, and Tylenol. ALLERGIES: PENICILLIN, SOAP, ASPIRIN, HYDROCODONE, METFORMIN, MUSHROOMS, NYASTIN, and PROVIDONE-IODINE. REVIEW OF SYSTEMS: A 10-point review of system was performed as mentioned above in the history of present illness and consistent mainly with tremor of the upper extremities and questionable seizure-like activities. PHYSICAL EXAMINATION: GENERAL: Well-developed, well-nourished female, not in acute distress. VITAL SIGNS: She weighs 144 pounds, the height is 60 inches, blood pressure 145/50, respiratory rate 18, pulse is 80, temperature 98.4, oxygen saturation is 94% on room air. HEENT: Normocephalic, atraumatic, otherwise unremarkable. NECK: Supple. Negative for carotid bruit, lymphadenopathy or thyromegaly. LUNGS: With diminished breath sounds. No wheezing or rales. CARDIOVASCULAR: Regular rate and rhythm, normal S1, S2. There is no S3, S4, or murmur. ABDOMEN: Soft. Bowel sounds positive. EXTREMITIES: Negative for cyanosis, clubbing or pitting edema. NEUROLOGICAL: MENTAL STATUS: The patient is alert and oriented x 3. Speech is fluent. There is no language dysfunction. Memory, judgment, and abstracting thinking are normal. The patient denies hallucination or delusion. CRANIAL NERVES: Visual bowling are full. The pupils are reactive to light and accommodation. The extraocular movements are intact. There is no nystagmus. There is no facial motor or sensory deficit. Hearing appeared diminished bilaterally. The palate is elevated symmetrically. She has no facial motor or sensory deficits. I just mentioned that hearing is slightly diminished bilaterally. The palate is elevated symmetrically. Sternocleidomastoid muscles are powerful bilaterally. The patient shrugs her shoulders symmetrically and protrudes her tongue in the midline without fasciculation or atrophy. MOTOR: No focal muscle bulk was seen. The tone is normal. The strength is 4/5 throughout. The patient has resting and postural and kinetic tremors of the upper extremities. The tremor is usually aggravated by anxiety and more prominent on the right side. Sensory examination revealed normal pinprick, light touch, vibratory and position senses. Deep tendon reflexes were symmetric and hypoactive without pathology responses. Gait is not tested at this time. LABORATORY DATA: CBC revealed white blood cells of 4.8 thousand, hemoglobin 11.1, hematocrit 32.4, platelet count 235,000. Chemistry revealed sodium of 140, potassium 3.8, chloride 104, CO2 of 25, BUN 15, creatinine 1 and glucose 129, calcium is 9.1. Liver enzymes are normal. Albumin is low at 3.2. Urinalysis is negative for urinary tract infections. DIAGNOSTIC DATA: Chest x-ray revealed no acute pulmonary findings. Last chest CT performed on 07/29/2018 revealed 4 mm ground glass nodule in the right lower lobe. IMPRESSION: 1. Questionable seizure-like activities, not described as a sudden onset of jerking movement of the right upper extremity weakness witnessed today in her primary care physician's office; however, the patient did not lose consciousness and nor did she have any bowel or bladder incontinence. 2. History of seizure disorder, etiology is uncertain, probably due to previous head injuries. 3. Multiple medical problems include deep venous thrombosis in the lower extremities, hypertension, hyperlipidemia, coronary artery disease, diabetes mellitus, osteoarthritis and osteoporosis, gastroesophageal reflux disease, chronic obstructive pulmonary disease, obstructive sleep apnea on continuous positive airway pressure, and depression and anxiety. 4. Essential tremor of the upper extremities that may have been aggravated by stress and pain. RECOMMENDATION: 1. Continue with current management initiated by Dr. Fregoso. 2. Continue with current home medications. 3. If the patient continues to have worsening of tremor, we will increase primidone dose to 50 mg 2 tablets at bedtime. M Stephy CINTRON MD DR: VLADIMIR/nitesh JOB#: [id number] / [id number]
[2018-08-16] MEDS: CARVEDILOL 12.5 MG TABLET PO SCH (08:28)
[2018-08-16] MEDS: levETIRAcetam 500 MG TABLET PO SCH (08:28)
[2018-08-16] MEDS: APIXABAN 2.5 MG TABLET PO SCH (08:30)
[2018-08-16] MEDS: GABAPENTIN 300 MG CAPSULE. PO SCH (08:31)
[2018-08-16] MEDS ORDERED: ALOGLIPTIN BENZOATE 12.5 MG PO SCH (09:00)
[2018-08-16] MEDS ORDERED: TIOTROPIUM BROMIDE 1.25 MCG IH SCH (09:00)
[2018-08-16] MEDS ORDERED: LINAGLIPTIN 5 MG TABLET PO SCH (09:00)
[2018-08-16] MEDS ORDERED: hydroCHLOROthiazide 25 MG TABLET PO SCH (09:00)
[2018-08-16] MEDS ORDERED: valACYclovir 500 MG TABLET. PO SCH (09:00)
[2018-08-16] MEDS ORDERED: CITALOPRAM 20 MG TABLET. PO SCH (09:00)
[2018-08-16] MEDS ORDERED: LOSARTAN 50 MG TABLET. PO SCH (09:00)
[2018-08-16] MEDS: BUDESONIDE 0.5 MG/2 ML NEBU NEB SCH (09:12)
[2018-08-16] MEDS: PROPRANOLOL 20 MG TABLET. PO SCH (10:13)
[2018-08-16] MEDS ORDERED: PRIM50TA PO (10:16)
--- NOTE | 2018-08-16 15:00 | PN ---
DATE: 08/16/2018 SUBJECTIVE: The patient denies any new medical or neurological complaints. She denies headaches, visual disturbances, vertigo. The tremor has been significantly improved. She eats and drinks well. OBJECTIVE: GENERAL: A well-developed, well-nourished female, not in acute distress. VITAL SIGNS: Blood pressure 116/60, respiratory rate 18, pulse is 78, oxygen saturation is 97% on 2 liters by nasal cannula and temperature 97.6. HEENT: Normocephalic, atraumatic, otherwise unremarkable. NECK: Supple. Negative for carotid bruit, lymphadenopathy or thyromegaly. LUNGS: With diminished breath sounds. CARDIOVASCULAR: Regular rate and rhythm, normal S1, S2. There is no S3, S4, or murmur. ABDOMEN: Soft. Bowel sounds positive. EXTREMITIES: Negative for cyanosis, clubbing or pitting edema. NEUROLOGIC: The patient is alert and oriented x 3. The speech is fluent. There is no language dysfunction, otherwise unremarkable. Cranial nerves are intact. No focal motor or sensory deficit. Deep tendon reflexes are symmetric and active without pathology responses. Gait not tested. The patient had very mild postural tremor of the right hand. Otherwise, unremarkable. LABORATORY DATA: CBC revealed white blood cells of 4.7 thousand, hemoglobin 10, hematocrit 29, platelet count 205,000. Chemistry revealed sodium of 140, potassium 3.4, chloride 107, CO2 of 26, BUN 15, creatinine 0.9, glucose 136, and calcium 8.2. IMPRESSION: 1. Questionable epileptic seizure. No recurrence. 2. Essential tremor, aggravated by underlying anxiety. 3. Multiple psychiatric problems including depression and anxiety. 4. Multiple medical problems include coronary artery disease, hypertension, hyperlipidemia, diabetes mellitus, osteoarthritis and osteoporosis, gastroesophageal reflux disease, obstructive sleep apnea. RECOMMENDATIONS: 1. Continue with current management and medications. 2. In case of increased essential tremor, we will adjust her primidone 50 mg to 2 tablets at bedtime. M Stephy CINTRON MD DR: VLADIMIR/nitesh JOB#: [id number] / [id number]
--- NOTE | 2018-08-25 10:35 | SSS ---
ADMIT DATE: 08/16/2018 HOSPITAL COURSE: The patient was in for a short stay. The patient came in with a problem of seizure-like activities. She was initially seen in the office where she began to have a seizure-like activity, mild tonic-clonic seizures. Apparently, she had missed one of her medications for her seizure and went into a seizure activity. The patient's potassium was slightly low. She was seen also by Dr. Watson who adjusted her medications and she made excellent progress during the rest of her hospitalization without any further problem. As far as seizure activity, she will follow up with Dr. Watson. Her labs are basically stable except for a slightly low potassium. The patient otherwise will be discharged home in good condition. See MRAD. She will follow up with Dr. Watson for EEG as an outpatient. The patient did have a 4-mm ground glass nodule in the right lower lobe to be followed up as an outpatient in 3-6 months. Blood sugars were slightly elevated. IMPRESSION: Tonic-clonic seizures, [id number] protein malnutrition, hypokalemia, pulmonary nodule, and type 2 diabetes. PLAN: The patient will be discharged. See MRAD. Decreased activity. Follow up accordingly as indicated. PUJA WOLFF MD DR: DAISY/nitesh JOB#: [id number] / [id number]
== END 2018-08-16 12:11 | disposition home or self-care (01) | DRG 101 ==
LOC: ICU 12:51
PROVIDERS: ADMIT Family Medicine; ATTEND Family Medicine
DX: G40.89 Other seizures (principal); E44.0 Moderate protein-calorie malnutrition; E11.9 Type 2 diabetes mellitus without complications; E78.5 Hyperlipidemia, unspecified; F32.9 Major depressive disorder, single episode, unspecified; F41.9 Anxiety disorder, unspecified; G25.0 Essential tremor; G47.33 Obstructive sleep apnea (adult) (pediatric); I10 Essential (primary) hypertension; K21.9 Gastro-esophageal reflux disease without esophagitis; J44.9 Chronic obstructive pulmonary disease, unspecified; E87.6 Hypokalemia; I25.10 Atherosclerotic heart disease of native coronary artery without angina pectoris; M06.9 Rheumatoid arthritis, unspecified; M19.90 Unspecified osteoarthritis, unspecified site; R91.1 Solitary pulmonary nodule; M81.0 Age-related osteoporosis without current pathological fracture; Z82.49 Family history of ischemic heart disease and other diseases of the circulatory system; Z87.01 Personal history of pneumonia (recurrent); I25.2 Old myocardial infarction; Z82.5 Family history of asthma and other chronic lower respiratory diseases; Z85.41 Personal history of malignant neoplasm of cervix uteri; Z90.710 Acquired absence of both cervix and uterus; Z90.49 Acquired absence of other specified parts of digestive tract; Z88.6 Allergy status to analgesic agent; Z79.899 Other long term (current) drug therapy; Z91.041 Radiographic dye allergy status; Z88.5 Allergy status to narcotic agent; Z88.0 Allergy status to penicillin; Z88.8 Allergy status to other drugs, medicaments and biological substances; Z91.018 Allergy to other foods; Z68.28 Body mass index [BMI] 28.0-28.9, adult
CPT/HCPCS: 36415; 71045; 80053; 81001; 82947; 83735; 84100; 85025; 87040; 87086; 87641; 94640; J1815; J7620; J7626; J7030

== ENCOUNTER 2018-09-07 02:41 | Emergency (ER) | payer MEDICARE, BC ==
[~2018-09-07] VITALS: Ht 152.4 cm; Wt 65.5 kg
[~2018-09-07 02:41] MED LIST changes: +DIPH25CA58 PO; +LINA5TAB4 PO
--- NOTE | 2018-09-07 03:01 | PHYS DOC ---
Past History Past Medical History: CAD, Cancer, Diabetes, High Cholesterol, Hypertension, CT , Pneumonia, Other Additional Past Medical Histor: Parkinson dz Past Surgical History: Cancer Surgery, Cholecystectomy, , Other Smoking: Non-smoker Alcohol Use: None Drug Use: None Adult General Chief Complaint Chief Complaint: SHORTNESS OF BREATH HPI HPI Patient is a 67-year-old female who presents with complaint of cough and shortness of breath after choking on one of her medications. She states that her son did the Heimlich maneuver on her. She denies any abdominal pain but does complain of pain in her throat. She states that she has had a productive cough for about a month and states that it has been productive of green sputum. She states that she has a history of aspiration pneumonia having been admitted back in April. Patient is not aware of any fever. She does indicate that her shortness of breath is worsened with exertion. Review of Systems Review of Systems Constitutional: Denies fever or chills [] HENT: Positive nasal congestion and sore throat [] Respiratory: Positive productive cough and shortness of breath [] Cardiovascular: No additional information not addressed in HPI [] Neurologic: Denies headache, focal weakness or sensory changes [] All other systems were reviewed and found to be within normal limits, except as documented in this note. Allergies Allergies Allergies Coded Allergies Type Severity Reaction Last Updated Verified Penicillins Allergy Intermediate 05/17/18 Yes Soap Allergy Intermediate 05/17/18 Yes hydrocodone bitartrate Allergy Intermediate Itching 05/17/18 Yes metformin Allergy Intermediate 05/17/18 Yes mushroom Allergy Intermediate 05/17/18 Yes povidone-iodine Allergy Intermediate 05/17/18 Yes aspirin Allergy Mild 02/09/17 Yes niacin Allergy Unknown 05/09/18 Yes Physical Exam Physical Exam Constitutional: Well developed, well nourished, no acute distress, non-toxic appearance. [] HENT: Normocephalic, atraumatic, bilateral external ears normal, oropharynx moist, no oral exudates, nose normal. [] Eyes: PERRLA, EOMI, conjunctiva normal, no discharge. [] Neck: Normal range of motion, no tenderness, supple, no stridor. [] Cardiovascular: Regular rate and rhythm[] Lungs & Thorax: Fine rhonchi are noted in the lung bases to auscultation [] Abdomen: Bowel sounds normal, soft, no tenderness. [] Skin: Warm, dry, no erythema, no rash. [] Extremities: No tenderness, no cyanosis, no clubbing, ROM intact, no edema. [] Neurologic: Alert and oriented X 3, no focal deficits noted. [] EKG EKG [] Radiology/Procedures Radiology/Procedures [] Impressions: Two-view chest x-ray demonstrates no acute process. Course & Med Decision Making Course & Med Decision Making Pertinent Labs and Imaging studies reviewed. (See chart for details) [] Dragon Disclaimer Dragon Disclaimer This electronic medical record was generated, in whole or in part, using a voice recognition dictation system. Departure Departure: Impression: Primary Impression: Acute bronchitis Disposition: HOME, SELF-CARE Condition: STABLE Referrals: PUJA WOLFF MD (PCP) Patient Instructions: Acute Bronchitis Scripts Guaifenesin/Codeine Phosphate (CHERATUSSIN AC SYRUP) 118 Ml Liquid 10 ML PO Q6HRS PRN for COUGH, #240 ML Prov: JONNY FLORES Jr. DO 09/07/18 Levofloxacin (LEVAQUIN) 500 Mg Tablet 1 TAB PO DAILY for infection, #10 TAB Prov: JONNY FLORES Jr. DO 09/07/18 Problem Qualifiers Primary Impression: Acute bronchitis Bronchitis organism: unspecified organism Qualified Codes: J20.9 - Acute bronchitis, unspecified JONNY FLORES Jr. DO Sep 07, 2018 03:01
[2018-09-07 03:52] LABS: ALBUMIN 3.1 g/dL (3.4-5.0); ALBUMIN/GLOBULIN RATIO 0.8 (1.0-1.7); CALCIUM 9.1 mg/dL (8.5-10.1); CREATININE 1.1 mg/dL (0.6-1.0); GFR 49.7; POTASSIUM 3.2 mmol/L (3.5-5.1); TOTAL BILIRUBIN 0.2 mg/dL (0.2-1.0); TOTAL PROTEIN 6.8 g/dL (6.4-8.2)
[2018-09-07 03:56] LABS: BASO % 1 % (0-3); EOS # 0.3 x10^3/uL (0.0-0.7); EOS % 4 % (0-3); HEMATOCRIT 32.4 % (36.0-47.0); HEMOGLOBIN 11.1 g/dL (12.0-15.5); LYMPH # 1.8 x10^3/uL (1.0-4.8); LYMPH % 23 % (24-48); MEAN CORPUSCULAR HEMOGLOBIN 30 pg (25-35); MEAN CORPUSCULAR HGB CONC 34 g/dL (31-37); MEAN CORPUSCULAR VOLUME 88 fL (79-100); MONO # 0.8 x10^3/uL (0.0-1.1); MONO % 10 % (0-9); NEUT # 5.1 x10^3uL (1.8-7.7); NEUT % 64 % (31-73); PLATELET COUNT 317 x10^3/uL (140-400); RED BLOOD COUNT 3.66 x10^6/uL (3.50-5.40); RED CELL DISTRIBUTION WIDTH 13.1 % (11.5-14.5)
[2018-09-07] MEDS ORDERED: GUAI118L20 PO (04:32)
[2018-09-07] MEDS ORDERED: LEVO500T59 PO (04:32)
[2018-09-07] MEDS ORDERED: levoFLOXacin 500 MG TABLET PO ONE (05:00)
[2018-09-07] MEDS ORDERED: guaiFENesin/CODEINE 100mg/10mg 5 ML LIQUID PO ONE (05:00)
[2018-09-07 05:08] VITALS: BP 153/78
--- NOTE | 2018-09-07 07:45 | RAD ---
PROCEDURE: CHEST PA LATERAL CLINICAL INDICATION: cough, shortness of breath
asthma, copd COMPARISON: 08/15/2018 FINDINGS: No pneumothorax identified. Cardiac and mediastinal contours unremarkable. No pulmonary consolidation or acute airspace disease. No acute osseous abnormalities identified. IMPRESSION: No pulmonary consolidation or acute airspace disease. Electronically signed by: Severo Healy DO (09/07/2018 7:41 AM) [facility]
== END 2018-09-07 04:44 | disposition home or self-care (01) ==
LOC: ER 02:41
DX: J20.9 Acute bronchitis, unspecified (principal); I25.10 Atherosclerotic heart disease of native coronary artery without angina pectoris; E11.9 Type 2 diabetes mellitus without complications; E78.00 Pure hypercholesterolemia, unspecified; I10 Essential (primary) hypertension; I25.2 Old myocardial infarction; G20 Parkinson's disease; Z88.0 Allergy status to penicillin; Z88.8 Allergy status to other drugs, medicaments and biological substances; Z88.1 Allergy status to other antibiotic agents; Z88.6 Allergy status to analgesic agent; Z88.5 Allergy status to narcotic agent; Z91.018 Allergy to other foods
CPT/HCPCS: 36415; 71046; 80053; 85025; 87040; 99284

== ENCOUNTER 2018-09-29 15:17 | Emergency (ER) | payer MEDICARE, BC ==
[~2018-09-29] VITALS: Ht 152.4 cm; Wt 65.5 kg
[~2018-09-29 15:17] MED LIST changes: +GUAI118L20 PO
[2018-09-29 15:57] LABS: BASO % 0 % (0-3); EOS # 0.3 x10^3/uL (0.0-0.7); EOS % 4 % (0-3); HEMATOCRIT 33.8 % (36.0-47.0); HEMOGLOBIN 11.4 g/dL (12.0-15.5); LYMPH # 1.6 x10^3/uL (1.0-4.8); LYMPH % 26 % (24-48); MEAN CORPUSCULAR HEMOGLOBIN 30 pg (25-35); MEAN CORPUSCULAR HGB CONC 34 g/dL (31-37); MEAN CORPUSCULAR VOLUME 89 fL (79-100); MONO # 0.5 x10^3/uL (0.0-1.1); MONO % 7 % (0-9); NEUT # 3.9 x10^3uL (1.8-7.7); NEUT % 62 % (31-73); PLATELET COUNT 286 x10^3/uL (140-400); RED BLOOD COUNT 3.81 x10^6/uL (3.50-5.40); RED CELL DISTRIBUTION WIDTH 13.8 % (11.5-14.5); WHITE BLOOD COUNT 6.3 x10^3/uL (4.0-11.0)
--- NOTE | 2018-09-29 16:04 | PHYS DOC ---
Past History Past Medical History: CAD, Cancer, Diabetes, High Cholesterol, Hypertension, [place] , Pneumonia, TIA, Other Additional Past Medical Histor: Parkinson dz Past Surgical History: Cancer Surgery, Cholecystectomy, , Other Smoking: Non-smoker Alcohol Use: None Drug Use: None Adult General Chief Complaint Chief Complaint: DIZZY/LIGHT HEADED HPI HPI Patient is a 67-year-old female who presents with dizziness and difficulty getting words out. This has been waxing and waning for the past several days. There has been no weakness in the extremities beyond her usual baseline with her Parkinson's disease. No dysuria. No fever. No new neck stiffness. No changes in vision. Symptoms are currently improved. Patient is on our request for previous cardiac as well as previous TIA symptoms. Patient was sent here from her primary care physician due to concern about recurrence of TIA.[] Review of Systems Review of Systems Constitutional: Denies fever or chills [] Eyes: Denies change in visual acuity, redness, or eye pain [] HENT: Denies nasal congestion or sore throat [] Respiratory: Denies cough or shortness of breath [] Cardiovascular: No chest pain or palpitations[] GI: Denies abdominal pain, nausea, vomiting, bloody stools or diarrhea [] : Denies dysuria or hematuria [] Musculoskeletal: Denies back pain or joint pain [] Integument: Denies rash or skin lesions [] Neurologic: Denies headache, focal weakness or sensory changes, see history of present illness [] Endocrine: Denies polyuria or polydipsia [] All other systems were reviewed and found to be within normal limits, except as documented in this note. Allergies Allergies Allergies Coded Allergies Type Severity Reaction Last Updated Verified Penicillins Allergy Intermediate 09/29/18 Yes Soap Allergy Intermediate 09/29/18 Yes hydrocodone bitartrate Allergy Intermediate Itching 09/29/18 Yes metformin Allergy Intermediate 09/29/18 Yes mushroom Allergy Intermediate 09/29/18 Yes povidone-iodine Allergy Intermediate 09/29/18 Yes aspirin Allergy Mild 09/29/18 Yes niacin Allergy Unknown 09/29/18 Yes Physical Exam Physical Exam Constitutional: Well developed, well nourished, no acute distress, non-toxic appearance. [] HENT: Normocephalic, atraumatic, bilateral external ears normal, oropharynx moist, no oral exudates, nose normal. [] Eyes: PERRLA, EOMI, conjunctiva normal, no discharge. [] Neck: Normal range of motion, no tenderness, supple, no stridor. [] Cardiovascular:Heart rate regular rhythm, no murmur [] Lungs & Thorax: Bilateral breath sounds clear to auscultation [] Abdomen: Bowel sounds normal, soft, no tenderness, no masses, no pulsatile masses. [] Skin: Warm, dry, no erythema, no rash. [] Back: No tenderness, no CVA tenderness. [] Extremities: No tenderness, no cyanosis, no clubbing, ROM intact, no edema. [] Neurologic: Alert and oriented X 3, normal motor function, normal sensory function, no focal deficits noted. Resting and intention tremor is noted. Strength is symmetric. NIH SS of 0. [] Psychologic: Affect normal, judgement normal, mood normal. [] Current Patient Data Vital Signs Vital Signs Date Time Temp Pulse Resp B/P (MAP) Pulse Ox O2 Delivery O2 Flow Rate FiO2 09/29/18 15:48 82 16 130/67 (88) 95 Room Air 09/29/18 15:26 98.4 Lab Results Laboratory Tests Test 09/29/18 15:41 White Blood Count 6.3 x10^3/uL (4.0-11.0) Red Blood Count 3.81 x10^6/uL (3.50-5.40) Hemoglobin 11.4 g/dL (12.0-15.5) L Hematocrit 33.8 % (36.0-47.0) L Mean Corpuscular Volume 89 fL (79-100) Mean Corpuscular Hemoglobin 30 pg (25-35) Mean Corpuscular Hemoglobin Concent 34 g/dL (31-37) Red Cell Distribution Width 13.8 % (11.5-14.5) Platelet Count 286 x10^3/uL (140-400) Neutrophils (%) (Auto) 62 % (31-73) Lymphocytes (%) (Auto) 26 % (24-48) Monocytes (%) (Auto) 7 % (0-9) Eosinophils (%) (Auto) 4 % (0-3) H Basophils (%) (Auto) 0 % (0-3) Neutrophils # (Auto) 3.9 x10^3uL (1.8-7.7) Lymphocytes # (Auto) 1.6 x10^3/uL (1.0-4.8) Monocytes # (Auto) 0.5 x10^3/uL (0.0-1.1) Eosinophils # (Auto) 0.3 x10^3/uL (0.0-0.7) Basophils # (Auto) 0.0 x10^3/uL (0.0-0.2) EKG EKG KG showed a sinus rhythm at 79 bpm, normal axis, QTC of 464 ms, no ST elevations. Interpreted by me at 1529.[] Radiology/Procedures Radiology/Procedures CT HEAD INDICATION: Headache, speech and balance difficulty today COMPARISON: 03/30/2018 Exposure: One or more of the following individualized dose reduction techniques were utilized for this examination: 1. Automated exposure control 2. Adjustment of the mA and/or kV according to patient size 3. Use of iterative reconstruction technique TECHNIQUE: 5 mm contiguous axial images were obtained from the skull base to the vertex in both bone and soft tissue algorithm. FINDINGS: No abnormal attenuation within the brain parenchyma. No evidence of acute intracranial hemorrhage. No extra-axial fluid collections. No mass effect or midline shift. Ventricular size is appropriate. Basal cisterns are patent. No fractures identified.Tran-white differentiation is preserved.Globes and orbits are within normal limits. Paranasal sinuses and mastoid air cells are clear. IMPRESSION: Unremarkable CT examination of the head without contrast, as above. Specifically, no evidence of an acute intracranial abnormality. EXAM: CHEST 1 VIEW History: Headache COMPARISON: 09/07/2018 TECHNIQUE: Single portable radiograph of the chest FINDINGS: The cardiac silhouette is unremarkable. The lungs are clear bilaterally. The costophrenic sulci are clear and well demarcated. The osseous structures and soft tissues are unremarkable. Unchanged loop recorder projects in the left hemithorax. IMPRESSION: No radiographic evidence of an acute cardiopulmonary process. [] Course & Med Decision Making Course & Med Decision Making Pertinent Labs and Imaging studies reviewed. (See chart for details) ED course: Patient arrived, was placed in bed, and tolerated exam well. She was transferred to and from radiology with any consultations. After return of laboratory and imaging studies, these were discussed with the patient and family as well as her primary care physician who will follow up with her. Patient did receive IV antibiotics while in the emergency department and was discharged in improved condition. Medical decision making: Patient appears to have a urinary tract infection that may be accounting for these waxing and waning symptoms over the past several days. There is no evidence of an acute stroke syndrome. Patient has no evidence of intracranial mass or bleed. No evidence of significant blood to light abnormality. Patient's renal function is noted to be decreased, however it is within the range of her past 6 months for her creatinine. Will continue patient on oral outpatient antibiotics cognizant of her creatinine clearance. Patient has close follow-up with her primary care physician.[] Dragon Disclaimer Dragon Disclaimer This electronic medical record was generated, in whole or in part, using a voice recognition dictation system. Departure Departure: Impression: Primary Impression: UTI (urinary tract infection) Additional Impression: Dizziness Disposition: 01 HOME, SELF-CARE Condition: IMPROVED Referrals: PUJA WOLFF MD (PCP) Call office tomorrow to be seen in the next 2 days Patient Instructions: Dizziness, Urinary Tract Infection Additional Instructions: Drink plenty of fluids. Follow-up with your regular doctor in 2 days. Return to the ER if worsening symptoms or any other concerns Scripts Ciprofloxacin Hcl (CIPRO) 250 Mg Tablet 1 TAB PO BID for UTI, #14 TAB Prov: YOLANDA BRIGHT DO 09/29/18 Problem Qualifiers Primary Impression: UTI (urinary tract infection) Urinary tract infection type: site unspecified Hematuria presence: without hematuria Qualified Codes: N39.0 - Urinary tract infection, site not specified YOLANDA BRIGHT DO Sep 29, 2018 16:04
--- NOTE | 2018-09-29 16:10 | RAD ---
CT HEAD INDICATION: Headache, speech and balance difficulty today COMPARISON: 03/30/2018 Exposure: One or more of the following individualized dose reduction techniques were utilized for this examination: 1. Automated exposure control 2. Adjustment of the mA and/or kV according to patient size 3. Use of iterative reconstruction technique TECHNIQUE: 5 mm contiguous axial images were obtained from the skull base to the vertex in both bone and soft tissue algorithm. FINDINGS: No abnormal attenuation within the brain parenchyma. No evidence of acute intracranial hemorrhage. No extra-axial fluid collections. No mass effect or midline shift. Ventricular size is appropriate. Basal cisterns are patent. No fractures identified.Tran-white differentiation is preserved.Globes and orbits are within normal limits. Paranasal sinuses and mastoid air cells are clear. IMPRESSION: Unremarkable CT examination of the head without contrast, as above. Specifically, no evidence of an acute intracranial abnormality. Electronically signed by: Earle Watson MD (09/29/2018 4:07 PM) [facility]
--- NOTE | 2018-09-29 16:11 | RAD ---
EXAM: CHEST 1 VIEW History: Headache COMPARISON: 09/07/2018 TECHNIQUE: Single portable radiograph of the chest FINDINGS: The cardiac silhouette is unremarkable. The lungs are clear bilaterally. The costophrenic sulci are clear and well demarcated. The osseous structures and soft tissues are unremarkable. Unchanged loop recorder projects in the left hemithorax. IMPRESSION: No radiographic evidence of an acute cardiopulmonary process. Electronically signed by: Earle Watson MD (09/29/2018 4:08 PM) [facility]
[2018-09-29 16:18] LABS: ALBUMIN 3.1 g/dL (3.4-5.0); ALBUMIN/GLOBULIN RATIO 0.8 (1.0-1.7); CALCIUM 8.9 mg/dL (8.5-10.1); CREATININE 1.3 mg/dL (0.6-1.0); MAGNESIUM 1.7 mg/dL (1.8-2.4); POTASSIUM 3.1 mmol/L (3.5-5.1); TOTAL BILIRUBIN 0.2 mg/dL (0.2-1.0)
[2018-09-29 16:41] LABS: BILIRUBIN,URINE NEG (NEG); CLARITY,URINE HAZY; COLOR,URINE YELLOW; GLUCOSE,URINE 100 mg/dL (NEG)
[2018-09-29 16:42] LABS: BACTERIA,URINE FEW /HPF (0-FEW); NITRITE,URINE NEG (NEG); RBC,URINE OCC /HPF (0-2); SQUAMOUS EPITHELIAL CELL,UR OCC /LPF; UROBILINOGEN,URINE 0.2 mg/dL (0.2 mg/dL)
--- NOTE | 2018-09-29 17:15 | EKG ---
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
[2018-09-29] MEDS ORDERED: CIPR250T30 PO (17:30)
[2018-09-29] MEDS ORDERED: CIPROFLOXACIN 400MG PREMIX 200 ML IV ONE (17:30)
[2018-09-29 18:39] VITALS: BP 152/93
== END 2018-09-29 18:39 | disposition home or self-care (01) ==
LOC: ER 15:17
DX: N39.0 Urinary tract infection, site not specified (principal); R42 Dizziness and giddiness; R51 Headache; I25.10 Atherosclerotic heart disease of native coronary artery without angina pectoris; E11.9 Type 2 diabetes mellitus without complications; E78.00 Pure hypercholesterolemia, unspecified; I10 Essential (primary) hypertension; I25.2 Old myocardial infarction; Z86.73 Personal history of transient ischemic attack (TIA), and cerebral infarction without residual deficits; G20 Parkinson's disease; Z88.0 Allergy status to penicillin; Z88.8 Allergy status to other drugs, medicaments and biological substances; Z88.1 Allergy status to other antibiotic agents; Z88.6 Allergy status to analgesic agent; Z88.5 Allergy status to narcotic agent
CPT/HCPCS: 36415; 70450; 71045; 80053; 81001; 83735; 83880; 84484; 85025; 85610; 87040; 87086; 93005; 96365; 99284; J0744

== ENCOUNTER 2018-10-28 03:57 | Emergency (ER) | payer MEDICARE, BC ==
[~2018-10-28] VITALS: Ht 152.4 cm; Wt 65.5 kg
[~2018-10-28 03:57] MED LIST changes: +CIPR250T30 PO
--- NOTE | 2018-10-28 04:41 | PHYS DOC ---
Past History Past Medical History: CAD, Cancer, Diabetes, High Cholesterol, Hypertension, [place], Pneumonia, TIA, Other Additional Past Medical Histor: Parkinson dz Past Surgical History: Cancer Surgery, Cholecystectomy, , Other Smoking: Non-smoker Alcohol Use: None Drug Use: None Adult General Chief Complaint Chief Complaint: MECHANICAL FALL HPI HPI Patient is a 67-year-old female presents post mechanical fall at home. Patient was confused after the fall, had an episode of nausea and vomiting and so her called EMS. EMS found that her blood sugar was in the 260s. Her blood pressure was low for EMS, less than 90 systolic. Her mental status improved dur ing transport. Patient does have a history of Parkinson's disease. Reports that she is getting over of out of bronchitis. Denies any fevers or chest pain.[] Review of Systems Review of Systems Constitutional: Denies fever or chills [] Eyes: Denies change in visual acuity, redness, or eye pain [] HENT: Denies nasal congestion or sore throat [] Respiratory: Denies shortness of breath [] Cardiovascular: No chest pain or palpitations[] GI: Denies abdominal pain, nausea, vomiting, bloody stools or diarrhea [] : Denies dysuria or hematuria [] Musculoskeletal: Denies back pain or joint pain [] Integument: Denies rash or skin lesions [] Neurologic: Denies headache, focal weakness or sensory changes [] Endocrine: Denies polyuria or polydipsia [] All other systems were reviewed and found to be within normal limits, except as documented in this note. Current Medications Current Medications Current Medications Medications (Trade) Dose Ordered Sig/Juan Start Time Stop Time Status Last Admin Dose Admin Ondansetron HCl (Zofran Odt) 4 mg 1X ONCE 10/28/18 04:45 10/28/18 04:46 UNV Allergies Allergies Allergies Coded Allergies Type Severity Reaction Last Updated Verified Penicillins Allergy Intermediate 09/29/18 Yes Soap Allergy Intermediate 09/29/18 Yes hydrocodone bitartrate Allergy Intermediate Itching 09/29/18 Yes metformin Allergy Intermediate 09/29/18 Yes mushroom Allergy Intermediate 09/29/18 Yes povidone-iodine Allergy Intermediate 09/29/18 Yes aspirin Allergy Mild 09/29/18 Yes niacin Allergy Unknown 09/29/18 Yes Physical Exam Physical Exam Constitutional: Well developed, well nourished, no acute distress, non-toxic appearance. [] HENT: Normocephalic, atraumatic, bilateral external ears normal, oropharynx moist, no oral exudates, nose normal. [] Eyes: PERRLA, EOMI, conjunctiva normal, no discharge. [] Neck: Normal range of motion, no tenderness, supple, no stridor. [] Cardiovascular:Heart rate regular rhythm, no murmur [] Lungs & Thorax: Bilateral breath sounds clear to auscultation [] Abdomen: Bowel sounds normal, soft, no tenderness, no masses, no pulsatile masses. [] Skin: Warm, dry, no erythema, no rash. [] Back: No tenderness, no CVA tenderness. [] Extremities: No tenderness, no cyanosis, no clubbing, ROM intact, no edema. [] Neurologic: Alert and oriented X 3, normal motor function, normal sensory function, no focal deficits noted. [] Psychologic: Affect normal, judgement normal, mood normal. [] Current Patient Data Vital Signs Vital Signs Date Time Temp Pulse Resp B/P (MAP) Pulse Ox O2 Delivery O2 Flow Rate FiO2 10/28/18 04:09 97.8 71 18 98 Room Air EKG EKG EKG shows a sinus rhythm at 70 bpm, normal axis, normal QTC, no ST elevations. Interpreted by me at 0420[] Radiology/Procedures Radiology/Procedures Chest x-ray shows no acute features Examination: CT head and cervical spine without contrast HISTORY: History of fall, altered mental status, history of Parkinson's COMPARISON: None Available. Exposure: One or more of the following individualized dose reduction techniques were utilized for this examination: 1. Automated exposure control 2. Adjustment of the mA and/or kV according to patient size 3. Use of iterative reconstruction technique TECHNIQUE: 5 mm contiguous axial images were obtained from the skull base to the vertex . FINDINGS: No abnormal attenuation within the brain parenchyma. No evidence of acute intracranial hemorrhage. No extra-axial fluid collections. No mass effect or midline shift. Ventricular size is appropriate. Basal cisterns are patent. No fractures identified.Tran-white differentiation is preserved.Globes and orbits are within normal limits. Paranasal sinuses and mastoid air cells are clear. IMPRESSION: No acute intracranial findings. CT CERVICAL SPINE Technique: 2.5 mm contiguous axial images were obtained from the skull base through the cervicothoracic junction in both bone and soft tissue algorithm. Additional sagittal and coronal reconstructions were also performed. FINDINGS: Vertebral body height and alignment are maintained. Cervical lordosis is preserved. The lateral masses of C1 are aligned upon C2. No fractures identified. The bony canal is patent throughout. Mild intervertebral disc height loss identified throughout cervical spine likely degeneration. Tiny foci of air identified about the left posterior arch of C1 The paraspinous soft tissues are unremarkable. Visualized intracranial contents are unremarkable. Lung apices are clear. IMPRESSION: 1. No acute fracture of the cervical spine. Correlate clinically. 2. Tiny foci of air identified about the left posterior arch of C1, nonspecific etiology. [] Course & Med Decision Making Course & Med Decision Making Pertinent Labs and Imaging studies reviewed. (See chart for details) ED course: Patient arrived, was placed in bed, and tolerated exam well. She was transported to and from [place] with any complications. After the return of the laboratory and imaging findings, these were discussed with the patient voiced understanding. All questions were answered. Patient was discharged in improved condition. Medical decision making: There is no evidence of an acute intracranial mass, bleed, or fracture. No evidence of significant electrolyte abnormalities. She is noted to have an increasing creatinine over her last 3 visits. She was given IV fluids based on physical exam as well as the elevated creatinine. There is no evidence of pneumonia. Uncertain as to what the foci of air by C1 is related to however there does not appear to be any penetrating injury patient has had no dysrhythmias while in the emergency department. Believe that this state of confusion in the vomiting were due to the head injury.[] Dragon Disclaimer Dragon Disclaimer This electronic medical record was generated, in whole or in part, using a voice recognition dictation system. Departure Departure: Impression: Primary Impression: Closed head injury Additional Impressions: Parkinsons disease Renal insufficiency Disposition: 01 HOME, SELF-CARE Condition: IMPROVED Referrals: PUJA WOLFF MD (PCP) Follow-up in 2 days Patient Instructions: Head Injury, Adult Additional Instructions: Follow-up with your regular doctor in 2 days. Drink plenty of fluids. Return to the ER if worsening discomfort, unable to tolerate liquids, or any other concerns. Scripts Ondansetron Hcl (ZOFRAN) 4 Mg Tablet 1 TAB PO Q6HRS for nausea or vomiting, #20 TAB Prov: YOLANDA BRIGHT DO 10/28/18 Problem Qualifiers Primary Impression: Closed head injury Encounter type: initial encounter Qualified Codes: S09.90XA - Unspecified injury of head, initial encounter YOLANDA BRIGHT DO October 28, 2018 04:41
[2018-10-28 04:47] LABS: BASO % 0 % (0-3); EOS # 0.4 x10^3/uL (0.0-0.7); EOS % 5 % (0-3); HEMATOCRIT 32.4 % (36.0-47.0); HEMOGLOBIN 10.8 g/dL (12.0-15.5); LYMPH # 1.9 x10^3/uL (1.0-4.8); LYMPH % 25 % (24-48); MEAN CORPUSCULAR HEMOGLOBIN 29 pg (25-35); MEAN CORPUSCULAR HGB CONC 33 g/dL (31-37); MEAN CORPUSCULAR VOLUME 88 fL (79-100); MONO # 0.6 x10^3/uL (0.0-1.1); MONO % 8 % (0-9); NEUT # 4.5 x10^3uL (1.8-7.7); NEUT % 61 % (31-73); PLATELET COUNT 276 x10^3/uL (140-400); RED BLOOD COUNT 3.67 x10^6/uL (3.50-5.40); RED CELL DISTRIBUTION WIDTH 14.1 % (11.5-14.5); WHITE BLOOD COUNT 7.4 x10^3/uL (4.0-11.0)
[2018-10-28 04:52] LABS: BILIRUBIN,URINE NEG (NEG); CLARITY,URINE CLEAR; COLOR,URINE YELLOW; GLUCOSE,URINE 100 mg/dL (NEG)
[2018-10-28 04:53] LABS: BACTERIA,URINE 0 /HPF (0-FEW); NITRITE,URINE NEG (NEG); RBC,URINE 0 /HPF (0-2); UROBILINOGEN,URINE 0.2 mg/dL (0.2 mg/dL); WBC,URINE OCC /HPF (0-4)
[2018-10-28 04:59] LABS: ALBUMIN 2.9 g/dL (3.4-5.0); ALBUMIN/GLOBULIN RATIO 0.8 (1.0-1.7); CALCIUM 9.2 mg/dL (8.5-10.1); CREATININE 1.6 mg/dL (0.6-1.0); GFR 32.2; MAGNESIUM 1.9 mg/dL (1.8-2.4); POTASSIUM 3.4 mmol/L (3.5-5.1); TOTAL BILIRUBIN 0.3 mg/dL (0.2-1.0); TOTAL PROTEIN 6.6 g/dL (6.4-8.2)
[2018-10-28] MEDS ORDERED: ONDANSETRON ODT 4 MG TAB.RAPDIS PO ONE (05:00)
[2018-10-28] MEDS ORDERED: IV RINGERS SOLUTION,LACTATED 1,000 ML IV ONE (05:30)
--- NOTE | 2018-10-28 05:41 | EKG ---
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
[2018-10-28] MEDS ORDERED: ONDA4TAB7 PO (05:46)
--- NOTE | 2018-10-28 05:49 | RAD ---
Examination: CT head and cervical spine without contrast HISTORY: History of fall, altered mental status, history of Parkinson's COMPARISON: None Available. Exposure: One or more of the following individualized dose reduction techniques were utilized for this examination: 1. Automated exposure control 2. Adjustment of the mA and/or kV according to patient size 3. Use of iterative reconstruction technique TECHNIQUE: 5 mm contiguous axial images were obtained from the skull base to the vertex . FINDINGS: No abnormal attenuation within the brain parenchyma. No evidence of acute intracranial hemorrhage. No extra-axial fluid collections. No mass effect or midline shift. Ventricular size is appropriate. Basal cisterns are patent. No fractures identified.Tran-white differentiation is preserved.Globes and orbits are within normal limits. Paranasal sinuses and mastoid air cells are clear. IMPRESSION: No acute intracranial findings. CT CERVICAL SPINE Technique: 2.5 mm contiguous axial images were obtained from the skull base through the cervicothoracic junction in both bone and soft tissue algorithm. Additional sagittal and coronal reconstructions were also performed. FINDINGS: Vertebral body height and alignment are maintained. Cervical lordosis is preserved. The lateral masses of C1 are aligned upon C2. No fractures identified. The bony canal is patent throughout. Mild intervertebral disc height loss identified throughout cervical spine likely degeneration. Tiny foci of air identified about the left posterior arch of C1 The paraspinous soft tissues are unremarkable. Visualized intracranial contents are unremarkable. Lung apices are clear. IMPRESSION: 1. No acute fracture of the cervical spine. Correlate clinically. 2. Tiny foci of air identified about the left posterior arch of C1, nonspecific etiology. Electronically signed by: Earle Watson MD (10/28/2018 5:46 AM) [facility]
[2018-10-28 05:55] VITALS: BP 139/69
--- NOTE | 2018-10-28 07:48 | RAD ---
Portable chest, 10/28/2018: HISTORY: Altered mental status Comparison is made to a study from 09/29/2018. An electronic monitoring device is projected over the left lower chest. The heart size and pulmonary vascularity are normal. No pulmonary infiltrate is seen. There is no evidence of pleural fluid. IMPRESSION: No acute cardiopulmonary abnormality is detected. Electronically signed by: Nikita Vital MD (10/28/2018 7:46 AM) [facility]
== END 2018-10-28 06:10 | disposition home or self-care (01) ==
LOC: ER 03:57
DX: S09.90XA Unspecified injury of head, initial encounter (principal); N28.9 Disorder of kidney and ureter, unspecified; G20 Parkinson's disease; R11.2 Nausea with vomiting, unspecified; I25.10 Atherosclerotic heart disease of native coronary artery without angina pectoris; E11.9 Type 2 diabetes mellitus without complications; E78.00 Pure hypercholesterolemia, unspecified; I10 Essential (primary) hypertension; I25.2 Old myocardial infarction; Z86.73 Personal history of transient ischemic attack (TIA), and cerebral infarction without residual deficits; Z88.0 Allergy status to penicillin; Z88.5 Allergy status to narcotic agent; Z88.1 Allergy status to other antibiotic agents; Z88.8 Allergy status to other drugs, medicaments and biological substances; Z88.6 Allergy status to analgesic agent; Z91.018 Allergy to other foods; W18.39XA Other fall on same level, initial encounter; Y93.89 Activity, other specified; Y92.89 Other specified places as the place of occurrence of the external cause; Y99.8 Other external cause status
CPT/HCPCS: 36415; 70450; 71045; 72125; 80053; 81001; 83735; 83880; 84484; 85025; 85610; 93005; 96360; 99285; J7120; P9612; Q0162

== ENCOUNTER → 2018-11-22 | Outpatient (CLI) | payer MEDICARE, BC ==
[2018-10-28 05:55] VITALS: BP 139/69
[~2018-11-22] MED LIST changes: +ONDA4TAB7 PO
--- NOTE | 2018-11-23 08:26 | CARD ---
MR#: [id number] Date of Study: 11/22/2018 Ordering Physician: OH HOWELL, Referring Physician: OH HOWELL, Tech: Aggie Houston APPROVED REPORT EXAM: Two-dimensional and M-mode echocardiogram with Doppler and color Doppler. Other Information Quality : Average INDICATION COPD CAD RISK FACTORS Hypertension Diabetes 2017 three Stents 2D DIMENSIONS Left Atrium(2D)3.7 (1.6-4.0cm)IVSd1.0 (0.7-1.1cm) Aortic Root(2D)2.9 (2.0-3.7cm)LVDd3.6 (3.9-5.9cm) LVOT Diameter2.1 (1.8-2.4cm)PWd1.2 (0.7-1.1cm) LVDs2.3 (2.5-4.0cm)FS (%) 35.9 % SV35.7 mlLVEF(%)66.4 (>50%) Aortic Valve AoV Peak Benjamin.150.8cm/sAoV VTI30.3cm AO Peak GR.9.1mmHgLVOT Peak Benjamin.91.5cm/s LVOT VTI 18.77cmAO Mean GR.5mmHg UZIEL (VMAX)2.52qg2ZNC (VTI)2.05cm2 Mitral Valve MV E Dlgjigwv17.3cm/sMV DECEL IHEF515fn MV A Wxrbkwgx49.9cm/sE/A Ratio0.9 Pulmonary Valve PV Peak Wkgxvaph171.6cm/sPV Peak Grad.4mmHg Tricuspid Valve TR P. Vmptxluf626cd/sRAP HWDWWSSA0iyFx TR Peak Gr.33ybTnUUFP59qxVp Pulmonary Vein S1 Qrjxwlcu89.6cm/sD2 Ndewbqkf26.1cm/s LEFT VENTRICLE The left ventricle is normal size. There is borderline concentric left ventricular hypertrophy. The l eft ventricular systolic function is normal and the ejection fraction is within normal range. The Eje ction Fraction is >55%. There is normal LV segmental wall motion. Transmitral Doppler flow pattern is Grade I-abnormal relaxation pattern. RIGHT VENTRICLE The right ventricle is mildly dilated. The right ventricle is mildly to moderately hypertrophied. The right ventricular systolic function is normal. ATRIA The left atrium size is normal. The right atrium size is normal. The interatrial septum is intact wit h no evidence for an atrial septal defect or patent foramen ovale as noted on 2-D or Doppler imaging. AORTIC VALVE The aortic valve is normal in structure and function. Doppler and Color Flow revealed no significant aortic regurgitation. There is no significant aortic valvular stenosis. MITRAL VALVE The mitral valve is thickened but opens well. There is no evidence of mitral valve prolapse. There is no mitral valve stenosis. Doppler and Color Flow revealed no mitral valve regurgitation noted. TRICUSPID VALVE The tricuspid valve is normal in structure and function. Doppler and Color Flow revealed trace tricus pid regurgitation with an estimated PAP of 26 mmHg. There is no tricuspid valve stenosis. PULMONIC VALVE Doppler and Color Flow revealed trace pulmonic valvular regurgitation. There is no pulmonic valvular stenosis. GREAT VESSELS The aortic root is normal in size. The IVC was not visualized. PERICARDIAL EFFUSION There is no evidence of significant pericardial effusion. Critical Notification Critical Value: No <Conclusion> The left ventricular systolic function is normal and the ejection fraction is within normal range. Th e Ejection Fraction is >55%. There is normal LV segmental wall motion. Signed by : Chris Sears, Electronically Approved : 11/23/2018 08:25:38
== END | disposition home or self-care (01) ==
LOC: ECHO 15:49
PROVIDERS: ATTEND Internal Medicine Cardiovascular Disease
DX: I25.10 Atherosclerotic heart disease of native coronary artery without angina pectoris (principal); J44.9 Chronic obstructive pulmonary disease, unspecified; E11.9 Type 2 diabetes mellitus without complications; I11.9 Hypertensive heart disease without heart failure; R00.8 Other abnormalities of heart beat
CPT/HCPCS: 93306

== ENCOUNTER 2018-12-06 11:49 | Emergency (ER) | payer MEDICARE, BC ==
[~2018-12-06] VITALS: Ht 147.3 cm; Wt 62.2 kg
[2018-12-06] MEDS ORDERED: IV NORMAL SALINE 1,000ML 1,000 ML IV ONE (12:15)
--- NOTE | 2018-12-06 12:18 | PHYS DOC ---
Past History Past Medical History: CAD, Cancer, Diabetes, High Cholesterol, Hypertension, ND, Pneumonia, TIA, Other Additional Past Medical Histor: Parkinson dz Past Surgical History: Cancer Surgery, Cholecystectomy, , Other Smoking: Non-smoker Alcohol Use: None Drug Use: None Adult General Chief Complaint Chief Complaint: HEADACHE HPI HPI 68-year-old female with multiple medical problems presents today with a headache. She states she's had a headache for the last 2 days. She describes both photophobia and phonophobia. She also has some nausea. She denies any lateralizing neurologic weakness. She states a couple of days ago a blackout spell which is consistent with her history of seizures. She denies any fever or neck pain.[] Review of Systems Review of Systems Constitutional: Denies fever or chills [] Eyes: Denies change in visual acuity, redness, or eye pain [] HENT: Denies nasal congestion or sore throat [] Respiratory: Denies cough or shortness of breath [] Cardiovascular: No additional information not addressed in HPI [] GI: Denies abdominal pain, nausea, vomiting, bloody stools or diarrhea [] : Denies dysuria or hematuria [] Musculoskeletal: Denies back pain or joint pain [] Integument: Denies rash or skin lesions [] Neurologic: Per history of present illness[] Endocrine: Denies polyuria or polydipsia [] All other systems were reviewed and found to be within normal limits, except as documented in this note. Allergies Allergies Allergies Coded Allergies Type Severity Reaction Last Updated Verified Penicillins Allergy Intermediate 09/29/18 Yes Soap Allergy Intermediate 09/29/18 Yes hydrocodone bitartrate Allergy Intermediate Itching 09/29/18 Yes metformin Allergy Intermediate 09/29/18 Yes mushroom Allergy Intermediate 09/29/18 Yes povidone-iodine Allergy Intermediate 09/29/18 Yes aspirin Allergy Mild 09/29/18 Yes niacin Allergy Unknown 09/29/18 Yes Physical Exam Physical Exam Constitutional: Well developed, well nourished, no acute distress, non-toxic appearance. [] HENT: Normocephalic, atraumatic, bilateral external ears normal, oropharynx moist, no oral exudates, nose normal. [] Eyes: PERRLA, EOMI, conjunctiva normal, no discharge. [] Neck: Normal range of motion, no tenderness, supple, no stridor. [] Cardiovascular:Heart rate regular rhythm, no murmur [] Lungs & Thorax: Bilateral breath sounds clear to auscultation [] Abdomen: Bowel sounds normal, soft, no tenderness, no masses, no pulsatile masses. [] Skin: Warm, dry, no erythema, no rash. [] Back: No tenderness, no CVA tenderness. [] Extremities: No tenderness, no cyanosis, no clubbing, ROM intact, no edema. [] Neurologic: Alert and oriented X 3, normal motor function, normal sensory function, no focal deficits noted. [] Psychologic: Affect normal, judgement normal, mood normal. [] EKG EKG [] Radiology/Procedures Radiology/Procedures [] Course & Med Decision Making Course & Med Decision Making Pertinent Labs and Imaging studies reviewed. (See chart for details) [68-year-old female with a history of migraine was given IV fluids, Toradol, Reglan and Benadryl with near complete resolution of her headache. I will provide the patient with some Reglan to take at home] Dragon Disclaimer Dragon Disclaimer This electronic medical record was generated, in whole or in part, using a voice recognition dictation system. Departure Departure: Impression: Primary Impression: Migraine headache Disposition: HOME, SELF-CARE Condition: IMPROVED Referrals: PUJA WOLFF MD (PCP) Patient Instructions: Migraine Headache Additional Instructions: Follow-through primary care physician this week for recheck. Return to the emergency department with any new or concerning symptoms Scripts Metoclopramide Hcl (REGLAN) 10 Mg Tablet 10 MG PO PRN Q8HRS PRN for HEADACHE, #30 TAB 3 Refills Take 25 mg of Benadryl with each dose Prov: ELOY VEGA DO 12/06/18 Problem Qualifiers Primary Impression: Migraine headache Migraine type: unspecified Status migrainosus presence: without status migrainosus Intractability: not intractable Qualified Codes: G43.909 - Migraine, unspecified, not intractable, without status migrainosus ELOY VEGA DO Dec 06, 2018 12:18
[2018-12-06] MEDS ORDERED: diphenhydrAMINE 50 MG/ML VIAL IVP ONE (12:30)
[2018-12-06] MEDS ORDERED: METOCLOPRAMIDE HCL 10 MG/2 ML VIAL. IV ONE (12:30)
[2018-12-06 12:58] VITALS: BP 178/50
[2018-12-06] MEDS ORDERED: KETOROLAC 30 MG/ML VIAL. IV ONE (13:00)
[2018-12-06] MEDS ORDERED: METO10TA81 PO (13:48)
== END 2018-12-06 13:55 | disposition home or self-care (01) ==
LOC: ER 11:49
DX: G43.909 Migraine, unspecified, not intractable, without status migrainosus (principal); I25.10 Atherosclerotic heart disease of native coronary artery without angina pectoris; E11.9 Type 2 diabetes mellitus without complications; E78.00 Pure hypercholesterolemia, unspecified; I10 Essential (primary) hypertension; I25.2 Old myocardial infarction; Z86.73 Personal history of transient ischemic attack (TIA), and cerebral infarction without residual deficits; G20 Parkinson's disease; Z88.0 Allergy status to penicillin; Z88.8 Allergy status to other drugs, medicaments and biological substances; Z88.5 Allergy status to narcotic agent; Z88.6 Allergy status to analgesic agent; Z88.1 Allergy status to other antibiotic agents; Z91.018 Allergy to other foods
CPT/HCPCS: 96374; 96375; 99284; J1200; J1885; J2765; J7030

== ENCOUNTER 2019-03-26 14:26 | Emergency (ER) | payer MEDICARE, BC ==
[~2019-03-26] VITALS: Ht 147.3 cm; Wt 61.7 kg
[~2019-03-26 14:26] MED LIST changes: -GLIM4TAB2 PO; +GLIM4TAB4 PO; +METO10TA81 PO
[2019-03-26 14:45] VITALS: BP 154/101
--- NOTE | 2019-03-26 15:09 | PHYS DOC ---
Past History Past Medical History: Asthma, Diabetes, Hypertension, TIA, Other Additional Past Medical Histor: Parkinson dz Past Surgical History: Other Additional Past Surgical Histo: back surgery with titanium rods Smoking: Non-smoker Alcohol Use: None Drug Use: None Adult General Chief Complaint Chief Complaint: MECHANICAL FALL HPI HPI Patient is a 68-year-old female presents with right hip pain. Patient tripped and fell over and aromatic oil diffuse her that was on the ground yesterday. Striking her left hip on the ground. No head injury. No loss of consciousness. She has been able to walk. No numbness or tingling. Increased pain with move ment. No relief with Aleve nor Tylenol with Codeine No. 3. Pain is moderate to severe.[] Review of Systems Review of Systems Constitutional: Denies fever or chills [] Eyes: Denies change in visual acuity, redness, or eye pain [] HENT: Denies nasal congestion or sore throat [] Respiratory: Denies cough or shortness of breath [] Cardiovascular: No chest pain or palpitations[] GI: Denies abdominal pain, nausea, vomiting, bloody stools or diarrhea [] : Denies dysuria or hematuria [] Musculoskeletal: Denies back pain see history of present illness[] Integument: Denies rash or skin lesions [] Neurologic: Denies headache, focal weakness or sensory changes [] Endocrine: Denies polyuria or polydipsia [] All other systems were reviewed and found to be within normal limits, except as documented in this note. Allergies Allergies Allergies Coded Allergies Type Severity Reaction Last Updated Verified Penicillins Allergy Intermediate 09/29/18 Yes Soap Allergy Intermediate 09/29/18 Yes hydrocodone bitartrate Allergy Intermediate Itching 09/29/18 Yes metformin Allergy Intermediate 09/29/18 Yes mushroom Allergy Intermediate 09/29/18 Yes povidone-iodine Allergy Intermediate 09/29/18 Yes aspirin Allergy Mild 09/29/18 Yes niacin Allergy Unknown 09/29/18 Yes Physical Exam Physical Exam Constitutional: Well developed, well nourished, no acute distress, non-toxic appearance. [] HENT: Normocephalic, atraumatic, bilateral external ears normal, oropharynx moist, no oral exudates, nose normal. [] Eyes: PERRLA, EOMI, conjunctiva normal, no discharge. [] Neck: Normal range of motion, no tenderness, supple, no stridor. [] Cardiovascular:Heart rate regular rhythm, no murmur [] Lungs & Thorax: Bilateral breath sounds clear to auscultation [] Abdomen: Bowel sounds normal, soft, no tenderness, no masses, no pulsatile masses. Pelvis is stable in 3 planes[] Skin: Warm, dry, no erythema, no rash. [] Back: No tenderness, no CVA tenderness. [] Extremities: Right hip has tenderness to palpation. Decreased flexion secondary to pain. No bruising. No knee tenderness. Patient is distally neurovascularly intact. The other 3 extremities show: No tenderness, no cyanosis, no clubbing, ROM intact, no edema. [] Neurologic: Alert and oriented X 3, normal motor function, normal sensory function, no focal deficits noted. [] Psychologic: Affect normal, judgement normal, mood normal. [] Current Patient Data Vital Signs Vital Signs Date Time Temp Pulse Resp B/P (MAP) Pulse Ox O2 Delivery O2 Flow Rate FiO2 03/26/19 14:45 97.5 72 18 97 Room Air EKG EKG [] Radiology/Procedures Radiology/Procedures PROCEDURE: HIP RIGHT 2V WITH PELVIS AP pelvis to include AP and lateral right hip radiographs 03/26/2019 CLINICAL HISTORY: Fall with injury to the right hip. AP and lateral digital radiographs of the right hip were obtained. An AP digital radiograph of the pelvis to include both hips was obtained. Pedicle screws and stabilizing rods overlie the L5-S1 disc space. Surgical clips are seen scattered throughout the pelvis. No pelvic bone fracture is seen. Both hips are intact. Specifically no fracture or dislocation of the right hip is seen. Mild to moderate degenerative changes are seen involving both SI joints and both hips. Calcifications are seen within the pelvis consistent with phleboliths. IMPRESSION: No fracture or dislocation is seen.[] Course & Med Decision Making Course & Med Decision Making Pertinent Labs and Imaging studies reviewed. (See chart for details) ED course: Patient arrived, was placed in bed, and tolerated exam well. She was transported to and from radiology with any consultations. She was given pain medicines which improved her discomfort. After the return of the imaging results, these were discussed with the patient and family who voiced understanding. All questions were answered. She was discharged in improved condition. Medical decision making: There is no evidence of a fracture or dislocation. No evidence of intractable pain. No evidence of neurologic or vascular compromise.[] Dragon Disclaimer Dragon Disclaimer This electronic medical record was generated, in whole or in part, using a voice recognition dictation system. Departure Departure: Impression: Primary Impression: Contusion of right hip Disposition: HOME, SELF-CARE Condition: IMPROVED Referrals: PUJA WOLFF MD (PCP) Follow-up in 2 days Patient Instructions: Contusion Additional Instructions: Follow-up with your regular doctor in 2 days. Apply warm compresses for 15 m inutes at a time, at least 4 times a day. Return to the ER if worsening pain or any other concerns. Scripts Oxycodone Hcl/Acetaminophen (PERCOCET 5-325 MG TABLET ) 1 Each Tablet 1 TAB PO PRN Q6HRS PRN for PAIN, #20 TAB Prov: YOLANDA BRIGHT DO 03/26/19 Problem Qualifiers Primary Impression: Contusion of right hip Encounter type: initial encounter Qualified Codes: S70.01XA - Contusion of right hip, initial encounter YOLANDA BRIGHT DO Mar 26, 2019 15:09
[2019-03-26] MEDS ORDERED: oxyCODONE/APAP 5/325 1 TAB TABLET PO ONE (15:15)
--- NOTE | 2019-03-26 15:38 | RAD ---
AP pelvis to include AP and lateral right hip radiographs 03/26/2019 CLINICAL HISTORY: Fall with injury to the right hip. AP and lateral digital radiographs of the right hip were obtained. An AP digital radiograph of the pelvis to include both hips was obtained. Pedicle screws and stabilizing rods overlie the L5-S1 disc space. Surgical clips are seen scattered throughout the pelvis. No pelvic bone fracture is seen. Both hips are intact. Specifically no fracture or dislocation of the right hip is seen. Mild to moderate degenerative changes are seen involving both SI joints and both hips. Calcifications are seen within the pelvis consistent with phleboliths. IMPRESSION: No fracture or dislocation is seen. Electronically signed by: Ryne Mackenzie MD (03/26/2019 3:35 PM) [facility]
[2019-03-26] MEDS ORDERED: OXYC1TAB15 PO (15:49)
== END 2019-03-26 15:52 | disposition home or self-care (01) ==
LOC: ER 14:26
DX: S70.01XA Contusion of right hip, initial encounter (principal); J45.909 Unspecified asthma, uncomplicated; E11.9 Type 2 diabetes mellitus without complications; I10 Essential (primary) hypertension; Z86.73 Personal history of transient ischemic attack (TIA), and cerebral infarction without residual deficits; Z88.0 Allergy status to penicillin; Z88.8 Allergy status to other drugs, medicaments and biological substances; Z88.1 Allergy status to other antibiotic agents; Z88.6 Allergy status to analgesic agent; Z91.018 Allergy to other foods; Z91.048 Other nonmedicinal substance allergy status; W01.0XXA Fall on same level from slipping, tripping and stumbling without subsequent striking against object, initial encounter; Y93.89 Activity, other specified; Y92.89 Other specified places as the place of occurrence of the external cause; Y99.8 Other external cause status
CPT/HCPCS: 73502; 99284

== ENCOUNTER 2019-04-24 12:40 | Emergency (ER) | payer MEDICARE, BC ==
[~2019-04-24] VITALS: Ht 152.4 cm; Wt 60.8 kg
[~2019-04-24 12:40] MED LIST changes: +OXYC1TAB15 PO
[2019-04-24] MEDS ORDERED: IV NORMAL SALINE 1,000ML 1,000 ML IV ONE (13:00)
--- NOTE | 2019-04-24 13:12 | PHYS DOC ---
Past History Past Medical History: Asthma, Diabetes, Hypertension, TIA, Other Additional Past Medical Histor: Parkinson dz Past Surgical History: Other Additional Past Surgical Histo: back surgery with titanium rods Smoking: Non-smoker Alcohol Use: None Drug Use: None Adult General Chief Complaint Chief Complaint: HEADACHE HPI HPI 68-year-old female presents via EMS with headache. Patient states that this is the worst headache she think she is ever had. It is a pressure sensation at the top of her head. She has a history of migraines, but states that this is different. She has a history of frequent falls, but the most frequent fall was more than a month ago. She has Parkinson's. She denies nausea, vomiting, dizziness, chest pain or shortness of breath. She is on Eliquis because she has 4 stents. She denies fever or chills. Review of Systems Review of Systems Constitutional: Denies fever or chills [] Eyes: Denies change in visual acuity, redness, or eye pain [] HENT: Denies nasal congestion or sore throat [] Respiratory: Denies cough or shortness of breath [] Cardiovascular: No additional information not addressed in HPI [] GI: Denies abdominal pain, nausea, vomiting, bloody stools or diarrhea [] : Denies dysuria or hematuria [] Musculoskeletal: Denies back pain or joint pain [] Integument: Denies rash or skin lesions [] Neurologic: Headache. Denies focal weakness or sensory changes [] Endocrine: Denies polyuria or polydipsia [] All other systems were reviewed and found to be within normal limits, except as documented in this note. Current Medications Current Medications Current Medications Medications (Trade) Dose Ordered Sig/Juan Start Time Stop Time Status Last Admin Dose Admin Sodium Chloride 1,000 ml @ 1,000 mls/hr 1X ONCE 04/24/19 13:00 04/24/19 13:59 UNV Allergies Allergies Allergies Coded Allergies Type Severity Reaction Last Updated Verified Penicillins Allergy Intermediate 04/24/19 Yes Soap Allergy Intermediate 04/24/19 Yes hydrocodone bitartrate Allergy Intermediate Itching 04/24/19 Yes metformin Allergy Intermediate 04/24/19 Yes mushroom Allergy Intermediate 04/24/19 Yes povidone-iodine Allergy Intermediate 04/24/19 Yes aspirin Allergy Mild 04/24/19 Yes niacin Allergy Unknown 04/24/19 Yes Physical Exam Physical Exam Constitutional: Well developed, well nourished, mild acute distress, non-toxic appearance. Appears to be uncomfortable.[] HENT: Normocephalic, atraumatic, bilateral external ears normal, oropharynx moist, no oral exudates, nose normal. [] Eyes: PERRLA, EOMI, conjunctiva normal, no discharge. [] Neck: Normal range of motion, no tenderness, supple, no stridor. [] Cardiovascular:Heart rate regular rhythm, no murmur [] Lungs & Thorax: Bilateral breath sounds clear to auscultation [] Abdomen: Bowel sounds normal, soft, no tenderness, no masses, no pulsatile masses. [] Skin: Warm, dry, no erythema, no rash. [] Back: No tenderness, no CVA tenderness. [] Extremities: No tenderness, no cyanosis, no clubbing, ROM intact, no edema. [] Neurologic: Alert and oriented X 3, normal motor function, normal sensory function, no focal deficits noted. [] Psychologic: Affect normal, judgement normal, mood normal. [] Current Patient Data Vital Signs Vital Signs Date Time Temp Pulse Resp B/P (MAP) Pulse Ox O2 Delivery O2 Flow Rate FiO2 04/24/19 12:52 97.7 84 20 97 Room Air EKG EKG [] Radiology/Procedures Radiology/Procedures [] Impressions: EXAM: Head CT without contrast. HISTORY: Falls. Headache. TECHNIQUE: Computed tomographic images of the head were obtained without contrast.. *One or more of the following individualized dose reduction techniques were utilized for this examination: 1. Automated exposure control. 2. Adjustment of the mA and/or kV according to patient size. 3. Use of iterative reconstruction technique. COMPARISON: 10/28/2018. FINDINGS: There is no acute or subacute extra-axial or intraparenchymal hemorrhage. There is no mass effect or midline shift. There is no hydrocephalus. There are areas of decreased attenuation within the cerebral white matter, nonspecific and likely related to chronic small vessel disease. There is a chronic lacunar infarct within the left thalamus. There are mastoidectomy changes. No suspicious calvarial lesion is seen. There are low-lying cerebellar tonsils, without significant ectopia. IMPRESSION: 1. No acute intracranial finding. Note is made that MRI is more sensitive for acute infarction. 2. Stable chronic lacunar infarct within the left thalamus and subtle areas of hypodensity within the cerebral white matter, likely due to chronic small vessel disease. Electronically signed by: Mayra Dumont MD (04/24/2019 1:40 PM) [facility] DICTATED AND SIGNED BY: MAYRA DUMONT MD DATE: 04/24/19 [id number] CC: DAVE MCGINNIS DO; PUJA WOLFF MD ~ Course & Med Decision Making Course & Med Decision Making Pertinent Labs and Imaging studies reviewed. (See chart for details) The patient's blood sugar is 302, but her anion gap is normal. Given 1 L normal saline. Her head CT is negative for acute findings. For her headache and given her 30 mg of Toradol, 10 mg of Reglan, 25 mg of Benadryl. The patient also has a potassium of 3.0. I've given her 40 mEq of oral replacement. The patient is feeling better at this time. She will continue to monitor her blood sugar at home. She is stable for discharge at this time. [] Dragon Disclaimer Dragon Disclaimer This electronic medical record was generated, in whole or in part, using a voice recognition dictation system. Departure Departure: Impression: Primary Impression: Headache Additional Impression: Hyperglycemia Disposition: 01 HOME, SELF-CARE Condition: IMPROVED Referrals: PUJA WOLFF MD (PCP) Patient Instructions: General Headache Without Cause, [id number], Hyperglycemia, [id number] Problem Qualifiers Primary Impression: Headache Headache type: other vascular headache Qualified Codes: G44.1 - Vascular headache, not elsewhere classified DAVE MCGINNIS DO Apr 24, 2019 13:12
[2019-04-24 13:22] LABS: BASO % 0 % (0-3); EOS # 0.2 x10^3/uL (0.0-0.7); EOS % 3 % (0-3); HEMATOCRIT 34.2 % (36.0-47.0); HEMOGLOBIN 11.5 g/dL (12.0-15.5); LYMPH # 1.3 x10^3/uL (1.0-4.8); LYMPH % 21 % (24-48); MEAN CORPUSCULAR HEMOGLOBIN 30 pg (25-35); MEAN CORPUSCULAR HGB CONC 34 g/dL (31-37); MEAN CORPUSCULAR VOLUME 91 fL (79-100); MONO # 0.4 x10^3/uL (0.0-1.1); MONO % 6 % (0-9); NEUT # 4.3 x10^3uL (1.8-7.7); NEUT % 70 % (31-73); PLATELET COUNT 245 x10^3/uL (140-400); RED BLOOD COUNT 3.78 x10^6/uL (3.50-5.40); RED CELL DISTRIBUTION WIDTH 13.8 % (11.5-14.5); WHITE BLOOD COUNT 6.1 x10^3/uL (4.0-11.0)
[2019-04-24 13:34] LABS: ALBUMIN 3.1 g/dL (3.4-5.0); ALBUMIN/GLOBULIN RATIO 0.8 (1.0-1.7); CALCIUM 8.6 mg/dL (8.5-10.1); CREATININE 0.9 mg/dL (0.6-1.0); GFR 62.5; TOTAL BILIRUBIN 0.3 mg/dL (0.2-1.0)
--- NOTE | 2019-04-24 13:43 | RAD ---
EXAM: Head CT without contrast. HISTORY: Falls. Headache. TECHNIQUE: Computed tomographic images of the head were obtained without contrast.. *One or more of the following individualized dose reduction techniques were utilized for this examination: 1. Automated exposure control. 2. Adjustment of the mA and/or kV according to patient size. 3. Use of iterative reconstruction technique. COMPARISON: 10/28/2018. FINDINGS: There is no acute or subacute extra-axial or intraparenchymal hemorrhage. There is no mass effect or midline shift. There is no hydrocephalus. There are areas of decreased attenuation within the cerebral white matter, nonspecific and likely related to chronic small vessel disease. There is a chronic lacunar infarct within the left thalamus. There are mastoidectomy changes. No suspicious calvarial lesion is seen. There are low-lying cerebellar tonsils, without significant ectopia. IMPRESSION: 1. No acute intracranial finding. Note is made that MRI is more sensitive for acute infarction. 2. Stable chronic lacunar infarct within the left thalamus and subtle areas of hypodensity within the cerebral white matter, likely due to chronic small vessel disease. Electronically signed by: Mayra Dumont MD (04/24/2019 1:40 PM) [place] [id number]
[2019-04-24] MEDS ORDERED: KETOROLAC 30 MG/ML VIAL. ONE (14:41)
[2019-04-24] MEDS ORDERED: METOCLOPRAMIDE HCL 10 MG/2 ML VIAL. ONE (14:42)
[2019-04-24] MEDS ORDERED: METOCLOPRAMIDE HCL 10 MG/2 ML VIAL. IVP ONE (15:15)
[2019-04-24] MEDS ORDERED: diphenhydrAMINE 50 MG/ML VIAL IVP ONE (15:15)
[2019-04-24] MEDS ORDERED: KETOROLAC 30 MG/ML VIAL. IVP ONE (15:15)
[2019-04-24] MEDS ORDERED: POTASSIUM CHLORIDE 20 MEQ TABLET.ER. PO ONE (15:15)
[2019-04-24 15:56] LABS: BILIRUBIN,URINE NEG (NEG); CLARITY,URINE CLEAR; COLOR,URINE STRAW; GLUCOSE,URINE 500 mg/dL (NEG)
[2019-04-24 15:57] LABS: NITRITE,URINE NEG (NEG); UROBILINOGEN,URINE 0.2 mg/dL (0.2 mg/dL)
[2019-04-24 16:03] LABS: BACTERIA,URINE 0 /HPF (0-FEW); RBC,URINE 0 /HPF (0-2); SQUAMOUS EPITHELIAL CELL,UR FEW /LPF
[2019-04-24 16:37] VITALS: BP 156/90
== END 2019-04-24 16:37 | disposition home or self-care (01) ==
LOC: ER 12:45
DX: G44.1 Vascular headache, not elsewhere classified (principal); E11.65 Type 2 diabetes mellitus with hyperglycemia; J45.909 Unspecified asthma, uncomplicated; I10 Essential (primary) hypertension; Z86.73 Personal history of transient ischemic attack (TIA), and cerebral infarction without residual deficits; Z88.0 Allergy status to penicillin; Z91.013 Allergy to seafood; Z88.6 Allergy status to analgesic agent; Z88.1 Allergy status to other antibiotic agents; Z91.018 Allergy to other foods; Z88.5 Allergy status to narcotic agent
CPT/HCPCS: 36415; 70450; 80053; 81001; 85025; 85610; 85730; 87086; 96361; 96374; 96375; 99285; J1200; J1885; J2765; 87186; J7030

== ENCOUNTER 2019-05-04 16:44 | Inpatient (IN) | payer MEDICARE, BC ==
[~2019-05-04] VITALS: Ht 152.4 cm; Wt 62.8 kg
--- NOTE | 2019-05-04 17:42 | PHYS DOC ---
Past History Past Medical History: Asthma, Diabetes, Hypertension, TIA, Other Additional Past Medical Histor: Parkinson dz (YOLANDA BRIGHT DO) Past Surgical History: Other Additional Past Surgical Histo: back surgery with titanium rods (YOLANDA BRIGHT DO) Smoking: Non-smoker Alcohol Use: None Drug Use: None (YOLANDA BRIGHT DO) Adult General Chief Complaint Chief Complaint: MECHANICAL FALL HPI HPI Patient is a 68-year-old female presents complaining of right hip pain and tailbone pain after falling off of a bench. Patient was sitting on the bench sliding to the side to get up to walk when she ran out of bench and fell. No head injury. No loss of consciousness. She reports the pain is severe. Increased pain with movement. No numbness or tingling. She denies having walked since this happened. She also notes left shoulder pain after a fall 2 or 3 days ago. Decreased active range of motion due to the discomfort. She is right-hand dominant. No numbness or tingling.[] (YOLANDA BRIGHT DO) Review of Systems Review of Systems Constitutional: Denies fever or chills [] Eyes: Denies change in visual acuity, redness, or eye pain [] HENT: Denies nasal congestion or sore throat [] Respiratory: Denies cough or shortness of breath [] Cardiovascular: No chest pain or palpitations[] GI: Denies abdominal pain, nausea, vomiting, bloody stools or diarrhea [] : Denies dysuria or hematuria [] Musculoskeletal: See history of present illness[] Integument: Denies rash or skin lesions [] Neurologic: Denies headache, focal weakness or sensory changes [] Endocrine: Denies polyuria or polydipsia [] All other systems were reviewed and found to be within normal limits, except as documented in this note. (YOLANDA BRIGHT DO) Allergies Allergies Allergies Coded Allergies Type Severity Reaction Last Updated Verified Penicillins Allergy Intermediate 04/24/19 Yes Soap Allergy Intermediate 04/24/19 Yes hydrocodone bitartrate Allergy Intermediate Itching 04/24/19 Yes metformin Allergy Intermediate 04/24/19 Yes mushroom Allergy Intermediate 04/24/19 Yes povidone-iodine Allergy Intermediate 04/24/19 Yes aspirin Allergy Mild 04/24/19 Yes niacin Allergy Unknown 04/24/19 Yes (YOLANDA BRIGHT DO) Physical Exam Physical Exam Constitutional: Well developed, well nourished, mild discomfort, non-toxic appearance. [] HENT: Normocephalic, atraumatic, bilateral external ears normal, oropharynx moist, no oral exudates, nose normal. [] Eyes: PERRLA, EOMI, conjunctiva normal, no discharge. [] Neck: Normal range of motion, no tenderness, supple, no stridor. [] Cardiovascular:Heart rate regular rhythm, no murmur [] Lungs & Thorax: Bilateral breath sounds clear to auscultation [] Abdomen: Bowel sounds normal, soft, no tenderness, no masses, no pulsatile masses. [] Skin: Warm, dry, no erythema, no rash. [] Back: No tenderness, no CVA tenderness. [] Extremities: Left shoulder has diffuse tenderness to palpation, active range of motion to 90 in both flexion as well as abduction. No elbow tenderness. No clavicular tenderness. She has full range of motion of the elbow and wrist. She is distally neurovascularly intact. Right hip has decreased active range of motion. Tenderness diffusely around the hip. There is no rotational deformity. No knee tenderness. Pelvis is stable in 3 planes. She is distally neurovascularly intact. The other 2 extremities show: No tenderness, no cyanosis, no clubbing, ROM int act, no edema. [] Neurologic: Alert and oriented X 3, normal motor function, normal sensory function, no focal deficits noted. [] Psychologic: Affect normal, judgement normal, mood normal. [] (YOLANDA BRIGHT DO) EKG EKG [] (YOLANDA BRIGHT DO) Radiology/Procedures Radiology/Procedures [] (YOLANDA BRIGHT DO) Radiology/Procedures [address] [address] IMAGING REPORT Signed PATIENT: FAMILIA MAR ACCOUNT: [id number] : 1950 LOCATION: ER AGE: 68 SEX: F EXAM STATUS: REG ER ORD. PHYSICIAN: YOLANDA BRIGHT DO REASON: fall 2 days ago with shoulder pain and decreased range of motion PROCEDURE: SHOULDER 2+V LEFT Exam: Left shoulder 3 views INDICATION: Fall TECHNIQUE: Frontal view of the left shoulder with internal and external rotation with transscapular Y view. Comparisons: None FINDINGS: Bone mineralization is normal. No acute or healed fractures. Soft tissues are unremarkable. Joint spaces are well-maintained. IMPRESSION: No acute osseous abnormality. Electronically signed by: Val De Leon MD (05/04/2019 7:08 PM) [facility] DICTATED AND SIGNED BY: VAL DE LEON MD DATE: 05/04/191907 [address] [address] IMAGING REPORT Signed PATIENT: FAMILIA MAR ACCOUNT: [id number] : 1950 LOCATION: ER AGE: 68 SEX: F EXAM STATUS: REG ER ORD. PHYSICIAN: YOLANDA BRIGHT DO REASON: fall with right hip and tailbone pain PROCEDURE: HIP RIGHT 2V WITH PELVIS Exam: Pelvis with right hip 2 views INDICATION: Fall TECHNIQUE: Frontal view of pelvis with frontal and frog-leg lateral views of the right hip Comparisons: None FINDINGS: Bone mineralization is normal. No acute or healed fractures. Soft tissues are unremarkable. Joint spaces are well-maintained. IMPRESSION: No acute osseous abnormality. If the patient is acutely unable to bear weight recommend MRI to rule out occult hip fracture. Electronically signed by: Val De Leon MD (05/04/2019 7:06 PM) [facility] DICTATED AND SIGNED BY: VAL DE LEON MD DATE: 05/04/191905 CC: PUJA WOLFF MD; YOLANDA BRIGHT DO; DANNY DANIELLE MD ~ [address] [address] IMAGING REPORT Signed PATIENT: FAMILIA MAR ACCOUNT: [id number] : 1950 LOCATION: ER AGE: 68 SEX: F EXAM STATUS: REG ER ORD. PHYSICIAN: YOLANDA BRIGHT DO REASON: fall with right hip and tailbone pain PROCEDURE: SACRUM & COCCYX 3V Exam: Sacrum 2 views INDICATION: Fall TECHNIQUE: Frontal and lateral views of the sacrum Comparisons: None FINDINGS: Posterior lumbar fusion hardware noted at the lower lumbar spine. No acute or healed fractures. Soft tissues are unremarkable. Joint spaces are well-maintained. IMPRESSION: No acute osseous abnormality. Electronically signed by: Val De Leon MD (05/04/2019 7:07 PM) [facility] DICTATED AND SIGNED BY: VAL DE LEON MD DATE: 05/04/19 108 CC: PUJA WOLFF MD; YOLANDA BRIGHT DO; DANNY DANIELLE MD ~ [place] [address] IMAGING REPORT Signed PATIENT: FAMILIA MAR ACCOUNT: [id number] : 1950 LOCATION: ER AGE: 68 SEX: F EXAM STATUS: REG ER ORD. PHYSICIAN: DANNY DANIELLE MD REASON: fall PROCEDURE: CT LUMBAR SPINE WO CONTRAST Exam: CT lumbar spine without contrast INDICATION: Fall TECHNIQUE: Sequential axial images through the lumbar spine obtained without IV contrast. Sagittal and coronal reformatted images were reconstructed from the axial data and reviewed. Comparisons: None FINDINGS: Posterior lumbar fusion hardware at L5-S1 with bilateral transpedicular screws and interconnecting vertical stabilization rods. Vertebral body heights and alignment are well-maintained. Fracture through the lumbar spine is not identified. There is multilevel spondylotic changes lumbar spine with degenerative disc disease greatest at L2-L3. Broad-based disc bulges at L2-L3, L3-L4 L4-L5 causing moderate spinal canal stenosis greatest at L2-L3. No significant neural foraminal stenosis is identified. Visualized paraspinal soft tissues are unremarkable. IMPRESSION: Negative CT lumbar spine for acute traumatic injury. Exposure: One or more of the following in the visualized dose reduction techniques were utilized for this examination: 1. Automated exposure control 2. Adjustment of the MA and/or KV according to patient size 3. Use of iterative of reconstructive technique Electronically signed by: Val De Leon MD (05/04/2019 10:39 PM) [facility] DICTATED AND SIGNED BY: VAL DE LEON MD DATE: 05/04/19 9620 CC: PUJA WOLFF MD; DANNY DANIELLE MD ~ [place] [address] IMAGING REPORT Signed PATIENT: FAMILIA MAR ACCOUNT: [id number] : 1950 LOCATION: ER AGE: 68 SEX: F EXAM STATUS: REG ER ORD. PHYSICIAN: DANNY DANIELLE MD REASON: fall PROCEDURE: CT PELVIS WO CONTRAST Examination: CT bony pelvis without contrast HISTORY: History of fall, pain COMPARISON: None available TECHNIQUE: Axial CT images of the bony pelvis without contrast. Coronal and sagittal reformats are performed. Exposure: One or more of the following individualized dose reduction techniques were utilized for this examination: 1. Automated exposure control 2. Adjustment of the mA and/or kV according to patient size 3. Use of iterative reconstruction technique FINDINGS: The bilateral femoral heads within the acetabula. No acute fracture identified. Lower lumbar spine hardware identified. Urinary bladder is mildly distended IMPRESSION: No acute osseous findings. Electronically signed by: Earle Lockhart MD (05/04/2019 10:46 PM) [facility] DICTATED AND SIGNED BY: EARLE LOCKHART MD DATE: 05/04/199 CC: PUJA WOLFF MD; DANNY DANIELLE MD ~ (DANNY DANIELLE MD) Course & Med Decision Making Course & Med Decision Making Pertinent Labs and Imaging studies reviewed. (See chart for details) [] (YOLANDA BRIGHT DO) Course & Med Decision Making Pt. failed Ambulatory - test, reports too much pain. Will order CT. Impression: 1. Falling 2. Contusion Rt Hip 3. Contusion Lt. Shoulder 4. Anemia 11.5 5. Hypokalemia 3.2 6. DM - glucose 181 7. Spinal Stenosis 8. Parkinson Dz 9. Gait Disorder Discussed presentation, testing and tx. plan with Dr. Wolff.. Will admit for pain control and further eval. (DANNY DANIELLE MD) Dragon Disclaimer Dragon Disclaimer This electronic medical record was generated, in whole or in part, using a voice recognition dictation system. (YOLANDA BRIGHT DO) Departure Departure: Disposition: 01 HOME/RESIDENCE PRIOR TO ADM Condition: STABLE Referrals: PUJA WOLFF MD (PCP) YOLANDA BRIGHT DO May 04, 2019 17:42 DANNY DANIELLE MD May 04, 2019 20:13
[2019-05-04] MEDS ORDERED: diphenhydrAMINE HCL 25 MG CAPSULE PO ONE (18:00)
[2019-05-04] MEDS ORDERED: ACETAMINOPHEN/CODEINE 300/30MG TABLET PO ONE (18:00)
--- NOTE | 2019-05-04 19:09 | RAD ---
Exam: Pelvis with right hip 2 views INDICATION: Fall TECHNIQUE: Frontal view of pelvis with frontal and frog-leg lateral views of the right hip Comparisons: None FINDINGS: Bone mineralization is normal. No acute or healed fractures. Soft tissues are unremarkable. Joint spaces are well-maintained. IMPRESSION: No acute osseous abnormality. If the patient is acutely unable to bear weight recommend MRI to rule out occult hip fracture. Electronically signed by: Val Blanco MD (05/04/2019 7:06 PM) [facility]
--- NOTE | 2019-05-04 19:10 | RAD ---
Exam: Sacrum 2 views INDICATION: Fall TECHNIQUE: Frontal and lateral views of the sacrum Comparisons: None FINDINGS: Posterior lumbar fusion hardware noted at the lower lumbar spine. No acute or healed fractures. Soft tissues are unremarkable. Joint spaces are well-maintained. IMPRESSION: No acute osseous abnormality. Electronically signed by: Val Blanco MD (05/04/2019 7:07 PM) [facility]
--- NOTE | 2019-05-04 19:11 | RAD ---
Exam: Left shoulder 3 views INDICATION: Fall TECHNIQUE: Frontal view of the left shoulder with internal and external rotation with transscapular Y view. Comparisons: None FINDINGS: Bone mineralization is normal. No acute or healed fractures. Soft tissues are unremarkable. Joint spaces are well-maintained. IMPRESSION: No acute osseous abnormality. Electronically signed by: Val Blanco MD (05/04/2019 7:08 PM) [facility]
[2019-05-04] MEDS ORDERED: MORPHINE SULFATE 10 MG/ML SYRINGE. SQ ONE (20:45)
[2019-05-04] MEDS: IV RINGERS SOLUTION,LACTATED 1,000 ML IV SCH (21:28)
[2019-05-04] MEDS ORDERED: ONDANSETRON PF 4 MG/2 ML VIAL. IVP ONE (21:30)
[2019-05-04 21:40] LABS: BASO % 0 % (0-3); EOS # 0.2 x10^3/uL (0.0-0.7); EOS % 3 % (0-3); HEMATOCRIT 34.4 % (36.0-47.0); HEMOGLOBIN 11.5 g/dL (12.0-15.5); LYMPH # 2.1 x10^3/uL (1.0-4.8); LYMPH % 33 % (24-48); MEAN CORPUSCULAR HEMOGLOBIN 30 pg (25-35); MEAN CORPUSCULAR HGB CONC 33 g/dL (31-37); MEAN CORPUSCULAR VOLUME 91 fL (79-100); MONO # 0.5 x10^3/uL (0.0-1.1); MONO % 7 % (0-9); NEUT # 3.6 x10^3uL (1.8-7.7); NEUT % 56 % (31-73); PLATELET COUNT 294 x10^3/uL (140-400); RED BLOOD COUNT 3.79 x10^6/uL (3.50-5.40); RED CELL DISTRIBUTION WIDTH 13.8 % (11.5-14.5); WHITE BLOOD COUNT 6.4 x10^3/uL (4.0-11.0)
[2019-05-04 21:43] LABS: BARBITURATES NEG (NEG); BENZODIAZEPINES NEG (NEG); CANNABINOIDS NEG (NEG); COCAINE NEG (NEG); METHADONE NEG (NEG); OPIATES POS (NEG); PHENCYCLIDINE NEG (NEG)
[2019-05-04 21:45] LABS: AMPHETAMINE/METHAMPHETAMINE NEG (NEG)
[2019-05-04 21:54] LABS: BACTERIA,URINE 0 /HPF (0-FEW); BILIRUBIN,URINE NEG (NEG); CLARITY,URINE HAZY; COLOR,URINE YELLOW; GLUCOSE,URINE 100 mg/dL (NEG); NITRITE,URINE NEG (NEG); RBC,URINE 0 /HPF (0-2); UROBILINOGEN,URINE 0.2 mg/dL (0.2 mg/dL)
[2019-05-04 21:57] LABS: ALBUMIN 3.2 g/dL (3.4-5.0); CALCIUM 8.8 mg/dL (8.5-10.1); CREATININE 0.9 mg/dL (0.6-1.0); DIRECT BILIRUBIN 0.1 mg/dL (0.0-0.2); GFR 62.5; MAGNESIUM 1.8 mg/dL (1.8-2.4); POTASSIUM 3.2 mmol/L (3.5-5.1); TOTAL BILIRUBIN 0.3 mg/dL (0.2-1.0); TOTAL PROTEIN 6.3 g/dL (6.4-8.2)
--- NOTE | 2019-05-04 22:42 | RAD ---
Exam: CT lumbar spine without contrast INDICATION: Fall TECHNIQUE: Sequential axial images through the lumbar spine obtained without IV contrast. Sagittal and coronal reformatted images were reconstructed from the axial data and reviewed. Comparisons: None FINDINGS: Posterior lumbar fusion hardware at L5-S1 with bilateral transpedicular screws and interconnecting vertical stabilization rods. Vertebral body heights and alignment are well-maintained. Fracture through the lumbar spine is not identified. There is multilevel spondylotic changes lumbar spine with degenerative disc disease greatest at L2-L3. Broad-based disc bulges at L2-L3, L3-L4 L4-L5 causing moderate spinal canal stenosis greatest at L2-L3. No significant neural foraminal stenosis is identified. Visualized paraspinal soft tissues are unremarkable. IMPRESSION: Negative CT lumbar spine for acute traumatic injury. Exposure: One or more of the following in the visualized dose reduction techniques were utilized for this examination: 1. Automated exposure control 2. Adjustment of the MA and/or KV according to patient size 3. Use of iterative of reconstructive technique Electronically signed by: Val Blanco MD (05/04/2019 10:39 PM) [facility]
--- NOTE | 2019-05-04 22:49 | RAD ---
Examination: CT bony pelvis without contrast HISTORY: History of fall, pain COMPARISON: None available TECHNIQUE: Axial CT images of the bony pelvis without contrast. Coronal and sagittal reformats are performed. Exposure: One or more of the following individualized dose reduction techniques were utilized for this examination: 1. Automated exposure control 2. Adjustment of the mA and/or kV according to patient size 3. Use of iterative reconstruction technique FINDINGS: The bilateral femoral heads within the acetabula. No acute fracture identified. Lower lumbar spine hardware identified. Urinary bladder is mildly distended IMPRESSION: No acute osseous findings. Electronically signed by: Earle Watson MD (05/04/2019 10:46 PM) [facility]
--- NOTE | 2019-05-04 22:50 | RAD ---
EXAM: CHEST 1 VIEW History: Fall COMPARISON: 10/28/2018 TECHNIQUE: Single portable radiograph of the chest FINDINGS: The cardiac silhouette is unremarkable. The lungs are clear bilaterally. The costophrenic sulci are clear and well demarcated. IMPRESSION: No radiographic evidence of an acute cardiopulmonary process. Electronically signed by: Earle Watson MD (05/04/2019 10:48 PM) [facility]
[2019-05-04] MEDS ORDERED: ONDANSETRON PF 4 MG/2 ML VIAL. IV PRN (23:45)
[2019-05-04] MEDS ORDERED: ACETAMINOPHEN 325 MG TABLET PO PRN (23:45)
[2019-05-04] MEDS ORDERED: MORPHINE SULFATE 10 MG/ML SYRINGE. SQ PRN (23:45)
[2019-05-04] MEDS ORDERED: POTASSIUM CHLORIDE 20 MEQ TABLET.ER. PO ONE (23:45)
[2019-05-05] VITALS (8 sets, daily range): BP systolic 98–165; BP diastolic 58–90
--- NOTE | 2019-05-05 01:15 | NUR ---
Romina Prakash, 68 y/o F was admitted inpatient, med-surg, Dr. Fregoso service, ICU-3 Dx: Fall, contusions of rt hip, left shoulder,Anemia, hypokalemia, DM,Spinal stenosis, Parkinson's, gait disorder. Pt states she was scooting out of a laguerre at [facility] and lost her balance and fell. She states she is falling frequently lately. Pt states her current pain level is 5/10, which is better than the 10/10 upon arrival to ER. Pt has been having nausea and vomiting since receiving pain medications in ER. Pt was provided with written copies of hospital and unit policies and procedures. Admission assessment and process completed. Reviewed poc with pt and she verbalized understanding and agreement. ELKIN
--- NOTE | 2019-05-05 02:15 | EKG ---
[address] [address] Test Date: 2019-05-04 Test Time: 21:25:53 Pat Name: FAMILIA MAR Department: Room: Gender: F Admin Asst: [id number] : 1950 Requested By: DANNY DANIELLE Order Number: [id number] Reading MD: Measurements Intervals Pelzer Rate: 78 P: 29 TX: 98 QRS: 29 QRSD: 78 T: 27 QT: 408 QTc: 469 Interpretive Statements SINUS RHYTHM LEFT ATRIAL ABNORMALITY LOW LIMB LEAD VOLTAGE ABNORMAL ECG RI6.01 No previous ECG available for comparison
[2019-05-05] MEDS ORDERED: IPRATRPIUM/ALBUTEROL 0.5/2.5MG 3 ML NEBU. ONE (04:46)
[2019-05-05] MEDS: IV RINGERS SOLUTION,LACTATED 1,000 ML IV SCH (06:34)
[2019-05-05 06:40] LABS: BASO % 0 % (0-3); EOS # 0.2 x10^3/uL (0.0-0.7); EOS % 3 % (0-3); HEMATOCRIT 32.6 % (36.0-47.0); HEMOGLOBIN 10.9 g/dL (12.0-15.5); LYMPH # 2.2 x10^3/uL (1.0-4.8); LYMPH % 36 % (24-48); MEAN CORPUSCULAR HEMOGLOBIN 31 pg (25-35); MEAN CORPUSCULAR HGB CONC 34 g/dL (31-37); MEAN CORPUSCULAR VOLUME 91 fL (79-100); MONO # 0.5 x10^3/uL (0.0-1.1); MONO % 8 % (0-9); NEUT # 3.3 x10^3uL (1.8-7.7); NEUT % 53 % (31-73); PLATELET COUNT 285 x10^3/uL (140-400); RED BLOOD COUNT 3.58 x10^6/uL (3.50-5.40); RED CELL DISTRIBUTION WIDTH 13.8 % (11.5-14.5); WHITE BLOOD COUNT 6.2 x10^3/uL (4.0-11.0)
[2019-05-05 06:47] LABS: CALCIUM 8.4 mg/dL (8.5-10.1); CREATININE 0.8 mg/dL (0.6-1.0); GFR 71.5; POTASSIUM 3.8 mmol/L (3.5-5.1)
[2019-05-05] MEDS ORDERED: ALPRAZolam 0.25 MG TABLET PO PRN (08:00)
[2019-05-05] MEDS ORDERED: IPRATRPIUM/ALBUTEROL 0.5/2.5MG 3 ML NEBU. NEB SCH (08:00)
[2019-05-05] MEDS: GABAPENTIN 300 MG CAPSULE. PO SCH ×3 (08:48→20:46)
[2019-05-05] MEDS: CARVEDILOL 12.5 MG TABLET PO SCH ×2 (08:49→20:48)
[2019-05-05] MEDS: CITALOPRAM 20 MG TABLET. PO SCH (08:49)
[2019-05-05] MEDS: levETIRAcetam 500 MG TABLET PO SCH ×2 (08:49→20:46)
[2019-05-05] MEDS ORDERED: FLU VAX QS 2019-20 (36MOS+)/PF 0.5 ML SYRINGE. VAX IM ONE (09:00)
[2019-05-05] MEDS: PROPRANOLOL 20 MG TABLET. PO SCH ×2 (09:13→20:48)
[2019-05-05] MEDS: MAGNESIUM HYDROXIDE 2,400 MG/30 ML ORAL.SUSP. PO SCH (20:46)
[2019-05-05] MEDS: IPRATRPIUM/ALBUTEROL 0.5/2.5MG 3 ML NEBU. NEB SCH (21:53)
[2019-05-06] VITALS (8 sets, daily range): BP systolic 93–116; BP diastolic 58–68
--- NOTE | 2019-05-06 01:09 | HP ---
ADMIT DATE: 05/04/2019 HISTORY OF PRESENT ILLNESS: A 68-year-old female came in through the Emergency Room, apparently had been having multiple falls and had severe pain in her right hip ____ elbow after falling off a bed. The patient recently has had several falls. The patient was extremely weak and the pain was severe, about 9/10. The patient was not able to get any relief with outpatient pain medications, came in through the Emergency Room and was admitted for further evaluation, pain management and further assessment. Significant x-rays were taken of various areas of her body, and there was nothing apparently broken per se. 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 Neurological symptoms, frequent falls, at 9 years of age she had a skull fracture, TIAs, Parkinson disease 08/2017 and cardiac disease, cardiac symptoms, angina, coronary artery disease, cardiac surgery, coronary stent placement, hypertension, DVT. Respiratory disorders, COPD, asthma, bronchitis, pneumonia, oxygen administration at night, p.r.n. sleep apnea. Hiatal hernia, abdominal surgery for cholecystectomy, gastroesophageal reflux. Cervical and uterine cancer, also ovarian cancer, hysterectomy, UTIs. Arthritis, rheumatoid arthritis, osteoarthritis, back surgery, left knee and lumbar surgery with rods, diabetes type 2, psychiatric problems and severe depression. Pneumococcal vaccinations are up-to-date. PAST SURGICAL HISTORY: Her surgeries include as noted, cholecystectomy, tonsillectomy, ear surgery, left knee surgery as well as eye surgery. FAMILY HISTORY: Father with emphysema. Mother with history of sepsis. Brother with stroke, myocardial infarction and a sister with drug dependence. ALLERGIES: PENICILLIN, SOAP, ASPIRIN, HYDROCODONE, METFORMIN, MUSHROOMS, NIACIN, POVIDINE, IODINE. SOCIAL HISTORY: The patient denies smoking, alcohol or drug use. She is a full code. MEDICATIONS: The patient's reconciliation of medications was undertaken in the chart and they are noted in the chart itself, including Xanax 0.25, Coreg 12.5 b.i.d., Celexa 20, gabapentin 300 t.i.d., DuoNeb treatments, Keppra 500 b.i.d., potassium chloride 40 mEq daily, propranolol 20 mg b.i.d., Tylenol and Zofran 4 mg q. 4. REVIEW OF SYSTEMS: The patient has generalized lightheadedness, dizziness and generalized weakness. The patient otherwise is basically unremarkable. Denies chest pain, shortness of breath. Denies abdominal pain, but does have severe hip pain and the like. PHYSICAL EXAMINATION: GENERAL: The patient, on exam, is a pleasant white female, in moderate amount of pain. VITAL SIGNS: Blood pressure 110/65, respirations 16, pulse 70, afebrile. The patient is alert and oriented. LUNGS: The patient looks like she is in great deal of pain. She recognizes it 8-9/10. HEENT: The patient's head was atraumatic, normocephalic. Eyes: PERRLA without jaundice. Mouth and throat were normal. NECK: Supple without JVD or thyromegaly. LUNGS: Diminished. Poor movement of air. CARDIOVASCULAR: Regular sinus rhythm, S1, S2, without murmur, rub, thrill, or extra heart sound. ABDOMEN: Soft, diffuse tenderness, no rebound or guarding. Positive bowel sounds, no hepatosplenomegaly was noted. EXTREMITIES: No clubbing, cyanosis. Marked tenderness to the right hip area and bruising to her knees. NEUROLOGIC: Otherwise alert and oriented x 3. LABORATORY DATA: The patient's labs basically show hemoglobin of 10.9 and 30. The patient's potassium slightly low at 3.2. Blood sugar 181 and albumin low at 3.2. IMPRESSION: Multiple falls; syncope; lightheadedness; contusion; multiple contusions to the right hip and left shoulder; chronic anemia; hypokalemia; diabetes, poorly controlled; spinal stenosis; Parkinson's disease and gait disorder. The patient received PT/OT, physical therapy for monitoring her balance and gait and make further evaluation on her as indicated. PUJA WOLFF MD DR: DAISY/nitesh JOB#: [id number] / [id number]
[2019-05-06] MEDS: IPRATRPIUM/ALBUTEROL 0.5/2.5MG 3 ML NEBU. NEB SCH (05:16)
[2019-05-06] MEDS: PROPRANOLOL 20 MG TABLET. PO SCH ×2 (08:45→20:07)
[2019-05-06] MEDS: levETIRAcetam 500 MG TABLET PO SCH ×2 (08:45→20:07)
[2019-05-06] MEDS: CITALOPRAM 20 MG TABLET. PO SCH (08:45)
[2019-05-06] MEDS: GABAPENTIN 300 MG CAPSULE. PO SCH ×3 (08:46→20:08)
[2019-05-06] MEDS: CARVEDILOL 12.5 MG TABLET PO SCH ×2 (08:46→20:07)
[2019-05-06] MEDS: HYDROcodone/APAP 5/325MG 1 TAB TABLET PO PRN ×2 (12:43→20:16)
[2019-05-06] MEDS ORDERED: HYDROcodone/APAP 5/325MG 1 TAB TABLET PO PRN (12:45)
[2019-05-06] MEDS: MAGNESIUM HYDROXIDE 2,400 MG/30 ML ORAL.SUSP. PO SCH ×2 (20:07→20:16)
[2019-05-06] MEDS ORDERED: INSULIN GLARGINE SYRINGE. SQ SCH (21:00)
--- NOTE | 2019-05-06 21:49 | PN ---
DATE: SUBJECTIVE: A 68-year-old female who has been falling, has extremely poor balance, generalized weakness in her legs, history of Parkinson's disease. The patient is working with PT, OT getting a walker and a cane together to help her with her mobilization. OBJECTIVE: VITAL SIGNS: Blood pressure 116/67, respiratory rate 67, afebrile. GENERAL: The patient is alert and oriented. LUNGS: Diminished throughout, poor movement of air. CARDIOVASCULAR: Regular sinus rhythm. The patient is frail appearing. Continue to work with her PT, OT. Lab shows slight anemia. Blood sugars are also on the high side, needs to be adjusted accordingly, make further evaluation on her as indicated. IMPRESSION: Multiple falls, multiple contusions, generalized weakness and type 2 diabetes, poorly controlled. PUJA WOLFF MD DR: DAISY/nitesh JOB#: [id number] / [id number]
[2019-05-07 05:35] VITALS: BP 120/74
[2019-05-07 06:51] LABS: BASO % 0 % (0-3); EOS # 0.2 x10^3/uL (0.0-0.7); EOS % 4 % (0-3); HEMATOCRIT 30.7 % (36.0-47.0); HEMOGLOBIN 10.1 g/dL (12.0-15.5); LYMPH # 2.2 x10^3/uL (1.0-4.8); LYMPH % 39 % (24-48); MEAN CORPUSCULAR HEMOGLOBIN 30 pg (25-35); MEAN CORPUSCULAR HGB CONC 33 g/dL (31-37); MEAN CORPUSCULAR VOLUME 92 fL (79-100); MONO # 0.5 x10^3/uL (0.0-1.1); MONO % 8 % (0-9); NEUT # 2.7 x10^3uL (1.8-7.7); NEUT % 49 % (31-73); PLATELET COUNT 232 x10^3/uL (140-400); RED BLOOD COUNT 3.32 x10^6/uL (3.50-5.40); RED CELL DISTRIBUTION WIDTH 13.7 % (11.5-14.5); WHITE BLOOD COUNT 5.6 x10^3/uL (4.0-11.0)
[2019-05-07 07:05] LABS: ALBUMIN 2.6 g/dL (3.4-5.0); ALBUMIN/GLOBULIN RATIO 0.8 (1.0-1.7); CALCIUM 8.5 mg/dL (8.5-10.1); CREATININE 0.8 mg/dL (0.6-1.0); GFR 71.5; POTASSIUM 3.8 mmol/L (3.5-5.1); TOTAL BILIRUBIN 0.2 mg/dL (0.2-1.0); TOTAL PROTEIN 5.7 g/dL (6.4-8.2)
[2019-05-07] MEDS: PROPRANOLOL 20 MG TABLET. PO SCH (09:32)
[2019-05-07] MEDS: levETIRAcetam 500 MG TABLET PO SCH (09:32)
[2019-05-07] MEDS: CITALOPRAM 20 MG TABLET. PO SCH (09:32)
[2019-05-07] MEDS: GABAPENTIN 300 MG CAPSULE. PO SCH (09:33)
[2019-05-07] MEDS: CARVEDILOL 12.5 MG TABLET PO SCH (09:33)
[2019-05-07] MEDS: HYDROcodone/APAP 5/325MG 1 TAB TABLET PO PRN (10:50)
[2019-05-07 11:00] VITALS: BP 124/69
--- NOTE | 2019-05-07 11:49 | NUR ---
pt being discharged home today, pt will be set up for outpatient physical therapy by ANDREAS.
--- NOTE | 2019-05-07 12:51 | NUR ---
Pt discharged home for self care. Outpatient therapy to be set up by cm. Pt iv removed with no complications. Pt left unit via wc in stable condition accompanied by spouse and this nurse.
[2019-05-08 03:06] LABS: HEMOGLOBIN A1C 7.5 % (4.8-5.6)
--- NOTE | 2019-05-10 17:57 | DS ---
DATE OF DISCHARGE: 05/07/2019 HOSPITAL COURSE: A 68-year-old female has been falling multiple times, extremely poor balance, generalized weakness, progressive Parkinson's disease, probably is at the mainstay of her medical issues. Blood pressure was stable 124/70, respiratory rate 16, pulse 70. No major orthostatic drop there, the patient was afebrile. The patient's labs were basically stable. She does have low hemoglobin of 10.1, which is baseline for her. She is also diabetic. She also had severe protein malnutrition. The patient made relatively good progress. She received PT, OT. She was offered to go to skilled, she refused. The patient will be continued to be monitored as an outpatient and make further evaluation on her at that time as an outpatient. IMPRESSION: Multiple falls with multiple contusions and abrasions to the extremities. The patient will be discharged home, followed up as an outpatient and make further evaluation on her as indicated and impression is as noted above. She will be on diabetic diet, ____ followed and continue PT, OT as an outpatient. PUJA WOLFF MD DR: DAISY/nitesh JOB#: [id number] / [id number]
== END 2019-05-07 12:40 | disposition home or self-care (01) | DRG 604 ==
LOC: ER 16:44 → ICU 20:30
PROVIDERS: ADMIT Family Medicine; ATTEND Family Medicine
DX: S70.01XA Contusion of right hip, initial encounter (principal); E43 Unspecified severe protein-calorie malnutrition; E87.6 Hypokalemia; I10 Essential (primary) hypertension; G20 Parkinson's disease; S40.012A Contusion of left shoulder, initial encounter; W18.39XA Other fall on same level, initial encounter; D64.9 Anemia, unspecified; M48.00 Spinal stenosis, site unspecified; E11.65 Type 2 diabetes mellitus with hyperglycemia; I25.10 Atherosclerotic heart disease of native coronary artery without angina pectoris; J44.9 Chronic obstructive pulmonary disease, unspecified; H91.90 Unspecified hearing loss, unspecified ear; M06.9 Rheumatoid arthritis, unspecified; F32.9 Major depressive disorder, single episode, unspecified; K21.9 Gastro-esophageal reflux disease without esophagitis; G47.30 Sleep apnea, unspecified; Z88.6 Allergy status to analgesic agent; Z88.0 Allergy status to penicillin; Z88.8 Allergy status to other drugs, medicaments and biological substances; Y93.89 Activity, other specified; Y92.89 Other specified places as the place of occurrence of the external cause; Z86.73 Personal history of transient ischemic attack (TIA), and cerebral infarction without residual deficits; Y99.8 Other external cause status; Z95.5 Presence of coronary angioplasty implant and graft; Z90.710 Acquired absence of both cervix and uterus; Z81.3 Family history of other psychoactive substance abuse and dependence; Z82.49 Family history of ischemic heart disease and other diseases of the circulatory system; Z82.5 Family history of asthma and other chronic lower respiratory diseases; Z82.3 Family history of stroke; Z85.42 Personal history of malignant neoplasm of other parts of uterus; Z85.43 Personal history of malignant neoplasm of ovary; Z68.27 Body mass index [BMI] 27.0-27.9, adult
CPT/HCPCS: 36415; 71045; 72131; 72192; 72220; 73030; 73502; 80048; 80053; 80076; 80307; 81001; 82550; 82947; 83036; 83735; 83880; 84443; 84484; 85025; 85610; 85730; 90471; 90686; 93005; 94640; 96372; 96374; G0238; J1815; J2270; J2405; J7120; J7620; P9612; Q0163; 97535; 99285-25

== ENCOUNTER 2019-07-15 18:13 | Emergency (ER) | payer MEDICARE, BC ==
[~2019-07-15] VITALS: Ht 152.4 cm; Wt 60.8 kg
[~2019-07-15 18:13] MED LIST changes: +FENO145T3 PO; -FENO145T30 PO; -GLIM4TAB4 PO; +GLIM4TAB8 PO
--- NOTE | 2019-07-15 18:29 | PHYS DOC ---
Past History Past Medical History: Diabetes, Other (Parkinson's) Additional Past Medical Histor: Parkinson dz Past Surgical History: No Surgical History Additional Past Surgical Histo: back surgery with titanium rods Smoking: Non-smoker Alcohol Use: None Drug Use: None Adult General Chief Complaint Chief Complaint: SEIZURE HPI HPI Patient is a 68-year-old female with a history of Parkinson's disease that presents via EMS to the emergency department with concern for a possible seizure episode. Patient reports that while getting her hair done with her daughter she had an episode of shaking, eyes rolling back in her head, and being unable to communicate with her family. Patient reports that she has had several episodes of this in the past the last one being in 2018. Patient denies falling, loss of consciousness, hitting her head, nausea, chest pain, or shortness of breath. Associated symptoms: Weakness and subjective fevers. She states she is currently compliant with all of her medications and hasn't missed any doses. She denies any changes in vision. Review of Systems Review of Systems Constitutional: Denies fever or chills Eyes: Denies redness or eye pain HENT: Denies nasal congestion or sore throat Respiratory: Denies cough or shortness of breath Cardiovascular: Denies chest pain or palpitations GI: Denies abdominal pain, nausea, or vomiting : Denies dysuria or hematuria Musculoskeletal: Denies back pain or joint pain Integument: Denies rash or skin lesions Neurologic: Denies headache, focal weakness or sensory changes. Reports tremors (resolved) Complete systems were reviewed and found to be within normal limits, except as documented in this note. Current Medications Current Medications Current Medications Medications (Trade) Dose Ordered Sig/Juan Start Time Stop Time Status Last Admin Dose Admin Lorazepam (Ativan Inj) 0.5 mg 1X ONCE 07/15/19 18:30 07/15/19 18:31 Sodium Chloride 1,000 ml @ 1,000 mls/hr 1X ONCE 07/15/19 18:30 07/15/19 19:29 Allergies Allergies Allergies Coded Allergies Type Severity Reaction Last Updated Verified Penicillins Allergy Intermediate 04/24/19 Yes Soap Allergy Intermediate 04/24/19 Yes hydrocodone bitartrate Allergy Intermediate Itching 04/24/19 Yes metformin Allergy Intermediate 04/24/19 Yes mushroom Allergy Intermediate 04/24/19 Yes povidone-iodine Allergy Intermediate 04/24/19 Yes aspirin Allergy Mild 04/24/19 Yes niacin Allergy Unknown 04/24/19 Yes Physical Exam Physical Exam Constitutional: Well developed, well nourished, no acute distress, non-toxic appearance HENT: Normocephalic, atraumatic, oropharynx moist Eyes: PERRL, EOMI, conjunctiva normal, no discharge Neck: Normal range of motion, no tenderness, supple Cardiovascular: Heart rate normal, regular rhythm Lungs & Thorax: Bilateral breath sounds clear to auscultation, no wheezing Abdomen: Soft, no tenderness Skin: Warm, dry, no erythema, no rash Back: No tenderness, no CVA tenderness Extremities: No tenderness, ROM intact, no edema Neurologic: Alert and oriented X 3, normal motor function, normal sensory function, no focal deficits noted Psychologic: Affect normal, judgement normal EKG EKG @1822 NSR at 77bpm, NO ST elevation, Q wave in III and aVF Radiology/Procedures Radiology/Procedures PROCEDURE: CT HEAD WO CONTRAST Exam: CT head INDICATION: Possible seizure TECHNIQUE: Sequential axial images through the head were obtained without the administration of IV contrast. Comparisons: None FINDINGS: No focal parenchymal lesion or hemorrhage is identified. There is no midline shift or sulcal effacement. No acute vascular territory infarction is identified. Tran-white distinction is preserved. The ventricular system is within normal limits without compression hydrocephalus. The basal cisterns are well maintained. The visualized portions of the paranasal sinuses and mastoid air cells are well-pneumatized. No acute fractures. IMPRESSION: No acute intracranial abnormality. Exposure: One or more of the following in the visualized dose reduction techniques were utilized for this examination: 1. Automated exposure control 2. Adjustment of the MA and/or KV according to patient size Use of iterative of reconstructive technique Electronically signed by: Val Blanco MD (07/15/2019 7:28 PM) [facility] Course & Med Decision Making Course & Med Decision Making Pertinent Labs and Imaging studies reviewed. (See chart for details) Patient with a history of Parkinson's disease presents via EMS for a concern of possible seizure episode. Patient neurologically at baseline upon arrival to ED. Labs obtained and posted to chart. EKG stable. CT head without acute process. Patient offered admission, but requested to be discharged home with close outpatient follow-up with PCP. Patient stable for discharge with outpatient follow-up with PCP/neurology. Discussed findings and plan with patient and family, who acknowledge understanding and agreement. Dragon Disclaimer Dragon Disclaimer This electronic medical record was generated, in whole or in part, using a voice recognition dictation system. Departure Departure: Impression: Primary Impression: Seizure-like activity Additional Impressions: Hypokalemia Hyperglycemia Disposition: 01 HOME, SELF-CARE Condition: STABLE Referrals: PUJA WOLFF MD (PCP) Patient Instructions: Hypokalemia-Brief, Potassium Content of Foods, Seizure, Adult, [id number] Problem Qualifiers SADE MAURO DO Jul 15, 2019 18:29
[2019-07-15] MEDS ORDERED: IV NORMAL SALINE 1,000ML 1,000 ML IV ONE (18:30)
[2019-07-15 18:53] LABS: CALCIUM 8.2 mg/dL (8.5-10.1); CREATININE 1.1 mg/dL (0.6-1.0); GFR 49.5; POTASSIUM 3.2 mmol/L (3.5-5.1)
[2019-07-15 19:03] LABS: BASO % 0 % (0-3); EOS # 0.2 x10^3/uL (0.0-0.7); EOS % 3 % (0-3); HEMATOCRIT 35.5 % (36.0-47.0); HEMOGLOBIN 12.5 g/dL (12.0-15.5); LYMPH # 2.9 x10^3/uL (1.0-4.8); LYMPH % 42 % (24-48); MEAN CORPUSCULAR HEMOGLOBIN 31 pg (25-35); MEAN CORPUSCULAR HGB CONC 35 g/dL (31-37); MEAN CORPUSCULAR VOLUME 89 fL (79-100); MONO # 0.5 x10^3/uL (0.0-1.1); MONO % 8 % (0-9); NEUT # 3.2 x10^3uL (1.8-7.7); NEUT % 46 % (31-73); PLATELET COUNT 250 x10^3/uL (140-400); RED CELL DISTRIBUTION WIDTH 13.5 % (11.5-14.5); WHITE BLOOD COUNT 6.8 x10^3/uL (4.0-11.0)
[2019-07-15 19:09] LABS: ALBUMIN 3.1 g/dL (3.4-5.0); MAGNESIUM 1.8 mg/dL (1.8-2.4); TOTAL BILIRUBIN 0.3 mg/dL (0.2-1.0)
--- NOTE | 2019-07-15 19:31 | RAD ---
Exam: CT head INDICATION: Possible seizure TECHNIQUE: Sequential axial images through the head were obtained without the administration of IV contrast. Comparisons: None FINDINGS: No focal parenchymal lesion or hemorrhage is identified. There is no midline shift or sulcal effacement. No acute vascular territory infarction is identified. Tran-white distinction is preserved. The ventricular system is within normal limits without compression hydrocephalus. The basal cisterns are well maintained. The visualized portions of the paranasal sinuses and mastoid air cells are well-pneumatized. No acute fractures. IMPRESSION: No acute intracranial abnormality. Exposure: One or more of the following in the visualized dose reduction techniques were utilized for this examination: 1. Automated exposure control 2. Adjustment of the MA and/or KV according to patient size Use of iterative of reconstructive technique Electronically signed by: Val Blanco MD (07/15/2019 7:28 PM) [facility]
[2019-07-15 19:53] LABS: ALBUMIN/GLOBULIN RATIO 0.7 (1.0-1.7); TOTAL PROTEIN 7.4 g/dL (6.4-8.2)
[2019-07-15] MEDS ORDERED: POTASSIUM CHLORIDE 20 MEQ TABLET.ER. PO ONE (20:30)
[2019-07-15 20:36] VITALS: BP 115/75
--- NOTE | 2019-07-15 23:58 | EKG ---
[address] [address] Test Date: 2019-07-15 Test Time: 18:22:44 Pat Name: FAMILIA MAR Department: Room: Gender: F [employer] Technician: : 1950 Requested By: SADE MAURO Order Number: [id number] Reading MD: Measurements Intervals [place] Rate: 77 P: 43 [place]: 140 QRS: 13 QRSD: 80 T: 57 QT: 398 QTc: 452 Interpretive Statements SINUS RHYTHM NO SPECIFIC ECG ABNORMALITIES RI6.01 No previous ECG available for comparison
== END 2019-07-15 20:40 | disposition home or self-care (01) ==
LOC: ER 18:13
DX: E87.6 Hypokalemia (principal); E11.649 Type 2 diabetes mellitus with hypoglycemia without coma; G20 Parkinson's disease; Z88.0 Allergy status to penicillin; Z88.6 Allergy status to analgesic agent; Z88.5 Allergy status to narcotic agent; Z88.8 Allergy status to other drugs, medicaments and biological substances
CPT/HCPCS: 36415; 70450; 80053; 80177; 82553; 83605; 83735; 84484; 85025; 85610; 85730; 93005; 96361; 96374; 99285; J2060; J7030

== ENCOUNTER → 2019-11-09 | Outpatient (CLI) | payer MEDICARE, BC ==
[~2019-11-09] MED LIST changes: -VALA500T PO; +VALA500T9 PO
--- NOTE | 2019-11-09 18:40 | RAD ---
CT HEAD WO CONTRAST History: Headache Parkinson's disease. Comparison: July 15, 2019 Technique: Noncontrast CT imaging was performed of the head. Exposure: One or more of the following individualized dose reduction techniques were utilized for this examination: 1. Automated exposure control 2. Adjustment of the mA and/or kV according to patient size 3. Use of iterative reconstruction technique. Findings: No intracranial hemorrhage. No mass effect. No hydrocephalus. Crowding of the cerebellar tonsils at the foramen magnum, unchanged. Imaged orbits are unremarkable. Imaged paranasal sinuses and mastoid air cells are clear. No acute calvarial fracture. Impression: 1. No acute intracranial abnormality. Electronically signed by: George Frederick DO (11/09/2019 6:37 PM) [facility]
== END | disposition home or self-care (01) ==
LOC: CT 17:50
PROVIDERS: ATTEND Family Medicine
DX: R51 Headache (principal); J16.8 Pneumonia due to other specified infectious organisms; G20 Parkinson's disease
CPT/HCPCS: 70450

== ENCOUNTER 2019-12-08 15:56 | Inpatient (IN) | payer MEDICARE, BC ==
[~2019-12-08] VITALS: Ht 152.4 cm; Wt 58.0 kg
--- NOTE | 2019-12-08 17:00 | PHYS DOC ---
Past History Past Medical History: Diabetes, Other Additional Past Medical Histor: Parkinson dz Past Surgical History: Other Additional Past Surgical Histo: back surgery with titanium rods Smoking: Non-smoker Alcohol Use: None Drug Use: None General Adult EDM: Chief Complaint: Chest Pain HPI: HPI: 69-year-old female presents with chest pain. She has been having chest pain since yesterday. The pain started while she was asleep when it woke her up. She has had intermittent chest pain since that time it is left-sided and feels heavy. She denies shortness of breath or diaphoresis. It does feel similar to when she had stents placed back in 2017. She had 4 stents at that time. She continues to have moderate level pain. She went to her primary care physician who thought her EKG might be concerning so they sent her here for cardiac work- up. The patient sees Dr. 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 Review of Systems: Review of Systems: Constitutional: Denies fever or chills Eyes: Denies change in visual acuity HENT: Denies nasal congestion or sore throat Respiratory: Denies cough or shortness of breath Cardiovascular: Chest pain GI: Denies abdominal pain, nausea, vomiting, bloody stools or diarrhea : Denies dysuria Musculoskeletal: Denies back pain or joint pain Integument: Denies rash Neurologic: Denies headache, focal weakness or sensory changes Endocrine: Denies polyuria or polydipsia Lymphatic: Denies swollen glands Psychiatric: Denies depression or anxiety Heart Score: HEART Score for Chest Pain: HEART Score for Chest Pain Response (Comments) Value History Moderately Suspicious 1 ECG Nonspecific Repolarizatio 1 Age > 65 2 Risk Factors >3 Risk Factors or Hx CAD 2 Troponin < Normal Limit 0 Total 6 Risk Factors: Risk Factors: DM, Current or recent (<one month) smoker, HTN, HLP, family history of CAD, obesity. Risk Scores: Score 0 - 3: 2.5% MACE over next 6 weeks - Discharge Home Score 4 - 6: 20.3% MACE over next 6 weeks - Admit for Clinical Observation Score 7 - 10: 72.7% MACE over next 6 weeks - Early Invasive Strategies Allergies: Allergies: Allergies Coded Allergies Type Severity Reaction Last Updated Verified Penicillins Allergy Intermediate 04/24/19 Yes Soap Allergy Intermediate 04/24/19 Yes hydrocodone bitartrate Allergy Intermediate Itching 04/24/19 Yes metformin Allergy Intermediate 04/24/19 Yes mushroom Allergy Intermediate 04/24/19 Yes povidone-iodine Allergy Intermediate 04/24/19 Yes aspirin Allergy Mild 04/24/19 Yes niacin Allergy Unknown 04/24/19 Yes Physical Exam: PE: Constitutional: Well developed, well nourished, no acute distress, non-toxic appearance. [] HENT: Normocephalic, atraumatic, bilateral external ears normal, oropharynx moist, no oral exudates, nose normal. [] Eyes: PERRLA, EOMI, conjunctiva normal, no discharge. [] Neck: Normal range of motion, no tenderness, supple, no stridor. [] Cardiovascular:Heart rate regular rhythm, no murmur [] Lungs & Thorax: Bilateral breath sounds clear to auscultation [] Abdomen: Bowel sounds normal, soft, no tenderness, no masses, no pulsatile masses. [] Skin: Warm, dry, no erythema, no rash. [] Back: No tenderness, no CVA tenderness. [] Extremities: No tenderness, no cyanosis, no clubbing, ROM intact, no edema. [] Neurologic: Alert and oriented X 3, normal motor function, normal sensory function, no focal deficits noted. [] Psychologic: Affect normal, judgement normal, mood normal. [] EKG: EKG: Sinus rhythm, rate 69, normal axis, no ST elevations or depressions. [] Radiology/Procedures: Radiology/Procedures: [] Impressions: CHEST AP ONLY 12/08/2019 4:50 PM INDICATION: Chest pain COMPARISON: None available TECHNIQUE: Portable frontal view of the chest is provided. FINDINGS: The cardiomediastinal silhouette is within normal limits. Lungs are clear. There are no significant pleural effusions. There is no pulmonary vascular congestion. No pneumothorax. No suspicious osseous abnormality. Chest wall cardiac monitoring aerated. IMPRESSION: There is no acute cardiopulmonary process. Electronically signed by: Al Hu MD (12/08/2019 5:04 PM) [facility] DICTATED AND SIGNED BY: AL HU MD DATE: 12/08/19 0840 CC: DAVE MCGINNIS DO; PUJA WOLFF MD ~ Course & Med Decision Making: Course & Med Decision Making Pertinent Labs and Imaging studies reviewed. (See chart for details) The patient's labs are unremarkable. Her EKG is unremarkable. Her troponin is negative. Her heart score is a 6 so the patient should be admitted for observation at least. I spoke with Dr. Wolff and he has agreed to observation admission for chest pain rule out. The patient has agreed with this plan. [] Dragon Disclaimer: Dragon Disclaimer: This electronic medical record was generated, in whole or in part, using a voice recognition dictation system. Departure Departure: Impression: Primary Impression: Chest pain Qualified Codes: R07.2 - Precordial pain Disposition: ADMITTED INPATIENT Admitting Physician: Puja Wolff Condition: STABLE Referrals: PUJA WOLFF MD (PCP) Justification of Admission: Justification of Admission: Justification of Admission Dx: Yes Comments: chest pain, high risk DAVE MCGINNIS DO Dec 08, 2019 17:00
--- NOTE | 2019-12-08 17:07 | RAD ---
CHEST AP ONLY 12/08/2019 4:50 PM INDICATION: Chest pain COMPARISON: None available TECHNIQUE: Portable frontal view of the chest is provided. FINDINGS: The cardiomediastinal silhouette is within normal limits. Lungs are clear. There are no significant pleural effusions. There is no pulmonary vascular congestion. No pneumothorax. No suspicious osseous abnormality. Chest wall cardiac monitoring aerated. IMPRESSION: There is no acute cardiopulmonary process. Electronically signed by: Kiara Adhikari MD (12/08/2019 5:04 PM) [facility]
[2019-12-08 17:38] LABS: BASO % 0 % (0-3); EOS # 0.1 x10^3/uL (0.0-0.7); EOS % 3 % (0-3); HEMATOCRIT 35.9 % (36.0-47.0); LYMPH # 2.2 x10^3/uL (1.0-4.8); LYMPH % 37 % (24-48); MEAN CORPUSCULAR HEMOGLOBIN 30 pg (25-35); MEAN CORPUSCULAR HGB CONC 33 g/dL (31-37); MEAN CORPUSCULAR VOLUME 91 fL (79-100); MONO # 0.4 x10^3/uL (0.0-1.1); MONO % 7 % (0-9); NEUT # 3.2 x10^3uL (1.8-7.7); NEUT % 53 % (31-73); PLATELET COUNT 277 x10^3/uL (140-400); RED BLOOD COUNT 3.96 x10^6/uL (3.50-5.40); RED CELL DISTRIBUTION WIDTH 13.1 % (11.5-14.5)
[2019-12-08 17:43] LABS: CALCIUM 9.1 mg/dL (8.5-10.1); CREATININE 1.4 mg/dL (0.6-1.0); GFR 37.4; POTASSIUM 3.8 mmol/L (3.5-5.1)
[2019-12-08 17:48] LABS: ALBUMIN 3.5 g/dL (3.4-5.0); TOTAL PROTEIN 6.9 g/dL (6.4-8.2)
[2019-12-08 17:49] LABS: TOTAL BILIRUBIN 0.3 mg/dL (0.2-1.0)
--- NOTE | 2019-12-08 17:54 | EKG ---
[address] [address] Test Date: 2019-12-08 Test Time: 16:40:03 Pat Name: FAMILIA MAR Department: Room: Gender: F [employer] Applier: : 1950 Requested By: DAVE MCGINNIS Order Number: [id number] Reading MD: Measurements Intervals [place] Rate: 69 P: 44 ME: 128 QRS: 6 QRSD: 72 T: 25 QT: 418 QTc: 454 Interpretive Statements SINUS RHYTHM LEFT ATRIAL ABNORMALITY ABNORMAL ECG RI6.02 No previous ECG available for comparison
[2019-12-08] MEDS ORDERED: NITROGLYCERIN SUBLINGUAL 0.4 MG BOTTLE OF 25. SL PRN (18:00)
[2019-12-08] MEDS ORDERED: ONDANSETRON PF 4 MG/2 ML VIAL. IVP PRN (18:00)
[2019-12-08] MEDS ORDERED: ALPRAZolam 0.25 MG TABLET PO PRN (18:45)
[2019-12-08 19:26] VITALS: BP 122/79
[2019-12-08] MEDS ORDERED: PRIM50TA24 PO (20:26)
[2019-12-08] MEDS ORDERED: SULF1TAB23 PO (20:26)
[2019-12-08] MEDS ORDERED: APIX2.5T PO (20:26)
[2019-12-08] MEDS ORDERED: ROPI0.25 PO (20:26)
[2019-12-08] MEDS: levETIRAcetam 500 MG TABLET PO SCH (22:09)
[2019-12-08] MEDS: PROPRANOLOL 20 MG TABLET. PO SCH (22:09)
[2019-12-08] MEDS: APIXABAN 2.5 MG TABLET PO SCH (22:10)
[2019-12-08] MEDS: rOPINIRole 0.5 MG TABLET. PO SCH (22:10)
[2019-12-08] MEDS: GABAPENTIN 300 MG CAPSULE. PO SCH (22:10)
[2019-12-08] MEDS: PRIMIDONE 50 MG TABLET PO SCH (22:10)
[2019-12-08] MEDS: SMZ/TMP 400/80MG TABLET. PO SCH (22:10)
[2019-12-08] MEDS: CARVEDILOL 12.5 MG TABLET PO SCH (22:11)
[2019-12-08 22:22] VITALS: BP 109/67
[2019-12-08 22:56] LABS: BACTERIA,URINE FEW /HPF (0-FEW); BILIRUBIN,URINE NEG (NEG); CLARITY,URINE CLEAR; COLOR,URINE STRAW; GLUCOSE,URINE 100 mg/dL (NEG); NITRITE,URINE NEG (NEG); RBC,URINE OCC /HPF (0-2); SQUAMOUS EPITHELIAL CELL,UR FEW /LPF; UROBILINOGEN,URINE 0.2 mg/dL (0.2 mg/dL)
[2019-12-08 22:57] LABS: HYALINE CASTS, URINE FEW /HPF
[2019-12-09] MEDS ORDERED: ACETAMINOPHEN 325 MG TABLET PO PRN (01:15)
[2019-12-09] MEDS ORDERED: CYCLOBENZAPRINE 10 MG TABLET. PO PRN (01:15)
[2019-12-09] MEDS ORDERED: NITROGLYCERIN SUBLINGUAL 0.4 MG BOTTLE OF 25. SL PRN (01:15)
[2019-12-09] MEDS ORDERED: CYCL-331 PO (01:22)
[2019-12-09] MEDS ORDERED: BUDE10.2 IH (01:22)
[2019-12-09] MEDS ORDERED: NITR0.4T22 SL (01:22)
[2019-12-09] MEDS ORDERED: OLME1TAB25 PO (01:22)
[2019-12-09] MEDS ORDERED: ACET325T9 PO (01:22)
[2019-12-09] MEDS ORDERED: INSU100V37 SQ (01:22)
[2019-12-09] MEDS ORDERED: ESCITALOPRAM OX10 MG PO (01:22)
[2019-12-09] MEDS ORDERED: FURO40TA4 PO (01:22)
[2019-12-09] MEDS ORDERED: ALBUTEROL SULFATE 2.5 MG/3 ML NEBU. ONE (05:09)
[2019-12-09] MEDS: ALBUTEROL SULFATE 2.5 MG/3 ML NEBU. NEB SCH ×4 (05:22→20:00)
[2019-12-09 05:34] VITALS: BP 90/55
[2019-12-09] MEDS: CARVEDILOL 12.5 MG TABLET PO SCH ×2 (08:00→17:14)
[2019-12-09] MEDS: SMZ/TMP 400/80MG TABLET. PO SCH ×2 (08:17→21:38)
[2019-12-09] MEDS: CITALOPRAM 20 MG TABLET. PO SCH (08:18)
[2019-12-09] MEDS: APIXABAN 2.5 MG TABLET PO SCH ×2 (08:18→21:38)
[2019-12-09] MEDS: FUROSEMIDE 40 MG TABLET PO SCH (08:18)
[2019-12-09] MEDS: PRIMIDONE 50 MG TABLET PO SCH ×4 (08:18→21:41)
[2019-12-09] MEDS: GABAPENTIN 300 MG CAPSULE. PO SCH ×3 (08:18→21:42)
[2019-12-09] MEDS: rOPINIRole 0.5 MG TABLET. PO SCH ×2 (08:18→21:00)
[2019-12-09] MEDS: levETIRAcetam 500 MG TABLET PO SCH ×2 (08:18→21:40)
[2019-12-09] MEDS: PROPRANOLOL 20 MG TABLET. PO SCH ×2 (08:19→21:00)
[2019-12-09] MEDS ORDERED: CITALOPRAM 20 MG TABLET. PO SCH (09:00)
[2019-12-09] MEDS ORDERED: LOSARTAN 50 MG TABLET. PO SCH (09:00)
[2019-12-09] MEDS ORDERED: hydroCHLOROthiazide 25 MG TABLET PO SCH (09:00)
[2019-12-09] MEDS: LIDOCAINE (700MG/PATCH) PATCH. TD SCH (09:00)
[2019-12-09] MEDS ORDERED: NON FORMULARY ITEM (Budesonide/Formoterol Fumarate (Symbicort 160-4.5 Mcg Inhaler) 2 PUFF) IH SCH (09:00)
[2019-12-09] MEDS: LOSARTAN 50 MG TABLET. PO SCH (10:30)
[2019-12-09] MEDS: BUDESONIDE 0.5 MG/2 ML NEBU NEB SCH ×2 (10:40→20:00)
[2019-12-09 10:51] VITALS: BP 108/70
--- NOTE | 2019-12-09 12:06 | PDOC2 ---
CONSULT Date of Admission DATE: 12/09/19 TIME: 12:06 Reason for Consult: Chest pain Referring Physician: Dr. Fregoso Chief Complaint Chest pain Source: Chart review, Patient Problem List Problems Medical Problems: (1) Chest pain Status: Acute History of Present Illness 69-year-old female with history of coronary artery disease s/p PCI/stents to LAD/RCA in 2017 and near syncope of uncertain etiology s/p loop recorder implantation presented complaining of retrosternal chest pressure, worse with exertion, similar to the pain she had prior to her previous angioplasty. She rated her chest pain at 10/10 severity when it is worse. This is associated with shortness of breath but denied any orthopnea/PND, palpitations or syncope. Past Medical History Coronary disease s/p PCI/stents to LAD and RCA Near syncope of uncertain etiology s/p loop recorder implantation Hypertension Hyperlipidemia Diabetes mellitus type 2 DVT COPD/asthma Rheumatoid arthritis Seizure disorder Past Surgical History Cholecystectomy Hysterectomy Left knee and back surgeries Family History COPD, coronary disease Social History Patient denied any smoking, alcohol or drug use Current Medications Current Medications Ondansetron HCl (Zofran) 4 mg PRN Q4HRS PRN IVP NAUSEA/VOMITING Last administered on 12/09/19at 11:31; Start 12/08/19 at 18:00; Stop 12/09/19 at 17:59 Nitroglycerin (Nitrostat) 0.4 mg PRN Q5MIN PRN SL CHEST PAIN; Start 12/08/19 at 18:00; Stop 12/09/19 at 01:28; Status DC Alprazolam (Xanax) 0.25 mg PRN TID PRN PO ANXIETY / AGITATION Last administered on 12/08/19at 22:10; Start 12/08/19 at 18:45 Carvedilol (Coreg) 12.5 mg BIDWMEALS PO ; Start 12/08/19 at 19:00 Gabapentin (Neurontin) 300 mg TID PO Last administered on 12/09/19at 08:18; Start 12/08/19 at 21:00 Levetiracetam (Keppra) 500 mg BID PO Last administered on 12/09/19at 08:18; Start 12/08/19 at 21:00 Propranolol HCl (Inderal) 20 mg BID PO Last administered on 12/08/19at 22:09; Start 12/08/19 at 21:00 Citalopram Hydrobromide (CeleXA) 20 mg DAILY PO Last administered on 12/09/19at 08:18; Start 12/09/19 at 09:00 Apixaban (Eliquis) 2.5 mg BID PO Last administered on 12/09/19at 08:18; Start 12/08/19 at 21:00 Primidone (Mysoline) 50 mg QID PO Last administered on 12/09/19at 08:18; Start 12/08/19 at 21:00 Ropinirole HCl (Requip) 0.5 mg BID PO Last administered on 12/09/19at 08:18; Start 12/08/19 at 21:00 Trimethoprim/ Sulfamethoxazole (Bactrim Ss) 2 tab Q12HR PO Last administered on 12/09/19at 08:17; Start 12/08/19 at 21:00 Acetaminophen (Tylenol) 325 mg TID PRN PRN PO PAIN; Start 12/09/19 at 01:15 Cyclobenzaprine HCl (Flexeril) 10 mg TID PRN PRN PO MUSCLE PAIN; Start 12/09/19 at 01:15 Furosemide (Lasix) 40 mg DAILY PO Last administered on 12/09/19at 08:18; Start 12/09/19 at 09:00 Nitroglycerin (Nitrostat) 0.4 mg PRN Q5MIN PRN SL CHEST PAIN; Start 12/09/19 at 01:15 Non-Formulary Medication (Budesonide/ Formoterol Fumarate (Symbicort 160-4.5 Mcg Inhaler)) 2 puff BID IH ; Start 12/09/19 at 09:00; Status UNV Citalopram Hydrobromide (CeleXA) 20 mg DAILY PO ; Start 12/09/19 at 09:00; Status Cancel Insulin Glargine (Lantus Syringe) 20 unit QHS SQ ; Start 12/09/19 at 21:00 Hydrochlorothiazide (Hydrodiuril) 25 mg DAILY PO Last administered on 12/09/19at 08:18; Start 12/09/19 at 09:00; Stop 12/09/19 at 09:59; Status DC Losartan Potassium (Cozaar) 100 mg DAILY PO ; Start 12/09/19 at 09:00; Stop 12/09/19 at 09:59; Status DC Budesonide (Pulmicort) 0.5 mg RTBID NEB ; Start 12/09/19 at 08:00 Albuterol Sulfate (Ventolin) 2.5 mg RTQID NEB Last administered on 12/09/19at 05:22; Start 12/09/19 at 08:00 Albuterol Sulfate (Ventolin) 2.5 mg STK-MED ONCE .ROUTE ; Start 12/09/19 at 05:09; Stop 12/09/19 at 05:09; Status DC Losartan Potassium (Cozaar) 50 mg DAILY PO ; Start 12/09/19 at 10:30 Active Scripts Active Reported Tylenol (Acetaminophen) 325 Mg Tablet 1 Tab PO TID PRN PRN Cyclobenzaprine Hcl 10 Mg Tablet 1 Tab PO TID PRN PRN Symbicort 160-4.5 Mcg Inhaler (Budesonide/Formoterol Fumarate) 10.2 Gm Hfa.aer.ad 2 Puff IH BID NITROGLYCERIN SubLingual (Nitroglycerin) 0.4 Mg Tab.subl 0.4 Mg SL PRN Q5MIN PRN Escitalopram Oxalate 10 Mg Tablet 1 Tab PO DAILY Furosemide 40 Mg Tablet 1 Tab PO DAILY Benicar Hct 40-25 Mg Tablet (Olmesartan/Hydrochlorothiazide) 1 Each Tablet 1 Tab PO DAILY 30 Days Tresiba (Insulin Degludec) 100 Unit/1 Ml Vial 100 Unit SQ DAILY Requip (Ropinirole Hcl) 0.25 Mg Tablet 0.5 Mg PO BID Mysoline (Primidone) 50 Mg Tablet 1 Tab PO QID 30 Days Eliquis (Apixaban) 2.5 Mg Tablet 2.5 Mg PO BID Bactrim 400-80 Mg Tablet (Sulfamethoxazole/Trimethoprim) 1 Each Tablet 2 Tab PO Q12HR 7 Days Propranolol Hcl 20 Mg Tablet 1 Tab PO BID Keppra (Levetiracetam) 500 Mg Tablet 1 Tab PO BID Xanax (Alprazolam) 0.25 Mg Tablet 1 Tab PO PRN TID PRN LAST DOSE GIVEN: DATE: TODAY TIME: AM NEXT DOSE DUE: DATE: TOMORROW TIME: AM Escitalopram Oxalate 10 Mg Tablet 1 Tab PO DAILY LAST DOSE GIVEN: DATE: TODAY TIME: AM NEXT DOSE DUE: DATE: TOMORROW TIME: AM Coreg (Carvedilol) 12.5 Mg Tablet 1 Tab PO BID LAST DOSE GIVEN: DATE: TODAY TIME: WITH BREAKFAST NEXT DOSE DUE: DATE: TODAY TIME: WITH DINNER Gabapentin 300 Mg Capsule 300 Mg PO TID LAST DOSE GIVEN: DATE: YESTERDAY TIME: AT BEDTIME NEXT DOSE DUE: DATE: TODAY TIME: AT BEDTIME Allergies: Coded Allergies: Penicillins (Verified Allergy, Intermediate, 04/24/19) Soap (Verified Allergy, Intermediate, 04/24/19) hydrocodone bitartrate (Verified Allergy, Intermediate, Itching, 04/24/19) metformin (Verified Allergy, Intermediate, 04/24/19) mushroom (Verified Allergy, Intermediate, 04/24/19) niacin (Verified Allergy, Intermediate, 12/08/19) povidone-iodine (Verified Allergy, Intermediate, 04/24/19) aspirin (Verified Allergy, Mild, 04/24/19) upset stomach when taken without food PSYCHOLOGICAL ROS: No: Hallucinations Eyes: No: Loss of vision HEENT: No: Epistaxis Respiratory: No: Hemoptysis Cardiovascular: yes: Chest Pain Gastrointestinal: No: Vomiting Genitourinary: No: Dysuria Neurological: No: Seizures General: Alert, Oriented X3 HEENT: Atraumatic, PERRLA Lungs: Clear to auscultation Heart: Regular rate Abdomen: Normal bowel sounds Neuro: Normal speech Psych/Mental Status: Mood NL VITALS Vital Signs Date Time Temp Pulse Resp B/P (MAP) Pulse Ox O2 Delivery O2 Flow Rate FiO2 12/09/19 10:51 98.2 83 108/70 (83) 95 Room Air 12/09/19 05:34 20 Labs Laboratory Tests Test 12/08/19 17:14 12/08/19 20:05 12/08/19 22:30 12/08/19 23:56 White Blood Count 6.0 x10^3/uL (4.0-11.0) Red Blood Count 3.96 x10^6/uL (3.50-5.40) Hemoglobin 12.0 g/dL (12.0-15.5) Hematocrit 35.9 % (36.0-47.0) Mean Corpuscular Volume 91 fL (79-100) Mean Corpuscular Hemoglobin 30 pg (25-35) Mean Corpuscular Hemoglobin Concent 33 g/dL (31-37) Red Cell Distribution Width 13.1 % (11.5-14.5) Platelet Count 277 x10^3/uL (140-400) Neutrophils (%) (Auto) 53 % (31-73) Lymphocytes (%) (Auto) 37 % (24-48) Monocytes (%) (Auto) 7 % (0-9) Eosinophils (%) (Auto) 3 % (0-3) Basophils (%) (Auto) 0 % (0-3) Neutrophils # (Auto) 3.2 x10^3uL (1.8-7.7) Lymphocytes # (Auto) 2.2 x10^3/uL (1.0-4.8) Monocytes # (Auto) 0.4 x10^3/uL (0.0-1.1) Eosinophils # (Auto) 0.1 x10^3/uL (0.0-0.7) Basophils # (Auto) 0.0 x10^3/uL (0.0-0.2) Sodium Level 138 mmol/L (136-145) Potassium Level 3.8 mmol/L (3.5-5.1) Chloride Level 102 mmol/L (98-107) Carbon Dioxide Level 26 mmol/L (21-32) Anion Gap 10 (6-14) Blood Urea Nitrogen 21 mg/dL (7-20) Creatinine 1.4 mg/dL (0.6-1.0) Estimated GFR (Cockcroft-Gault) 37.4 BUN/Creatinine Ratio 15 (6-20) Glucose Level 173 mg/dL (70-99) Calcium Level 9.1 mg/dL (8.5-10.1) Total Bilirubin 0.3 mg/dL (0.2-1.0) Aspartate Amino Transf (AST/SGOT) 21 U/L (15-37) Alanine Aminotransferase (ALT/SGPT) 34 U/L (14-59) Alkaline Phosphatase 125 U/L (46-116) Troponin I Quantitative < 0.017 ng/mL (0-0.055) < 0.017 ng/mL (0-0.055) < 0.017 ng/mL (0-0.055) Total Protein 6.9 g/dL (6.4-8.2) Albumin 3.5 g/dL (3.4-5.0) Albumin/Globulin Ratio 1.0 (1.0-1.7) Urine Collection Type Unknown Urine Color Straw Urine Clarity Clear Urine pH 5.0 Urine Specific [place] 1.010 Urine Protein Neg (NEG-TRACE) Urine Glucose (UA) 100 mg/dL (NEG) Urine Ketones (Stick) Neg mg/dL (NEG) Urine Blood Neg (NEG) Urine Nitrite Neg (NEG) Urine Bilirubin Neg (NEG) Urine Urobilinogen Dipstick 0.2 mg/dL (0.2 mg/dL) Urine Leukocyte Esterase Neg (NEG) Urine RBC Occ /HPF (0-2) Urine WBC 1-4 /HPF (0-4) Urine Squamous Epithelial Cells Few /LPF Urine Bacteria Few /HPF (0-FEW) Urine Hyaline Casts Few /HPF Urine Mucus Slight /LPF Test 12/09/19 07:45 12/09/19 11:15 12/09/19 11:37 Glucose (Fingerstick) 210 mg/dL (70-99) 337 mg/dL (70-99) D-Dimer (Louann) 0.35 mg/L (0.00-0.50) Assessment/Plan 1. Chest pain with typical features concerning for unstable angina. Patient has known history of coronary disease and had PCI/stents placement to LAD and RCA in 2017. 2D echo at that time showed normal LV systolic function. Myocardial infarction has been ruled out. Due to multiple cardiovascular risk factors and typical nature of chest pain, we will proceed with cardiac catheterization and possible angioplasty. Risks and benefits were explained and she is agreeable. Continue current secondary prevention measures. 2. Hypertension: Controlled 3. h/o DVT: On Eliquis 4. Diabetes mellitus type 2: Treat per IM 5. Seizure disorder: Clinically stable Thank you for your consultation. OH HOWELL MD Dec 09, 2019 12:06
--- NOTE | 2019-12-09 13:39 | PN ---
DATE: SUBJECTIVE: A 69-year-old female came in yesterday through the office with intermittent chest pain for the last week. The patient had multiple risk factors including previous heart disease and like as well as hypertriglyceridemia and other multiple risk factors. The patient was brought in even though her cardiac enzymes were negative. Dr. Tidwell, soybean grower was kind enough to review the patient. The patient was noting she was still having chest discomfort when she was walking just in the hallway and also was noted that she had similar problems before she had her previous heart attack and she also noted that the chest pain woke her up out of sleep. She notes left side of her chest felt heavy and as a result of this, the patient was admitted to the hospital last night. She has been reviewed again this morning, still having chest discomfort with activity. Dr. Tidwell, this being a Wednesday, will probably do a heart cath on Wednesday, so we will keep her monitored. She is a diabetic. OBJECTIVE: VITAL SIGNS: Her blood pressure presently 108/70, respiratory rate 20, pulse 71, afebrile. GENERAL: The patient is alert and oriented. LUNGS: Diminished, but clear. CARDIOVASCULAR: Regular sinus rhythm. ABDOMEN: Soft, nontender. EXTREMITIES: No clubbing, cyanosis, nor edema. NEUROLOGIC: Intact. The patient will go ahead and continue to be monitored. IMPRESSION: Unstable angina, coronary artery disease, type 2 diabetes poorly controlled, hypertriglyceridemia, multiple risk factors for heart disease. PUJA WOLFF MD DR: DAISY/nitesh JOB#: [id number] / [id number]
[2019-12-09 15:01] VITALS: BP 110/64
[2019-12-09 18:58] VITALS: BP 96/62
[2019-12-09] MEDS ORDERED: INSULIN GLARGINE SYRINGE. SQ SCH (21:00)
[2019-12-09 23:02] VITALS: BP 98/63
[2019-12-10] MEDS: ALBUTEROL SULFATE 2.5 MG/3 ML NEBU. NEB SCH ×4 (05:03→19:53)
[2019-12-10 05:18] VITALS: BP 102/70
[2019-12-10] MEDS: CARVEDILOL 12.5 MG TABLET PO SCH ×2 (08:00→17:00)
[2019-12-10] MEDS: SMZ/TMP 400/80MG TABLET. PO SCH ×2 (08:10→19:53)
[2019-12-10] MEDS: rOPINIRole 0.5 MG TABLET. PO SCH ×2 (08:11→19:51)
[2019-12-10] MEDS: levETIRAcetam 500 MG TABLET PO SCH ×2 (08:11→19:53)
[2019-12-10] MEDS: PRIMIDONE 50 MG TABLET PO SCH ×4 (08:11→19:53)
[2019-12-10] MEDS: FUROSEMIDE 40 MG TABLET PO SCH (08:11)
[2019-12-10] MEDS: APIXABAN 2.5 MG TABLET PO SCH ×2 (08:11→19:53)
[2019-12-10] MEDS: GABAPENTIN 300 MG CAPSULE. PO SCH ×3 (08:11→19:53)
[2019-12-10] MEDS: CITALOPRAM 20 MG TABLET. PO SCH (08:11)
[2019-12-10] MEDS: LOSARTAN 50 MG TABLET. PO SCH (08:13)
[2019-12-10] MEDS: PROPRANOLOL 20 MG TABLET. PO SCH ×2 (08:13→19:50)
[2019-12-10] MEDS: LIDOCAINE (700MG/PATCH) PATCH. TD SCH (09:00)
[2019-12-10] MEDS ORDERED: ONDANSETRON PF 4 MG/2 ML VIAL. IVP PRN (09:00)
[2019-12-10] MEDS: BUDESONIDE 0.5 MG/2 ML NEBU NEB SCH ×2 (10:24→20:14)
[2019-12-10 10:57] VITALS: BP 86/55
--- NOTE | 2019-12-10 15:08 | DS ---
DATE OF DISCHARGE: HOSPITAL COURSE: This is a discharge summary from [facility] to be transferred down to [place]. The patient has been having intermittent chest pain with exertion for the last 2-3 days prior to admission, initially seen in the office. The patient also came in to review her labs. The patient has a history of diabetes, myocardial infarction, hypertension and the patient otherwise has also had problems with high cholesterol as well as at one time triglycerides close to 900, they down to 500 now. She was placed on fenofibrate. Her A1c is approximately 8, so she has multiple risk factors, she was brought in for rule out HI protocol after being seen in the Emergency Room and ruled out on the COVID-19. The patient also was seen by Dr. Tidwell clinical assoc who recommended the patient to have a heart catheterization since even with minimal exertion she began to have substernal chest pain, nonradiating, no nausea, vomiting, or diaphoresis, but definitely substernal chest pain. Her cardiac enzymes were negative because of her multiple risk factors, poor control of her blood sugar as well as her triglycerides and cholesterol. The patient will be transferred down to [place] with Dr. Dangelo as the primary and Dr. Tidwell as a Cardiology consult for the situation there. IMPRESSION: Angina with exertion, hyperlipidemia, history of coronary artery disease, type 2 diabetes, poorly controlled, anxiety disorder, major depression, multiple risk factors. PLAN: As above. PUJA WOLFF MD DR: DAISY/nitesh JOB#: [id number] / [id number]
[2019-12-10 15:23] VITALS: BP 106/67
[2019-12-10 19:11] VITALS: BP 95/60
[2019-12-10 19:50] VITALS: BP 95/60
[2019-12-11] MEDS ORDERED: PATCH REMOVAL. MC SCH (21:00)
== END 2019-12-10 20:00 | disposition short-term general hospital (02) | DRG 303 ==
LOC: ER 15:56 → 1 SOUTH 18:07 → OBSVTOIN 18:07
PROVIDERS: ADMIT Family Medicine; ATTEND Family Medicine
DX: I25.110 Atherosclerotic heart disease of native coronary artery with unstable angina pectoris (principal); I10 Essential (primary) hypertension; E78.5 Hyperlipidemia, unspecified; J44.9 Chronic obstructive pulmonary disease, unspecified; M06.9 Rheumatoid arthritis, unspecified; G20 Parkinson's disease; E78.00 Pure hypercholesterolemia, unspecified; E78.1 Pure hyperglyceridemia; F41.9 Anxiety disorder, unspecified; E11.9 Type 2 diabetes mellitus without complications; F32.9 Major depressive disorder, single episode, unspecified; I25.2 Old myocardial infarction; E11.65 Type 2 diabetes mellitus with hyperglycemia; Z79.899 Other long term (current) drug therapy; Z98.61 Coronary angioplasty status; R07.2 Precordial pain; Z82.49 Family history of ischemic heart disease and other diseases of the circulatory system; Z90.710 Acquired absence of both cervix and uterus; Z86.718 Personal history of other venous thrombosis and embolism; Z03.818 Encounter for observation for suspected exposure to other biological agents ruled out; Z88.6 Allergy status to analgesic agent; Z88.0 Allergy status to penicillin; Z88.8 Allergy status to other drugs, medicaments and biological substances; Z91.018 Allergy to other foods; Z91.048 Other nonmedicinal substance allergy status; Z82.5 Family history of asthma and other chronic lower respiratory diseases; Z82.3 Family history of stroke; Z84.89 Family history of other specified conditions; G40.909 Epilepsy, unspecified, not intractable, without status epilepticus
CPT/HCPCS: 36415; 71045; 80053; 81001; 82947; 84484; 85025; 85379; 93005; 94640; 96374; 96375; G0378; G0379; J1815; J2405; 99285-25; J7613; U0003-CS

== ENCOUNTER 2019-12-21 11:33 | Emergency (ER) | payer MEDICARE, BC ==
[~2019-12-21] VITALS: Ht 152.4 cm; Wt 59.0 kg
[~2019-12-21 11:33] MED LIST changes: +ACET325T9 PO; +FURO40TA4 PO; +INSU100V37 SQ; +PRIM50TA24 PO; +ROPI0.25 PO; +SULF1TAB23 PO
[2019-12-21 11:40] VITALS: BP 140/81
[2019-12-21] MEDS ORDERED: LORazepam 1 MG TABLET PO ONE (12:00)
[2019-12-21] MEDS ORDERED: levETIRAcetam 250 MG TABLET PO SCH (12:00)
--- NOTE | 2019-12-21 12:03 | PHYS DOC ---
Past History Past Medical History: CAD, Diabetes, Hypertension, CA, Pneumonia Additional Past Medical Histor: Parkinsons, Past Surgical History: Angioplasty Additional Past Surgical Histo: Cardiac Stents x 4, "Internal Heart Monitor" Smoking: Non-smoker Alcohol Use: None Drug Use: None General Adult EDM: Chief Complaint: TREMORS HPI: HPI: Patient is a 69-year-old female who presents to the emergency department for evaluation. She states that she has been told that she has a history of Parkinson's disease, and has a tremor in her upper extremities. She was tremoring particularly vigorously this morning, to the point that her home health nurse thought that she would have a seizure. She was thus told to come to the emergency department. The patient has no other complaints. She denies any pain, headache, vision changes, numbness, or weakness. She does have a history of one single seizure in the past, for which she is supposed to be taking Keppra 500 mg twice daily but states that she has not taken it since she got out of the hospital recently because it makes her groggy. She also takes Xanax for anxiety. She states that she has seen the local neurologist, but does not want to go back to see him because he did not remember her name the second time he saw her. She is currently in the process of being referred to a Parkinson's doctor but does not currently take any Parkinson's medications. No yvette and recent labs from her hospital stay earlier this month have been reviewed. Review of Systems: Review of Systems: Constitutional: Denies fever or chills Eyes: Denies change in visual acuity HENT: Denies nasal congestion or sore throat Respiratory: Denies cough or shortness of breath Cardiovascular: Denies chest pain or edema GI: Denies abdominal pain, nausea, vomiting, bloody stools or diarrhea : Denies dysuria Musculoskeletal: Denies back pain or joint pain Integument: Denies rash Neurologic: Denies headache, focal weakness or sensory changes Endocrine: Denies polyuria or polydipsia Lymphatic: Denies swollen glands Psychiatric: Denies depression or anxiety Heart Score: Risk Factors: Risk Factors: DM, Current or recent (<one month) smoker, HTN, HLP, family history of CAD, obesity. Risk Scores: Score 0 - 3: 2.5% MACE over next 6 weeks - Discharge Home Score 4 - 6: 20.3% MACE over next 6 weeks - Admit for Clinical Observation Score 7 - 10: 72.7% MACE over next 6 weeks - Early Invasive Strategies Current Medications: Current Meds: Current Medications Medications (Trade) Dose Ordered Sig/Juan Start Time Stop Time Status Last Admin Dose Admin Levetiracetam (Keppra) 250 mg 1X 12/21/19 12:00 UNV Lorazepam (Ativan) 1 mg 1X ONCE 12/21/19 12:00 12/21/19 12:01 UNV Allergies: Allergies: Allergies Coded Allergies Type Severity Reaction Last Updated Verified Penicillins Allergy Intermediate 04/24/19 Yes Soap Allergy Intermediate 04/24/19 Yes hydrocodone bitartrate Allergy Intermediate Itching 04/24/19 Yes metformin Allergy Intermediate 04/24/19 Yes mushroom Allergy Intermediate 04/24/19 Yes niacin Allergy Intermediate 12/08/19 Yes povidone-iodine Allergy Intermediate 04/24/19 Yes aspirin Allergy Mild 04/24/19 Yes Physical Exam: PE: PHYSICAL EXAM: CONSTITUTIONAL: Well developed, well nourished HEAD: normocephalic, atraumatic EENT: PERRL, EOMI. Conjunctivae normal color, sclerae non-icteric; moist mucous membranes. NECK: Supple, non-tender; no meningismus. LUNGS: Lungs CTA, breathing even and unlabored. Normal air movement. HEART: Regular rate and rhythm, no murmur CHEST: No deformity; non-tender ABDOMEN: The abdomen is soft, and non-tender, no masses or bruits. EXTREM: Normal ROM; no deformity, no calf tenderness. Normal pulses palpable in all extremities. There is no pedal edema. SKIN: No rash; no diaphoresis NEURO: Alert; normal speech and cognition; CN's grossly intact; strength grossly intact without focal deficit. There is a mild to moderate tremor in the upper extremities bilaterally, right greater than left. Cogwheel rigidity is absent. BACK: No CVA TTP. Current Patient Data: Vital Signs: Vital Signs Date Time Temp Pulse Resp B/P (MAP) Pulse Ox O2 Delivery O2 Flow Rate FiO2 12/21/19 11:40 98.2 69 16 140/81 (100) 99 EKG: EKG: [] Radiology/Procedures: Radiology/Procedures: [] Course & Med Decision Making: Course & Med Decision Making I discussed the importance of restarting her Keppra and possibly following up with her PCP to see about a dose reduction to 250 mg twice daily. I discussed importance of close outpatient neurology follow-up and return precautions. Stacey Disclaimer: Stacey Disclaimer: This electronic medical record was generated, in whole or in part, using a voice recognition dictation system. Departure Departure: Impression: Primary Impression: Tremor Disposition: HOME/RESIDENCE PRIOR TO ADM Condition: STABLE Referrals: PUJA WOLFF MD (PCP) Patient Instructions: Parkinson's Disease, Tremor Justification of Admission: Justification of Admission: Justification of Admission Dx: N/A LOAN DENNEY MD Dec 21, 2019 12:03
[2019-12-21] MEDS ORDERED: levETIRAcetam 500 MG TABLET PO ONE (12:30)
== END 2019-12-21 12:32 | disposition home or self-care (01) ==
LOC: ER 11:33
DX: R25.1 Tremor, unspecified (principal); G20 Parkinson's disease; I25.10 Atherosclerotic heart disease of native coronary artery without angina pectoris; E11.9 Type 2 diabetes mellitus without complications; I10 Essential (primary) hypertension; I25.2 Old myocardial infarction; Z98.61 Coronary angioplasty status; Z88.0 Allergy status to penicillin; Z88.8 Allergy status to other drugs, medicaments and biological substances; Z88.1 Allergy status to other antibiotic agents; Z88.5 Allergy status to narcotic agent; Z91.018 Allergy to other foods; Z88.6 Allergy status to analgesic agent
CPT/HCPCS: 99284

== ENCOUNTER 2020-02-23 13:08 | Emergency (ER) | payer MEDICARE, BC ==
[~2020-02-23] VITALS: Ht 152.4 cm; Wt 60.7 kg
--- NOTE | 2020-02-23 13:49 | PHYS DOC ---
Past History Past Medical History: A-Fib, CAD, COPD, Diabetes, Other Additional Past Medical Histor: PARKINSON'S Past Surgical History: Cholecystectomy, , Hysterectomy, Oophorectomy, Tonsillectomy, Other Additional Past Surgical Histo: CARDIAC STENTS; HEAD SURGERY FX; CANCER; ABD HERNIA REPAIR; L KNEE; BACK Smoking: Non-smoker Alcohol Use: Occasionally Drug Use: None General Adult EDM: Chief Complaint: SHORTNESS OF BREATH HPI: HPI: 69 yo F PMH CAD (4 stents, on eliquis), Afib, Parkinson's disease, TIA, asthma, ovarian and uterine cancer with LOVE/BSO and heart disease, presents to the ED sent in by primary care physician Dr. Cooley, complaints of " feeling like I am drowning, and cannot breathe and had to sleep with a pillows behind the head," x6 days. Reports associated midsternal sharp nonradiating chest pain, and a dry cough. Patient states this is the exact symptom presentation she had in November when she was admitted to [facility] then transfered to [facility], had a negative cath. 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 Is not on any home oxygen. No h/o DVT/PEs. H/o COPD. EMR was reviewed and patient was admitted in November after she had serial troponins that were negative, hemoglobin A1c was 8 triglycerides were in the upper 500s. PCI/stents to LAD/RCA in 2017. Review of Systems: Review of Systems: Constitutional: Denies fever or chills Eyes: Denies change in visual acuity HENT: Denies nasal congestion or sore throat Respiratory: Denies cough or shortness of breath Cardiovascular: Denies syncope or murmurs GI: Denies abdominal pain, nausea, vomiting, or diarrhea : Denies dysuria Musculoskeletal: Denies back pain or joint pain Integument: Denies rash Neurologic: Denies headache, focal weakness or sensory changes Endocrine: Denies polyuria or polydipsia Lymphatic: Denies swollen glands Psychiatric: Denies depression or anxiety Heart Score: HEART Score for Chest Pain: HEART Score for Chest Pain Response (Comments) Value History Slighlty/Non-Suspicious 0 ECG Nonspecific Repolarizatio 1 Age > 65 2 Risk Factors >3 Risk Factors or Hx CAD 2 Troponin < Normal Limit 0 Total 5 Risk Factors: Risk Factors: DM, Current or recent (<one month) smoker, HTN, HLP, family history of CAD, obesity. Risk Scores: Score 0 - 3: 2.5% MACE over next 6 weeks - Discharge Home Score 4 - 6: 20.3% MACE over next 6 weeks - Admit for Clinical Observation Score 7 - 10: 72.7% MACE over next 6 weeks - Early Invasive Strategies Allergies: Allergies: Allergies Coded Allergies Type Severity Reaction Last Updated Verified Penicillins Allergy Intermediate 02/23/20 Yes Soap Allergy Intermediate 02/23/20 Yes hydrocodone bitartrate Allergy Intermediate Itching 02/23/20 Yes metformin Allergy Intermediate 02/23/20 Yes mushroom Allergy Intermediate 02/23/20 Yes niacin Allergy Intermediate 02/23/20 Yes povidone-iodine Allergy Intermediate 04/24/19 Yes aspirin Allergy Mild 04/24/19 Yes Physical Exam: PE: Constitutional: Well developed, well nourished, no acute distress, non-toxic appearance. [] HENT: Normocephalic, atraumatic, Eyes: EOMI, conjunctiva normal, no discharge. [] Neck: Normal range of motion, no tenderness, supple, no stridor. [] Cardiovascular:Heart rate regular rhythm, no murmur [] Lungs & Thorax: Bilateral breath sounds equal, speaking in full sentences, no wheezing Abdomen: pbese abdomen with lower vertical scar-2/2 LOVE-BSP, Bowel sounds normal, soft, no tenderness, no masses, no pulsatile masses. [] Skin: Warm, dry, no erythema, no rash. [] Back: No tenderness, no CVA tenderness. [] Extremities: No tenderness, no cyanosis, no clubbing, ROM intact, no edema. [] Neurologic: Alert and oriented X 3, normal motor function, normal sensory function, no focal deficits noted. [] Psychologic: Affect normal, judgement normal, mood normal. [] Current Patient Data: Vital Signs: Vital Signs Date Time Temp Pulse Resp B/P (MAP) Pulse Ox O2 Delivery O2 Flow Rate FiO2 02/23/20 13:17 99.2 85 17 114/74 (87) 96 Room Air EKG: EKG: sinus rhythm 80 bpm, NAD, QTC 447, no T wave inversions, no ST depressions or ST depression, 1 PVC Radiology/Procedures: Radiology/Procedures: IMAGING REPORT Signed PATIENT: FAMILIA MAR: [id number] : 1950 LOCATION: ER AGE: 69 SEX: F EXAM STATUS: REG ER ORD. PHYSICIAN: KORY IRVIN DO REASON: dyspnea PROCEDURE: CHEST AP ONLY EXAM: CHEST AP ONLY INDICATION: Reason: dyspnea / Spl. Instructions: / History: . TECHNIQUE: Single view COMPARISON: 12/08/2019 chest x-ray FINDINGS: Stable event monitor in the left chest. The heart size is normal. The great vessels appear unremarkable. There is no hilar or mediastinal mass. The lungs are clear. There is no pleural effusion or pneumothorax. There are no significant osseous abnormalities. IMPRESSION: No active cardiopulmonary disease. Electronically signed by: Clemente Yates MD (02/23/2020 2:46 PM) [id number] DICTATED AND SIGNED BY: CLEMENTE YATES MD DATE: 02/23/20 1444 CC: PUJA WOLFF MD; KORY IRVIN DO ~ IMAGING REPORT Signed PATIENT: FAMILIA MAR ACCOUNT: [id number] : 1950 LOCATION: ER AGE: 69 SEX: F EXAM STATUS: REG ER ORD. PHYSICIAN: KORY IRVIN DO REASON: abdominal swelling PROCEDURE: CT ABD PELV W/ IV CONTRST ONLY Exam: CT of abdomen and pelvis with contrast INDICATION: Abdominal swelling TECHNIQUE: Sequential axial images through the abdomen and pelvis obtained following the administration of 60 mL of Omni 300 IV contrast. Sagittal and coronal reformatted images were reconstructed from the axial data and reviewed. Comparisons: None FINDINGS: Heart size is normal. No pericardial effusion. Strandy opacities at the dependent portion lungs likely representing atelectasis. No pleural effusion. Mild intrahepatic biliary ductal dilatation. Gallbladder surgically absent. Spleen, pancreas, and adrenals are unremarkable. Kidneys demonstrate symmetric enhancement. No perinephric inflammation or hydronephrosis. No renal or ureteral calculi are identified. Bladder is distended and appears thin-walled. Uterus is absent. No abnormal adnexal mass. Large and small bowel are unremarkable. Appendix is not identified. No free intra-abdominal air or fluid. No obstruction. Abdominal aorta has a normal course and caliber. Abdominal vasculature is patent. No enlarged abdominal lymph nodes are identified. No suspicious osseous lesions or acute fractures. IMPRESSION: No acute processes identified within the abdomen or pelvis. Exposure: One or more of the following in the visualized dose reduction techniques were utilized for this examination: 1. Automated exposure control 2. Adjustment of the MA and/or KV according to patient size 3. Use of iterative of reconstructive technique Electronically signed by: Val De Leon MD (02/23/2020 4:22 PM) [id number] DICTATED AND SIGNED BY: VAL DE LEON MD DATE: 02/23/20 1624 CC: PUJA WOLFF MD; [facility] DO ~ Course & Med Decision Making: Course & Med Decision Making Pertinent Labs and Imaging studies reviewed. (See chart for details) 39-year-old female presents the ED with complaints of dyspnea on exertion, orthopnea, epigastric abdominal pain with abdominal swelling for the past 6 days. EKG with no new ischemia, troponin negative, d-dimer 0.44 wnl. I discussed pts' care with Dr. Cooley and Dr. Gillespie reviewed pts' cath and recent echo in November -echo w/small vessel disease, echo wnl. No further cardiac intervention recommended, consider imdur 30mg if responded to nitro. Pt states nitro didn't help. On reevaluation does report history of night sweats and dark brown stools. 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 CT abd/pelvis mild intrahepatic biliary ductal dilatation. Pt with no signficant RUQ pain. Patient states her last EGD and colonoscopy was more than 5 years ago., For HPI and PMD for further evaluation. Patient very well-appearing and hemodynamically stable. Strict ED return precautions given for severe abdominal pain, dehydration or syncope. Encouraged urgent outpatient follow-up with PMD and GI (states she'd follow up with her gi doc at ). Life-threatening processes were considered but are low suspicion at this time, given history and physical exam. Pt was educated on all prescription medications and adverse effects. All patient's questions were answered and pt was stable at time of discharge. Differential includes acute myocardial infarction, aortic dissection, congestive heart failure, esophageal injury including rupture, surgical abdomen, arrhythmia, cardiomyopathy, myocarditis, pericarditis, peptic ulcer disease, pneumomediastinum, pneumonia, pneumothorax, pulmonary embolus, unstable angina, rib fracture, contusion, pericardial tamponade or effusion, pulmonary contusion, surgical abdomen (appendicitis, cholecystitis, ischemic bowel, strangulated hernia, etc), bowel obstruction or volvulus, bladder outlet obstruction, gastrointestinal bleeding, inflammatory bowel disease, sepsis, diverticular disease, ureterolithiasis, nephrolithiasis, ovarian or testicular torsion, ectopic I spoken with the patient and her caregivers. I explained the patient's condition, diagnoses and treatment plan based on the information available to me at this time. I have answered the patient and her caregiver's questions and addressed any concerns. The patient and her caregivers have a good understanding of patient's diagnosis, condition and treatment plan as can be expected at this point. Vital signs have been stable. Patient's condition is stable and appropriate for discharge from the emergency department. Patient will pursue further outpatient evaluation with primary care physician or other designated or consulting physician as outlined in the discharge instructions. The patient and/or caregivers are agreeable to this plan of care and follow-up instructions have been explained in detail. The patient and/or caregivers have received these instructions in written form and have expressed an understanding of the discharge instructions. The patient and/or caregivers are aware that any significant change of condition or worsening of symptoms should prompt immediate return to this or the closest emergency department or call to 911. Stacey Disclaimer: Stacey Disclaimer: This electronic medical record was generated, in whole or in part, using a voice recognition dictation system. Departure Departure: Impression: Primary Impression: Dyspnea Additional Impression: Abdominal bloating Disposition: 01 HOME/RESIDENCE PRIOR TO ADM Condition: STABLE Referrals: PUJA WOLFF MD (PCP) Patient Instructions: Abdominal Pain, Shortness of Breath Scripts Albuterol Sulfate (VENTOLIN HFA INHALER) 18 Gm Hfa.aer.ad 1 PUFF IH PRN Q4HRS for shortness of breath, #1 INHALER 0 Refills Prov: KORY IRVIN DO 02/23/20 Justification of Admission: Justification of Admission: Justification of Admission Dx: N/A KORY IRVIN DO Feb 23, 2020 13:49
[2020-02-23 14:00] LABS: BASO % 0 % (0-3); EOS # 0.1 x10^3/uL (0.0-0.7); EOS % 1 % (0-3); HEMATOCRIT 37.3 % (36.0-47.0); HEMOGLOBIN 12.5 g/dL (12.0-15.5); LYMPH # 1.5 x10^3/uL (1.0-4.8); LYMPH % 22 % (24-48); MEAN CORPUSCULAR HEMOGLOBIN 31 pg (25-35); MEAN CORPUSCULAR HGB CONC 34 g/dL (31-37); MEAN CORPUSCULAR VOLUME 92 fL (79-100); MONO # 0.5 x10^3/uL (0.0-1.1); MONO % 7 % (0-9); NEUT % 70 % (31-73); PLATELET COUNT 218 x10^3/uL (140-400); RED BLOOD COUNT 4.07 x10^6/uL (3.50-5.40); RED CELL DISTRIBUTION WIDTH 13.4 % (11.5-14.5); WHITE BLOOD COUNT 7.1 x10^3/uL (4.0-11.0)
[2020-02-23 14:09] LABS: CREATININE 1.2 mg/dL (0.6-1.0); GFR 44.7; POTASSIUM 3.6 mmol/L (3.5-5.1)
[2020-02-23 14:21] LABS: ALBUMIN 3.3 g/dL (3.4-5.0); ALBUMIN/GLOBULIN RATIO 0.9 (1.0-1.7); TOTAL BILIRUBIN 0.3 mg/dL (0.2-1.0)
--- NOTE | 2020-02-23 14:29 | EKG ---
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
--- NOTE | 2020-02-23 14:49 | RAD ---
EXAM: CHEST AP ONLY INDICATION: Reason: dyspnea / Spl. Instructions: / History: . TECHNIQUE: Single view COMPARISON: 12/08/2019 chest x-ray FINDINGS: Stable event monitor in the left chest. The heart size is normal. The great vessels appear unremarkable. There is no hilar or mediastinal mass. The lungs are clear. There is no pleural effusion or pneumothorax. There are no significant osseous abnormalities. IMPRESSION: No active cardiopulmonary disease. Electronically signed by: Joesph Yates MD (02/23/2020 2:46 PM) [id number]
[2020-02-23] MEDS ORDERED: LIDO:MAALOX 1:1 20 ML SINGLE DOSE. PO ONE (15:30)
[2020-02-23] MEDS ORDERED: IOHEXOL 300 MG/ML 75 ML VIAL. IV ONE (15:45)
[2020-02-23 16:18] VITALS: BP 124/72
--- NOTE | 2020-02-23 16:25 | RAD ---
Exam: CT of abdomen and pelvis with contrast INDICATION: Abdominal swelling TECHNIQUE: Sequential axial images through the abdomen and pelvis obtained following the administration of 60 mL of Omni 300 IV contrast. Sagittal and coronal reformatted images were reconstructed from the axial data and reviewed. Comparisons: None FINDINGS: Heart size is normal. No pericardial effusion. Strandy opacities at the dependent portion lungs likely representing atelectasis. No pleural effusion. Mild intrahepatic biliary ductal dilatation. Gallbladder surgically absent. Spleen, pancreas, and adrenals are unremarkable. Kidneys demonstrate symmetric enhancement. No perinephric inflammation or hydronephrosis. No renal or ureteral calculi are identified. Bladder is distended and appears thin-walled. Uterus is absent. No abnormal adnexal mass. Large and small bowel are unremarkable. Appendix is not identified. No free intra-abdominal air or fluid. No obstruction. Abdominal aorta has a normal course and caliber. Abdominal vasculature is patent. No enlarged abdominal lymph nodes are identified. No suspicious osseous lesions or acute fractures. IMPRESSION: No acute processes identified within the abdomen or pelvis. Exposure: One or more of the following in the visualized dose reduction techniques were utilized for this examination: 1. Automated exposure control 2. Adjustment of the MA and/or KV according to patient size 3. Use of iterative of reconstructive technique Electronically signed by: Val Blanco MD (02/23/2020 4:22 PM) [id number]
[2020-02-23] MEDS ORDERED: ALBU2.5V8 IH (16:39)
== END 2020-02-23 16:45 | disposition home or self-care (01) ==
LOC: ER 13:08
DX: R14.0 Abdominal distension (gaseous) (principal); R06.00 Dyspnea, unspecified; I48.91 Unspecified atrial fibrillation; I25.10 Atherosclerotic heart disease of native coronary artery without angina pectoris; J44.9 Chronic obstructive pulmonary disease, unspecified; E11.9 Type 2 diabetes mellitus without complications; G20 Parkinson's disease; Z86.73 Personal history of transient ischemic attack (TIA), and cerebral infarction without residual deficits; Z88.0 Allergy status to penicillin; Z88.5 Allergy status to narcotic agent; Z88.8 Allergy status to other drugs, medicaments and biological substances; Z88.1 Allergy status to other antibiotic agents
CPT/HCPCS: 36415; 71045; 74177; 80053; 82550; 83880; 84484; 85025; 85379; 93005; 99285; Q9967

== ENCOUNTER 2020-08-16 19:24 | Inpatient (IN) | payer MEDICARE, BC ==
[~2020-08-16] VITALS: Ht 152.4 cm; Wt 59.0 kg
[~2020-08-16 19:24] MED LIST changes: -LISI-334 PO; +LISI20TA18 PO; +METH-560 PO; -METH750T2 PO
--- NOTE | 2020-08-16 19:27 | PHYS DOC ---
Past History Past Medical History: A-Fib, Anxiety, Arthritis, CAD, Cancer, COPD, Diabetes, High Cholesterol, Hypertension, Hypothyroid, Other Additional Past Medical Histor: PARKINSON'S Past Surgical History: Cholecystectomy, , Hysterectomy, Oophorectomy, Tonsillectomy, Other Additional Past Surgical Histo: CARDIAC STENTS; HEAD SURGERY FX; CANCER; ABD HERNIA REPAIR; L KNEE; BACK Smoking: Non-smoker Alcohol Use: Occasionally Drug Use: None General Adult EDM: Chief Complaint: MECHANICAL FALL HPI: HPI: ".. I guess something happened... " Patient is a 69 year old female who presents with above hx and complaints of fall . Patient was found down in the kitchen floor. Duration is unknown. Symptoms prior to fall is unknown. Patient has had recent episodes of nausea and GI upset recently. Has had vomiting once in the emergency room. No history of bad food intake. No history of travel or severe ill contacts. Was diagnosed with Covid 14 days ago. Patient has extensive medical history of anxiety, A. 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 traffic monitor specialist implanted. Patient currently a non- smoker. Pt. follows with Dr. Wolff. Review of Systems: Review of Systems: Constitutional: Denies fever or chills Eyes: Denies change in visual acuity HENT: History of nasal congestion Respiratory: History cough and shortness of breath Cardiovascular: Denies chest pain or edema GI: Denies abdominal pain, complains of nausea, vomiting,. Denies bloody stools or diarrhea : Denies dysuria Musculoskeletal: complains of "all over "..muscle and joint pain Integument: Denies rash Neurologic: Denies headache, focal weakness or sensory changes Endocrine: Denies polyuria or polydipsia Lymphatic: Denies swollen glands Psychiatric: Denies depression or anxiety Family History: Family History: Noncontributory patient Current Medications: Current Meds: See nursing for home meds Allergies: Allergies: Allergies Coded Allergies Type Severity Reaction Last Updated Verified Penicillins Allergy Intermediate 02/23/20 Yes Soap Allergy Intermediate 02/23/20 Yes hydrocodone bitartrate Allergy Intermediate Itching 02/23/20 Yes metformin Allergy Intermediate 02/23/20 Yes mushroom Allergy Intermediate 02/23/20 Yes niacin Allergy Intermediate 02/23/20 Yes povidone-iodine Allergy Intermediate 04/24/19 Yes aspirin Allergy Mild 04/24/19 Yes Physical Exam: PE: Constitutional: no acute distress, ill in appearance. [] HENT: Normocephalic, atraumatic, bilateral external ears normal, oropharynx dry, no oral exudates, nose normal. [] Eyes: PERRLA, EOMI, conjunctiva normal, no discharge. [] Neck: Normal range of motion, no tenderness, supple, no stridor. [] Cardiovascular:Irregular heart rate , irregular rhythm, no murmur , PMI to Lt. , Monitor show sinus with frequent PVC's Lungs & Thorax: Bilateral breath sounds equal apex with few scattered wheezes on auscultation []. PMI to left. Left-sided implant Abdomen: Hyperactive bowel sounds normal, soft, mild generalized tenderness, no masses, no pulsatile masses. [] Multiple surgery scars Skin: Warm, dry, no erythema, no rash. Poor turgor Back: No tenderness, no CVA tenderness. [] Old surgery scar Extremities: No tenderness, no cyanosis, no clubbing, ROM intact, no edema. Arthritic changes, left shoulder scar Neurologic: Alert and oriented X 3, moves all extremities on request, electrical mechanic eq ual, have some distal sensory,, no new focal deficits noted. Wide gait Psychologic: Affect anxious, judgement appears to have memory issues or early dementia, mood normal. [] EKG: EKG: My interpretation EKG shows a sinus rhythm of PVCs, some nonspecific contour changes. No findings of any acute STEMI with contralateral changes. Ventricular rate 74 [] Radiology/Procedures: Radiology/Procedures: [[address] [address] IMAGING REPORT Signed PATIENT: FAMILIA MAR ACCOUNT: [id number] : 1950 LOCATION: ER AGE: 69 SEX: F EXAM STATUS: REG ER ORD. PHYSICIAN: DANNY DANIELLE MD REASON: syncope, cp PROCEDURE: PORTABLE CHEST 1V INDICATION: Reason: syncope, cp / Spl. Instructions: / History: COMPARISON: February 23, 2020 FINDINGS: Single view of chest obtained. Cardiac device projecting over the left side of the heart. Hypoexpanded exam along without focal consolidation or edema. IMPRESSION: * Hypoexpanded exam without definite focal consolidation. Electronically signed by: Adalgisa Lerma MD (08/16/2020 8:38 PM) Help/[id number] DICTATED AND SIGNED BY: ADALGISA LERMA MD DATE: 08/16/202035 CC: PUJA WOLFF MD; DANNY DANIELLE MD ~MTH0 0 ][address] [address] IMAGING REPORT Signed PATIENT: FAMILIA MAR ACCOUNT: [id number] : 1950 LOCATION: ER AGE: 69 SEX: F EXAM STATUS: REG ER ORD. PHYSICIAN: DANNY DANIELLE MD REASON: syncope PROCEDURE: CT HEAD WO CONTRAST Exam: CT head INDICATION: Syncope TECHNIQUE: Sequential axial images through the head were obtained without the administration of IV contrast. Comparisons: None FINDINGS: No focal parenchymal lesion or hemorrhage is identified. There is no midline shift or sulcal effacement. No acute vascular territory infarction is identified. Tran-white distinction is preserved. The ventricular system is within normal limits without compression hydrocephalus. The basal cisterns are well maintained. The visualized portions of the paranasal sinuses and mastoid air cells are well-pneumatized. No acute fractures. IMPRESSION: No acute intracranial abnormality. Exposure: One or more of the following in the visualized dose reduction techniques were utilized for this examination: 1. Automated exposure control 2. Adjustment of the MA and/or KV according to patient size Use of iterative of reconstructive technique Electronically signed by: Val De Leon MD (08/16/2020 8:38 PM) [facility] DICTATED AND SIGNED BY: VAL DE LEON MD DATE: 08/16/202035 CC: PUJA WOLFF MD; DANNY DANIELLE MD ~MTH0 0 Heart Score: HEART Score for Chest Pain: HEART Score for Chest Pain Response (Comments) Value History Moderately Suspicious 1 ECG Nonspecific Repolarizatio 1 Age > 65 2 Risk Factors 1 or 2 Risk Factors 1 Troponin < Normal Limit 0 Total 5 Risk Factors: Risk Factors: DM, Current or recent (<one month) smoker, HTN, HLP, family history of CAD, obesity. Risk Scores: Score 0 - 3: 2.5% MACE over next 6 weeks - Discharge Home Score 4 - 6: 20.3% MACE over next 6 weeks - Admit for Clinical Observation Score 7 - 10: 72.7% MACE over next 6 weeks - Early Invasive Strategies Course & Med Decision Making: Course & Med Decision Making Pertinent Labs and Imaging studies reviewed. (See chart for details) Discussed presentation, testing, and treatment with Dr. Wolff-we will admit to his service and obtain cardiology consult. Impression: 1. Syncope 2. Fall 3. Hypokalemia 2.8-critical 4. Elevated D-dimer 0.66 5. Leukocytosis 11.2 6. Elevated lipids 7. History of Covid positive test 14 days ago 8. Diabetes glucose 200 9. Elevated CRP 48.6 10. Malnutrition albumin 2.7 11. Dehydration-BUN 43 creatinine 1.8 12. Dysrhythmia-frequent PVCs episodes of A. fib 13. Bronchitis [] Dragon Disclaimer: Dragon Disclaimer: This electronic medical record was generated, in whole or in part, using a voice recognition dictation system. Departure Departure: Referrals: PUJA WOLFF MD (PCP) Stacey Disclaimer This chart was dictated in whole or in part using Voice Recognition software in a busy, high-work load, and often noisy Emergency Department environment. It may contain unintended and wholly unrecognized errors or omissions. DANNY DANIELLE MD Aug 16, 2020 19:27
[2020-08-16] MEDS ORDERED: ONDANSETRON PF 4 MG/2 ML VIAL. IVP ONE (20:00)
[2020-08-16 20:05] LABS: BASO % 0 % (0-3); EOS % 0 % (0-3); HEMATOCRIT 37.6 % (36.0-47.0); HEMOGLOBIN 12.4 g/dL (12.0-15.5); LYMPH # 1.9 x10^3/uL (1.0-4.8); LYMPH % 17 % (24-48); MEAN CORPUSCULAR HEMOGLOBIN 29 pg (25-35); MEAN CORPUSCULAR HGB CONC 33 g/dL (31-37); MEAN CORPUSCULAR VOLUME 88 fL (79-100); MONO # 0.5 x10^3/uL (0.0-1.1); MONO % 4 % (0-9); NEUT # 8.8 x10^3uL (1.8-7.7); NEUT % 78 % (31-73); PLATELET COUNT 314 x10^3/uL (140-400); RED BLOOD COUNT 4.25 x10^6/uL (3.50-5.40); RED CELL DISTRIBUTION WIDTH 13.6 % (11.5-14.5); WHITE BLOOD COUNT 11.2 x10^3/uL (4.0-11.0)
[2020-08-16] MEDS: IV RINGERS SOLUTION,LACTATED 1,000 ML IV SCH ×2 (20:11→23:55)
[2020-08-16 20:29] LABS: ALBUMIN 2.7 g/dL (3.4-5.0); C REACTIVE PROTEIN 48.6 mg/L (0-3.3); CALCIUM 9.4 mg/dL (8.5-10.1); CREATININE 1.8 mg/dL (0.6-1.0); DIRECT BILIRUBIN 0.1 mg/dL (0.0-0.2); MAGNESIUM 2.4 mg/dL (1.8-2.4); TOTAL BILIRUBIN 0.2 mg/dL (0.2-1.0)
--- NOTE | 2020-08-16 20:40 | RAD ---
Exam: CT head INDICATION: Syncope TECHNIQUE: Sequential axial images through the head were obtained without the administration of IV co ntrast. Comparisons: None FINDINGS: No focal parenchymal lesion or hemorrhage is identified. There is no midline shift or sulcal effaceme nt. No acute vascular territory infarction is identified. Tran-white distinction is preserved. The ventricular system is within normal limits without compression hydrocephalus. The basal cisterns are well maintained. The visualized portions of the paranasal sinuses and mastoid air cells are well-pneumatized. No acute fractures. IMPRESSION: No acute intracranial abnormality. Exposure: One or more of the following in the visualized dose reduction techniques were utilized for this examination: 1. Automated exposure control 2. Adjustment of the MA and/or KV according to patient size Use of iterative of reconstructive technique Electronically signed by: Val Blanco MD (08/16/2020 8:38 PM) [facility]
--- NOTE | 2020-08-16 20:41 | RAD ---
INDICATION: Reason: syncope, cp / Spl. Instructions: / History: COMPARISON: February 23, 2020 FINDINGS: Single view of chest obtained. Cardiac device projecting over the left side of the heart. Hypoexpanded exam along without focal cons olidation or edema. IMPRESSION: * Hypoexpanded exam without definite focal consolidation. Electronically signed by: Derrick Conklin MD (08/16/2020 8:38 PM) [id number]
[2020-08-16 21:00] LABS: POTASSIUM 2.8 mmol/L (3.5-5.1)
[2020-08-16 21:01] LABS: TOTAL PROTEIN 6.4 g/dL (6.4-8.2)
[2020-08-16 21:09] LABS: CLARITY,URINE CLEAR; COLOR,URINE YELLOW
[2020-08-16 21:10] LABS: BILIRUBIN,URINE NEG (NEG); GLUCOSE,URINE >=1000 mg/dL (NEG); NITRITE,URINE NEG (NEG); UROBILINOGEN,URINE 0.2 mg/dL (0.2 mg/dL)
[2020-08-16] MEDS ORDERED: ONDANSETRON PF 4 MG/2 ML VIAL. IVP PRN (21:15)
[2020-08-16] MEDS ORDERED: ACETAMINOPHEN 325 MG TABLET PO PRN (21:15)
[2020-08-16] MEDS ORDERED: IV RINGERS SOLUTION,LACTATED 1,000 ML IV ONE (21:15)
[2020-08-16 21:20] LABS: RBC,URINE RARE /HPF (0-2); WBC,URINE RARE /HPF (0-4)
[2020-08-16 21:21] LABS: BACTERIA,URINE 0 /HPF (0-FEW); SQUAMOUS EPITHELIAL CELL,UR OCC /LPF
[2020-08-16] MEDS ORDERED: ASPIRIN 325 MG TABLET PO ONE (21:30)
[2020-08-16] MEDS ORDERED: ENOXAPARIN ** NOTE DOSE ** SYRINGE SQ ONE (21:30)
--- NOTE | 2020-08-16 22:07 | RAD ---
Exam: Abdomen 2 views INDICATION: Nausea and vomiting TECHNIQUE: Upright and supine views of the abdomen Comparisons: None FINDINGS: Air and stool are noted throughout the colon to level the rectum in a nonobstructive bowel gas patter n. No suspicious masses or calcifications. Visualized osseous structures are unremarkable. IMPRESSION: Nonobstructive bowel gas pattern. Electronically signed by: Val Blanco MD (08/16/2020 10:04 PM) [facility]
[2020-08-16 23:00] VITALS: BP 119/64
[2020-08-16] MEDS ORDERED: INSU100V31 SQ (23:43)
[2020-08-16] MEDS: POTASSIUM CHLORIDE 20 MEQ TABLET.ER. PO SCH (23:53)
--- NOTE | 2020-08-17 00:59 | EKG ---
[address] [address] Test Date: 2020-08-16 Test Time: 19:51:55 Pat Name: FAMILIA MAR Department: Room: [facility]04 1 Gender: F [employer] Consultant: TANESHA : 1950 Requested By: DANNY DANIELLE Order Number: [id number] Reading MD: Measurements Intervals [place] Rate: 74 P: 32 PA: 118 QRS: 7 QRSD: 82 T: 39 QT: 370 QTc: 416 Interpretive Statements SINUS RHYTHM VENTRICULAR PREMATURE COMPLEX(ES) QRS(T) CONTOUR ABNORMALITY CONSIDER INFERIOR MYOCARDIAL DAMAGE ABNORMAL ECG RI6.02 No previous ECG available for comparison
[2020-08-17 06:26] VITALS: BP 112/69
[2020-08-17 07:55] LABS: BASO % 0 % (0-3); EOS % 0 % (0-3); HEMATOCRIT 33.6 % (36.0-47.0); HEMOGLOBIN 11.4 g/dL (12.0-15.5); LYMPH # 1.6 x10^3/uL (1.0-4.8); LYMPH % 19 % (24-48); MEAN CORPUSCULAR HEMOGLOBIN 30 pg (25-35); MEAN CORPUSCULAR HGB CONC 34 g/dL (31-37); MEAN CORPUSCULAR VOLUME 87 fL (79-100); MONO # 0.5 x10^3/uL (0.0-1.1); MONO % 6 % (0-9); NEUT # 6.4 x10^3uL (1.8-7.7); NEUT % 76 % (31-73); PLATELET COUNT 241 x10^3/uL (140-400); RED BLOOD COUNT 3.87 x10^6/uL (3.50-5.40); RED CELL DISTRIBUTION WIDTH 13.6 % (11.5-14.5); WHITE BLOOD COUNT 8.4 x10^3/uL (4.0-11.0)
[2020-08-17 08:00] LABS: CALCIUM 8.2 mg/dL (8.5-10.1); CREATININE 1.1 mg/dL (0.6-1.0); GFR 49.4; POTASSIUM 3.4 mmol/L (3.5-5.1)
[2020-08-17] MEDS: IPRATRPIUM/ALBUTEROL 0.5/2.5MG 3 ML NEBU. NEB SCH ×4 (08:00→22:22)
[2020-08-17] MEDS: POTASSIUM CHLORIDE 20 MEQ TABLET.ER. PO SCH ×2 (08:39→20:31)
[2020-08-17] MEDS ORDERED: ALBUTEROL SULFATE 8GM INHALER. INH ONE (09:00)
[2020-08-17] MEDS ORDERED: CIPROFLOXACIN HCL 500 MG TABLET PO SCH (09:00)
[2020-08-17] MEDS ORDERED: ASPIRIN 325 MG TABLET PO SCH (09:00)
[2020-08-17] MEDS ORDERED: POTASSIUM CHLORIDE 20 MEQ TABLET.ER. PO ONE (09:00)
[2020-08-17] MEDS ORDERED: IV RINGERS SOLUTION,LACTATED 1,000 ML IV SCH (09:00)
[2020-08-17] MEDS ORDERED: FLU VACC QS 2020-21(6MOS+)/PF 0.5 ML SYRINGE. VAX IM ONE (09:00)
[2020-08-17] MEDS ORDERED: ALBUTEROL SULFATE 2.5 MG/3 ML NEBU. IH PRN (10:00)
[2020-08-17] MEDS ORDERED: ACETAMINOPHEN 325 MG TABLET PO PRN (10:00)
[2020-08-17] MEDS ORDERED: NON FORMULARY ITEM (Insulin Aspart (Novolog) 1 UNIT) SQ SCH (11:30)
[2020-08-17 11:58] LABS: TRIGLYCERIDES 1853 mg/dL (0-150); VLDLC 370 mg/dL (0-40)
[2020-08-17] MEDS: IV RINGERS SOLUTION,LACTATED 1,000 ML IV SCH ×2 (12:00→20:32)
[2020-08-17] MEDS ORDERED: DEXTROSE 50% 25 GM / 50ML DISP.SYRIN. IV PRN (12:45)
[2020-08-17] MEDS: ACETAMINOPHEN/CODEINE 300/30MG TABLET PO PRN (13:32)
--- NOTE | 2020-08-17 13:43 | RAD ---
EXAM: CT Abdomen and Pelvis without IV contrast INDICATION: Reason: Right flank pain / Spl. Instructions: / History: TECHNIQUE: Multi-detector row CT images were acquired from the lung bases through the abdomen and pel vis without the use of IV contrast. Sagittal and coronal images were acquired from the transaxial rohan a. All CT scans performed at this facility utilize dose optimization techniques as appropriate to the exam, including the following: Automated exposure control and adjustment of the mA and/or KV accordi ng to patient size (this includes techniques or standardized protocols for targeted exams where dose is indication/reason for exam). ORAL CONTRAST: None COMPARISON: Contrast-enhanced abdomen pelvis CT of 02/23/2020 FINDINGS: The absence of IV contrast limits evaluation of soft tissue pathology. LOWER CHEST: Groundglass opacities in the bilateral medial and posterior basal lower lobes along with more subtle groundglass opacities scattered elsewhere in the lung bases are present. No pleural effu richardson. LIVER: Unremarkable BILIARY SYSTEM: Gallbladder is surgically absent. Bile ducts are not dilated. PANCREAS: Unremarkable SPLEEN: Unremarkable ADRENALS: Unremarkable KIDNEYS & URETERS: Unremarkable BLADDER: Unremarkable REPRODUCTIVE ORGANS: Hysterectomy. Multiple surgical clips along the bilateral pelvic sidewalls are present. GASTROINTESTINAL: The stomach, small bowel, and colon are unremarkable. The appendix is normal. MESENTERY/PERITONEUM/RETROPERITONEUM: Unremarkable VASCULAR: Unremarkable LYMPH NODES: No adenopathy OSSEOUS & SOFT TISSUES: There are surgical changes consistent with previous posterior spinal luz and pedicle screw construct fusion at L4-L5, similar to prior. IMPRESSION: 1. No acute findings on noncontrast abdomen and pelvis CT status post previous hysterectomy and alphonso cystectomy. In particular, no evidence of hydronephrosis or calcified stone in the urinary tract is identified. 2. Groundglass opacities in the lower lobes bilaterally could reflect sequelae of previous atypical p neumonia. Correlate clinically. Electronically signed by: Joesph Yates MD (08/17/2020 1:40 PM) [facility]
[2020-08-17 13:52] VITALS: BP 113/57
[2020-08-17 15:11] LABS: % BANDS 2 % (0-9); % BASOS 0 % (0-3); % LYMPHS 16 % (24-48); % MONOS 7 % (0-10); % SEGS 75 % (35-66); PLT ESTIMATE ADEQUATE (ADEQUATE)
--- NOTE | 2020-08-17 16:45 | PDOC2 ---
CONSULT DOS: DATE: 08/17/20 TIME: 16:37 Reason for Consult: Syncope and fall Chief Complaint Syncope and fall Source: Chart review, Patient Problem List Problems Medical Problems: (1) Hypokalemia Status: Acute (2) Syncope Status: Acute History of Present Illness 69-year-old female with history of coronary disease, syncope of uncertain etiology s/p loop recorder implantation in the past apparently had an episode of syncope in her kitchen. She has been having intermittent episodes of dizziness, nausea, vomiting and shortness of breath ever since she recovered from Covid 2 weeks ago. She denied any chest pain, orthopnea/PND or palpitations. Past Medical History Coronary artery disease s/p PCI/KAROLINA to LAD and RCA Syncope of uncertain etiology s/p loop recorder implantation Hypertension Hyperlipidemia Hypothyroidism COPD Diabetes mellitus type 2 Osteoarthritis Parkinson's disease Anxiety Past Surgical History Loop recorder implantation Cholecystectomy section Hysterectomy Tonsillectomy Hernia repair Left knee surgery Back surgery Family History Negative for premature coronary disease Social History Patient admitted to occasional alcohol use and denied any smoking or drug use Current Medications Current Medications Lactated Ringer's 1,000 ml @ 100 mls/hr Q10H IV Last administered on 08/16/20at 23:55; Start 08/16/20 at 20:00; Stop 08/17/20 at 05:59; Status DC Ondansetron HCl (Zofran) 8 mg 1X ONCE IVP Last administered on 08/16/20at 20:10; Start 08/16/20 at 20:00; Stop 08/16/20 at 20:10; Status DC Enoxaparin Sodium (Lovenox 60mg Syringe) 60 mg 1X ONCE SQ Last administered on 08/16/20at 21:26; Start 08/16/20 at 21:30; Stop 08/16/20 at 21:31; Status DC Aspirin (Anders Aspirin) 325 mg 1X ONCE PO Last administered on 08/16/20at 21:25; Start 08/16/20 at 21:30; Stop 08/16/20 at 21:31; Status DC Ondansetron HCl (Zofran) 4 mg PRN Q4HRS PRN IVP NAUSEA/VOMITING Last administered on 08/17/20at 04:53; Start 08/16/20 at 21:15; Stop 08/17/20 at 21:14 Acetaminophen (Tylenol) 650 mg PRN Q4HRS PRN PO FEVER > 100.3'F Last administered on 08/17/20at 08:39; Start 08/16/20 at 21:15; Stop 08/17/20 at 10:23; Status DC Albuterol/ Ipratropium (Duoneb) 3 ml RTQID NEB Last administered on 08/17/20at 09:27; Start 08/17/20 at 08:00; Stop 08/18/20 at 07:59 Enoxaparin Sodium (Lovenox 60mg Syringe) 60 mg HS SQ ; Start 08/17/20 at 21:00 Aspirin (Anders Aspirin) 81 mg DAILY PO ; Start 08/17/20 at 09:00; Stop 08/16/20 at 21:22; Status DC Lactated Ringer's 1,000 ml @ 160 mls/hr TID IV ; Start 08/17/20 at 09:00; Stop 08/17/20 at 01:19; Status DC Lactated Ringer's 1,000 ml @ 1,000 mls/hr 1X ONCE IV ; Start 08/16/20 at 21:15; Stop 08/16/20 at 22:14; Status DC Potassium Chloride (Klor-Con) 40 meq BID ONCE PO ; Start 08/17/20 at 09:00; Stop 08/16/20 at 23:19; Status DC Albuterol Sulfate (Ventolin Hfa Inhaler) 2 puff QID ONCE INH ; Start 08/17/20 at 09:00; Stop 08/17/20 at 09:01; Status UNV Ciprofloxacin (Cipro) 500 mg DAILY PO Last administered on 08/17/20at 08:39; Start 08/17/20 at 09:00; Stop 08/17/20 at 12:42; Status DC Potassium Chloride (Klor-Con) 40 meq BID PO Last administered on 08/17/20at 08:39; Start 08/16/20 at 23:30 Lactated Ringer's 1,000 ml @ 100 mls/hr Q10H IV Last administered on 08/17/20at 12:00; Start 08/17/20 at 09:30 Influenza Virus Vaccine Quadrival (Fluzone Quad Syringe) 0.5 ml ONCE ONCE VAX IM Last administered on 08/17/20at 13:53; Start 08/17/20 at 09:00; Stop 08/17/20 at 09:01; Status DC Acetaminophen (Tylenol) 325 mg TID PRN PRN PO PAIN; Start 08/17/20 at 10:00 Albuterol Sulfate (Ventolin) 8 mg PRN Q4HRS PRN IH SHORTNESS OF BREATH; Start 08/17/20 at 10:00 Carvedilol (Coreg) 6.25 mg BID PO ; Start 08/17/20 at 21:00 Gabapentin (Neurontin) 300 mg BID PO ; Start 08/17/20 at 21:00 Propranolol HCl (Inderal) 20 mg BID PO ; Start 08/17/20 at 21:00; Stop 08/17/20 at 12:42; Status DC Non-Formulary Medication (Insulin Aspart (Novolog)) 1 unit QIDACHS SQ ; Start 08/17/20 at 11:30; Stop 08/17/20 at 12:47; Status DC Insulin Glargine (Lantus Syringe) 30 unit QHS SQ ; Start 08/18/20 at 21:00 Losartan Potassium (Cozaar) 100 mg DAILY PO ; Start 08/18/20 at 09:00 Acetaminophen/ Codeine Phosphate (Tylenol #3) 2 tab PRN TID PRN PO pain Last administered on 08/17/20at 13:32; Start 08/17/20 at 12:15 Insulin Human Lispro (HumaLOG) 0-7 UNITS TIDWMEALS SQ ; Start 08/17/20 at 17:00 Dextrose (Dextrose 50%-Water Syringe) 12.5 gm PRN Q15MIN PRN IV SEE COMMENTS; Start 08/17/20 at 12:45 Active Scripts Active Ventolin Hfa Inhaler (Albuterol Sulfate) 18 Gm Hfa.aer.ad 1 Puff IH PRN Q4HRS Reported Novolog (Insulin Aspart) 100 Unit/1 Ml Vial 1 Unit SQ QIDACHS Tylenol (Acetaminophen) 325 Mg Tablet 1 Tab PO TID PRN PRN Furosemide 40 Mg Tablet 1 Tab PO DAILY Benicar Hct 40-25 Mg Tablet (Olmesartan/Hydrochlorothiazide) 1 Each Tablet 1 Tab PO DAILY 30 Days Tresiba (Insulin Degludec) 100 Unit/1 Ml Vial 30 Unit SQ DAILY Propranolol Hcl 20 Mg Tablet 1 Tab PO BID Coreg (Carvedilol) 12.5 Mg Tablet 1 Tab PO BID LAST DOSE GIVEN: DATE: TODAY TIME: WITH BREAKFAST NEXT DOSE DUE: DATE: TODAY TIME: WITH DINNER Gabapentin 300 Mg Capsule 300 Mg PO BID LAST DOSE GIVEN: DATE: YESTERDAY TIME: AT BEDTIME NEXT DOSE DUE: DATE: TODAY TIME: AT BEDTIME Allergies: Coded Allergies: Penicillins (Verified Allergy, Intermediate, 08/16/20) Soap (Verified Allergy, Intermediate, 08/16/20) hydrocodone bitartrate (Verified Allergy, Intermediate, Itching, 08/16/20) metformin (Verified Allergy, Intermediate, 08/16/20) mushroom (Verified Allergy, Intermediate, 08/16/20) niacin (Verified Allergy, Intermediate, 08/16/20) povidone-iodine (Verified Allergy, Intermediate, 04/24/19) aspirin (Verified Allergy, Mild, 04/24/19) upset stomach when taken without food Review of System 14 point review of systems was positive for fall, dizziness, nausea, shortness of breath and vomiting and otherwise negative General: Alert, No acute distress HEENT: Atraumatic Lungs: Clear to auscultation Heart: Regular rate Abdomen: Soft Extremities: No edema Neuro: Normal speech Psych/Mental Status: Mood NL VITALS Vital Signs Date Time Temp Pulse Resp B/P (MAP) Pulse Ox O2 Delivery O2 Flow Rate FiO2 08/17/20 14:31 18 Room Air 08/17/20 13:52 99 113/57 (75) 96 08/17/20 06:26 98.1 Labs Laboratory Tests Test 08/16/20 19:40 08/16/20 19:50 08/16/20 20:51 08/16/20 23:00 Prothrombin Time < 9.3 SEC (9.4-11.4) Prothromb Time International Ratio < 1.0 (0.9-1.1) Activated Partial Thromboplast Time < 21 SEC (23-33) D-Dimer (Louann) 0.66 mg/L (0.00-0.50) Sodium Level 137 mmol/L (136-145) Potassium Level 2.8 mmol/L (3.5-5.1) Chloride Level 98 mmol/L (98-107) Carbon Dioxide Level 22 mmol/L (21-32) Anion Gap 17 (6-14) Blood Urea Nitrogen 43 mg/dL (7-20) Creatinine 1.8 mg/dL (0.6-1.0) Estimated GFR (Cockcroft-Gault) 28.0 Glucose Level 200 mg/dL (70-99) Calcium Level 9.4 mg/dL (8.5-10.1) Magnesium Level 2.4 mg/dL (1.8-2.4) Total Bilirubin 0.2 mg/dL (0.2-1.0) Direct Bilirubin 0.1 mg/dL (0.0-0.2) Aspartate Amino Transf (AST/SGOT) 14 U/L (15-37) Alanine Aminotransferase (ALT/SGPT) 21 U/L (14-59) Alkaline Phosphatase 134 U/L (46-116) Creatine Kinase 42 U/L (26-192) Troponin I Quantitative < 0.017 ng/mL (0-0.055) < 0.017 ng/mL (0-0.055) C-Reactive Protein 48.6 mg/L (0-3.3) Total Protein 6.4 g/dL (6.4-8.2) Albumin 2.7 g/dL (3.4-5.0) Triglycerides Level 1853 mg/dL (0-150) Cholesterol Level 271 mg/dL (0-200) LDL Cholesterol, Calculated mg/dL (0-100) VLDL Cholesterol, Calculated 370 mg/dL (0-40) Non-HDL Cholesterol Calculated mg/dL (0-129) HDL Cholesterol mg/dL (40-60) Cholesterol/HDL Ratio Lipase 132 U/L (73-393) Thyroid Stimulating Hormone (TSH) 1.208 uIU/mL (0.358-3.740) White Blood Count 11.2 x10^3/uL (4.0-11.0) Red Blood Count 4.25 x10^6/uL (3.50-5.40) Hemoglobin 12.4 g/dL (12.0-15.5) Hematocrit 37.6 % (36.0-47.0) Mean Corpuscular Volume 88 fL (79-100) Mean Corpuscular Hemoglobin 29 pg (25-35) Mean Corpuscular Hemoglobin Concent 33 g/dL (31-37) Red Cell Distribution Width 13.6 % (11.5-14.5) Platelet Count 314 x10^3/uL (140-400) Neutrophils (%) (Auto) 78 % (31-73) Lymphocytes (%) (Auto) 17 % (24-48) Monocytes (%) (Auto) 4 % (0-9) Eosinophils (%) (Auto) 0 % (0-3) Basophils (%) (Auto) 0 % (0-3) Neutrophils # (Auto) 8.8 x10^3uL (1.8-7.7) Lymphocytes # (Auto) 1.9 x10^3/uL (1.0-4.8) Monocytes # (Auto) 0.5 x10^3/uL (0.0-1.1) Eosinophils # (Auto) 0.0 x10^3/uL (0.0-0.7) Basophils # (Auto) 0.0 x10^3/uL (0.0-0.2) Urine Collection Type U cath Urine Color Yellow Urine Clarity Clear Urine pH 5.5 Urine Specific [place] 1.020 Urine Protein Neg (NEG-TRACE) Urine Glucose (UA) >=1000 mg/dL (NEG) Urine Ketones (Stick) Neg mg/dL (NEG) Urine Blood Neg (NEG) Urine Nitrite Neg (NEG) Urine Bilirubin Neg (NEG) Urine Urobilinogen Dipstick 0.2 mg/dL (0.2 mg/dL) Urine Leukocyte Esterase Neg (NEG) Urine RBC Rare /HPF (0-2) Urine WBC Rare /HPF (0-4) Urine Squamous Epithelial Cells Occ /LPF Urine Bacteria 0 /HPF (0-FEW) Test 08/17/20 06:30 White Blood Count 8.4 x10^3/uL (4.0-11.0) Red Blood Count 3.87 x10^6/uL (3.50-5.40) Hemoglobin 11.4 g/dL (12.0-15.5) Hematocrit 33.6 % (36.0-47.0) Mean Corpuscular Volume 87 fL (79-100) Mean Corpuscular Hemoglobin 30 pg (25-35) Mean Corpuscular Hemoglobin Concent 34 g/dL (31-37) Red Cell Distribution Width 13.6 % (11.5-14.5) Platelet Count 241 x10^3/uL (140-400) Neutrophils (%) (Auto) 76 % (31-73) Lymphocytes (%) (Auto) 19 % (24-48) Monocytes (%) (Auto) 6 % (0-9) Eosinophils (%) (Auto) 0 % (0-3) Basophils (%) (Auto) 0 % (0-3) Neutrophils # (Auto) 6.4 x10^3uL (1.8-7.7) Lymphocytes # (Auto) 1.6 x10^3/uL (1.0-4.8) Monocytes # (Auto) 0.5 x10^3/uL (0.0-1.1) Eosinophils # (Auto) 0.0 x10^3/uL (0.0-0.7) Basophils # (Auto) 0.0 x10^3/uL (0.0-0.2) Segmented Neutrophils % 75 % (35-66) Band Neutrophils % 2 % (0-9) Lymphocytes % 16 % (24-48) Monocytes % 7 % (0-10) Basophils % 0 % (0-3) Platelet Estimate Adequate (ADEQUATE) Sodium Level 137 mmol/L (136-145) Potassium Level 3.4 mmol/L (3.5-5.1) Chloride Level 103 mmol/L (98-107) Carbon Dioxide Level 24 mmol/L (21-32) Anion Gap 10 (6-14) Blood Urea Nitrogen 28 mg/dL (7-20) Creatinine 1.1 mg/dL (0.6-1.0) Estimated GFR (Cockcroft-Gault) 49.4 Glucose Level 113 mg/dL (70-99) Calcium Level 8.2 mg/dL (8.5-10.1) Troponin I Quantitative < 0.017 ng/mL (0-0.055) Assessment/Plan 1. Syncope most probably secondary to dehydration since patient had lack of appetite, nausea and vomiting since she had Covid 2 weeks ago. Continue intravenous fluids. Recent 2D echo in November 2019 showed LVEF 55%. She does have history of syncope of uncertain etiology in the past and has a loop recorder implanted. We will check her device to rule out any significant arrhythmias. Telemetry so far did not show any significant arrhythmias. 2. Coronary artery disease s/p PCI/KAROLINA to LAD and PDA/RCA with cardiac catheterization in November 2019 showing patent stents with 50 to 60% stenosis involving OM/LCx that was insignificant based on IFR measurement. She is clinically stable and chest pain-free. Continue current secondary prevention measures. 3. Hypertension: Controlled 4. Diabetes mellitus type 2: Treat per IM 5. Hypokalemia: Replace orally 6. Acute on chronic renal insufficiency probably secondary to dehydration. Continue intravenous fluids. Thank you for your consultation OH HOWELL MD Aug 17, 2020 16:45
[2020-08-17] MEDS: INSULIN LISPRO 300 UNITS/3 ML VIAL. SQ SCH (17:19)
--- NOTE | 2020-08-17 18:59 | HP ---
ADMIT DATE: 08/16/2020 HISTORY OF PRESENT ILLNESS: A 69-year-old female who came in through the Emergency Room, was found on the kitchen floor. The patient prior to the fall, she has had some recent problems with nausea and vomiting. The patient was seen in the Emergency Room and worked up accordingly. Because of her syncopal spell, there are ___ unconsciousness. The patient was admitted for further evaluation of this acute syncope, possible head injury, and change in mental status. PAST MEDICAL HISTORY: Extensive, detached retina, left eye, 5 ear surgeries, 80% hearing loss, skull fractures in the past, TIAs, Parkinson disease, heart disease, heart attack, angina, cardiac catheterization, stent x 4, DVT, COPD, bronchitis, pneumonia, sleep apnea, hiatal hernia, abdominal surgery, gastroesophageal reflux, reproductive disorders, cervical cancer, uterine cancer, hysterectomy, oophorectomy, , bladder tuck, rheumatoid arthritis, osteoarthritis, knee surgery, lumbar surgery with rods, herniated disk in the back, diabetes, depression, and cancer. IMMUNIZATIONS: Unknown. PAST SURGICAL HISTORY: Include 2 tonsillectomies, knee surgery, gallbladder surgery, complete hysterectomy and three left knee surgeries. FAMILY HISTORY: Positive for emphysema, sepsis, stroke and drug dependence. ALLERGIES: PENICILLIN, SOAP ASPIRIN, HYDROCODONE, METFORMIN, MUSHROOMS NIACIN AND IODINE. CODE: The patient's full code. SOCIAL HISTORY: The patient denies smoking, alcohol or drug use. MEDICATIONS: The patient's reconciliation of medications indicate Ventolin HFA, Coreg, propranolol 20, olmesartan/hydrochlorothiazide, gabapentin 300, furosemide 40, insulin for diabetes. REVIEW OF SYSTEMS: The patient describes general lightheadedness, weakness, mild, possibly some chest tightness, but no discomfort per se, does not really remember what happened to her. Denies abdominal pain. Denies any melena, hematochezia, or hematemesis. PHYSICAL EXAMINATION: GENERAL: This is a pleasant white female, alert and oriented, although very weak. VITAL SIGNS: Blood pressure 113/57, respiratory rate 18, pulse 100, afebrile, 96%. HEENT: The patient's head was atraumatic, normocephalic. Eyes: PERRLA without jaundice. The mouth and throat were normal. NECK: Supple, without JVD, carotid bruits nor thyromegaly. LUNGS: The patient's lungs were diminished throughout, but basically clear. CARDIOVASCULAR: Regular sinus rhythm, occasional dropped beat. ABDOMEN: Soft, nontender, no rebounding or guarding. Positive bowel sounds, no hepatosplenomegaly noted. EXTREMITIES: No clubbing, cyanosis, nor edema. NEUROLOGIC: Presently alert and oriented x 3. Speech is fluent, spontaneous, and appropriate. LABORATORY DATA: The patient's labs show slight elevation of white count. Otherwise, the CBC is noncontributory. Chemistry showed a low potassium of 2.8, BUN and creatinine 43 and 1.8, otherwise unremarkable. Urine was unremarkable. CT scan of the head, no acute process noted. Otherwise, unremarkable. IMPRESSION AND PLAN: Change in mental status, syncope, hypokalemia, type 2 diabetes, history of coronary artery disease and the patient continued to be monitored and adjusted potassium and continue to monitor blood pressure and other critical vital signs. PUJA WOLFF MD DR: DAISY/nitesh JOB#: [id number] / [id number]
[2020-08-17 20:05] VITALS: BP 129/53
[2020-08-17] MEDS: CARVEDILOL 6.25 MG TABLET PO SCH (20:30)
[2020-08-17] MEDS: GABAPENTIN 300 MG CAPSULE. PO SCH (20:31)
[2020-08-17] MEDS ORDERED: PROPRANOLOL 20 MG TABLET. PO SCH (21:00)
[2020-08-17] MEDS ORDERED: ENOXAPARIN ** NOTE DOSE ** SYRINGE SQ SCH (21:00)
[2020-08-17] MEDS: INSULIN GLARGINE SYRINGE. SQ SCH (21:00)
[2020-08-17] MEDS: ONDANSETRON PF 4 MG/2 ML VIAL. IVP PRN (22:16)
[2020-08-18] MEDS: IPRATRPIUM/ALBUTEROL 0.5/2.5MG 3 ML NEBU. NEB SCH ×4 (05:25→20:21)
[2020-08-18] MEDS: IV RINGERS SOLUTION,LACTATED 1,000 ML IV SCH ×2 (05:30→17:07)
[2020-08-18 07:00] VITALS: BP 104/59
[2020-08-18] MEDS: CARVEDILOL 6.25 MG TABLET PO SCH ×2 (08:14→20:17)
[2020-08-18] MEDS: POTASSIUM CHLORIDE 20 MEQ TABLET.ER. PO SCH ×2 (08:14→20:17)
[2020-08-18] MEDS: GABAPENTIN 300 MG CAPSULE. PO SCH ×2 (08:15→20:17)
[2020-08-18] MEDS: LOSARTAN 50 MG TABLET. PO SCH (08:15)
[2020-08-18] MEDS: INSULIN LISPRO 300 UNITS/3 ML VIAL. SQ SCH ×3 (08:16→17:02)
[2020-08-18 12:00] VITALS: BP 102/60
[2020-08-18] MEDS: FENOFIBRATE NANOCRYSTALLIZED 145 MG TABLET PO SCH (13:00)
[2020-08-18 15:00] VITALS: BP 97/61
[2020-08-18] MEDS ORDERED: IPRATRPIUM/ALBUTEROL 0.5/2.5MG 3 ML NEBU. ONE (15:21)
[2020-08-18 19:45] VITALS: BP 105/55
[2020-08-18] MEDS: INSULIN GLARGINE SYRINGE. SQ SCH (20:42)
[2020-08-18] MEDS ORDERED: INSULIN GLARGINE SYRINGE. SQ SCH (21:00)
[2020-08-18 23:00] VITALS: BP 83/56
[2020-08-19] MEDS: IV RINGERS SOLUTION,LACTATED 1,000 ML IV SCH (01:30)
--- NOTE | 2020-08-19 02:50 | PN ---
DATE: SUBJECTIVE: A 69-year-old female came in with syncope, had fallen and hit her head on the kitchen floor. The patient continued to have some sinus tachycardia. Apparently, her event monitor ran out of batteries and did not have that while she was falling, so we do not have any record of that, but other than that, she seems to be doing fair. She is still very weak, pale appearing, very tachycardic at all when she tries to walk. OBJECTIVE: VITAL SIGNS: Blood pressure 105/55, respiration 16, pulse grossly 100 now, has a temperature up to 100.4 (NC). GENERAL: The patient is a well-developed, well-nourished female. LUNGS: Otherwise, the patient's lungs are basically clear. CARDIOVASCULAR: Tachycardic. ABDOMEN: Soft, diffuse tenderness. EXTREMITIES: No clubbing, cyanosis, no edema. NEUROLOGIC: Baseline. LABORATORY DATA: The patient's D-dimer is elevated, ____ she did fall and that might be a precipitating factor, but we will do a CTA in the morning just to cover the basis of ____. She did a 6-minute walk ____ above 90% at all times. IMPRESSION: Syncope, mild concussion from fall, sinus tachycardia, hypokalemia, type 2 diabetes, coronary artery disease. PLAN: Continue to monitor electrolytes, blood sugars, and any change in mental status from her fall and mild concussion. PUJA WOLFF MD DR: DAISY/nitesh JOB#: [id number] / [id number]
[2020-08-19] MEDS: IPRATRPIUM/ALBUTEROL 0.5/2.5MG 3 ML NEBU. NEB SCH (05:07)
[2020-08-19] MEDS: ACETAMINOPHEN/CODEINE 300/30MG TABLET PO PRN (05:09)
[2020-08-19 07:04] VITALS: BP 88/58
[2020-08-19 07:21] LABS: BASO % 0 % (0-3); EOS # 0.1 x10^3/uL (0.0-0.7); EOS % 3 % (0-3); HEMOGLOBIN 10.1 g/dL (12.0-15.5); LYMPH % 18 % (24-48); MEAN CORPUSCULAR HEMOGLOBIN 29 pg (25-35); MEAN CORPUSCULAR HGB CONC 33 g/dL (31-37); MEAN CORPUSCULAR VOLUME 89 fL (79-100); MONO # 0.4 x10^3/uL (0.0-1.1); MONO % 7 % (0-9); NEUT # 3.9 x10^3uL (1.8-7.7); NEUT % 73 % (31-73); PLATELET COUNT 223 x10^3/uL (140-400); RED BLOOD COUNT 3.48 x10^6/uL (3.50-5.40); WHITE BLOOD COUNT 5.3 x10^3/uL (4.0-11.0)
[2020-08-19 07:34] LABS: ALBUMIN 1.9 g/dL (3.4-5.0); ALBUMIN/GLOBULIN RATIO 0.5 (1.0-1.7); CALCIUM 8.5 mg/dL (8.5-10.1); GFR 55.1; POTASSIUM 4.9 mmol/L (3.5-5.1); TOTAL BILIRUBIN 0.3 mg/dL (0.2-1.0); TOTAL PROTEIN 5.6 g/dL (6.4-8.2)
[2020-08-19] MEDS: POTASSIUM CHLORIDE 20 MEQ TABLET.ER. PO SCH (07:45)
[2020-08-19] MEDS: LOSARTAN 50 MG TABLET. PO SCH (07:45)
[2020-08-19] MEDS: GABAPENTIN 300 MG CAPSULE. PO SCH (07:45)
[2020-08-19] MEDS: CARVEDILOL 6.25 MG TABLET PO SCH (07:45)
[2020-08-19] MEDS: INSULIN LISPRO 300 UNITS/3 ML VIAL. SQ SCH (07:46)
[2020-08-19] MEDS: FENOFIBRATE NANOCRYSTALLIZED 145 MG TABLET PO SCH (07:46)
--- NOTE | 2020-08-19 08:07 | PDOC ---
CARDIO Progress Notes Date & Time Date of Service DATE: 08/19/20 TIME: 08:05 Time of Evaluation 08:05 Subjective Notes feels fatigued Vitals Vitals Vital Signs Date Time Temp Pulse Resp B/P (MAP) Pulse Ox O2 Delivery O2 Flow Rate FiO2 08/19/20 07:45 78 88/58 08/19/20 07:04 10 Room Air 08/19/20 06:19 98 08/18/20 19:45 100.4 08/18/20 15:23 1.0 Weight Weight [ ] Input and Output I.O. Intake and Output 08/19/20 07:00 Intake Total 460 ml Balance 460 ml Intake Oral 460 ml # Voids 3 Laboratory Labs Laboratory Tests Test 08/17/20 17:17 08/17/20 20:58 08/18/20 08:12 08/18/20 12:01 Glucose (Fingerstick) 327 mg/dL (70-99) 260 mg/dL (70-99) 130 mg/dL (70-99) 293 mg/dL (70-99) Test 08/18/20 17:00 08/18/20 20:21 08/19/20 07:12 08/19/20 07:41 Glucose (Fingerstick) 172 mg/dL (70-99) 218 mg/dL (70-99) 137 mg/dL (70-99) White Blood Count 5.3 x10^3/uL (4.0-11.0) Red Blood Count 3.48 x10^6/uL (3.50-5.40) Hemoglobin 10.1 g/dL (12.0-15.5) Hematocrit 31.0 % (36.0-47.0) Mean Corpuscular Volume 89 fL (79-100) Mean Corpuscular Hemoglobin 29 pg (25-35) Mean Corpuscular Hemoglobin Concent 33 g/dL (31-37) Red Cell Distribution Width 14.0 % (11.5-14.5) Platelet Count 223 x10^3/uL (140-400) Neutrophils (%) (Auto) 73 % (31-73) Lymphocytes (%) (Auto) 18 % (24-48) Monocytes (%) (Auto) 7 % (0-9) Eosinophils (%) (Auto) 3 % (0-3) Basophils (%) (Auto) 0 % (0-3) Neutrophils # (Auto) 3.9 x10^3uL (1.8-7.7) Lymphocytes # (Auto) 1.0 x10^3/uL (1.0-4.8) Monocytes # (Auto) 0.4 x10^3/uL (0.0-1.1) Eosinophils # (Auto) 0.1 x10^3/uL (0.0-0.7) Basophils # (Auto) 0.0 x10^3/uL (0.0-0.2) Sodium Level 140 mmol/L (136-145) Potassium Level 4.9 mmol/L (3.5-5.1) Chloride Level 108 mmol/L (98-107) Carbon Dioxide Level 25 mmol/L (21-32) Anion Gap 7 (6-14) Blood Urea Nitrogen 12 mg/dL (7-20) Creatinine 1.0 mg/dL (0.6-1.0) Estimated GFR (Cockcroft-Gault) 55.1 BUN/Creatinine Ratio 12 (6-20) Glucose Level 137 mg/dL (70-99) Calcium Level 8.5 mg/dL (8.5-10.1) Total Bilirubin 0.3 mg/dL (0.2-1.0) Aspartate Amino Transf (AST/SGOT) 36 U/L (15-37) Alanine Aminotransferase (ALT/SGPT) 38 U/L (14-59) Alkaline Phosphatase 112 U/L (46-116) Total Protein 5.6 g/dL (6.4-8.2) Albumin 1.9 g/dL (3.4-5.0) Albumin/Globulin Ratio 0.5 (1.0-1.7) Physical Exams HEENT: Neck Supple W Full Motion Chest: Symmetric Lungs: Clear to Auscultation Heart: RRR Abdomen: Soft N/T Extremities: No Edema Neurology: alert, oriented, follow commands Assessment Assessment 1. Syncope most probably secondary to dehydration since patient had lack of ap petite, nausea and vomiting since she had Covid 2 weeks ago. Continue intravenous fluids. Recent 2D echo in November 2019 showed LVEF 55%. Telemetry so far did not show any significant arrhythmias. She does have history of syncope of uncertain etiology in the past and has a loop recorder implanted. No recent device download noted. Device battery most probable as this was impl anted in 2017. Will have [employer] interrogate. 2. Coronary artery disease s/p PCI/KAROLINA to LAD and PDA/RCA with cardiac cathet erization in November 2019 showing patent stents with 50 to 60% stenosis involving OM/LCx that was insignificant based on IFR measurement. She is clinically stable and chest pain-free. Continue current secondary prevention measures. 3. Hypertension: low end. Hold Coreg, losartan for now 4. Diabetes mellitus type 2: Treat per IM 5. Hypokalemia: Replaced 6. JED on CKD; improved with IVFs AMBIKA RIVERA APRN Aug 19, 2020 08:07
[2020-08-19] MEDS: ONDANSETRON PF 4 MG/2 ML VIAL. IVP PRN (08:36)
[2020-08-19] MEDS ORDERED: CARVEDILOL 6.25 MG TABLET PO SCH (09:15)
[2020-08-19 09:45] VITALS: BP 90/53
[2020-08-19] MEDS ORDERED: DOXYCYCLINE HYCLATE 100 MG TABLET PO SCH (09:45)
[2020-08-19] MEDS ORDERED: IV NORMAL SALINE 500ML 500 ML IV ONE (09:45)
[2020-08-19] MEDS ORDERED: CARVEDILOL 3.125 MG TABLET PO SCH (09:45)
[2020-08-19] MEDS ORDERED: CARV3.1230 PO (09:55)
[2020-08-19] MEDS ORDERED: IPRA3AMP29 NEB (09:55)
[2020-08-19] MEDS ORDERED: LOSA25TA PO (09:55)
[2020-08-19] MEDS ORDERED: FENO145T3 PO (09:55)
[2020-08-19] MEDS ORDERED: DOXY100T PO (09:55)
[2020-08-19] MEDS ORDERED: IPRATRPIUM/ALBUTEROL 0.5/2.5MG 3 ML NEBU. NEB SCH (12:00)
--- NOTE | 2020-08-19 16:18 | DISCH ---
HOME HEALTH DISCHARGE/MEDS DISCHARGE INFORMATION: Discharge Date: Aug 19, 2020 Final Diagnosis: Problems Medical Problems: (1) Hypokalemia Status: Acute (2) Syncope Status: Acute Condition on Discharge: Stable CODE STATUS: Code Status: Full HOME HEALTH: Face to Face: I certify this patient is under my care and that I, or a nurse practitioner or physician's occupational therapist's assistant working with me, had a face to face encounter that meets the physician face to face encounter requirements with this patient on 08/19/20. Medical Condition(s): DM, HTN Long Term For: Assess Cardiopulm Status, Assess & Educate Safety, Assess/Skilled Observatio, Medication Management Homebound Status Met By: Fatigue w/ amb. POST DISCHARGE ORDERS: Activity Instructions for Disc: Activity as tolerated Weight Bearing Status after Di: No restrictions DIET AFTER DISCHARGE: ADA CERTIFICATION STATEMENT: Certification Statement: Based on the above finding, I certify that this patient is confined to the home and needs intermittent care home care, physical therapy and/or speech therapy, or continues to need occupational therapy.~ This patient is under my care, and I have initiated the establishment of the plan of care.~ This patient will be followed by myself or a community physician who will periodically review the plan of care. DISCHARGE MEDICATIONS: Home Meds Active Scripts Losartan Potassium (COZAAR ) 25 Mg Tablet, 25 MG PO DAILY for htn for 30 Days, #30 TAB 4 Refills Prov:PUJA WOLFF MD 08/19/20 Carvedilol (CARVEDILOL ) 3.125 Mg Tablet, 3.125 MG PO BID for chf for 30 Days, #60 TAB 3 Refills Prov:PUJA WOLFF MD 08/19/20 Fenofibrate Nanocrystallized (FENOFIBRATE) 145 Mg Tablet, 145 MG PO DAILY for hypertriglyceridemia for 30 Days, #30 TAB Prov:PUJA WOLFF MD 08/19/20 Ipratropium/Albuterol Sulfate (DUONEB 0.5-3(2.5) MG/3 ML) 3 Ml Ampul.neb, 3 ML NEB RTQID for empshema for 30 Days, #120 EACH 5 Refills Prov:PUJA WOLFF MD 08/19/20 Doxycycline Hyclate (DOXYCYCLINE HYCLATE) 100 Mg Tablet, 100 MG PO BID for bronchitis for 7 Days, #14 TAB Prov:PUJA WOLFF MD 08/19/20 Albuterol Sulfate (VENTOLIN HFA INHALER) 18 Gm Hfa.aer.ad, 1 PUFF IH PRN Q4HRS for shortness of breath, #1 INHALER 0 Refills Prov:KORY IRVIN 02/23/20 Reported Medications Insulin Aspart (NOVOLOG) 100 Unit/1 Ml Vial, 1 UNIT SQ QIDACHS for Diabetes, EAC H 08/16/20 Acetaminophen (TYLENOL) 325 Mg Tablet, 1 TAB PO TID PRN PRN for PAIN, #30 TAB 12/09/19 Furosemide (FUROSEMIDE) 40 Mg Tablet, 1 TAB PO DAILY for DIURETIC, #30 TAB 5 Refills 12/09/19 Insulin Degludec (Tresiba) 100 Unit/1 Ml Vial, 30 UNIT SQ DAILY for DIABETES, EACH 12/09/19 Gabapentin (Gabapentin) 300 Mg Capsule, 300 MG PO BID for PAIN LAST DOSE GIVEN: DATE: YESTERDAY TIME: AT BEDTIME NEXT DOSE DUE: DATE: TODAY TIME: AT BEDTIME 07/12/17 Discontinued Reported Medications Olmesartan/Hydrochlorothiazide (BENICAR HCT 40-25 MG TABLET) 1 Each Tablet, 1 TAB PO DAILY for htn for 30 Days, #30 TAB 0 Refills 12/09/19 Propranolol Hcl (PROPRANOLOL HCL) 20 Mg Tablet, 1 TAB PO BID for blood pressure, #60 TAB 2 Refills 08/15/18 Carvedilol (COREG ) 12.5 Mg Tablet, 1 TAB PO BID for HIGH BLOOD PRESSURE LAST DOSE GIVEN: DATE: TODAY TIME: WITH BREAKFAST NEXT DOSE DUE: DATE: TODAY TIME: WITH DINNER 03/18/18 Cyclobenzaprine Hcl (CYCLOBENZAPRINE HCL) 10 Mg Tablet, 1 TAB PO TID PRN PRN for MUSCLE PAIN, #90 TAB 12/09/19 Budesonide/Formoterol Fumarate (SYMBICORT 160-4.5 MCG INHALER) 10.2 Gm Hfa.aer.ad, 2 PUFF IH BID for ALLERGIES, #10.6 GM 3 Refills 12/09/19 Nitroglycerin (NITROGLYCERIN SubLingual) 0.4 Mg Tab.subl, 0.4 MG SL PRN Q5MIN PRN for CHEST PAIN, BOTTLE 12/09/19 Escitalopram Oxalate (ESCITALOPRAM OXALATE) 10 Mg Tablet, 1 TAB PO DAILY for DEPRESSION, #30 TAB 3 Refills 12/09/19 Ropinirole Hcl (REQUIP) 0.25 Mg Tablet, 0.5 MG PO BID for PARKINSONS, TAB 12/08/19 Primidone (MYSOLINE) 50 Mg Tablet, 1 TAB PO QID for SEIZURE for 30 Days, #120 TAB 0 Refills 12/08/19 Apixaban (ELIQUIS) 2.5 Mg Tablet, 2.5 MG PO BID for BLOOD THINNER, TAB 12/08/19 Sulfamethoxazole/Trimethoprim (BACTRIM 400-80 MG TABLET) 1 Each Tablet, 2 TAB PO Q12HR for kidney infection for 7 Days, #28 TAB 0 Refills 12/08/19 Levetiracetam (KEPPRA) 500 Mg Tablet, 1 TAB PO BID for seizures, #180 TAB 3 Refills 08/15/18 Alprazolam (XANAX) 0.25 Mg Tablet, 1 TAB PO PRN TID PRN for ANXIETY / AGITATION LAST DOSE GIVEN: DATE: TODAY TIME: AM NEXT DOSE DUE: DATE: TOMORROW TIME: AM 03/18/18 Escitalopram Oxalate (ESCITALOPRAM OXALATE) 10 Mg Tablet, 1 TAB PO DAILY for DEPRESSION LAST DOSE GIVEN: DATE: TODAY TIME: AM NEXT DOSE DUE: DATE: TOMORROW TIME: AM 03/18/18 PUJA WOLFF MD Aug 19, 2020 16:18
[2020-08-20] MEDS ORDERED: LOSARTAN 25 MG TABLET. PO SCH (09:45)
--- NOTE | 2020-08-29 10:11 | DS ---
DATE OF DISCHARGE: 08/19/2020 HOSPITAL COURSE: A 69-year-old female came in through the ER, apparently was found on the floor. The patient has recently some nausea and vomiting. Denies chest pain, but was unconscious with a syncopal spell when she was brought in and change in mental status for further evaluation and treatment. The patient did show an elevated white count; however, the patient also had a low potassium of 2.8 and elevated BUN and creatinine, showing dehydration. The patient was unaware of how long she was on the floor, blood pressure did drop even here in the hospital to approximately 83/50, oxygen saturation required some oxygen supplemental to maintain her oxygen levels. The patient was evaluated by Cardiology as well. The patient was noted to have a mild concussion since she did hit her head and seems to be a little bit confused and had a change in mentation there when she first came in and all that seemed to resolve very nicely. The patient also had some nausea and vomiting. The patient's CT head was unremarkable. The abdominal CT scan did show ground-glass opacities in the lower lobe, possible atypical pneumonia and placed on doxycycline for that as well. She was also hydrated to improve her overall hemodynamic capabilities. Her creatinine did come down from 1.8 down to 1.1, potassium went up from 2.8 to 4.9. The patient also has severe protein malnutrition. Overall, the patient received PT, OT and was then discharged home. The other important thing was her triglycerides were elevated at over 1800. Cholesterol of 271. Cardiac enzymes were negative. C-reactive protein 48. FINAL DIAGNOSES: Syncope, concussion from a fall in kitchen, sinus tachycardia, severe hypokalemia, type 2 diabetes, acute renal failure, severe protein malnutrition, severe hypertriglyceridemia, familial hypercholesterolemia, pneumonia of unspecified etiology, atypical, probably community-acquired glucosuria, evidences of emphysema, history of coronary artery disease, pneumococcal vaccination done on 07/12/2017, hypotension. Blood pressure as low as 80/58, although came back up into range with additional fluids and supportive therapy. PLAN: The patient will be discharged on a diabetic diet, decreased activity, no driving. She is to return to clinic. If she does smoke, no smoking. Breathing treatments at home and she is to follow up accordingly in the next week or so. PUJA WOLFF MD DR: DAISY/nitesh JOB#: [id number] / [id number]
== END 2020-08-19 10:51 | disposition home health service (06) | DRG 73 ==
LOC: ER 19:24 → ICU 21:00
PROVIDERS: ADMIT Family Medicine; ATTEND Family Medicine
DX: G90.8 Other disorders of autonomic nervous system (principal); N17.0 Acute kidney failure with tubular necrosis; E43 Unspecified severe protein-calorie malnutrition; E86.0 Dehydration; D72.829 Elevated white blood cell count, unspecified; E03.9 Hypothyroidism, unspecified; E11.22 Type 2 diabetes mellitus with diabetic chronic kidney disease; E78.5 Hyperlipidemia, unspecified; E78.00 Pure hypercholesterolemia, unspecified; E87.6 Hypokalemia; G20 Parkinson's disease; I12.9 Hypertensive chronic kidney disease with stage 1 through stage 4 chronic kidney disease, or unspecified chronic kidney disease; I25.10 Atherosclerotic heart disease of native coronary artery without angina pectoris; I25.2 Old myocardial infarction; I48.91 Unspecified atrial fibrillation; I49.3 Ventricular premature depolarization; J44.9 Chronic obstructive pulmonary disease, unspecified; M06.9 Rheumatoid arthritis, unspecified; N18.9 Chronic kidney disease, unspecified; F32.9 Major depressive disorder, single episode, unspecified; F41.9 Anxiety disorder, unspecified; K21.9 Gastro-esophageal reflux disease without esophagitis; W18.30XA Fall on same level, unspecified, initial encounter; Z86.16 Personal history of COVID-19; S06.0X0A Concussion without loss of consciousness, initial encounter; Z81.3 Family history of other psychoactive substance abuse and dependence; Z82.3 Family history of stroke; Z82.5 Family history of asthma and other chronic lower respiratory diseases; Z85.41 Personal history of malignant neoplasm of cervix uteri; Z85.42 Personal history of malignant neoplasm of other parts of uterus; Z86.73 Personal history of transient ischemic attack (TIA), and cerebral infarction without residual deficits; Z90.710 Acquired absence of both cervix and uterus; Z95.5 Presence of coronary angioplasty implant and graft; Z90.49 Acquired absence of other specified parts of digestive tract; Z88.0 Allergy status to penicillin; Z88.8 Allergy status to other drugs, medicaments and biological substances; Y93.89 Activity, other specified; Y92.89 Other specified places as the place of occurrence of the external cause; Y99.8 Other external cause status; Z68.25 Body mass index [BMI] 25.0-25.9, adult
CPT/HCPCS: 36415; 70450; 71045; 74019; 74176; 80048; 80053; 80061; 80076; 81001; 82550; 82947; 83690; 83735; 84443; 84484; 85007; 85025; 85379; 85610; 85730; 86140; 90471; 90686; 93005; 94618; 94640; 96372; 96374; J1650; J1815; J2405; J7040; J7120; 99285-25

== ENCOUNTER 2020-08-29 14:40 | Inpatient (IN) | payer MEDICARE, BC ==
[~2020-08-29] VITALS: Ht 152.4 cm; Wt 60.1 kg
[~2020-08-29 14:40] MED LIST changes: +CARV3.1230 PO; +DOXY100T PO; +INSU100V31 SQ; +LOSA25TA PO
[2020-08-29] MEDS ORDERED: BENZONATATE 100 MG CAPSULE. PO ONE (15:00)
[2020-08-29] MEDS ORDERED: KETOROLAC 15 MG/ML VIAL. IVP ONE (15:00)
--- NOTE | 2020-08-29 15:00 | PHYS DOC ---
Past History Past Medical History: A-Fib, Anxiety, Arthritis, CAD, Cancer, COPD, Diabetes, High Cholesterol, Hypertension, Hypothyroid, Other Additional Past Medical Histor: PARKINSON'S (SADE DOUGHERTY APRN) Past Surgical History: Cholecystectomy, , Hysterectomy, Oophorectomy, Tonsillectomy, Other Additional Past Surgical Histo: CARDIAC STENTS; HEAD SURGERY FX; CANCER; ABD HERNIA REPAIR; L KNEE; BACK (SADE DOUGHERTY APRN) Smoking: Non-smoker Alcohol Use: None Drug Use: None (SADE DOUGHERTY APRN) Adult General Chief Complaint Chief Complaint: SHORTNESS OF BREATH HPI HPI Patient is a 69-year-old female presents to the emergency department complaining of ongoing shortness of breath for over a month. Patient states that she has been treated by Dr. Cooley for COVID-19 virus diagnosed on August 03, 2020, patient states she has been on regimens of doxycycline, Levaquin, dexamethasone. Patient reports that her shortness of breath has been increasingly worsening since her diagnosis. Patient reports that Dr. Cooley's nurse practitioner sent her to the emergency department today to r ule out pulmonary emboli. Patient states that she has sternal chest pain with deep inspiration, expiration, and cough. Patient states it hurts the most when she presses on her chest in the center. Patient denies any radiation of this pain, denies nausea, vomiting, diarrhea, diaphoretic episodes. Denies chest congestion, nasal congestion, headaches, recent fever or chills. Patient denies any other physical complaints or physical concerns, patient states she is here just to see if she has "a clot in the lungs" (SADE DOUGHERTY APRN) Review of Systems Review of Systems 14 body systems of review of systems have been reviewed. See HPI for pertinent positives and negative responses, otherwise all other systems are negative, nonpertinent or noncontributory. (SADE DOUGHERTY APRN) Allergies Allergies Allergies Coded Allergies Type Severity Reaction Last Updated Verified Penicillins Allergy Intermediate 08/16/20 Yes Soap Allergy Intermediate 08/16/20 Yes hydrocodone bitartrate Allergy Intermediate Itching 08/16/20 Yes metformin Allergy Intermediate 08/16/20 Yes mushroom Allergy Intermediate 08/16/20 Yes niacin Allergy Intermediate 08/16/20 Yes povidone-iodine Allergy Intermediate 04/24/19 Yes aspirin Allergy Mild 04/24/19 Yes (SADE DOUGHERTY APRN) Physical Exam Physical Exam Constitutional: Well developed, well nourished, no acute distress, non-toxic appearance. 69-year-old female in no apparent distress HENT: Normocephalic, atraumatic, bilateral external ears normal, oropharynx moist, no oral exudates, nose normal. Oropharynx pink, moist, not erythematous, no uvular edema, no tonsillar swelling, no deep tissue or infectious process appreciated, no lymphadenopathy of the head or neck appreciated. Eyes: PERRLA, EOMI, conjunctiva normal, no discharge. Neck: Normal range of motion, no tenderness, supple, no stridor. No midline cervical tenderness, no nuchal rigidity, no meningismus signs. Cardiovascular:Heart rate regular rhythm, heart sounds S1-S2 to auscultation. Lungs & Thorax: Bilateral breath sounds clear to auscultation all lung bowling, no adventitious lung sounds appreciated. Reproducible sternal chest pain to palpation, reproducible pain with deep inspiration and expiration, pain is reproduced with movement of bilateral upper extremities. Abdomen: Bowel sounds normal, soft, no tenderness, no masses, no pulsatile masses. Skin: Warm, dry, no erythema, no rash. Back: No tenderness, no CVA tenderness. Extremities: No tenderness, no cyanosis, no clubbing, ROM intact, no edema. Neurologic: Alert and oriented X 3, normal motor function, normal sensory function, no focal deficits noted. Psychologic: Affect normal, judgement normal, mood normal. (SADE DOUGHERTY APRN) Current Patient Data Vital Signs Vital Signs Date Time Temp Pulse Resp B/P (MAP) Pulse Ox O2 Delivery O2 Flow Rate FiO2 08/29/20 14:46 98.1 94 16 151/91 (111) 99 Room Air Lab Results Laboratory Tests Test 08/29/20 14:51 08/29/20 14:54 D-Dimer (Louann) 1.11 mg/L White Blood Count 7.7 x10^3/uL Red Blood Count 3.60 x10^6/uL Hemoglobin 10.4 g/dL Hematocrit 32.6 % Mean Corpuscular Volume 91 fL Mean Corpuscular Hemoglobin 29 pg Mean Corpuscular Hemoglobin Concent 32 g/dL Red Cell Distribution Width 13.9 % Platelet Count 377 x10^3/uL Neutrophils (%) (Auto) 59 % Lymphocytes (%) (Auto) 31 % Monocytes (%) (Auto) 7 % Eosinophils (%) (Auto) 3 % Basophils (%) (Auto) 1 % Neutrophils # (Auto) 4.5 x10^3uL Lymphocytes # (Auto) 2.4 x10^3/uL Monocytes # (Auto) 0.5 x10^3/uL Eosinophils # (Auto) 0.2 x10^3/uL Basophils # (Auto) 0.1 x10^3/uL Sodium Level 141 mmol/L Potassium Level 3.8 mmol/L Chloride Level 108 mmol/L Carbon Dioxide Level 24 mmol/L Anion Gap 9 Blood Urea Nitrogen 22 mg/dL Creatinine 0.9 mg/dL Estimated GFR (Cockcroft-Gault) 62.3 BUN/Creatinine Ratio 24 Glucose Level 126 mg/dL Calcium Level 9.3 mg/dL Phosphorus Level 3.2 mg/dL Magnesium Level 2.1 mg/dL Total Bilirubin 0.2 mg/dL Aspartate Amino Transf (AST/SGOT) 17 U/L Alanine Aminotransferase (ALT/SGPT) 23 U/L Alkaline Phosphatase 105 U/L Creatine Kinase 47 U/L Creatine Kinase MB (Mass) 0.5 ng/mL Creatine Kinase MB Relative Index 1.1 % Troponin I Quantitative < 0.017 ng/mL QM-Ycu-T-Type Natriuretic Peptide 204 pg/mL Total Protein 6.7 g/dL Albumin 2.7 g/dL Albumin/Globulin Ratio 0.7 Current Medications Medications (Trade) Dose Ordered Sig/Juan Route PRN Reason Start Time Stop Time Status Last Admin Dose Admin Benzonatate (Tessalon Perle) 100 mg 1X ONCE PO 08/29/20 15:00 08/29/20 15:06 DC 08/29/20 15:07 Ketorolac Tromethamine (Toradol 15mg Vial) 15 mg 1X ONCE IVP 08/29/20 15:00 08/29/20 15:06 DC 08/29/20 15:07 Iohexol (Omnipaque 350 Mg/ml) 100 ml 1X ONCE IV 08/29/20 17:30 08/29/20 17:37 DC 08/29/20 17:29 (SADE DOUGHERTY APRN) EKG EKG EKG performed at 1507 by ED nursing staff, shows a normal sinus rhythm without other ectopy with a heart rate of 93 bpm, NM interval 0.124, QTc interval 0.463, no acute STEMI, no ACS, no acute ischemia appreciated, EKG interpreted by ED attending physician Dr. Mauro (SADE DOUGHERTY APRN) Radiology/Procedures Radiology/Procedures PATIENT: FAMILIA MAR ACCOUNT: [id number] : 1950 LOCATION: ER AGE: 69 SEX: F EXAM STATUS: REG ER ORD. PHYSICIAN: SADE DOUGHERTY APRN REASON: SHORT OF BREATH PROCEDURE: CHEST PA & LATERAL XR CHEST 2V History: Reason: SHORT OF BREATH / Spl. Instructions: / History: Comparison: August 16, 2020 Findings: Ill-defined right mid and bibasilar opacities. No pleural effusion. Normal heart size. No pneumothorax. Surgical clips right upper quadrant. External cardiac monitoring device noted. Impression: 1. Ill-defined right mid and bibasilar opacities, may represent atelectasis or developing infiltrates. Electronically signed by: George Frederick DO (08/29/2020 3:21 PM) [facility] DICTATED AND SIGNED BY: GEORGE FREDERICK DO DATE: 08/29/20 1520 CC: SADE DOUGHERTY APRN; HUBERT WOLFF MD ~MTH0 0 (SADE DOUGHERTY APRN) Heart Score C/O Chest Pain: Yes HEART Score for Chest Pain: HEART Score for Chest Pain Response (Comments) Value History Slighlty/Non-Suspicious 0 ECG Normal 0 Age > 65 2 Risk Factors 1 or 2 Risk Factors 1 Total 3 Risk Factors: Risk Factors: DM, Current or recent (<one month) smoker, HTN, HLP, family history of CAD, obesity. Risk Scores: Risk Factors: DM, Current or recent (<one month) smoker, HTN, HLP, family history of CAD, obesity. (SADE DOUGHERTY APRN) Course & Med Decision Making Course & Med Decision Making Pertinent Labs and Imaging studies reviewed. (See chart for details) 61-year-old female, vital signs reviewed, presents to the emergency department concerning for a pulmonary embolus work-up, patient was sent here by her primary care physician office for this work-up. Patient's physical presentation consistent with cardiopulmonary process, a cardiopulmonary work-up was initiated in the ED. Patient's chest x-ray concerning for possible bilateral pneumonia, patient's serum lab work however equivocal and nonconcerning for infectious process, patient's EKG was negative for acute process, the patient's cardiac enzymes were negative.. Patient D-dimer positive, will order CT angio chest. CT angio chest read by house radiologist interpretation is bilateral ground groundglass pneumonia consistent with COVID-19 virus infectious process. Discussed findings with patient and recommended admission to hospital, patient was amenable to this plan. Called and discussed patient case with Dr. Cooley who agreed to admit patient to the telemetry unit for the diagnosis of PUI, bilateral pneumonia, shortness of breath, with the information he was given, Dr. Cooley recommended patient be started on Lovenox in the emergency department, also recommended Zithromax, Levaquin, an additional COVID-19 virus test, Zosyn infusion. Will defer Zosyn infusion related to patient's penicillin allergy. Patient admitted to [facility] telemetry unit, Dr. Cooley has assumed care at this time. (SADE DOUGHERTY APRN) Dragon Disclaimer Dragon Disclaimer This electronic medical record was generated, in whole or in part, using a voice recognition dictation system. (SADE DOUGHERTY APRN) Departure Departure: Impression: Primary Impression: Person under investigation for COVID-19 Additional Impressions: Bilateral pneumonia Shortness of breath Disposition: ADMITTED INPT THIS HOSP Admitting Physician: Hubert Wolff (Admit to telemetry unit to Dr. Cooley) (SADE DOUGHERTY APRN) Condition: GUARDED Referrals: HUBERT WOLFF MD (PCP) Scripts Mag Hydrox/Al Hydrox/Simeth (MAG-AL PLUS XS SUSPENSION) 30 Ml Oral.susp 30 ML PO PRN Q2HR PRN for DYSPEPSIA, #1 LIQUID Use as directed Prov: HUBERT WOLFF MD 09/02/20 Lactobacillus Rhamnosus Gg (CULTURELLE) 1 Each Cap.sprink 1 CAP PO BID for probiotic for 30 Days, #60 CAP 2 Refills Prov: HUBERT WOLFF MD 09/02/20 Dexamethasone (Decadron) 4 Mg Tablet 4 MG PO DAILY for inflammation for 10 Days, #10 TAB Prov: HUBERT WOLFF MD 09/02/20 Benzonatate (BENZONATATE) 100 Mg Capsule 200 MG PO PRN TID PRN for cough, #45 CAP 1 Refill Prov: HUBERT WOLFF MD 09/02/20 Attending Signature Attending Signature I have reviewed the PA/ASSISTANT DRAFTER's note and plan of care. I was available for consultation as needed during the patient's visit in the emergency department. I agree with the clinical impression, plan, and disposition. (SADE MAURO DO) Problem Qualifiers Additional Impressions: Bilateral pneumonia Pneumonia type: due to unspecified organism Lung location: unspecified part of lung Qualified Codes: J18.9 - Pneumonia, unspecified organism SADE DOUGHERTY APRN Aug 29, 2020 15:00 SADE MAURO DO Sep 03, 2020 18:20
[2020-08-29 15:21] LABS: BASO # 0.1 x10^3/uL (0.0-0.2); BASO % 1 % (0-3); EOS # 0.2 x10^3/uL (0.0-0.7); EOS % 3 % (0-3); HEMATOCRIT 32.6 % (36.0-47.0); HEMOGLOBIN 10.4 g/dL (12.0-15.5); LYMPH # 2.4 x10^3/uL (1.0-4.8); LYMPH % 31 % (24-48); MEAN CORPUSCULAR HEMOGLOBIN 29 pg (25-35); MEAN CORPUSCULAR HGB CONC 32 g/dL (31-37); MEAN CORPUSCULAR VOLUME 91 fL (79-100); MONO # 0.5 x10^3/uL (0.0-1.1); MONO % 7 % (0-9); NEUT # 4.5 x10^3uL (1.8-7.7); NEUT % 59 % (31-73); PLATELET COUNT 377 x10^3/uL (140-400); RED CELL DISTRIBUTION WIDTH 13.9 % (11.5-14.5); WHITE BLOOD COUNT 7.7 x10^3/uL (4.0-11.0)
--- NOTE | 2020-08-29 15:24 | RAD ---
XR CHEST 2V History: Reason: SHORT OF BREATH / Spl. Instructions: / History: Comparison: August 16, 2020 Findings: Ill-defined right mid and bibasilar opacities. No pleural effusion. Normal heart size. No pneumothora x. Surgical clips right upper quadrant. External cardiac monitoring device noted. Impression: 1. Ill-defined right mid and bibasilar opacities, may represent atelectasis or developing infiltrate s. Electronically signed by: George Frederick DO (08/29/2020 3:21 PM) [facility]
--- NOTE | 2020-08-29 15:33 | EKG ---
[address] [address] Test Date: 2020-08-29 Test Time: 15:07:12 Pat Name: FAMILIA MAR Department: Room: Gender: F It Help Desk Associate: : 1950 Requested By: SADE DOUGHERTY Order Number: [id number] Reading MD: Measurements Intervals [place] Rate: 93 P: 34 MS: 124 QRS: 2 QRSD: 74 T: 20 QT: 370 QTc: 463 Interpretive Statements SINUS RHYTHM NORMAL ECG RI6.02 No previous ECG available for comparison
[2020-08-29 15:39] LABS: CALCIUM 9.3 mg/dL (8.5-10.1); CREATININE 0.9 mg/dL (0.6-1.0); GFR 62.3; POTASSIUM 3.8 mmol/L (3.5-5.1)
[2020-08-29 15:55] LABS: ALBUMIN 2.7 g/dL (3.4-5.0); ALBUMIN/GLOBULIN RATIO 0.7 (1.0-1.7); MAGNESIUM 2.1 mg/dL (1.8-2.4); PHOSPHORUS 3.2 mg/dL (2.6-4.7); TOTAL BILIRUBIN 0.2 mg/dL (0.2-1.0); TOTAL PROTEIN 6.7 g/dL (6.4-8.2)
[2020-08-29] MEDS ORDERED: IOHEXOL 350 MG/ML 100 ML VIAL. IV ONE (17:30)
--- NOTE | 2020-08-29 17:54 | RAD ---
PQRS Compliance Statement: One or more of the following individualized dose reduction techniques were utilized for this examinat ion: 1. Automated exposure control 2. Adjustment of the mA and/or kV according to patient size 3. Use of iterative reconstruction technique CTA CHEST 08/29/2020 5:21 PM INDICATION: Shortness of breath. History of COVID and August 11. COMPARISON: CT chest 08/08/2017 TECHNIQUE: Axial CT images of the chest were obtained after the intravenous administration of nonioni c contrast. Coronal and sagittal reformats are provided. Maximum intensity projection images of the t horacic vasculature are provided. FINDINGS: The thyroid gland is normal in appearance. There is a right paratracheal lymph node measuring 7.5 mm by short axis (series 4, image 36). Right hilar lymph node measures 2.0 x 1.2 cm (series 4, image 57) . Left hilar lymph nodes measure up to 6 mm short axis (series 4, image 48). The heart size is within normal limits. No significant pericardial effusion. Thoracic aorta is normal in course and caliber. Noncalcified atheromatous plaques identified at the origin of the right innominate artery without sig nificant stenosis. Noncalcified atheromatous plaque is identified at the origin of the left common ca rotid artery without significant stenosis. Calcified atheromatous plaque is identified involving the descending thoracic aorta. There is a left paraesophageal lymph node measuring 5.5 mm (series 4, imag e 96). Small hiatal hernia. There is adequate opacification of the pulmonary arterial system. Central pulmonary artery measures 3 .2 cm. There there are no filling defects within the pulmonary arterial system to suggest acute or ch ronic pulmonary embolus. There are no suspicious solid noncalcified pulmonary nodules. New patchy groundglass changes are iden tified within the lungs with subpleural distribution and lower lung zone predominance. No pleural eff usions, pulmonary vascular congestion or pneumothorax. Visualized portions of the upper abdomen are within normal limits. Gallbladder surgically absent. No suspicious osseous lesions are visualized. IMPRESSION: There is no evidence for acute or chronic pulmonary embolism. Mild to moderate multifocal groundglass opacities are identified throughout the lungs most suggestive of a pneumonitis of infectious/inflammatory etiology, features seen with COVID pneumonia. Recommend follow-up to resolution. Findings not seen on prior CT from 07/29/2018. Mediastinal and hilar lymphadenopathy, right greater than left, likely reactive. Attention on 3 month follow-up chest CT may be of benefit. Electronically signed by: Kiara Adhikari MD (08/29/2020 5:51 PM) [facility]
[2020-08-29] MEDS ORDERED: AZITHROMYCIN 500 MG in IV NORMAL SALINE 250ML 250 ML IV ONE ×2 (18:45→22:00)
[2020-08-29] MEDS ORDERED: levoFLOXacin PER PHARMACY 1 EACH. MC PRN (18:45)
[2020-08-29] MEDS ORDERED: ENOXAPARIN ** NOTE DOSE ** SYRINGE SQ ONE (18:45)
[2020-08-29 20:16] VITALS: BP 154/84
[2020-08-30] MEDS ORDERED: CARV6.25 PO (07:31)
[2020-08-30] MEDS ORDERED: ALBU2.5V8 IH (07:31)
[2020-08-30] MEDS ORDERED: LOSA25TA PO (07:31)
[2020-08-30] MEDS ORDERED: FENO145T3 PO (07:31)
[2020-08-30] MEDS ORDERED: IPRA3AMP29 NEB (07:31)
[2020-08-30] MEDS ORDERED: ALBUTEROL SULFATE 2.5 MG/3 ML NEBU. IH PRN (07:45)
[2020-08-30] MEDS ORDERED: ACETAMINOPHEN 325 MG TABLET PO PRN (07:45)
[2020-08-30] MEDS: CARVEDILOL 3.125 MG TABLET PO SCH ×2 (08:35→17:26)
[2020-08-30] MEDS: FENOFIBRATE NANOCRYSTALLIZED 145 MG TABLET PO SCH (08:35)
[2020-08-30] MEDS: FUROSEMIDE 40 MG TABLET PO SCH (08:35)
[2020-08-30] MEDS: GABAPENTIN 300 MG CAPSULE. PO SCH ×2 (08:36→21:10)
[2020-08-30] MEDS: LOSARTAN 25 MG TABLET. PO SCH (08:36)
[2020-08-30] MEDS: INSULIN GLARGINE SYRINGE. SQ SCH (08:39)
[2020-08-30] MEDS ORDERED: IPRATRPIUM/ALBUTEROL 0.5/2.5MG 3 ML NEBU. NEB SCH (09:00)
[2020-08-30 09:16] VITALS: BP 129/78
[2020-08-30] MEDS ORDERED: ZOLPIDEM 5 MG TABLET. PO PRN (09:45)
[2020-08-30] MEDS ORDERED: MAG HYDROX/AL HYDROX/SIMETH 30 ML ORAL.SUSP PO PRN (09:45)
[2020-08-30] MEDS: BENZONATATE 100 MG CAPSULE. PO PRN (10:23)
[2020-08-30] MEDS: AZITHROMYCIN 250 MG TABLET. PO SCH (10:23)
[2020-08-30] MEDS: DEXAMETHASONE 4 MG TABLET PO SCH ×3 (10:23→21:10)
[2020-08-30] MEDS: ACETAMINOPHEN/CODEINE 300/30MG TABLET PO PRN ×2 (10:24→18:40)
[2020-08-30] MEDS: IPRATROPIUM/ALBUTEROL 20/100mcg/INH INHALER. INH SCH ×3 (11:50→20:00)
[2020-08-30] MEDS: INSULIN LISPRO 300 UNITS/3 ML VIAL. SQ SCH ×3 (12:26→21:13)
[2020-08-30 14:40] VITALS: BP 122/78
--- NOTE | 2020-08-30 19:03 | HP ---
ADMIT DATE: HISTORY OF PRESENT ILLNESS: The patient came in through the Emergency Room complaining of increased shortness of breath. The patient recently had a history of COVID-19 pneumonia, began to recover. She started her symptoms back on 08/03/2020 and notes that her shortness of breath had been increasing. She also was noted to have some chest pain and chest pressure. She denies any nausea, vomiting, or diaphoresis. PAST MEDICAL HISTORY: Includes that of detached retina, ear surgeries, cataracts, tonsillectomy, hearing loss 80%, skull fracture, frequent falls, strokes, TIAs, Parkinson's disease, heart disease, coronary stents x 4, DVT, bronchitis, pneumonia, sleep apnea, cholecystectomy, reproductive disorders, cervical cancer, hysterectomy, oophorectomy, , arthritis, rheumatoid osteo, endocrine problems of diabetes, depression. IMMUNIZATIONS: Up-to-date. FAMILY HISTORY: Noncontributory. ALLERGIES: PENICILLIN, SOAP, ASPIRIN, HYDROCODONE, METFORMIN, MUSHROOMS, NIACIN AND POVIDONE-IODINE. SOCIAL HISTORY: The patient denies smoking, alcohol or drug use. Full code. REVIEW OF SYSTEMS: As noted above, chest pressure as well as increased shortness of breath, generalized weakness. Denies any nausea, vomiting, melena, hematochezia, hematemesis. Neurologically baseline except for a headache. PHYSICAL EXAMINATION: GENERAL: This is well-developed, well-nourished female, but looking fairly ill. VITAL SIGNS: Blood pressure 150/90, respiratory rate 16, pulse 94, afebrile. HEENT: The patient's head was atraumatic, normocephalic. Eyes: PERRLA without jaundice. The mouth and throat were normal. NECK: Supple. LUNGS: Diminished, primarily in the bases. CARDIOVASCULAR: Regular sinus rhythm, S1, S2, without murmur, rub, thrill, or extra murmur. ABDOMEN: Soft, diffuse tenderness. No rebounding or guarding. Positive bowel sounds, no hepatosplenomegaly was noted. EXTREMITIES: No clubbing, cyanosis, nor edema. NEUROLOGIC: The patient is alert and oriented x 3. LABORATORY DATA: Hemoglobin 10 and hematocrit 32. Sodium and potassium 140 and 3.8, glucose 126 up to 280. Liver enzymes normal. BNP of 204, albumin 2.7. The patient was admitted for further evaluation and treatment thereof. The patient's CTA demonstrated multifocal ground glass opacities throughout the lungs, most suggestive of pneumonitis infection, probably secondary to COVID as noted, which started back on thereabouts around 07/29/2020. She did have mediastinal lymphadenopathy, right greater than left, probably reactive. Followup CT scan in 3 months. IMPRESSION: Pneumonia, post COVID-19, essential hypertension, generalized weakness, type 2 diabetes, anemia of chronic disease. PLAN: As above. Continue to place her on IV antibiotic therapy, pulmonary toilet and monitor her progression. PUJA WOLFF MD DR: DAISY/nitesh JOB#: [id number] / [id number]
[2020-08-30 20:01] VITALS: BP 137/84
[2020-08-30 23:47] VITALS: BP 127/79
[2020-08-31] MEDS: INSULIN LISPRO 300 UNITS/3 ML VIAL. SQ SCH ×4 (07:30→20:21)
[2020-08-31 08:00] VITALS: BP 123/81
[2020-08-31] MEDS: IPRATROPIUM/ALBUTEROL 20/100mcg/INH INHALER. INH SCH ×4 (08:00→20:00)
[2020-08-31] MEDS: GABAPENTIN 300 MG CAPSULE. PO SCH ×2 (08:50→20:18)
[2020-08-31] MEDS: FENOFIBRATE NANOCRYSTALLIZED 145 MG TABLET PO SCH (08:50)
[2020-08-31] MEDS: FUROSEMIDE 40 MG TABLET PO SCH (08:50)
[2020-08-31] MEDS: LOSARTAN 25 MG TABLET. PO SCH (08:51)
[2020-08-31] MEDS: CARVEDILOL 3.125 MG TABLET PO SCH ×2 (08:51→17:11)
[2020-08-31] MEDS: AZITHROMYCIN 250 MG TABLET. PO SCH (08:51)
[2020-08-31] MEDS: DEXAMETHASONE 4 MG TABLET PO SCH ×2 (09:00→20:19)
[2020-08-31] MEDS: INSULIN GLARGINE SYRINGE. SQ SCH (09:00)
--- NOTE | 2020-08-31 09:23 | PN ---
DATE: SUBJECTIVE: A 69-year-old female in with COVID-19 pneumonia as well as acute exacerbation of her asthma and hypoxia, doing much better on the Decadron, antibiotics have been started. She feels much improved, although still short of breath. OBJECTIVE: VITAL SIGNS: Blood pressure 127/80, respiratory rate 20, pulse 96, afebrile. GENERAL: The patient is alert and oriented. LUNGS: Diminished throughout, but basically clear. CARDIOVASCULAR: Regular sinus rhythm. ABDOMEN: Soft, nontender, no rebound or guarding. Positive bowel sounds, no hepatosplenomegaly. EXTREMITIES: No clubbing, cyanosis, nor edema. NEUROLOGIC: Improved. Her blood sugars are running on the high side, so we are making adjustments there and we will taper down on her Decadron as well. IMPRESSION: COVID-19 pneumonia, essential hypertension, generalized weakness, type 2 diabetes, anemia of chronic disease, acute respiratory distress with mild hypoxia. PUJA WOLFF MD DR: DAISY/nitesh JOB#: [id number] / [id number]
[2020-08-31] MEDS: ACETAMINOPHEN/CODEINE 300/30MG TABLET PO PRN ×2 (09:43→23:00)
[2020-08-31 15:52] VITALS: BP 106/69
[2020-08-31 19:25] VITALS: BP 107/75
[2020-08-31] MEDS: LACTOBACILLUS RHAMNOSUS GG 1 CAPSULE. PO SCH (20:18)
[2020-08-31] MEDS: BENZONATATE 100 MG CAPSULE. PO PRN (23:04)
[2020-08-31 23:18] VITALS: BP 128/72
[2020-09-01 05:10] VITALS: BP 111/78
[2020-09-01] MEDS: IPRATROPIUM/ALBUTEROL 20/100mcg/INH INHALER. INH SCH ×4 (08:00→20:00)
[2020-09-01] MEDS: FENOFIBRATE NANOCRYSTALLIZED 145 MG TABLET PO SCH (08:44)
[2020-09-01] MEDS: CARVEDILOL 3.125 MG TABLET PO SCH ×2 (08:44→17:35)
[2020-09-01] MEDS: GABAPENTIN 300 MG CAPSULE. PO SCH ×2 (08:44→20:38)
[2020-09-01] MEDS: ACETAMINOPHEN/CODEINE 300/30MG TABLET PO PRN ×2 (08:44→20:38)
[2020-09-01] MEDS: AZITHROMYCIN 250 MG TABLET. PO SCH (08:44)
[2020-09-01] MEDS: DEXAMETHASONE 4 MG TABLET PO SCH ×2 (08:44→20:37)
[2020-09-01] MEDS: LACTOBACILLUS RHAMNOSUS GG 1 CAPSULE. PO SCH ×2 (08:44→20:37)
[2020-09-01] MEDS: INSULIN LISPRO 300 UNITS/3 ML VIAL. SQ SCH ×4 (08:45→20:39)
[2020-09-01] MEDS: FUROSEMIDE 40 MG TABLET PO SCH (08:45)
[2020-09-01] MEDS: INSULIN GLARGINE SYRINGE. SQ SCH (08:46)
[2020-09-01] MEDS: LOSARTAN 25 MG TABLET. PO SCH (08:47)
[2020-09-01 11:25] VITALS: BP 114/81
[2020-09-01] MEDS ORDERED: PROMETH/CODEINE 6.25/10MG 5 ML SYRUP. PO PRN (11:30)
[2020-09-01 15:57] VITALS: BP 118/84
[2020-09-01 20:12] VITALS: BP 116/71
--- NOTE | 2020-09-01 20:17 | PN ---
DATE: SUBJECTIVE: The patient in with post COVID-19 pneumonia and exacerbation of breathing problems with some respiratory distress, doing somewhat better until this morning when she had a 2-3 hour severe coughing and unable to catch her breath. The patient is worn out, tired from this, unable to get relief with the other medications for it. OBJECTIVE: VITAL SIGNS: In any case, the patient's blood pressure is 110/78, respiratory rate 20, pulse 78, afebrile, oxygen saturation 98%. GENERAL: The patient is alert, but fatigued looking. LUNGS: Diminished with some coarse breath sounds, but clear to the deeper breath. The patient's lungs do show some expiratory wheezes. CARDIOVASCULAR: Stable. ABDOMEN: Soft. EXTREMITIES: No clubbing, cyanosis or edema. NEUROLOGIC: Baseline. IMPRESSION: Pneumonia, post COVID-19, essential hypertension, generalized weakness, type 2 diabetes, anemia of chronic disease as well as some respiratory distress, bronchospasm. PLAN: The patient will be monitored and adjusted accordingly on some of her medication. PUJA WOLFF MD DR: DAISY/nitesh JOB#: [id number] / [id number]
[2020-09-01] MEDS: BENZONATATE 100 MG CAPSULE. PO PRN (20:38)
[2020-09-01 23:53] VITALS: BP 124/85
[2020-09-02 06:09] VITALS: BP 135/69
[2020-09-02] MEDS: IPRATROPIUM/ALBUTEROL 20/100mcg/INH INHALER. INH SCH (08:00)
[2020-09-02] MEDS: LACTOBACILLUS RHAMNOSUS GG 1 CAPSULE. PO SCH (08:27)
[2020-09-02] MEDS: FENOFIBRATE NANOCRYSTALLIZED 145 MG TABLET PO SCH (08:28)
[2020-09-02] MEDS: INSULIN LISPRO 300 UNITS/3 ML VIAL. SQ SCH ×2 (08:28→12:33)
[2020-09-02] MEDS: GABAPENTIN 300 MG CAPSULE. PO SCH (08:28)
[2020-09-02] MEDS: AZITHROMYCIN 250 MG TABLET. PO SCH (08:29)
[2020-09-02] MEDS: DEXAMETHASONE 4 MG TABLET PO SCH (08:29)
[2020-09-02] MEDS: FUROSEMIDE 40 MG TABLET PO SCH (08:29)
[2020-09-02] MEDS: LOSARTAN 25 MG TABLET. PO SCH (08:29)
[2020-09-02] MEDS: CARVEDILOL 3.125 MG TABLET PO SCH (08:31)
[2020-09-02] MEDS: INSULIN GLARGINE SYRINGE. SQ SCH (09:45)
[2020-09-02] MEDS ORDERED: MAG30ORA2 PO (09:51)
[2020-09-02] MEDS ORDERED: BENZ-8 PO (09:51)
[2020-09-02] MEDS ORDERED: LACT1CAP19 PO (09:51)
[2020-09-02] MEDS ORDERED: DEXA4TAB63 PO (09:51)
--- NOTE | 2020-09-02 09:52 | DISCH ---
HOME HEALTH DISCHARGE/MEDS DISCHARGE INFORMATION: Discharge Date: Sep 02, 2020 Final Diagnosis: Problems Medical Problems: (1) Bilateral pneumonia Status: Acute (2) Person under investigation for COVID-19 Status: Acute (3) Shortness of breath Status: Acute Condition on Discharge: Stable CODE STATUS: Code Status: Full HOME HEALTH: Face to Face: I certify this patient is under my care and that I, or a nurse practitioner or physician's certified surgical tech/first assistant working with me, had a face to face encounter that meets the physician face to face encounter requirements with this patient on 09/02/2020. Medical Condition(s): DM, Pneumonia [facility] For: Assess Cardiopulm Status, Assess & Educate Safety, Assess/Skilled Observatio, Medication Management Homebound Status Met By: Fatigue w/ amb. POST DISCHARGE ORDERS: Activity Instructions for Disc: Activity as tolerated Weight Bearing Status after Di: No restrictions DIET AFTER DISCHARGE: ADA CHECKS AFTER DISCHARGE: Checks after discharge: Check blood sugar, ac/hs CERTIFICATION STATEMENT: Certification Statement: Based on the above finding, I certify that this patient is confined to the home and needs intermittent half-way care, physical therapy and/or speech therapy, or continues to need occupational therapy.~ This patient is under my care, and I have initiated the establishment of the plan of care.~ This patient will be followed by myself or a community physician who will periodically review the plan of care. DISCHARGE MEDICATIONS: Home Meds Reported Medications Losartan Potassium (COZAAR ) 25 Mg Tablet, 25 MG PO DAILY for HIGH BLOOD PRESSURE 08/30/20 Carvedilol (COREG ) 6.25 Mg Tablet, 3.125 MG PO BIDWMEALS for HIGH BLOOD PRESSURE 08/30/20 Fenofibrate Nanocrystallized (FENOFIBRATE) 145 Mg Tablet, 1 TAB PO DAILY for HIGH CHOLESTEROL 08/30/20 Albuterol Sulfate (VENTOLIN HFA INHALER) 18 Gm Hfa.aer.ad, 1 PUFF IH PRN Q4HRS PRN for FOR ASTHMA 08/30/20 Ipratropium/Albuterol Sulfate (DUONEB 0.5-3(2.5) MG/3 ML) 3 Ml Ampul.neb, 3 ML NEB QID for SHORTNESS OF BREATH, % 08/30/20 Insulin Aspart (NOVOLOG) 100 Unit/1 Ml Vial, 12-20 UNIT SQ QIDACHS for HIGH BLOOD SUGAR-DIABETES SLIDING SCALE: FSBS 151-200: 12 UNITS 201-250: 14 UNITS 251-300: 16 UNITS 301-350: 18 UNITS 351-400: 20 UNITS 08/16/20 Acetaminophen (TYLENOL) 325 Mg Tablet, 1 TAB PO TID PRN PRN for PAIN 12/09/19 Furosemide (FUROSEMIDE) 40 Mg Tablet, 1 TAB PO DAILY for FLUID RETENTION 12/09/19 Insulin Degludec (Tresiba) 100 Unit/1 Ml Vial, 30 UNIT SQ DAILY for HIGH BLOOD SUGAR-DIABETS 12/09/19 Gabapentin (Gabapentin) 300 Mg Capsule, 300 MG PO BID for NERVE PAIN LAST DOSE GIVEN: DATE: YESTERDAY TIME: AT BEDTIME NEXT DOSE DUE: DATE: TODAY TIME: AT BEDTIME 07/12/17 PUJA WOLFF MD Sep 02, 2020 09:52
--- NOTE | 2020-09-02 09:53 | DS ---
DATE OF DISCHARGE: HOSPITAL COURSE: A 69-year-old female came in with exacerbation of her COVID-19 pneumonia, increased shortness of breath and respiratory distress. The patient also is a diabetic with high risk oxygen saturation, remained basically good, but the patient was extremely tight and increased respiratory effort. The patient initially came in through the Emergency Room. She had increased shortness of breath. The patient was placed on Decadron, azithromycin and Levaquin. Decadron was useful in reducing her inflammation, positive D-dimer. CTA showed multifocal ground glass opacities throughout the lungs consistent with her pneumonia as a result of this as noted. Placed on IV antibiotic therapy and oral antibiotics, made excellent progress with this consortium of medications and was discharged home. She had some mild bronchospasms that were relieved with cough medicine. Her COVID-19 was negative on repeat. IMPRESSION: COVID-19 pneumonia, acute respiratory distress, anemia of chronic disease, type 2 diabetes, severe protein malnutrition. In any case, the patient will be discharged home. See MRAD and decreased activity. PUJA WOLFF MD DR: DAISY/nitesh JOB#: [id number] / [id number]
[2020-09-02 10:14] LABS: BASO % 0 % (0-3); EOS % 0 % (0-3); HEMATOCRIT 35.4 % (36.0-47.0); HEMOGLOBIN 11.5 g/dL (12.0-15.5); LYMPH # 1.6 x10^3/uL (1.0-4.8); LYMPH % 14 % (24-48); MEAN CORPUSCULAR HEMOGLOBIN 29 pg (25-35); MEAN CORPUSCULAR HGB CONC 32 g/dL (31-37); MEAN CORPUSCULAR VOLUME 89 fL (79-100); MONO # 0.3 x10^3/uL (0.0-1.1); MONO % 3 % (0-9); NEUT # 9.2 x10^3uL (1.8-7.7); NEUT % 83 % (31-73); PLATELET COUNT 449 x10^3/uL (140-400); RED BLOOD COUNT 3.97 x10^6/uL (3.50-5.40); RED CELL DISTRIBUTION WIDTH 14.2 % (11.5-14.5); WHITE BLOOD COUNT 11.1 x10^3/uL (4.0-11.0)
[2020-09-02 10:22] LABS: CALCIUM 8.8 mg/dL (8.5-10.1); CREATININE 1.3 mg/dL (0.6-1.0); GFR 40.7; POTASSIUM 3.7 mmol/L (3.5-5.1)
[2020-09-02 10:31] VITALS: BP 102/60
== END 2020-09-02 12:58 | disposition home health service (06) | DRG 177 ==
LOC: ER 14:40 → 1 SOUTH 18:30
PROVIDERS: ADMIT Family Medicine; ATTEND Family Medicine
DX: U07.1 COVID-19 (principal); J12.82 Pneumonia due to coronavirus disease 2019; E43 Unspecified severe protein-calorie malnutrition; J44.0 Chronic obstructive pulmonary disease with (acute) lower respiratory infection; J45.901 Unspecified asthma with (acute) exacerbation; D63.8 Anemia in other chronic diseases classified elsewhere; E03.9 Hypothyroidism, unspecified; E11.9 Type 2 diabetes mellitus without complications; E78.00 Pure hypercholesterolemia, unspecified; G20 Parkinson's disease; H91.90 Unspecified hearing loss, unspecified ear; I10 Essential (primary) hypertension; I25.10 Atherosclerotic heart disease of native coronary artery without angina pectoris; I48.91 Unspecified atrial fibrillation; M06.9 Rheumatoid arthritis, unspecified; R09.02 Hypoxemia; Z85.41 Personal history of malignant neoplasm of cervix uteri; Z86.73 Personal history of transient ischemic attack (TIA), and cerebral infarction without residual deficits; Z87.01 Personal history of pneumonia (recurrent); Z90.710 Acquired absence of both cervix and uterus; Z95.5 Presence of coronary angioplasty implant and graft; F32.9 Major depressive disorder, single episode, unspecified; F41.9 Anxiety disorder, unspecified; M19.90 Unspecified osteoarthritis, unspecified site; Z68.25 Body mass index [BMI] 25.0-25.9, adult
CPT/HCPCS: 36415; 71046; 71275; 80048; 80053; 82553; 82947; 83605; 83735; 83880; 84100; 84484; 85025; 85379; 93005; 96361; 96374; 96375; J0456; J1650; J1815; J1885; J1956; J7050; J8540; Q9967; U0003; 99285-25

== ENCOUNTER → 2020-12-09 | Outpatient (CLI) | payer MEDICARE, BC ==
[~2020-12-09] MED LIST changes: +BENZ-8 PO; +CARV6.25 PO; +DEXA4TAB63 PO; +LACT1CAP19 PO; +MAG30ORA2 PO
[2020-12-09 10:24] LABS: CALCIUM 8.2 mg/dL (8.5-10.1); CREATININE 1.6 mg/dL (0.6-1.0); POTASSIUM 3.6 mmol/L (3.5-5.1)
[2020-12-09 10:32] LABS: BASO # 0.1 x10^3/uL (0.0-0.2); BASO % 1 % (0-3); EOS % 0 % (0-3); HEMATOCRIT 34.5 % (36.0-47.0); LYMPH # 1.8 x10^3/uL (1.0-4.8); LYMPH % 21 % (24-48); MEAN CORPUSCULAR VOLUME 91 fL (79-100); MONO # 0.4 x10^3/uL (0.0-1.1); MONO % 5 % (0-9); NEUT # 6.2 x10^3uL (1.8-7.7); NEUT % 73 % (31-73); PLATELET COUNT 309 x10^3/uL (140-400); RED BLOOD COUNT 3.81 x10^6/uL (3.50-5.40); RED CELL DISTRIBUTION WIDTH 14.1 % (11.5-14.5); WHITE BLOOD COUNT 8.5 x10^3/uL (4.0-11.0)
--- NOTE | 2020-12-09 10:49 | RAD ---
Examination: CT chest without contrast HISTORY: History of shortness of breath, COPD COMPARISON: 08/29/2020 TECHNIQUE: Axial CT images of chest were performed without contrast. Coronal and sagittal reformats a re performed Exposure: One or more of the following individualized dose reduction techniques were utilized for thi s examination: 1. Automated exposure control 2. Adjustment of the mA and/or kV according to patient size 3. Use of iterative reconstruction technique FINDINGS: The central airways are patent. Coronary artery calcifications. Moderate aortic atherosclerosis. No radiologically significant mediastinal lymphadenopathy. Minimal atelectasis right lung base. Mild dec reased attenuation noted in the liver likely hepatic steatosis. Mild degenerative changes thoracic sp ine. IMPRESSION: 1.Minimal right lung base atelectasis. 2. Coronary artery calcifications. 3. Mild hepatic steatosis. Electronically signed by: Earle Watson MD (12/09/2020 10:46 AM) [id number]
[2020-12-09 12:00] LABS: HEMOGLOBIN 11.6 g/dL (12.0-15.5); MEAN CORPUSCULAR HEMOGLOBIN 30 pg (25-35); MEAN CORPUSCULAR HGB CONC 34 g/dL (31-37)
== END ==
LOC: CT 09:18
PROVIDERS: ATTEND Internal Medicine Pulmonary Disease
DX: J98.11 Atelectasis (principal); I25.10 Atherosclerotic heart disease of native coronary artery without angina pectoris; K76.0 Fatty (change of) liver, not elsewhere classified; Z86.16 Personal history of COVID-19
CPT/HCPCS: 36415; 71250; 80048; 83880; 85025

== ENCOUNTER 2021-01-17 16:37 | Emergency (ER) | payer MEDICARE, BC ==
[~2021-01-17] VITALS: Ht 152.4 cm; Wt 61.5 kg
--- NOTE | 2021-01-17 17:27 | PHYS DOC ---
Past History Past Medical History: A-Fib, Anxiety, Arthritis, CAD, Cancer, COPD, Diabetes, High Cholesterol, Hypertension, Hypothyroid, Other Additional Past Medical Histor: PARKINSON'S; uterine and cervical ca 1982 (MEAGHAN CAT APRN) Past Surgical History: Cholecystectomy, , Hysterectomy, Oophorectomy, Tonsillectomy, Other Additional Past Surgical Histo: CARDIAC STENTS; HEAD SURGERY FX; CANCER; ABD HERNIA REPAIR; L KNEE; BACK (MEAGHAN CAT APRN) Smoking: Non-smoker Alcohol Use: None Drug Use: None (MEAGHAN CAT APRN) General Adult EDM: Chief Complaint: COUGH HPI: HPI: Patient is a 70-year-old female who presents to the ER for multiple complaints including yellow productive cough, fatigue, shortness of breath, decreased appetite, headache. Patient has a history of asthma. Patient was vaccinated for COVID-19. She reports she is history of pneumonias her primary care provider sent her in. Patient denies fevers, nausea, vomiting, abdominal pain. She is reporting midsternal chest pain with coughing. (MEAGHAN CAT APRN) Review of Systems: Review of Systems: 14 body systems of the review of systems have been reviewed. See HPI for pertinent positive and negative responses, otherwise all other systems are negative, nonpertinent or noncontributory (MEAGHAN CAT APRN) Allergies: Allergies: Allergies Coded Allergies Type Severity Reaction Last Updated Verified Penicillins Allergy Intermediate 01/17/21 Yes Soap Allergy Intermediate 01/17/21 Yes hydrocodone bitartrate Allergy Intermediate Itching 01/17/21 Yes metformin Allergy Intermediate 01/17/21 Yes mushroom Allergy Intermediate 01/17/21 Yes niacin Allergy Intermediate 01/17/21 Yes povidone-iodine Allergy Intermediate 01/17/21 Yes aspirin Allergy Mild 01/17/21 Yes (MEAGHAN CAT APRN) Physical Exam: PE: Constitutional: Well developed, well nourished, no acute distress, non-toxic appearance. [] HENT: Normocephalic, atraumatic, bilateral external ears normal, oropharynx moist, no oral exudates, nose normal. [] Eyes: PERRL, conjunctiva normal, no discharge. [] Neck: Normal range of motion, no stridor Cardiovascular:Heart rate regular rhythm, no murmur [] Lungs & Thorax: Bilateral breath sounds clear to auscultation [] Abdomen: Bowel sounds normal, soft, no tenderness, no masses, no pulsatile masses. [] Skin: Warm, dry, no erythema, no rash. [] Back: Normal range of motion Extremities: No tenderness, no cyanosis, no clubbing, ROM intact, no edema. [] Neurologic: Alert and oriented X 3, normal motor function, normal sensory function, no focal deficits noted. [] Psychologic: Affect normal, judgement normal, mood normal. [] (MEAGHAN CAT APRN) Current Patient Data: Labs: Laboratory Tests Test 01/17/21 17:03 01/17/21 17:14 White Blood Count 6.4 x10^3/uL Red Blood Count 3.73 x10^6/uL Hemoglobin 11.3 g/dL Hematocrit 33.1 % Mean Corpuscular Volume 89 fL Mean Corpuscular Hemoglobin 30 pg Mean Corpuscular Hemoglobin Concent 34 g/dL Red Cell Distribution Width 14.3 % Platelet Count 269 x10^3/uL Neutrophils (%) (Auto) 57 % Lymphocytes (%) (Auto) 32 % Monocytes (%) (Auto) 8 % Eosinophils (%) (Auto) 3 % Basophils (%) (Auto) 0 % Neutrophils # (Auto) 3.6 x10^3uL Lymphocytes # (Auto) 2.0 x10^3/uL Monocytes # (Auto) 0.5 x10^3/uL Eosinophils # (Auto) 0.2 x10^3/uL Basophils # (Auto) 0.0 x10^3/uL Sodium Level 142 mmol/L Potassium Level 3.8 mmol/L Chloride Level 104 mmol/L Carbon Dioxide Level 29 mmol/L Anion Gap 9 Blood Urea Nitrogen 39 mg/dL Creatinine 1.5 mg/dL Estimated GFR (Cockcroft-Gault) 34.4 BUN/Creatinine Ratio 26 Glucose Level 115 mg/dL Calcium Level 9.2 mg/dL Total Bilirubin 0.4 mg/dL Aspartate Amino Transf (AST/SGOT) 21 U/L Alanine Aminotransferase (ALT/SGPT) 29 U/L Alkaline Phosphatase 118 U/L Total Protein 6.7 g/dL Albumin 3.5 g/dL Albumin/Globulin Ratio 1.1 Troponin I Quantitative < 0.017 ng/mL Vital Signs: Vital Signs Date Time Temp Pulse Resp B/P (MAP) Pulse Ox O2 Delivery O2 Flow Rate FiO2 01/17/21 16:51 98.3 89 20 115/61 96 Room Air (MEAGHAN CAT APRN) EKG: EKG: EKG performed by ER staff at 1712 shows sinus rhythm, no STEMI as read by Dr. Retana at 1712. [] (MEAGHAN CAT APRN) Radiology/Procedures: Radiology/Procedures: PROCEDURE: PORTABLE CHEST 1V AP chest x-ray HISTORY: Shortness of breath. COMPARISON: CT chest December 09, 2020. FINDINGS: Implanted electronic device left chest. Heart size normal. Mediastinal silhouette is normal. Aortic arch calcified plaque. No pneumothorax, pulmonary opacities or pleural effusions. Bones are unremarkable. IMPRESSION: No acute process. Electronically signed by: Peterson Haynes MD (01/17/2021 6:01 PM) [facility] [place] DICTATED AND SIGNED BY: PETERSON HAYNES MD DATE: 01/17/21 1800 CC: PUJA WOLFF MD; MEAGHAN CAT APRN ~MTH0 0 [] (MEAGHAN CAT APRN) Heart Score: C/O Chest Pain: Yes HEART Score for Chest Pain: HEART Score for Chest Pain Response (Comments) Value History Slighlty/Non-Suspicious 0 ECG Normal 0 Age > 65 2 Risk Factors >3 Risk Factors or Hx CAD 2 Troponin < Normal Limit 0 Total 4 Risk Factors: Risk Factors: DM, Current or recent (<one month) smoker, HTN, HLP, family history of CAD, obesity. Risk Scores: Score 0 - 3: 2.5% MACE over next 6 weeks - Discharge Home Score 4 - 6: 20.3% MACE over next 6 weeks - Admit for Clinical Observation Score 7 - 10: 72.7% MACE over next 6 weeks - Early Invasive Strategies (MEAGHAN CAT APRN) Course & Med Decision Making: Course & Med Decision Making Pertinent Labs and Imaging studies reviewed. (See chart for details) [] Patient is a 70-year-old female being seen for multiple complaints including cough, fatigue, shortness of breath, headache. Work-up in the ER consisted of blood work, EKG, chest x-ray. EKG shows sinus rhythm. Patient is not tachycardic, no tachypnea, no hypoxia. Her oxygen saturation is 97% on room air. She is not labored. Chest x-ray negative for any acute findings. CBC unremarkable. Patient did have elevated BUN and creatinine but that is patient's baseline when compared to previous lab results. I discussed with patient all findings and diagnostic testing as well as the need to follow-up with PCP for further evaluation and treatment or return to the ER if any new or worsening symptoms. Strict return precautions were also discussed at length. Patient voiced understanding and agreement with the plan. Patient is hemodynamically stable at the time of disposition. (MEAGHAN CAT APRN) Dragon Disclaimer: Dragon Disclaimer: This electronic medical record was generated, in whole or in part, using a voice recognition dictation system. (MEAGHAN CAT APRN) Attending Co-Sign The patient was seen and interviewed as well as examined at the bedside. The chart was reviewed. The case was discussed. Agree with the plan of care. (DAVE MCGINNIS DO) Departure Departure: Impression: Primary Impression: Person under investigation for COVID-19 Additional Impression: Cough Disposition: 01 HOME / SELF CARE / HOMELESS Condition: GOOD Referrals: PUJA WOLFF MD (PCP) Patient Instructions: Cough, Adult Additional Instructions: You were seen in the ER today for multiple complaints including cough, fatigue, shortness of breath, decreased appetite, headache. Your work-up in the ER. You do not have pneumonia based on the radiologist read of your chest x-ray. You were tested for COVID-19 in the ER today. Your results will become available 2448 hrs. You will be called with these results. Please self isolate until you receive these results. Follow-up with your primary care provider tomorrow regarding your ER visit. If you develop worsening of your shortness of breath, severe chest pain, high fevers refractory to treatment please return to the ER immediately. EMERGENCY DEPARTMENT GENERAL DISCHARGE INSTRUCTIONS Thank you for coming to [facility] (ED) today and trusting us with you care. We trust that you had a positivie experience in our Emergency Department. If you wish to speak to the department management, you may call the director at [phone]. YOUR FOLLOW UP INSTRUCTIONS ARE FOLLOWS: 1. Do you have a private Doctor? If you do not have a private doctor, please ask for a resource list of physicians or clinics that may be able to assist you with fol low up care. 2. The Emergency Physician has interpreted your x-rays. The X-Ray specialist will also review them. If there is a change in the findings, you will be notified in 48 hours when at all possible. 3. A lab test or culture has been done, your results will be reviewed and you will be notified if you need a change in treatment. ADDITIONAL INSTRUCTIONS AND INFORMATION: 1. Your care today has been supervised by a physician who is specially trained in emergency care. Many problems require more than one evaluation for a complete diagnosis and treatment. We recommend that you schedule your follow up appointment as r ecommended to ensure complete treatment of you illness or injury. If you are unable to obtain follow up care and continue to have a problem, or if your condition worsens, we recommend that you return to the ED. 2. We are not able to safely determine your condition over the phone nor are we able to give sound medical advice over the phone. For these safety reasons, if you call for medical advice we will ask you to come to the ED for further evaluation. 3. If you have any questions regarding these discharge instructions please call the ED at [phone]. SAFETY INFORMATION: In the interest of safety, wellness, and injury prevention; we encourage you to wear your sealbelt, if you smoke; quite smoking, and we encourage family to use a protective helmet for bicycling and other sporting events that present an increased risk for head injury. IF YOUR SYMPTOMS WORSEN OR NEW SYMPTOMS DEVELOP, OR YOU HAVE CONCERNS ABOUT YOUR CONDITION; OR IF YOUR CONDITION WORSENS WHILE YOU ARE WAITING FOR YOUR FOLLOW UP APPOINTMENT; EITHER CONTACT YOUR PRIMARY CARE DOCTOR, THE PHYSICIAN WHOSE NAME AND NUMBER YOU WERE GIVEN, OR RETURN TO THE ED IMMEDIATELY. MEAGHAN CAT APRN Jan 17, 2021 17:26 DAVE MCGINNIS DO Jan 19, 2021 05:31
--- NOTE | 2021-01-17 17:48 | EKG ---
[address] [address] Test Date: 2021-01-17 Test Time: 17:12:07 Pat Name: FAMILIA MAR Department: Room: Gender: F Certified Retinal Angiographer: DEMI : 1950 Requested By: MEAGHAN CAT Order Number: [id number] Reading MD: Measurements Intervals [place] Rate: 88 P: 39 OR: 126 QRS: 21 QRSD: 82 T: 27 QT: 376 QTc: 459 Interpretive Statements SINUS RHYTHM NORMAL ECG RI6.02 No previous ECG available for comparison
[2021-01-17 17:56] LABS: BASO % 0 % (0-3); EOS # 0.2 x10^3/uL (0.0-0.7); EOS % 3 % (0-3); HEMATOCRIT 33.1 % (36.0-47.0); HEMOGLOBIN 11.3 g/dL (12.0-15.5); LYMPH % 32 % (24-48); MEAN CORPUSCULAR HEMOGLOBIN 30 pg (25-35); MEAN CORPUSCULAR HGB CONC 34 g/dL (31-37); MEAN CORPUSCULAR VOLUME 89 fL (79-100); MONO # 0.5 x10^3/uL (0.0-1.1); MONO % 8 % (0-9); NEUT # 3.6 x10^3uL (1.8-7.7); NEUT % 57 % (31-73); PLATELET COUNT 269 x10^3/uL (140-400); RED BLOOD COUNT 3.73 x10^6/uL (3.50-5.40); RED CELL DISTRIBUTION WIDTH 14.3 % (11.5-14.5); WHITE BLOOD COUNT 6.4 x10^3/uL (4.0-11.0)
[2021-01-17 17:59] LABS: CALCIUM 9.2 mg/dL (8.5-10.1); CREATININE 1.5 mg/dL (0.6-1.0); GFR 34.4; POTASSIUM 3.8 mmol/L (3.5-5.1)
[2021-01-17 18:04] LABS: ALBUMIN 3.5 g/dL (3.4-5.0); ALBUMIN/GLOBULIN RATIO 1.1 (1.0-1.7); TOTAL BILIRUBIN 0.4 mg/dL (0.2-1.0); TOTAL PROTEIN 6.7 g/dL (6.4-8.2)
--- NOTE | 2021-01-17 18:04 | RAD ---
AP chest x-ray HISTORY: Shortness of breath. COMPARISON: CT chest December 09, 2020. FINDINGS: Implanted electronic device left chest. Heart size normal. Mediastinal silhouette is normal . Aortic arch calcified plaque. No pneumothorax, pulmonary opacities or pleural effusions. Bones are unremarkable. IMPRESSION: No acute process. Electronically signed by: Gamaliel Haynes MD (01/17/2021 6:01 PM) [facility]
[2021-01-17 18:35] VITALS: BP 118/74
== END 2021-01-17 18:36 | disposition home or self-care (01) ==
LOC: ER 16:37
DX: R06.02 Shortness of breath (principal); R51.9 Headache, unspecified; Z88.0 Allergy status to penicillin; Z20.822 Contact with and (suspected) exposure to COVID-19; Z88.8 Allergy status to other drugs, medicaments and biological substances; Z88.6 Allergy status to analgesic agent
CPT/HCPCS: 71045; 80053; 84484; 85025; 93005; 99285; C9803; U0003

== ENCOUNTER 2021-05-22 16:35 | Emergency (ER) | payer MEDICARE, BC ==
[~2021-05-22] VITALS: Ht 149.9 cm; Wt 60.0 kg
[~2021-05-22 16:35] MED LIST changes: -CYCL-331 PO; +CYCL10TA19 PO
--- NOTE | 2021-05-22 17:52 | PHYS DOC ---
Past History Past Medical History: A-Fib, Anxiety, Arthritis, CAD, Cancer, COPD, Diabetes, High Cholesterol, Hypertension, Hypothyroid, Other Additional Past Medical Histor: PARKINSON'S; uterine and cervical ca 1982 (SADE DOUGHERTY APRN) Past Surgical History: Cholecystectomy, , Hysterectomy, Oophorectomy, Tonsillectomy, Other Additional Past Surgical Histo: CARDIAC STENTS; HEAD SURGERY FX; CANCER; ABD HERNIA REPAIR; L KNEE; BACK (SADE DOUGHERTY APRN) Smoking: Non-smoker Alcohol Use: None Drug Use: None (SADE DOUGHERTY APRN) Adult General Chief Complaint Chief Complaint: SLURRED SPEECH HPI HPI Patient is a 70-year-old female who presents to the emergency department complaining of head neck mid and lower back pain after a near syncopal episode in which she stumbled and fell into her tub at home falling backwards striking the back of her head this past Wednesday. Patient denies loss of consciousness. Complains of ongoing head pain and trouble gathering her thoughts since the fall. Patient denies numbness or tingling to her extremities, reports she can walk normally without gait disturbances, denies visual disturbances, denies decreased vision. Patient does report she wears corrective lenses however does not wear contacts. Patient denies chest pains, recent fever chills, nausea, vomiting, or diarrhea. Patient denies other physical complaints or physical concerns. Patient reports that she did take a Tylenol 3 which she uses for her chronic back pains as she has a history of surgery on her L-spine related to lumbar disc herniations, patient reports her pain from a 5 to a 3 out of 10. (SADE DOUGHERTY APRN) Review of Systems Review of Systems 14 body systems of review of systems have been reviewed. See HPI for pertinent positives and negative responses, otherwise all other systems are negative, nonpertinent or noncontributory. Constitutional: Negative except as outlined in HPI above. Skin: Negative except as outlined in HPI above. Eyes: Negative except as outlined in HPI above. HENT: Negative except as outlined in HPI above. Respiratory: Negative except as outlined in HPI above. Cardiovascular: Negative except as outlined in HPI above. GI: Negative except as outlined in HPI above. : Negative except as outlined in HPI above. Musculoskeletal: Negative except as outlined in HPI above. Integument: Negative except as outlined in HPI above. Neurologic: Negative except as outlined in HPI above. Endocrine: Negative except as outlined in HPI above. Lymphatic: Negative except as outlined in HPI above. Psychiatric: Negative except as outlined in HPI above. (SADE DOUGHERTY APRN) Current Medications Current Medications Patient reports home medications as follows: Benicar HCT 40/25 mg daily Valtrex 1 g tablet 3 times daily, carvedilol 12.5 mg tablet twice daily, losartan 25 mg tablet daily, Tylenol 3 1 to 2 tablets as needed 3 times daily, gabapentin 300 mg tablet 3 times daily, Spiriva 1.2 mcg daily. 10 mg Flexeril 3 times daily as needed, albuterol MDI as needed, Symbicort 160 mcg daily, insulin with sliding scale. (SADE DOUGHERTY APRN) Allergies Allergies Allergies Coded Allergies Type Severity Reaction Last Updated Verified Penicillins Allergy Intermediate 01/17/21 Yes Soap Allergy Intermediate 01/17/21 Yes hydrocodone bitartrate Allergy Intermediate Itching 01/17/21 Yes metformin Allergy Intermediate 01/17/21 Yes mushroom Allergy Intermediate 01/17/21 Yes niacin Allergy Intermediate 01/17/21 Yes povidone-iodine Allergy Intermediate 01/17/21 Yes aspirin Allergy Mild 01/17/21 Yes (SADE DOUGHERTY APRN) Physical Exam Physical Exam Constitutional: Well developed, well nourished, no acute distress, non-toxic appearance. 70-year-old female in no apparent distress. HENT: Normocephalic, atraumatic. No contusions, skull depressions, or swelling appreciated of the skull or face. Pain to palpation over occipital area of scalp. Skin is intact. No battles sign, no raccoon eyes. Bilateral TMs intact within normal limits, no drainage from external auditory canals bilaterally. Eyes: Conjunctiva normal, no discharge. Satisfactory 6 cardinal eye movements, PERRLA. Neck: Normal range of motion, no stridor. Pain to muscular structures of the neck, no midline spinal tenderness. Cardiovascular: No cyanosis appreciated, distal cap refill less than 2 seconds. Regular rate and rhythm. Lungs & Thorax: Patient is in no respiratory distress, no audible adventitious lung sounds appreciated. Lung sounds clear to auscultate all lung bowling. Abdomen: Nontender, no abnormalities noted. Skin: Warm, dry, no erythema, no rash. Back: No deformities appreciated, no crepitus appreciated, no left-sided or right-sided CVA TTP, pain to palpation along lower thoracic and upper lumbar midline bony structures. Extremities: No tenderness, no cyanosis, no clubbing, ROM intact, no edema. Neurologic: Alert and oriented X 3, normal motor function, normal sensory function, no focal deficits noted. Psychologic: Affect normal, judgement normal, mood normal. (SADE DOUGHERTY APRN) Current Patient Data Vital Signs Vital Signs Date Time Temp Pulse Resp B/P (MAP) Pulse Ox O2 Delivery O2 Flow Rate FiO2 05/22/21 17:15 98.3 104 19 152/82 (105) 97 Lab Results Laboratory Tests Test 05/22/21 18:25 05/22/21 18:56 White Blood Count 5.9 x10^3/uL Red Blood Count 3.91 x10^6/uL Hemoglobin 11.9 g/dL Hematocrit 34.8 % Mean Corpuscular Volume 89 fL Mean Corpuscular Hemoglobin 31 pg Mean Corpuscular Hemoglobin Concent 34 g/dL Red Cell Distribution Width 13.8 % Platelet Count 274 x10^3/uL Neutrophils (%) (Auto) 47 % Lymphocytes (%) (Auto) 41 % Monocytes (%) (Auto) 8 % Eosinophils (%) (Auto) 4 % Basophils (%) (Auto) 0 % Neutrophils # (Auto) 2.8 x10^3uL Lymphocytes # (Auto) 2.4 x10^3/uL Monocytes # (Auto) 0.5 x10^3/uL Eosinophils # (Auto) 0.2 x10^3/uL Basophils # (Auto) 0.0 x10^3/uL Sodium Level 141 mmol/L Potassium Level 2.9 mmol/L Chloride Level 108 mmol/L Carbon Dioxide Level 24 mmol/L Anion Gap 9 Blood Urea Nitrogen 10 mg/dL Creatinine 1.0 mg/dL Estimated GFR (Cockcroft-Gault) 55.0 BUN/Creatinine Ratio 10 Glucose Level 93 mg/dL Calcium Level 8.2 mg/dL Phosphorus Level 3.4 mg/dL Magnesium Level 2.0 mg/dL Total Bilirubin 0.2 mg/dL Aspartate Amino Transf (AST/SGOT) 33 U/L Alanine Aminotransferase (ALT/SGPT) 35 U/L Alkaline Phosphatase 137 U/L Total Protein 6.8 g/dL Albumin 3.3 g/dL Albumin/Globulin Ratio 0.9 Urine Collection Type Unknown Urine Color Yellow Urine Clarity Clear Urine pH 6.5 Urine Specific [place] 1.010 Urine Protein Neg Urine Glucose (UA) 250 mg/dL Urine Ketones (Stick) Neg mg/dL Urine Blood Neg Urine Nitrite Neg Urine Bilirubin Neg Urine Urobilinogen Dipstick 0.2 mg/dL Urine Leukocyte Esterase Neg Urine RBC 1-2 /HPF Urine WBC 1-4 /HPF Urine Squamous Epithelial Cells Few /LPF Urine Bacteria Few /HPF Current Medications Medications (Trade) Dose Ordered Sig/Juan Route PRN Reason Start Time Stop Time Status Last Admin Dose Admin Acetaminophen/ Codeine Phosphate (Tylenol #3) 1 tab 1X ONCE PO 05/22/21 19:30 05/22/21 19:31 DC 05/22/21 19:33 Potassium Chloride (Klor-Con) 40 meq 1X ONCE PO 05/22/21 19:30 05/22/21 19:31 DC 05/22/21 19:32 (SADE DOUGHERTY APRN) EKG EKG EKG performed at 1835 by ED nursing staff shows a normal sinus rhythm with an occasional PVC otherwise no other ectopy, heart rate 92 bpm, VT interval 0.128, QTc interval 0.495, no acute STEMI, no ACS, no acute ischemia appreciated, EKG interpreted by ED attending physician Dr. Mauro. (SADE DOUGHERTY APRN) Radiology/Procedures Radiology/Procedures STATUS: REG ER ORD. PHYSICIAN: SADE DOUGHERTY APRN REASON: Syncopal episode, fall PROCEDURE: CT HEAD AND CERVICAL SPINE WO Exam: CT head and cervical spine without contrast INDICATION: Syncopal episode, fall TECHNIQUE: Sequential axial images through the head and cervical were obtained without the administration of IV contrast. Exposure: One or more of the following in the visualized dose reduction techniques were utilized for this examination: 1. Automated exposure control 2. Adjustment of the MA and/or KV according to patient size 3. Use of iterative of reconstructive technique Comparisons: 08/16/2020 FINDINGS: Head: No focal parenchymal lesion or hemorrhage is identified. There is no midline shift or sulcal effacement. No acute vascular territory infarction is identified. Tran-white distinction is preserved. The ventricular system is within normal limits without compression hydrocephalus. The basal cisterns are well maintained. The visualized portions of the paranasal sinuses and mastoid air cells are well- pneumatized. No acute fractures. Cervical spine: Straightening of cervical spine which may be positional. Vertebral body heights are well-maintained. Fracture to the cervical spine is not identified. No significant spondylotic change in the cervical spine. Visualized paraspinal soft tissues are unremarkable. IMPRESSION: 1. No acute intracranial abnormality. 2. Negative CT C-spine for acute traumatic injury. Electronically signed by: Val Blanco MD (05/22/2021 6:34 PM) [facility] REASON: Syncopal episode, fall PROCEDURE: CT THORACIC SPINE WO CONTRAST PQRS Compliance Statement: One or more of the following individualized dose reduction techniques were utilized for this examination: 1. Automated exposure control 2. Adjustment of the mA and/or kV according to patient size 3. Use of iterative reconstruction technique CT LUMBAR SPINE WO, CT THORACIC SPINE WO Clinical Indication: Reason: Syncopal episode, fall / Spl. Instructions: / History: Comparison: None. TECHNIQUE: Helical CT imaging of the thoracic and lumbar spine is performed without IV contrast. Findings: There is no acute fracture or subluxation of the thoracic spine. Disc spaces are relatively maintained. There is degenerative endplate spurring. Posterior ribs are intact. There is mild dependent atelectasis in the lungs. Coronary artery disease. No acute fracture of the lumbar spine is identified. There is posterior fusion hardware of L5-S1. The alignment is maintained. There is degenerative spondylosis of L2/L3. There is central osteophyte complex at this level which abuts the ventral thecal sac. Central canal stenosis may be [id number]. Limited visualization of the retroperitoneum is unremarkable. IMPRESSION: There is no acute fracture or subluxation of the thoracic or lumbar spine. Electronically signed by: Krunal Arora MD (05/22/2021 6:41 PM) [facility]: Syncopal episode PROCEDURE: CHEST AP ONLY XR CHEST 1V INDICATION: Syncopal episode . COMPARISON STUDY: None. FINDINGS: Patient is rotated. Lungs: Normal lung volume. No pulmonary mass or consolidation. The tracheobronchial tree and hilar structures are normal. Pleura: No pleural effusion or pneumothorax. Heart and Mediastinum: The cardiomediastinal silhouette is normal. The great vessels of the thorax are normal. IMPRESSION: No consolidation. Electronically signed by: Tyler Mliler MD (05/22/2021 6:34 PM) [facility] (SADE DOUGHERTY APRN) Heart Score C/O Chest Pain: No Risk Factors: Risk Factors: DM, Current or recent (<one month) smoker, HTN, HLP, family history of CAD, obesity. Risk Scores: Risk Factors: DM, Current or recent (<one month) smoker, HTN, HLP, family history of CAD, obesity. (SADE DOUGHERTY APRN) Course & Med Decision Making Course & Med Decision Making Pertinent Labs and Imaging studies reviewed. (See chart for details) 70-year-old female, vital signs reviewed, resents emergency department concerning a fall this past Wednesday in which she struck the back of her head. Physical examination nonconcerning for acute injury, patient is alert and oriented x3, patient ambulated to bed with steady gait, no abnormalities noted, related to patient's complaint of pain and explanation of events will order CT head and C-spine T-spine and L-spine, urinalysis assay, EKG, CBC, CMP. Chest x- ray. Patient is EKG unremarkable, CBC and CMP unremarkable except for potassium low at 2.9, will treat with p.o. potassium prior to discharge. CT head, C-spine, T-spine, L-spine nonconcerning for acute fracture, chest x-ray nonconcerning. Patient's urine is not infected. Patient complains of returning chronic low back pains and is asking for Tylenol 3 tablet that she takes at home, Tylenol 3 tablet ordered in the ED. Discussed all findings with patient, strict follow-up with Dr. Wolff tomorrow related to fall and ongoing evaluation for head injury. Strict return to ER precautions and concerns, patient gave verbal understanding of and is amenable to ED discharge planning. Diagnosis fall, chronic back pain, this is unlikely cauda equina,saddle anesthesia, patient ambulates with steady gait, denies loss of sensation to lower extremities bilaterally, denies numbness or tingling to her genitals or buttocks, denies loss of bowel or bladder continence, denies urinary retention. Discussed with the patient all findings and diagnostic testing as well as the need to follow-up with their primary care provider for further evaluation and treatment or return to the ED if any new or worsening symptoms. Strict return precautions were also discussed at length, the patient voiced understanding and agreement with the discharge planning. The patient was nontoxic in appearance, in no apparent distress, and hemodynamically stable at the time of disposition. (SADE DOUGHERTY APRN) Dragon Disclaimer Dragon Disclaimer This electronic medical record was generated, in whole or in part, using a voice recognition dictation system. (SADE DOUGHERTY APRN) Departure Departure: Impression: Primary Impression: Fall Additional Impressions: Chronic back pain Hypokalemia Disposition: HOME / SELF CARE / HOMELESS Condition: GOOD Referrals: PUJA WOLFF MD (PCP) Patient Instructions: Concussion and Brain Injury, Fall Prevention and Home Safety, Hypokalemia Additional Instructions: You were seen today in the emergency department after a fall at home this past Wednesday. A CT scan of your head, neck, thoracic spine and lumbar spine was performed along with an EKG, chest x-ray, lab work and urinalysis. The x-ray and CT imaging did not show any concerning findings, your EKG did not show any concerning findings, your urine was not infected, your lab work did show a low potassium in which you were treated in the emergency department today with potassium supplement. Please consider eating potassium rich foods. As we discussed, please follow-up with Dr. Wolff, call him tomorrow for ongoing evaluation of your fall. I have attached information about concussion and brain injuries to this document, please review. Please return to the emergency department for worsening symptoms or other concerns. Thank you for visiting our Emergency Department. It was a pleasure taking care of you today in the emergency department and we appreciate you trusting us with your care. If any additional problems come up don't hesitate to return to visit us. Please follow up with your primary care provider so they can plan additional care if needed and know about the problem that you had. If symptoms worsen come back to the Emergency Department. Any concerning symptoms that start such as chest pain, shortness of air, weakness or numbness on one side of the body, running high fevers or any other concerning symptoms return to the ER. EMERGENCY DEPARTMENT GENERAL DISCHARGE INSTRUCTIONS Thank you for coming to [facility] (ED) today and trusting us with you care. We trust that you had a positivie experience in our Emergency Department. If you wish to speak to the department management, you may call the director at [phone]. YOUR FOLLOW UP INSTRUCTIONS ARE FOLLOWS: 1. Do you have a private Doctor? If you do not have a private doctor, please ask for a resource list of physicians or clinics that may be able to assist you with follow up care. 2. The Emergency Physician has interpreted your x-rays. The X-Ray specialist will also review them. If there is a change in the findings, you will be notified in 48 hours when at all possible. 3. A lab test or culture has been done, your results will be reviewed and you will be notified if you need a change in treatment. ADDITIONAL INSTRUCTIONS AND INFORMATION: 1. Your care today has been supervised by a physician who is specially trained in emergency care. Many problems require more than one evaluation for a complete diagnosis and treatment. We recommend that you schedule your follow up appointment as recommended to ensure complete treatment of you illness or injury. If you are unable to obtain follow up care and continue to have a problem, or if your condition worsens, we recommend that you return to the ED. 2. We are not able to safely determine your condition over the phone nor are we able to give sound medical advice over the phone. For these safety reasons, if you call for medical advice we will ask you to come to the ED for further evaluation. 3. If you have any questions regarding these discharge instructions please call the ED at [phone]. SAFETY INFORMATION: In the interest of safety, wellness, and injury prevention; we encourage you to wear your sealbelt, if you smoke; quite smoking, and we encourage family to use a protective helmet for bicycling and other sporting events that present an increased risk for head injury. IF YOUR SYMPTOMS WORSEN OR NEW SYMPTOMS DEVELOP, OR YOU HAVE CONCERNS ABOUT YOUR CONDITION; OR IF YOUR CONDITION WORSENS WHILE YOU ARE WAITING FOR YOUR FOLLOW UP APPOINTMENT; EITHER CONTACT YOUR PRIMARY CARE DOCTOR, THE PHYSICIAN WHOSE NAME AND NUMBER YOU WERE GIVEN, OR RETURN TO THE ED IMMEDIATELY. Attending Signature Attending Signature I have reviewed the PA/AUTOMATIC STACKER's note and plan of care. I was available for consultation as needed during the patient's visit in the emergency department. I agree with the clinical impression, plan, and disposition. (SADE MAURO DO) Problem Qualifiers Primary Impression: Fall Encounter type: initial encounter Qualified Codes: W19.XXXA - Unspecified fall, initial encounter Additional Impressions: Chronic back pain Back pain location: low back pain Back pain laterality: midline Sciatica presence: without sciatica Qualified Codes: M54.50 - Low back pain, unspecified; G89.29 - Other chronic pain SADE DOUGHERTY APRN May 22, 2021 17:52 SADE MAURO DO May 23, 2021 15:29
--- NOTE | 2021-05-22 18:37 | RAD ---
XR CHEST 1V INDICATION: Syncopal episode . COMPARISON STUDY: None. FINDINGS: Patient is rotated. Lungs: Normal lung volume. No pulmonary mass or consolidation. The tracheobronchial tree and hilar st ructures are normal. Pleura: No pleural effusion or pneumothorax. Heart and Mediastinum: The cardiomediastinal silhouette is normal. The great vessels of the thorax ar e normal. IMPRESSION: No consolidation. Electronically signed by: Tyler Miller MD (05/22/2021 6:34 PM) [facility]
--- NOTE | 2021-05-22 18:37 | RAD ---
Exam: CT head and cervical spine without contrast INDICATION: Syncopal episode, fall TECHNIQUE: Sequential axial images through the head and cervical were obtained without the administra tion of IV contrast. Exposure: One or more of the following in the visualized dose reduction techniques were utilized for this examination: 1. Automated exposure control 2. Adjustment of the MA and/or KV according to patient size 3. Use of iterative of reconstructive technique Comparisons: 08/16/2020 FINDINGS: Head: No focal parenchymal lesion or hemorrhage is identified. There is no midline shift or sulcal effaceme nt. No acute vascular territory infarction is identified. Tran-white distinction is preserved. The ventricular system is within normal limits without compression hydrocephalus. The basal cisterns are well maintained. The visualized portions of the paranasal sinuses and mastoid air cells are well-pneumatized. No acute fractures. Cervical spine: Straightening of cervical spine which may be positional. Vertebral body heights are well-maintained. Fracture to the cervical spine is not identified. No significant spondylotic change in the cervical spine. Visualized paraspinal soft tissues are unremarkable. IMPRESSION: 1. No acute intracranial abnormality. 2. Negative CT C-spine for acute traumatic injury. Electronically signed by: Val Blanco MD (05/22/2021 6:34 PM) [facility]
[2021-05-22 18:42] LABS: BASO % 0 % (0-3); EOS # 0.2 x10^3/uL (0.0-0.7); EOS % 4 % (0-3); HEMATOCRIT 34.8 % (36.0-47.0); HEMOGLOBIN 11.9 g/dL (12.0-15.5); LYMPH # 2.4 x10^3/uL (1.0-4.8); LYMPH % 41 % (24-48); MEAN CORPUSCULAR HEMOGLOBIN 31 pg (25-35); MEAN CORPUSCULAR HGB CONC 34 g/dL (31-37); MEAN CORPUSCULAR VOLUME 89 fL (79-100); MONO # 0.5 x10^3/uL (0.0-1.1); MONO % 8 % (0-9); NEUT # 2.8 x10^3uL (1.8-7.7); NEUT % 47 % (31-73); PLATELET COUNT 274 x10^3/uL (140-400); RED BLOOD COUNT 3.91 x10^6/uL (3.50-5.40); RED CELL DISTRIBUTION WIDTH 13.8 % (11.5-14.5); WHITE BLOOD COUNT 5.9 x10^3/uL (4.0-11.0)
--- NOTE | 2021-05-22 18:43 | RAD ---
PQRS Compliance Statement: One or more of the following individualized dose reduction techniques were utilized for this examinat ion: 1. Automated exposure control 2. Adjustment of the mA and/or kV according to patient size 3. Use of iterative reconstruction technique CT LUMBAR SPINE WO, CT THORACIC SPINE WO Clinical Indication: Reason: Syncopal episode, fall / Spl. Instructions: / History: Comparison: None. TECHNIQUE: Helical CT imaging of the thoracic and lumbar spine is performed without IV contrast. Findings: There is no acute fracture or subluxation of the thoracic spine. Disc spaces are relatively maintaine d. There is degenerative endplate spurring. Posterior ribs are intact. There is mild dependent atelec tasis in the lungs. Coronary artery disease. No acute fracture of the lumbar spine is identified. There is posterior fusion hardware of L5-S1. The alignment is maintained. There is degenerative spondylosis of L2/L3. There is central osteophyte com plex at this level which abuts the ventral thecal sac. Central canal stenosis may be [id number] . Limited visualization of the retroperitoneum is unremarkable. IMPRESSION: There is no acute fracture or subluxation of the thoracic or lumbar spine. Electronically signed by: Krunal Arora MD (05/22/2021 6:41 PM) [facility]
--- NOTE | 2021-05-22 18:43 | RAD ---
PQRS Compliance Statement: One or more of the following individualized dose reduction techniques were utilized for this examinat ion: 1. Automated exposure control 2. Adjustment of the mA and/or kV according to patient size 3. Use of iterative reconstruction technique CT LUMBAR SPINE WO, CT THORACIC SPINE WO Clinical Indication: Reason: Syncopal episode, fall / Spl. Instructions: / History: Comparison: None. TECHNIQUE: Helical CT imaging of the thoracic and lumbar spine is performed without IV contrast. Findings: There is no acute fracture or subluxation of the thoracic spine. Disc spaces are relatively maintaine d. There is degenerative endplate spurring. Posterior ribs are intact. There is mild dependent atelec tasis in the lungs. Coronary artery disease. No acute fracture of the lumbar spine is identified. There is posterior fusion hardware of L5-S1. The alignment is maintained. There is degenerative spondylosis of L2/L3. There is central osteophyte com plex at this level which abuts the ventral thecal sac. Central canal stenosis may be [id number] . Limited visualization of the retroperitoneum is unremarkable. IMPRESSION: There is no acute fracture or subluxation of the thoracic or lumbar spine. Electronically signed by: Krunal Arora MD (05/22/2021 6:41 PM) [facility]
[2021-05-22 18:58] LABS: ALBUMIN 3.3 g/dL (3.4-5.0); ALBUMIN/GLOBULIN RATIO 0.9 (1.0-1.7); CALCIUM 8.2 mg/dL (8.5-10.1); PHOSPHORUS 3.4 mg/dL (2.6-4.7); TOTAL BILIRUBIN 0.2 mg/dL (0.2-1.0); TOTAL PROTEIN 6.8 g/dL (6.4-8.2)
[2021-05-22 19:01] LABS: POTASSIUM 2.9 mmol/L (3.5-5.1)
[2021-05-22] MEDS ORDERED: POTASSIUM CHLORIDE 20 MEQ TABLET.ER. PO ONE ×2 (19:30→20:15)
[2021-05-22] MEDS ORDERED: ACETAMINOPHEN/CODEINE 300/30MG TABLET PO ONE (19:30)
[2021-05-22 19:49] LABS: BACTERIA,URINE FEW /HPF (0-FEW); BILIRUBIN,URINE NEG (NEG); CLARITY,URINE CLEAR; COLOR,URINE YELLOW; GLUCOSE,URINE 250 mg/dL (NEG); NITRITE,URINE NEG (NEG); SQUAMOUS EPITHELIAL CELL,UR FEW /LPF; UROBILINOGEN,URINE 0.2 mg/dL (0.2 mg/dL)
[2021-05-22 20:20] VITALS: BP 156/84
--- NOTE | 2021-05-23 07:12 | EKG ---
[address] [address] Test Date: 2021-05-22 Test Time: 18:35:44 Pat Name: FAMILIA MAR Department: Room: Gender: F Monologist: MELISSA : 1950 Requested By: SADE DOUGHERTY Order Number: [id number] Reading MD: Chris Sears MD Measurements Intervals Leupp Rate: 92 P: 37 ME: 128 QRS: 1 QRSD: 84 T: 28 QT: 396 QTc: 495 Interpretive Statements SINUS RHYTHM VENTRICULAR PREMATURE COMPLEX(ES) PROLONGED QT Electronically Signed On 05-25-2021 20:55:55 [facility] CLINIC[facility] by Chris Sears MD
== END 2021-05-22 20:25 | disposition home or self-care (01) ==
LOC: ER 16:35
DX: M54.50 Low back pain, unspecified (principal); E87.6 Hypokalemia; R55 Syncope and collapse; Z88.0 Allergy status to penicillin; Z88.8 Allergy status to other drugs, medicaments and biological substances; Z88.6 Allergy status to analgesic agent; W18.30XA Fall on same level, unspecified, initial encounter; Y93.89 Activity, other specified; Y92.89 Other specified places as the place of occurrence of the external cause; Y99.8 Other external cause status
CPT/HCPCS: 36415; 70450; 71045; 72125; 72128; 72131; 80053; 81001; 83735; 84100; 85025; 93005; 99285-25

== ENCOUNTER 2021-06-25 03:53 | Inpatient (IN) | payer MEDICARE, BC ==
[~2021-06-25] VITALS: Ht 149.9 cm; Wt 63.6 kg
--- NOTE | 2021-06-25 04:07 | PHYS DOC ---
Past History Past Medical History: A-Fib, Anxiety, Arthritis, CAD, Cancer, COPD, Diabetes, High Cholesterol, Hypertension, Hypothyroid, Other Additional Past Medical Histor: PARKINSON'S; uterine and cervical ca 1982 (DAVE MCGINNIS DO) Past Surgical History: Cholecystectomy, , Hysterectomy, Oophorectomy, Tonsillectomy, Other Additional Past Surgical Histo: CARDIAC STENTS; HEAD SURGERY FX; CANCER; ABD HERNIA REPAIR; L KNEE; BACK (DAVE MCGINNIS DO) Smoking: Non-smoker Alcohol Use: None Drug Use: None (DAVE MCGINNIS DO) General Adult EDM: Chief Complaint: NAUSEA/VOMITING/DIARRHEA HPI: HPI: 70-year-old female presents via EMS with vomiting and altered mental status. She comes from home. The patient is not very cooperative. She questions. She was to go to sleep. She tells me she has been vomiting. She does not tell me how many days. She denies any pain. She has no specific complaints. (DAVE MCGINNIS DO) Review of Systems: Review of Systems: Constitutional: Denies fever or chills Eyes: Denies change in visual acuity HENT: Denies nasal congestion or sore throat Respiratory: Denies cough or shortness of breath Cardiovascular: Denies chest pain or edema GI: Nausea, vomiting. Denies abdominal pain, bloody stools or diarrhea : Denies dysuria Musculoskeletal: Denies back pain or joint pain Integument: Denies rash Neurologic: Denies headache, focal weakness or sensory changes Endocrine: Denies polyuria or polydipsia Lymphatic: Denies swollen glands Psychiatric: Denies depression or anxiety (DAVE MCGINNIS DO) Allergies: Allergies: Allergies Coded Allergies Type Severity Reaction Last Updated Verified Penicillins Allergy Intermediate 06/25/21 Yes Soap Allergy Intermediate 06/25/21 Yes hydrocodone bitartrate Allergy Intermediate Itching 06/25/21 Yes metformin Allergy Intermediate 06/25/21 Yes mushroom Allergy Intermediate 06/25/21 Yes niacin Allergy Intermediate 06/25/21 Yes povidone-iodine Allergy Intermediate 06/25/21 Yes aspirin Allergy Mild 06/25/21 Yes (DAVE MCGINNIS DO) Physical Exam: PE: Constitutional: Well developed, well nourished, no acute distress, non-toxic appearance. [] HENT: Normocephalic, atraumatic, bilateral external ears normal, oropharynx moist, no oral exudates, nose normal. [] Eyes: PERRLA, EOMI, conjunctiva normal, no discharge. [] Neck: Normal range of motion, no tenderness, supple, no stridor. [] Cardiovascular: Heart rate regular rhythm, no murmur [] Lungs & Thorax: Bilateral breath sounds clear to auscultation [] Abdomen: Bowel sounds normal, soft, no tenderness, no masses, no pulsatile masses. [] Skin: Warm, dry, no erythema, no rash. [] Back: No tenderness, no CVA tenderness. [] Extremities: No tenderness, no cyanosis, no clubbing, ROM intact, no edema. [] Neurologic: Alert and oriented, normal motor function, normal sensory function, no focal deficits noted. [] Psychologic: Affect irritated, judgement normal, mood uncooperative. [] (DAVE MCGINNIS DO) Current Patient Data: Vital Signs: Vital Signs Date Time Temp Pulse Resp B/P (MAP) Pulse Ox O2 Delivery O2 Flow Rate FiO2 06/25/21 03:59 97.6 101 21 191/99 (129) 96 Room Air (DAVE MCGINNIS DO) EKG: EKG: [] (DAVE MCGINNIS DO) Radiology/Procedures: Radiology/Procedures: [] Impressions: EXAM: AP View of the chest DATE: 06/25/2021 4:09 AM INDICATION: Reason: AMS, nausea, vomiting, difficulty following breathing directions / Spl. Instructions: / History: COMPARISON: No Prior FINDINGS: The heart is not enlarged. Mediastinal and hilar contours are stable. No focal parenchymal airspace opacity. No pleural effusion or pneumothorax. IMPRESSION: 1. No radiographic evidence for acute cardiopulmonary process. Electronically signed by: Nilo Hendricks MD (06/25/2021 4:27 AM) [facility] DICTATED AND SIGNED BY: NILO HENDRICKS MD DATE: 06/25/21 0427 CC: DAVE MCGINNIS DO; PUJA WOLFF MD ~MTH0 0 (DAVE MCGINNIS DO) Radiology/Procedures: IMAGING REPORT Signed PATIENT: FAMILIA MAR ACCOUNT: [id number] : 1950 LOCATION: ER AGE: 70 SEX: F EXAM STATUS: REG ER ORD. PHYSICIAN: KORY IRVIN DO REASON: ams PROCEDURE: CT HEAD WO CONTRAST Exam Date: 06/25/2021 8:[address] HEAD/BRAIN WO Indication: Reason: ams / Spl. Instructions: / History: . TECHNIQUE: Head CT was performed without intravenous contrast. One or more of the following dose reduction techniques were utilized: *Automated exposure control (AEC) *Adjustment of mA and/or kV according to patient size *Use of iterative reconstruction technique *CT scan done according to ALARA, or ALARA/IMAGE GENTLY COMPARISON: May 22, 2021 FINDINGS: The ventricles and sulci are normal for the patient's stated age. There is no evidence of acute intracranial hemorrhage, extra-axial collection, mass effect, midline shift, or acute territorial infarct. No lesion of the skull base or the calvarium is seen. The visualized paranasal sinuses, mastoid air cells and orbits are normal in appearance. IMPRESSION: No evidence for acute intracranial abnormality. Electronically signed by: Tavo Ahuja MD (06/25/2021 8:40 AM) [id number] DICTATED AND SIGNED BY: TAVO AHUJA MD DATE: 06/25/21 0839 CC: PUJA WOLFF MD; KORY IRVIN DO ~MTH0 0 (KORY IRVIN DO) Heart Score: C/O Chest Pain: N/A Risk Factors: Risk Factors: DM, Current or recent (<one month) smoker, HTN, HLP, family history of CAD, obesity. Risk Scores: Score 0 - 3: 2.5% MACE over next 6 weeks - Discharge Home Score 4 - 6: 20.3% MACE over next 6 weeks - Admit for Clinical Observation Score 7 - 10: 72.7% MACE over next 6 weeks - Early Invasive Strategies (DAVE MCGINNIS DO) C/O Chest Pain: No (KORY IRVIN DO) Course & Med Decision Making: Course & Med Decision Making Pertinent Labs and Imaging studies reviewed. (See chart for details) The patient's chest x-ray is negative for acute findings. I have given her a liter normal saline and 4 mg of Zofran. She has had no vomiting. Her labs are significant for a blood sugar of 218 with a normal gap. Fluids should help with this. The patient's urinalysis is negative for infection. Patient's family arrived and informed us that she has had contacts with other sick family members. We have swabbed her for COVID-19 and influenza. We will contact the patient with results when they become available. The patient was signed out to the day shift. (DAVE MCGINNIS DO) Course & Med Decision Making Concern for intractable nausea and vomiting in the setting of mild, nonketotic hyperglycemia. Pt continues to vomit in ed and appears frail, dehydrated and slightly confused-will not ambulate or follow instructions. Does have history of Parkinson's. concerned for patient's behavior "this is not her normal." Will admit to Dr. Cooley for further medical management. Patient stable at time of admission. I have spoken with the patient and/or caregivers. I have explained the patient's condition, diagnosis and treatment plan based on the information available to me at this time. I have answered the patient's and/or caregivers questions and answered any concerns. The patient and/or caregivers have as good an understanding of the patient's diagnosis, condition and treatment plan as can be expected at this point. The patient has been stabilized within the capability of the emergency department. The patient will be transported for further care and management or will be moved to an observation or inpatient service. I have communicated with the staff or medical practitioner taking over this patient's care. (KORY IRVIN DO) Dragon Disclaimer: Dragon Disclaimer: This electronic medical record was generated, in whole or in part, using a voice recognition dictation system. (DAVE MCGINNIS DO) Departure Departure: Impression: Primary Impression: Vomiting Additional Impressions: Hyperglycemia Confusion Disposition: ADMITTED INPATIENT Admitting Physician: Puja Wolff (KORY IRVIN DO) Condition: STABLE Referrals: PUJA WOLFF MD (PCP) Patient Instructions: Nausea and Vomiting, [id number] Scripts Ondansetron (ONDANSETRON ODT) 4 Mg Tab.rapdis 1 TAB PO PRN Q6-8HRS PRN for VOMITING, #16 TAB Prov: DAVE MCGINNIS DO 06/25/21 DAVE MCGINNIS DO Jun 25, 2021 04:07 KORY IRVIN DO Jun 25, 2021 09:29
--- NOTE | 2021-06-25 04:30 | RAD ---
EXAM: AP View of the chest DATE: 06/25/2021 4:09 AM INDICATION: Reason: AMS, nausea, vomiting, difficulty following breathing directions / Spl. Instructi ons: / History: COMPARISON: No Prior FINDINGS: The heart is not enlarged. Mediastinal and hilar contours are stable. No focal parenchymal airspace opacity. No pleural effusion or pneumothorax. IMPRESSION: 1. No radiographic evidence for acute cardiopulmonary process. Electronically signed by: Nilo Abbott MD (06/25/2021 4:27 AM) [facility]
[2021-06-25 04:32] LABS: BASO % 0 % (0-3); EOS % 0 % (0-3); HEMATOCRIT 38.1 % (36.0-47.0); HEMOGLOBIN 12.7 g/dL (12.0-15.5); LYMPH # 0.8 x10^3/uL (1.0-4.8); LYMPH % 9 % (24-48); MEAN CORPUSCULAR HEMOGLOBIN 30 pg (25-35); MEAN CORPUSCULAR HGB CONC 33 g/dL (31-37); MEAN CORPUSCULAR VOLUME 89 fL (79-100); MONO # 0.2 x10^3/uL (0.0-1.1); MONO % 3 % (0-9); NEUT # 7.4 x10^3uL (1.8-7.7); NEUT % 88 % (31-73); PLATELET COUNT 290 x10^3/uL (140-400); RED BLOOD COUNT 4.27 x10^6/uL (3.50-5.40); RED CELL DISTRIBUTION WIDTH 13.6 % (11.5-14.5); WHITE BLOOD COUNT 8.4 x10^3/uL (4.0-11.0)
[2021-06-25 04:47] LABS: CALCIUM 9.1 mg/dL (8.5-10.1); CREATININE 0.9 mg/dL (0.6-1.0); GFR 62.1; POTASSIUM 3.5 mmol/L (3.5-5.1)
[2021-06-25 04:53] LABS: ALBUMIN 3.6 g/dL (3.4-5.0); ALBUMIN/GLOBULIN RATIO 0.9 (1.0-1.7); TOTAL BILIRUBIN 0.4 mg/dL (0.2-1.0); TOTAL PROTEIN 7.4 g/dL (6.4-8.2)
[2021-06-25] MEDS ORDERED: ONDA4TAB12 PO (04:59)
[2021-06-25] MEDS ORDERED: IV NORMAL SALINE 1,000ML 1,000 ML IV ONE ×3 (05:00→08:45)
[2021-06-25] MEDS ORDERED: ONDANSETRON PF 4 MG/2 ML VIAL. IVP ONE ×2 (05:00→08:30)
[2021-06-25 05:38] LABS: BACTERIA,URINE 0 /HPF (0-FEW); BILIRUBIN,URINE NEG (NEG); CLARITY,URINE CLEAR; COLOR,URINE YELLOW; GLUCOSE,URINE 100 mg/dL (NEG); NITRITE,URINE NEG (NEG); UROBILINOGEN,URINE 0.2 mg/dL (0.2 mg/dL)
[2021-06-25 06:39] LABS: INFLUENZA A PATIENT NEGATIVE (NEGATIVE); INFLUENZA B PATIENT NEGATIVE (NEGATIVE)
--- NOTE | 2021-06-25 08:43 | RAD ---
Exam Date: 06/25/2021 8:[address] HEAD/BRAIN WO Indication: Reason: ams / Spl. Instructions: / History: . TECHNIQUE: Head CT was performed without intravenous contrast. One or more of the following dose re duction techniques were utilized: *Automated exposure control (AEC) *Adjustment of mA and/or kV according to patient size *Use of iterative reconstruction technique *CT scan done according to ALARA, or ALARA/IMAGE GENTLY COMPARISON: May 22, 2021 FINDINGS: The ventricles and sulci are normal for the patient's stated age. There is no evidence of acute int racranial hemorrhage, extra-axial collection, mass effect, midline shift, or acute territorial infarc t. No lesion of the skull base or the calvarium is seen. The visualized paranasal sinuses, mastoid ai r cells and orbits are normal in appearance. IMPRESSION: No evidence for acute intracranial abnormality. Electronically signed by: Vick Ahuja MD (06/25/2021 8:40 AM) [id number]
[2021-06-25] MEDS ORDERED: METOCLOPRAMIDE HCL 10 MG/2 ML VIAL. IVP ONE (10:30)
[2021-06-25] MEDS ORDERED: MAG HYDROX/AL HYDROX/SIMETH 30 ML ORAL.SUSP PO PRN (15:15)
[2021-06-25] MEDS ORDERED: ONDANSETRON ODT 4 MG TAB.RAPDIS PO PRN (15:15)
[2021-06-25] MEDS ORDERED: BENZONATATE 100 MG CAPSULE. PO PRN (15:15)
[2021-06-25] MEDS ORDERED: ALBUTEROL SULFATE 2.5 MG/3 ML NEBU. IH PRN (15:15)
[2021-06-25 16:04] VITALS: BP_SYST 182; BP_SYST 86; BP_DIAS 56; BP_DIAS 94
[2021-06-25] MEDS ORDERED: INSULIN LISPRO SQ SCH (16:30)
[2021-06-25] MEDS: IPRATRPIUM/ALBUTEROL 0.5/2.5MG 3 ML NEBU. NEB SCH ×2 (17:00→20:39)
--- NOTE | 2021-06-25 17:58 | NUR ---
Nursing Note PT was admitted to the floor on 06/25/2021 from the ED with a diagnosis of Altered Mental Status. PT was placed in bed, Bed low call light within reach. Admission questions answered by on phone. Blood pressure assessed and high. PT administered blood pressure medication and she was unable to swallow, she kept the medication in her mouth and chewed. Nurse notified the doctor to ask if the medication can be change to a patch so it could be easy for the patient. verbalized he does not want the PT be sedated so the nurse should continue with the PRN medication for blood pressure. bed low, alarm on, call light within reach. will continue to monitor.
[2021-06-25] MEDS ORDERED: CARVEDILOL 6.25 MG TABLET PO SCH (18:00)
[2021-06-25] MEDS ORDERED: DEXTROSE 50% 25 GM / 50ML DISP.SYRIN. IV PRN (18:45)
[2021-06-25 19:00] VITALS: BP 170/103
--- NOTE | 2021-06-25 22:45 | HP ---
DATE OF SERVICE: 06/25/2021 ADMIT DATE: 06/25/2021 HISTORY OF PRESENT ILLNESS: A 70-year-old female who came in with altered mental status. Apparently, the patient had not been taking her blood pressure medications nor her blood sugar medications for several weeks. As a result of this, the patient was admitted to the hospital. The patient was uncooperative. She was markedly somnolent and was becoming increasingly despondent and lethargic. The patient was seen initially in the Emergency Room and then admitted to the hospital for further evaluation of the change in mental status. 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 Pneumococcal vaccination up to date. PAST SURGICAL HISTORY: Tonsillectomy surgery, cholecystectomy, 3 left knee surgeries. ALLERGIES: PENICILLIN, SULFA, ASPIRIN, HYDROCODONE, METFORMIN, MUSHROOMS, NIACIN, AND IODINE. SOCIAL HISTORY: The patient denies any smoking, alcohol or drug use. She is a full code. REVIEW OF SYSTEMS: The patient was as noted uncooperative, did not give any basic comment about her mental or physical status in an intelligent conversation. Her initial blood pressure was 190/99, respiratory rate 20, pulse 100, afebrile. The patient's blood pressure was up, given IV hydralazine. Her list of medications given to us was inadequate and apparently list of medications given to us, she does not take on a regular basis. PHYSICAL EXAMINATION: GENERAL: This is a pleasant white female. She is fairly small. She is in a position. She is not responding well to answer questions. The patient is alert at times when she can, but otherwise goes back into somnolence. VITAL SIGNS: Blood pressure 182/94, respiratory rate 18, pulse 78, afebrile, 96% oxygen saturation. HEENT: The patient's eyes were PERRLA. Mouth and throat were normal. NECK: Supple without no JVD, carotid or thyroidmegaly. LUNGS: Diminished throughout, poor movement of air, but clear. CARDIOVASCULAR: Regular sinus rhythm. ABDOMEN: Soft, scaphoid. MUSCULOSKELETAL: Appears to show wasting, weakness, degenerative arthritis, previous knee surgeries. Pulses noted distally. EXTREMITIES: No edema noted. NEUROLOGIC: As noted arousable, but basically somnolent. The patient's blood pressure will be treated with IV medication as she is not taking oral medications. LABORATORY DATA: Her white count is 8, hemoglobin 12 and hematocrit 38. Chemistries did show sodium 138 and potassium 3.5, BUN and creatinine 16 and 0.9, blood sugar 218. Lactic acid elevated at 2.4, but appears to be more metabolic than infectious. Liver enzymes are normal. Albumin 3.6. Acetone was negative. Urine basically unremarkable. Coags did show 1.78 on D-dimer. Serology negative for flu and SARS. IMPRESSION: Change in mental status, metabolic encephalopathy, noncompliance of medications for blood pressure and diabetes, muscle wasting, type 2 diabetes poorly controlled, hypertensive urgency. The patient as noted will be admitted for further evaluation and treatment of her high blood pressure, control of her diabetes, hydration, and further evaluation as indicated. DAISY/GLENN/LEONEL DR: DAISY/nitesh TID: [id number]
[2021-06-26] MEDS: hydrALAZINE 20 MG/ML VIAL. IV PRN ×3 (02:58→21:41)
[2021-06-26 03:03] VITALS: BP 204/101
[2021-06-26 05:00] VITALS: BP 141/70
[2021-06-26] MEDS: IPRATRPIUM/ALBUTEROL 0.5/2.5MG 3 ML NEBU. NEB SCH ×4 (05:39→21:54)
[2021-06-26] MEDS ORDERED: CARVEDILOL 3.125 MG TABLET PO SCH (08:00)
[2021-06-26] MEDS: INSULIN LISPRO 300 UNITS/3 ML VIAL. SQ SCH ×3 (08:00→17:00)
[2021-06-26 08:10] LABS: CALCIUM 9.2 mg/dL (8.5-10.1); CREATININE 1.3 mg/dL (0.6-1.0); GFR 40.6; POTASSIUM 3.3 mmol/L (3.5-5.1)
[2021-06-26 08:12] LABS: BASO % 0 % (0-3); EOS % 0 % (0-3); HEMATOCRIT 39.5 % (36.0-47.0); LYMPH # 1.5 x10^3/uL (1.0-4.8); LYMPH % 10 % (24-48); MEAN CORPUSCULAR HEMOGLOBIN 30 pg (25-35); MEAN CORPUSCULAR HGB CONC 33 g/dL (31-37); MEAN CORPUSCULAR VOLUME 90 fL (79-100); MONO # 0.9 x10^3/uL (0.0-1.1); MONO % 6 % (0-9); NEUT # 12.6 x10^3uL (1.8-7.7); NEUT % 84 % (31-73); PLATELET COUNT 371 x10^3/uL (140-400); RED BLOOD COUNT 4.41 x10^6/uL (3.50-5.40); RED CELL DISTRIBUTION WIDTH 13.7 % (11.5-14.5)
[2021-06-26] MEDS ORDERED: FUROSEMIDE 40 MG TABLET PO SCH (09:00)
[2021-06-26] MEDS ORDERED: DEXAMETHASONE 4 MG TABLET PO SCH (09:00)
[2021-06-26] MEDS ORDERED: INSULIN DEGLUDEC 30 UNIT SQ SCH (09:00)
[2021-06-26] MEDS ORDERED: LOSARTAN 25 MG TABLET. PO SCH (09:00)
[2021-06-26] MEDS ORDERED: IV NORMAL SALINE 1,000ML 1,000 ML IV SCH (09:30)
[2021-06-26 11:02] VITALS: BP 189/86
--- NOTE | 2021-06-26 12:05 | NUR ---
Nursing note PT in bed, weak and sleepy. IV fluids stated per doctors orders. Blood glucose checked, Insulin non-administered because PT is not eating. PT in bed, bed alarm on, call light within reach. Will continue to monitor.
[2021-06-26 15:15] VITALS: BP 199/106
--- NOTE | 2021-06-26 15:37 | NUR ---
Nursing note PT in bed, refuses any medication, fluids or food orally. Doctor notified and PT was placed on IV medications. IV ProcalAmine (Clinimax) orders for the PT per doctors orders for PT nutrition. PT in bed, bed lock, call light within reach. Will continue to monitor.
[2021-06-26] MEDS: AA 4.25 %/CALCIUM/LYTES/D5W 1,000 ML IV SCH (15:46)
[2021-06-26 20:44] VITALS: BP 179/73
[2021-06-26] MEDS ORDERED: INSULIN GLARGINE SYRINGE. SQ SCH ×2 (21:00→21:30)
[2021-06-26] MEDS ORDERED: METOPROLOL TARTRATE 5 MG/5 ML VIAL. IV SCH (21:45)
[2021-06-27 00:17] VITALS: BP 154/86
[2021-06-27] MEDS: METOPROLOL TARTRATE 5 MG/5 ML VIAL. IV PRN ×3 (00:35→20:30)
[2021-06-27] MEDS: AA 4.25 %/CALCIUM/LYTES/D5W 1,000 ML IV SCH ×2 (05:06→16:45)
[2021-06-27] MEDS: IPRATRPIUM/ALBUTEROL 0.5/2.5MG 3 ML NEBU. NEB SCH ×4 (05:31→18:53)
[2021-06-27] MEDS: hydrALAZINE 20 MG/ML VIAL. IV PRN (05:45)
--- NOTE | 2021-06-27 06:12 | NUR ---
PT APPROACHED THIS MORNING TO HELP CHANGE BRIEF. PTS BED, LINENS, AND GOWN THEN CHANGED. PT WAS THEN SAT IN UP POSITION IN BED. PT IS STILL UNABLE TO VERBALIZED BUT WOULD OPEN EYES AND MAKE EYE CONTACT. PT WAS THEN FED APPLESAUCE W/ MAXIMUM ASSISTANCE. PT TOLERATED APPLESAUCE W/O COMPLICATIONS. PT WAS THEN GIVEN AN ENSURE AND PUDDING. PT ALSO TOLERATED THEM W/O COMPLICATIONS. ORAL CARE WAS THEN PROVIDED. PT IS NOW RESTING COMFORTABLY IN BED. VS OBTAINED. BP 181/104 W/ PULSE RATE OF 98. PT GIVEN PRN HYDRALAZINE AND METOPROLOL INDICATED. WILL CONTINUE TO MONITOR.
[2021-06-27 06:14] VITALS: BP 181/104
[2021-06-27 06:14] LABS: BASO % 0 % (0-3); EOS % 0 % (0-3); HEMATOCRIT 38.5 % (36.0-47.0); HEMOGLOBIN 12.7 g/dL (12.0-15.5); LYMPH # 1.4 x10^3/uL (1.0-4.8); LYMPH % 8 % (24-48); MEAN CORPUSCULAR HEMOGLOBIN 29 pg (25-35); MEAN CORPUSCULAR HGB CONC 33 g/dL (31-37); MEAN CORPUSCULAR VOLUME 89 fL (79-100); MONO # 1.6 x10^3/uL (0.0-1.1); MONO % 10 % (0-9); NEUT # 13.9 x10^3uL (1.8-7.7); NEUT % 82 % (31-73); PLATELET COUNT 343 x10^3/uL (140-400); RED BLOOD COUNT 4.32 x10^6/uL (3.50-5.40); RED CELL DISTRIBUTION WIDTH 14.2 % (11.5-14.5); WHITE BLOOD COUNT 16.9 x10^3/uL (4.0-11.0)
[2021-06-27 06:26] LABS: CALCIUM 9.3 mg/dL (8.5-10.1); CREATININE 2.5 mg/dL (0.6-1.0); GFR 19.1; POTASSIUM 3.3 mmol/L (3.5-5.1)
[2021-06-27 07:14] LABS: % LYMPHS 8 % (24-48); % MONOS 8 % (0-10); % SEGS 84 % (35-66); PLT ESTIMATE ADEQUATE (ADEQUATE)
--- NOTE | 2021-06-27 07:19 | NUR ---
NURSE NOTE THIS RN WAS NOTIFIED OF PT GLUCOSE LEVEL OF 452 AT SHIFT CHANGE. THIS RN NOTIFIED DR WOLFF AT 0715. THIS RN ADMINISTERED 25 UNITS OF HUMALOG NOW, PER DR WOLFF. PT IN BED RESTING.
[2021-06-27] MEDS: INSULIN LISPRO 300 UNITS/3 ML VIAL. SQ SCH ×5 (07:26→21:28)
--- NOTE | 2021-06-27 07:30 | NUR ---
NURSE NOTE THIS RN NOTIFIED BY PRODUCT DEVELOPMENT ENGINEER OF FINGERSTICK BLOOD GLUCOSE LEVEL 546 AT 0725. THIS RN NOTIFIED DR WOLFF AT 0730. THIS RN WILL RECHECK BLOOD SUGAR IN 30 MINS AND GO UP TO [address] WOLFF. THIS RN WILL CONTINUE SLIDING SCALE FOR PT.
--- NOTE | 2021-06-27 09:06 | PN ---
SUBJECTIVE: The patient is a 70-year-old female came in markedly confused, markedly sedate, obviously some type of a metabolic encephalopathy. The patient has only mildly improved. She has shown blood sugars markedly out of control and we are attempting to give her additional chlor agents as well as IV ____. The patient is not taking anything by mouth, so we have to give her everything by IV. OBJECTIVE: VITAL SIGNS: Blood pressure is elevated 189/80 (the patient blood pressure), pulse 113, temperature afebrile. GENERAL: The patient otherwise has basically very little response as we talked to her, body skin temperature seems to be warm. LUNGS: Otherwise lungs are clear. CARDIOVASCULAR: Stable. ABDOMEN: Soft, nontender. EXTREMITIES: Without clubbing, cyanosis or edema. HEENT: The patient also has pupils that are reactive to light and accommodation. Cranial nerves are basically intact although hard to pass because the patient will not follow basic instructions. We will continue with fluid, hydration and nutrition, try to control her blood sugar. LABORATORY DATA: White count did go up, but for whatever reason she was on dexamethasone, which did not seem to really do much. Potassium was low at 3. BUN and creatinine 24 and 1.3. Blood sugars are starting to go back up into the 300s and I am putting her on acting Lantus of 35 units. SARS have been negative. IMPRESSION: Metabolic encephalopathy; type 2 diabetes, poorly controlled; hypertensive urgency ____. PLAN: We will go ahead and continue with IV medications, nutrition, fluids, hydration and see if anything else perpetuates out of the situation here. DAISY/PINKY/VINICIO DR: Carey TID: [id number]
[2021-06-27 09:30] VITALS: BP 154/83
[2021-06-27] MEDS ORDERED: INSULIN REGULAR 100 UNIT/ML 3ML VIAL. IV ONE ×2 (09:30→09:45)
[2021-06-27] MEDS: INSULIN GLARGINE SYRINGE. SQ SCH ×2 (09:45→21:27)
--- NOTE | 2021-06-27 12:21 | NUR ---
NURS NOTE PT CAME TO MAIN ENTRANCE FOR PATIENT UPDATE. STATED THAT HE WOULD LIKE TO TALK TO HER TO WAKE HER UP. THIS RN NOTIFIED OF VISITATION RULES AT THIS TIME. WANTED TO SPEAK WITH SOMEONE TO HELP HIM UNDERSTAND. THIS RN NOTIFIED CM. PT BLOOD SUGAR NOW CONTROLLED DOWN TO 246. THIS RN HAS NOT BEEN ABLE TO GET PT AROUSED AT ALL. PT WILL OPEN EYES WHEN CALLING HER NAME BUT CONTINUES TO BE NONVERBAL. PT RESTING IN BED. CANNOT GET PT TO EAT LUNCH OR BREAKFAST. WILL CONTINUE TO MONITOR. ALL NEEDS MET AT THIS TIME.
--- NOTE | 2021-06-27 14:12 | NUR ---
NURS NOTE PATIENT SAT UP TO EAT 100% OF LUNCH TRAY. THIS RN STOPPED IV CLINIMIX PER MD ORDER FOR HYPERGLYCEMIA. PT CHANGED AND RESTING IN BED. ALL NEEDS MET AT THIS TIME. WILL CONTINUE TO MONITOR.
[2021-06-27 15:02] VITALS: BP 146/73
[2021-06-27 20:00] VITALS: BP 127/73
[2021-06-27] MEDS ORDERED: INSULIN LISPRO 300 UNITS/3 ML VIAL. SQ ONE ×2 (21:00→21:15)
--- NOTE | 2021-06-27 21:00 | NUR ---
Nursing note: Spoke to Dr. Fregoso, patient blood glucose level 371. Orders for ACHS sliding scale and additional 20u SQ now once.
--- NOTE | 2021-06-27 23:27 | PN ---
SUBJECTIVE: The patient still pretty much not communicating, change in mental status. OBJECTIVE: VITAL SIGNS: Blood pressure 146/73, respiratory 18, pulse 97, afebrile. LUNGS: Clear. CARDIOVASCULAR: Stable. ABDOMEN: Soft, diffuse tenderness. EXTREMITIES: No clubbing, cyanosis, or edema. NEUROLOGICAL: Alert, but markedly noncommunicative. LABORATORY DATA: Labs still show elevated white count of 16,000. Blood sugar has been elevated as high as 540. IMPRESSION AND PLAN: I would be increasing her insulin long-acting as well as short-acting and make further evaluation on her. She is not communicating. She is receiving procalamine. For whatever the reason, the nurse stopped procalamine. The patient will continued to be monitored carefully,fluids and also continued with monitoring her blood sugars and make further evaluation on her as indicated. EARLENE DR: Carey TID: [id number]
[2021-06-28] VITALS (7 sets, daily range): BP systolic 125–177; BP diastolic 74–110
[2021-06-28] MEDS: AA 4.25 %/CALCIUM/LYTES/D5W 1,000 ML IV SCH ×2 (01:12→17:10)
[2021-06-28] MEDS: IPRATRPIUM/ALBUTEROL 0.5/2.5MG 3 ML NEBU. NEB SCH ×4 (03:37→20:41)
[2021-06-28] MEDS: METOPROLOL TARTRATE 5 MG/5 ML VIAL. IV PRN ×2 (05:58→12:05)
[2021-06-28] MEDS: INSULIN LISPRO 300 UNITS/3 ML VIAL. SQ SCH ×4 (08:00→20:22)
[2021-06-28] MEDS: INSULIN GLARGINE SYRINGE. SQ SCH ×2 (08:45→20:22)
[2021-06-28] MEDS: hydrALAZINE 20 MG/ML VIAL. IV PRN (11:11)
[2021-06-28] MEDS ORDERED: METOPROLOL TARTRATE 5 MG/5 ML VIAL. IV ONE (14:30)
[2021-06-28 15:48] LABS: BASO % 0 % (0-3); EOS % 0 % (0-3); HEMATOCRIT 37.5 % (36.0-47.0); HEMOGLOBIN 12.2 g/dL (12.0-15.5); LYMPH # 1.5 x10^3/uL (1.0-4.8); LYMPH % 10 % (24-48); MEAN CORPUSCULAR HEMOGLOBIN 29 pg (25-35); MEAN CORPUSCULAR HGB CONC 33 g/dL (31-37); MEAN CORPUSCULAR VOLUME 90 fL (79-100); MONO # 1.3 x10^3/uL (0.0-1.1); MONO % 9 % (0-9); NEUT # 11.7 x10^3uL (1.8-7.7); NEUT % 81 % (31-73); PLATELET COUNT 317 x10^3/uL (140-400); RED BLOOD COUNT 4.18 x10^6/uL (3.50-5.40); RED CELL DISTRIBUTION WIDTH 14.1 % (11.5-14.5); WHITE BLOOD COUNT 14.6 x10^3/uL (4.0-11.0)
[2021-06-28 15:55] LABS: ALBUMIN/GLOBULIN RATIO 0.8 (1.0-1.7); CALCIUM 9.1 mg/dL (8.5-10.1); CREATININE 4.9 mg/dL (0.6-1.0); GFR 8.8; POTASSIUM 3.4 mmol/L (3.5-5.1); TOTAL BILIRUBIN 0.3 mg/dL (0.2-1.0); TOTAL PROTEIN 6.8 g/dL (6.4-8.2)
[2021-06-28 16:11] LABS: CLARITY,URINE CLEAR; COLOR,URINE YELLOW; GLUCOSE,URINE >=1000 mg/dL (NEG)
[2021-06-28 16:12] LABS: BACTERIA,URINE MANY /HPF (0-FEW); BILIRUBIN,URINE NEG (NEG); NITRITE,URINE NEG (NEG); SQUAMOUS EPITHELIAL CELL,UR FEW /LPF; UROBILINOGEN,URINE 0.2 mg/dL (0.2 mg/dL); WBC,URINE 20-40 /HPF (0-4)
[2021-06-28 16:23] LABS: BARBITURATES NEG (NEG); BENZODIAZEPINES NEG (NEG); CANNABINOIDS NEG (NEG); COCAINE NEG (NEG); METHADONE NEG (NEG); OPIATES POS (NEG); PHENCYCLIDINE NEG (NEG)
[2021-06-28 16:29] LABS: AMPHETAMINE/METHAMPHETAMINE NEG (NEG)
[2021-06-28] MEDS ORDERED: IV NORMAL SALINE 1,000ML 1,000 ML IV SCH (17:30)
[2021-06-28] MEDS: ENOXAPARIN 30 MG/0.3 ML SYRINGE. SQ SCH (17:43)
[2021-06-28] MEDS ORDERED: IV NORMAL SALINE 1,000ML 1,000 ML IV ONE (18:00)
--- NOTE | 2021-06-28 18:34 | RAD ---
Exam: CT of abdomen and pelvis without contrast INDICATION: Abdominal pain TECHNIQUE: Sequential axial images through the abdomen and pelvis obtained without IV contrast. Sagit amy and coronal reformatted images were reconstructed from the axial data and reviewed. Exposure: One or more of the following in the visualized dose reduction techniques were utilized for this examination: 1. Automated exposure control 2. Adjustment of the MA and/or KV according to patient size 3. Use of iterative of reconstructive technique Comparisons: 08/17/2020 FINDINGS: Heart size is normal. No pericardial effusion. Trace right pleural effusion. Visualized lung bases ar e otherwise clear. Evaluation of solid organs is limited secondary to noncontrast technique. Liver, spleen, pancreas and adrenals are unremarkable. Gallbladder is absent. Moderate-sized bilateral hydronephrosis. No renal or ureteral calculi are identified. Bladder is markedly dilated and appears thin-walled. Uterus is absent. No abnormal adnexal mass. Large and small bowel are unremarkable. Appendix is nonidentified. No free intra-abdominal air or flu id. No obstruction. Abdominal aorta has normal course and caliber. No enlarged intra-abdominal lymph nodes are identified. Posterior lumbar fusion hardware at L5-S1. There is a broad-based disc bulge at L2-L3 causing at leas t moderate spinal canal stenosis. IMPRESSION: 1. Markedly dilated bladder and moderate bilateral hydronephrosis. Findings are favored to represent sequela of bladder outlet obstruction. 2. Postoperative changes of hysterectomy. 3. Spondylotic changes in the lumbar spine as described above. Electronically signed by: Val Blanco MD (06/28/2021 6:31 PM) [facility]
--- NOTE | 2021-06-28 18:49 | NUR ---
Nursing shift note: Patient's mentation improved in the afternoon; alert and oriented x 1, able to follow one -step command. Patient began responding verbally in the afternoon. Patient refused to eat breakfast and lunch; at dinner. Patient complained of pain and guarding her low abdomen, unable to quantify pain but able to eat and speak. UA done, Brizuela inserted, and IV normal saline bolus given per MD's order. Patient stated having no abd pain after Brizuela insertion. Will continue to monitor.
[2021-06-28] MEDS ORDERED: INSULIN LISPRO 300 UNITS/3 ML VIAL. SQ ONE (20:15)
[2021-06-28] MEDS: PHENAZOPYRIDINE 100 MG TABLET. PO PRN (20:20)
[2021-06-28] MEDS: IV NORMAL SALINE 1,000ML 1,000 ML IV SCH (21:30)
[2021-06-29] MEDS: AA 4.25 %/CALCIUM/LYTES/D5W 1,000 ML IV SCH (05:28)
[2021-06-29] MEDS: PHENAZOPYRIDINE 100 MG TABLET. PO PRN (05:28)
--- NOTE | 2021-06-29 05:37 | PN ---
DATE: 06/28/2021 SUBJECTIVE: A 70-year-old female in with change in mental status, metabolic encephalopathy. The patient is resting fairly comfortably, not quite as agitated as she has been, although she does appear to be somewhat uncomfortable. The patient's abdomen has become somewhat distended. She points to it. We will go ahead and get a CT scan as urgently as possible. OBJECTIVE: VITAL SIGNS: Blood pressure 135/90, respiratory rate 20, pulse 110, afebrile, 98 on room air. LABORATORY DATA: Do show an elevated white count of 14,000. Otherwise, sodium and potassium 142 and 3.4, BUN, creatinine 4.9 and 8.8 which is a drastic change (____). IMPRESSION: 1. Acute renal failure. 2. Abdominal pain. PLAN: As above. GABRIELA DR: Carey TID: [id number]
--- NOTE | 2021-06-29 05:38 | NUR ---
Nursing note: Spoke to Dr. Fregoso regarding pt c/o pain in lower abdomen, CT results. Pt has probable bladder outlet obstruction per CT scan, pyridium ordered for lower abd pain. Clarified orders for NS infusion, and obtained orders for supplemental insulin after BGL 374. Pt much more alert than 06/27 noc shift, although stated it was 1969 and she was in worship. Pt alert enough to speak to Vargas on phone as well as drink approx. 48oz water and eat a snack independently.
[2021-06-29 06:11] VITALS: BP 153/84
[2021-06-29] MEDS: IPRATRPIUM/ALBUTEROL 0.5/2.5MG 3 ML NEBU. NEB SCH ×4 (06:37→18:59)
[2021-06-29 08:01] LABS: BASO % 0 % (0-3); EOS % 0 % (0-3); HEMATOCRIT 32.5 % (36.0-47.0); HEMOGLOBIN 10.7 g/dL (12.0-15.5); LYMPH # 1.3 x10^3/uL (1.0-4.8); LYMPH % 13 % (24-48); MEAN CORPUSCULAR HEMOGLOBIN 30 pg (25-35); MEAN CORPUSCULAR HGB CONC 33 g/dL (31-37); MEAN CORPUSCULAR VOLUME 89 fL (79-100); MONO # 0.9 x10^3/uL (0.0-1.1); MONO % 9 % (0-9); NEUT # 7.6 x10^3uL (1.8-7.7); NEUT % 78 % (31-73); PLATELET COUNT 234 x10^3/uL (140-400); RED BLOOD COUNT 3.63 x10^6/uL (3.50-5.40); RED CELL DISTRIBUTION WIDTH 13.8 % (11.5-14.5); WHITE BLOOD COUNT 9.7 x10^3/uL (4.0-11.0)
[2021-06-29 08:08] LABS: CALCIUM 8.3 mg/dL (8.5-10.1); CREATININE 2.1 mg/dL (0.6-1.0); GFR 23.4
[2021-06-29] MEDS: INSULIN LISPRO 300 UNITS/3 ML VIAL. SQ SCH ×4 (09:19→20:58)
[2021-06-29] MEDS: INSULIN GLARGINE SYRINGE. SQ SCH ×2 (09:25→20:57)
[2021-06-29] MEDS: METOPROLOL TARTRATE 5 MG/5 ML VIAL. IV PRN (09:37)
--- NOTE | 2021-06-29 10:36 | NUR ---
DISCHARGE NOTE PT IV D/C AND ASSESSMENT COMPLETE. PT EDUCATION COMPLETE ON DISCHARGE INSTRUCTIONS AND MEDICATION. PT STATES SHE IS READY TO GO HOME AND FEELS MUCH BETTER. PT TAKEN TO MAIN ENTRANCE VIA WHEELCHAIR WITH PERSONAL BELONGINGS AND DISCHARGE PACKET IN HAND. PT PICKED UP BY FRIEND. Addendum: 06/29/21 at 1041 by CECILIA COSTELLO RN RN WRONG PT NOTE. DISREGARD.
[2021-06-29 10:50] VITALS: BP 163/77
[2021-06-29] MEDS: IV NORMAL SALINE 1,000ML 1,000 ML IV SCH (10:50)
--- NOTE | 2021-06-29 10:52 | NUR ---
NURSE NOTE PT A&OX1 THIS MORNING DURING MEDS AND ASSESSMENT. SHE WAS ABLE TO TELL ME HER NAME AND BUT CONFUSED ON SITUATION AND TIME. PT STATED SHE WAS NOT IN PAIN DURING MORNING ROUNDS. PT GIVEN PRN METOPROLOL FOR TACHYCARDIA IN 120S. PT BPS HAVE BEEN ELEVATED. THIS RN GIVING PRN HYDRALAZINE. WILL CONTINUE TO MONITOR. ALL NEEDS MET AT THIS TIME.
[2021-06-29] MEDS: hydrALAZINE 20 MG/ML VIAL. IV PRN (11:00)
--- NOTE | 2021-06-29 11:47 | NUR ---
NURSE NOTE PT HEART RATE STILL IN 120S 1 HOUR AFTER 5 OF METOPROLOL. CARVEDILOL GIVEN AND RESTARTED PER MD. WILL CONTINUE TO MONITOR.
[2021-06-29] MEDS: CARVEDILOL 6.25 MG TABLET PO SCH ×2 (11:59→16:32)
[2021-06-29 15:07] VITALS: BP 103/66
[2021-06-29] MEDS ORDERED: POTASSIUM CHLORIDE 20 MEQ TABLET.ER. PO ONE (15:30)
[2021-06-29] MEDS: ENOXAPARIN 30 MG/0.3 ML SYRINGE. SQ SCH (17:28)
[2021-06-29] MEDS: ACETAMINOPHEN 325 MG TABLET PO PRN ×2 (17:29→21:09)
[2021-06-29] MEDS ORDERED: AA 4.25 %/CALCIUM/LYTES/D5W 2,000 ML IV SCH (18:00)
--- NOTE | 2021-06-29 20:09 | PN ---
SUBJECTIVE: A 70-year-old female came in with metabolic encephalopathy, was completely unconscious. This morning, she is more awake. She is still very confused, does not know exactly where she is, but at least able to answer questions. Eyes wide open and seems to be under better control. Restarted her on oral meds, taken off IV parenteral nutrition and seems to be making relatively good progress overall. OBJECTIVE: VITAL SIGNS: Blood pressure 163/77, respirations 18, pulse 108, temperature 98.6, 92 room air. LUNGS: Diminished. CARDIOVASCULAR: Regular sinus rhythm. ABDOMEN: Soft, nontender. EXTREMITIES: No clubbing, cyanosis, nor edema. NEUROLOGIC: The patient seems to be more alert, but still confused, disoriented x2. We will continue to monitor her accordingly and make further evaluation on her as indicated. IMPRESSION: Metabolic encephalopathy, type 2 diabetes, poorly controlled, hypertensive urgency, noncompliance, anemia of chronic disease, moderate protein malnutrition, hypokalemia, essential hypertension, change in mental status, sinus tachycardia, hypertensive urgency. SVEN DR: Carey TID: [id number]
[2021-06-29 20:10] VITALS: BP 105/65
[2021-06-30] MEDS: IV NORMAL SALINE 1,000ML 1,000 ML IV SCH ×2 (00:10→13:05)
[2021-06-30] MEDS: IPRATRPIUM/ALBUTEROL 0.5/2.5MG 3 ML NEBU. NEB SCH ×4 (04:55→21:38)
[2021-06-30 05:36] VITALS: BP 157/76
[2021-06-30 06:23] LABS: CALCIUM 8.3 mg/dL (8.5-10.1); CREATININE 1.2 mg/dL (0.6-1.0); GFR 44.5; POTASSIUM 3.5 mmol/L (3.5-5.1)
[2021-06-30] MEDS: INSULIN LISPRO 300 UNITS/3 ML VIAL. SQ SCH ×4 (07:30→21:00)
[2021-06-30] MEDS: POTASSIUM CHLORIDE 20 MEQ TABLET.ER. PO SCH ×2 (09:21→21:26)
[2021-06-30] MEDS: CARVEDILOL 6.25 MG TABLET PO SCH ×2 (09:22→16:50)
[2021-06-30] MEDS: INSULIN GLARGINE SYRINGE. SQ SCH ×2 (09:27→21:43)
[2021-06-30 10:15] VITALS: BP 156/94
[2021-06-30] MEDS: ACETAMINOPHEN 325 MG TABLET PO PRN ×2 (10:41→16:59)
[2021-06-30 15:32] VITALS: BP 163/92
[2021-06-30] MEDS: ENOXAPARIN 30 MG/0.3 ML SYRINGE. SQ SCH (16:50)
[2021-06-30 19:50] VITALS: BP 157/79
[2021-06-30 23:28] VITALS: BP 171/96
[2021-06-30] MEDS: hydrALAZINE 20 MG/ML VIAL. IV PRN (23:50)
--- NOTE | 2021-07-01 01:38 | PN ---
SUBJECTIVE: A 70-year-old female came in with a severe metabolic encephalopathy, basically was unresponsive, has turned around. The patient seems to be more and more alert, talkative, still a little bit confused at times, but much improved from where she was. OBJECTIVE: VITAL SIGNS: Blood pressure 156/94, respiration 18, pulse 93. Slight temperature of 99 degrees. She has been changed over on her IV antibiotic therapy as her urine culture demonstrated Staphylococcus bug. GENERAL: The patient's, otherwise, blood sugars are staying down and was too low, we have to adjust her insulin and decrease that. Otherwise, the patient seems to be making fair progress overall, as mentioned. LUNGS: Clear. CARDIOVASCULAR: Stable. ABDOMEN: Soft, nontender. EXTREMITIES: No clubbing, cyanosis or edema. NEUROLOGIC: Intact. GENITOURINARY: Kidney function much improved, back down to normal as well. IMPRESSION: Metabolic encephalopathy; urinary tract infection; acute renal failure; dehydration, type 2 diabetes, poorly controlled; noncompliance. PLAN: As above. Continue with present regimen and hopefully ready for discharge here soon. DAISY/OBED/VINICIO DR: Carey TID: [id number]
[2021-07-01] MEDS: ACETAMINOPHEN 325 MG TABLET PO PRN ×2 (02:09→07:45)
[2021-07-01] MEDS: IV NORMAL SALINE 1,000ML 1,000 ML IV SCH (03:38)
[2021-07-01] MEDS: IPRATRPIUM/ALBUTEROL 0.5/2.5MG 3 ML NEBU. NEB SCH ×2 (05:56→09:47)
[2021-07-01 06:21] LABS: CREATININE 0.9 mg/dL (0.6-1.0); GFR 62.1; POTASSIUM 3.5 mmol/L (3.5-5.1)
[2021-07-01 07:03] VITALS: BP 126/56
[2021-07-01] MEDS: INSULIN LISPRO 300 UNITS/3 ML VIAL. SQ SCH (07:30)
[2021-07-01] MEDS: CARVEDILOL 6.25 MG TABLET PO SCH (07:44)
[2021-07-01] MEDS: POTASSIUM CHLORIDE 20 MEQ TABLET.ER. PO SCH (07:44)
[2021-07-01] MEDS: INSULIN GLARGINE SYRINGE. SQ SCH (09:00)
[2021-07-01 10:18] VITALS: BP 169/70
--- NOTE | 2021-07-01 11:59 | NUR ---
Pt's morning BS 52, she reports feeling "dry" and c/o 8/10 headache. 16 oz of apple juice provided, along with PRN Acetaminophen 325 mg PO with reported effectiveness upon f/u assessment. Appetitie appears adequate, however she does not like the ground sausage. She is for the most part appropriate in her interactions aside from occasional "blowing raspberries" with her mouth at staff. She is compliant with whole medications. IVF infusing per Dr order, dressing to site CDI. she continues on ABT and is absent of adverse reactions. Plan of care continues, will pass to next shift.
[2021-07-01] MEDS ORDERED: POTA20TA4 PO (13:36)
[2021-07-01] MEDS ORDERED: METO-239 PO (13:36)
--- NOTE | 2021-07-01 13:40 | DISCH ---
HOME HEALTH DISCHARGE/MEDS DISCHARGE INFORMATION: Discharge Date: Jul 01, 2021 Final Diagnosis: Problems Medical Problems: (1) Metabolic encephalopathy Status: Acute (2) Hyperglycemia Status: Acute (3) Vomiting Status: Acute Condition on Discharge: Stable CODE STATUS: Code Status: Full HOME HEALTH: Face to Face: I certify this patient is under my care and that I, or a nurse practitioner or physician's physician assistant certified working with me, had a face to face encounter that meets the physician face to face encounter requirements with this patient on July 01, 2021. Medical Condition(s): DM, HTN Nursing Home For: Assess Cardiopulm Status, Assess & Educate Safety, Assess/Skilled Observatio, Diabetic Care, Medication Management Physical Therapy For: Evalulation/Treatment Homebound Status Met By: Extreme weakness w/ amb. POST DISCHARGE ORDERS: Activity Instructions for Disc: Activity as tolerated Weight Bearing Status after Di: No restrictions DIET AFTER DISCHARGE: ADA CERTIFICATION STATEMENT: Certification Statement: Based on the above finding, I certify that this patient is confined to the home and needs intermittent shelter care, physical therapy and/or speech therapy, or continues to need occupational therapy.~ This patient is under my care, and I have initiated the establishment of the plan of care.~ This patient will be followed by myself or a community physician who will periodically review the plan of care. DISCHARGE MEDICATIONS: Home Meds Active Scripts Ondansetron (ONDANSETRON ODT) 4 Mg Tab.rapdis, 1 TAB PO PRN Q6-8HRS PRN for VOMITING, #16 TAB Prov:DAVE MCGINNIS DO 06/25/21 Mag Hydrox/Al Hydrox/Simeth (MAG-AL PLUS XS SUSPENSION) 30 Ml Oral.susp, 30 ML PO PRN Q2HR PRN for DYSPEPSIA, #1 LIQUID Use as directed Prov:PUJA WOLFF MD 09/02/20 Lactobacillus Rhamnosus Gg (CULTURELLE) 1 Each Cap.sprink, 1 CAP PO BID for probiotic for 30 Days, #60 CAP 2 Refills Prov:PUJA WOLFF MD 09/02/20 Dexamethasone (Decadron) 4 Mg Tablet, 4 MG PO DAILY for inflammation for 10 Days, #10 TAB Prov:PUJA WOLFF MD 09/02/20 Benzonatate (BENZONATATE) 100 Mg Capsule, 200 MG PO PRN TID PRN for cough, #45 CAP 1 Refill Prov:PUJA WOLFF MD 09/02/20 Reported Medications Losartan Potassium (COZAAR ) 25 Mg Tablet, 25 MG PO DAILY for HIGH BLOOD PRESSURE LAST DOSE GIVEN: DATE:Today TIME:AM NEXT DOSE DUE: DATE:Tomorrow TIME:AM 08/30/20 Carvedilol (COREG ) 6.25 Mg Tablet, 3.125 MG PO BIDWMEALS for HIGH BLOOD PRESSURE LAST DOSE GIVEN: DATE:TOday TIME:AM NEXT DOSE DUE: DATE:Tonight TIME:dinner 08/30/20 Fenofibrate Nanocrystallized (FENOFIBRATE) 145 Mg Tablet, 1 TAB PO DAILY for HIGH CHOLESTEROL LAST DOSE GIVEN: DATE:TOday TIME:AM NEXT DOSE DUE: DATE:TOmorrow TIME:AM 08/30/20 Albuterol Sulfate (VENTOLIN HFA INHALER) 18 Gm Hfa.aer.ad, 1 PUFF IH PRN Q4HRS PRN for FOR ASTHMA LAST DOSE GIVEN: NOt given today NEXT DOSE DUE: DATE:Today TIME:when and if needed 08/30/20 Ipratropium/Albuterol Sulfate (DUONEB 0.5-3(2.5) MG/3 ML) 3 Ml Ampul.neb, 3 ML NEB QID for SHORTNESS OF BREATH LAST DOSE GIVEN: DATE:Today TIME:AM NEXT DOSE DUE: DATE:Today TIME:Afternoon 08/30/20 Insulin Aspart (NOVOLOG) 100 Unit/1 Ml Vial, 12-20 UNIT SQ QIDACHS for HIGH BLOOD SUGAR-DIABETES SLIDING SCALE: FSBS 151-200: 12 UNITS 201-250: 14 UNITS 251-300: 16 UNITS 301-350: 18 UNITS 351-400: 20 UNITS 08/16/20 Acetaminophen (TYLENOL) 325 Mg Tablet, 1 TAB PO TID PRN PRN for PAIN LAST DOSE GIVEN: Not given today NEXT DOSE DUE: DATE:Today TIME:When and if needed 12/09/19 Furosemide (FUROSEMIDE) 40 Mg Tablet, 1 TAB PO DAILY for FLUID RETENTION LAST DOSE GIVEN: DATE:Today TIME:AM NEXT DOSE DUE: DATE:Tomorrow TIME:AM 12/09/19 Insulin Degludec (Tresiba) 100 Unit/1 Ml Vial, 30 UNIT SQ DAILY for HIGH BLOOD SUGAR-DIABETS LAST DOSE GIVEN: DATE:Today TIME:AM NEXT DOSE DUE: DATE:Tomorrow TIME:AM 12/09/19 Gabapentin (Gabapentin) 300 Mg Capsule, 300 MG PO BID for NERVE PAIN LAST DOSE GIVEN: DATE: Today TIME: AM NEXT DOSE DUE: DATE: TODAY TIME: AT BEDTIME 07/12/17 PUJA WOLFF MD Jul 01, 2021 13:39
--- NOTE | 2021-07-01 14:24 | NUR ---
discharge note Pt discharged at 1400 via wheel chair accompanied by staff pt given written and verbal instructions with verbal statement of understanding received.
--- NOTE | 2021-07-21 03:29 | DS ---
DATE OF DISCHARGE: 07/01/2021 HOSPITAL COURSE: This 70-year-old female came in with altered mental status. The patient had metabolic encephalopathy. Her blood sugars have been out of control for several weeks and apparently had not been filling her prescriptions from her pharmacy, so it was noted that the patient was noncompliant. She is a very brittle diabetic. In any case, the patient was extremely somnolent and at the same time the patient in turn made good progress, but was transferred initially from the Emergency Room up to the floor. She received IV fluids, aggressive care of her blood sugars. The patient made excellent progress during the rest of her hospitalization. SARS was negative throughout. The patient had significant testing done. Her urine culture did grow out Staphylococcus simulans and the patient in turn had an abdominal CT scan of her abdomen and pelvis, showed dilated bladder. Brizuela catheter was placed and there was moderate bilateral hydronephrosis, hysterectomy and of course degenerative changes. She had CT scans of her head. The patient's labs demonstrated the control of her blood sugar was very nicely done. She also had low albumin. The patient also had acute on top of chronic renal failure. In any case, the patient made good progress and finally came out of her encephalopathy and her change in mental status. The patient made good progress and actually was discharged home. IMPRESSION: Metabolic encephalopathy; sepsis; type 2 diabetes, poorly controlled, noncompliance; acute on top of chronic renal failure; anemia of chronic disease; moderate protein malnutrition; hypokalemia; essential hypertension; sinus tachycardia; and hypertensive urgency. The patient ____ and be on a diabetic diet. Will follow up accordingly as an outpatient. DAISY/ENO/CRISTO DR: DAISY/nitesh TID: [id number]
== END 2021-07-01 14:37 | disposition home or self-care (01) | DRG 871 ==
LOC: ER 03:53 → ER HOLD 09:23 → 1 SOUTH 15:27
PROVIDERS: ADMIT Family Medicine; ATTEND Family Medicine
DX: A41.9 Sepsis, unspecified organism (principal); N17.0 Acute kidney failure with tubular necrosis; G93.41 Metabolic encephalopathy; E44.0 Moderate protein-calorie malnutrition; N39.0 Urinary tract infection, site not specified; I13.0 Hypertensive heart and chronic kidney disease with heart failure and stage 1 through stage 4 chronic kidney disease, or unspecified chronic kidney disease; I16.0 Hypertensive urgency; E03.9 Hypothyroidism, unspecified; E11.65 Type 2 diabetes mellitus with hyperglycemia; E78.00 Pure hypercholesterolemia, unspecified; E86.0 Dehydration; E87.6 Hypokalemia; G20 Parkinson's disease; I25.10 Atherosclerotic heart disease of native coronary artery without angina pectoris; I25.2 Old myocardial infarction; I48.91 Unspecified atrial fibrillation; J44.9 Chronic obstructive pulmonary disease, unspecified; I50.9 Heart failure, unspecified; M06.9 Rheumatoid arthritis, unspecified; Z85.41 Personal history of malignant neoplasm of cervix uteri; Z85.42 Personal history of malignant neoplasm of other parts of uterus; Z86.73 Personal history of transient ischemic attack (TIA), and cerebral infarction without residual deficits; Z90.710 Acquired absence of both cervix and uterus; Z91.14 Patient's other noncompliance with medication regimen; Z91.19 Patient's noncompliance with other medical treatment and regimen; Z95.5 Presence of coronary angioplasty implant and graft; F32.A Depression, unspecified; F41.9 Anxiety disorder, unspecified; Z90.49 Acquired absence of other specified parts of digestive tract; Z88.0 Allergy status to penicillin; Z88.2 Allergy status to sulfonamides; Z88.8 Allergy status to other drugs, medicaments and biological substances; Z20.822 Contact with and (suspected) exposure to COVID-19; E11.22 Type 2 diabetes mellitus with diabetic chronic kidney disease; D63.1 Anemia in chronic kidney disease; N18.9 Chronic kidney disease, unspecified
CPT/HCPCS: 36415; 70450; 71045; 74176; 80048; 80053; 80307; 81001; 82010; 82140; 82550; 82947; 83605; 84443; 84484; 85007; 85025; 85379; 87040; 87077; 87086; 87804; 93005; 94640; 96374; 96375; 96376; J0360; J0696; J1650; J1815; J1956; J2405; J2765; J3490; J8540; U0003; 97110; 97116; 97530; 99285-25; J7030